=== PATIENT | male | born 1955 | race Caucasian/White ===

== ENCOUNTER 2020-09-23 08:01 | Outpatient (REF) | payer MEDICARE, SELFPAY ==
--- NOTE | ~2020-09-23 | XR_ITS ---
EXAMINATION: XR CHEST CLINICAL INFORMATION: Edema and hypertension COMPARISON: None TECHNIQUE: 2 views of the chest were obtained. FINDINGS: The cardiac and mediastinal contours are normal. The lungs are clear. There is no pleural effusion or pneumothorax. There are degenerative changes and curvature of the midthoracic spine to the right. There are old right upper rib fractures. XR/XR chest 2V IMPRESSION: No evidence for acute disease in the chest.
[2020-09-23 11:20] LABS: MANUAL DIFF FLAG NO
[2020-09-23 11:28] LABS: Basophils Percent Auto 0.4 % (0-2); Eosinophils Absolute Auto 0.3 X10*3/uL (0.0-0.4); Eosinophils Percent Auto 2.9 % (0-4); Hematocrit 46.4 % (42-52); Hemoglobin 15.6 g/dl (14.0-18.0); Imm Gran Abs Auto 0.04 X10*3/uL (0.00-0.03); Imm Gran Pct Auto 0.4 % (0.0-0.4); Lymphocytes Absolute Auto 1.8 X10*3/uL (1.2-4.9); Lymphocytes Percent Auto 17.9 % (20-40); Mean Corpuscular HGB Conc 33.6 g/dl (31.0-36.0); Mean Corpuscular Hemoglobin 28.5 pg (27.0-33.0); Mean Corpuscular Volume 84.7 fL (80-98); Mean Platelet Volume 10.1 fL (9.4-12.4); Monocytes Absolute Auto 0.9 X10*3/uL (0.1-1.2); Monocytes Percent Auto 8.6 % (2-11); Neutrophils Percent Auto 69.8 % (45-73); Platelet Count 266 X10*3/uL (160-400); Red Blood Count 5.48 X10*6/uL (4.60-5.80); Red Cell Distribution Width 13.2 % (11.0-16.0); White Blood Count 10.1 X10*3/uL (4.8-10.8)
[2020-09-23 11:37] LABS: Estimated Average Glucose 180 mg/dL; Hemoglobin A1c % 7.9 %
[2020-09-23 11:41] LABS: Glucose Urine UA NEG (NEG); Leukocyte Esterase Urine NEG (NEG); Nitrite Urine NEG (NEG); PH 7.5 (5.0-8.0); Specific Gravity - Urine 1.015 (1.005-1.025); Urine Blood NEG (NEG); Urine Ketones NEG (NEG); Urine Protein NEG (NEG-TRACE)
[2020-09-23 11:51] LABS: B Type Natriuretic Peptide 126 pg/mL (<100)
[2020-09-23 11:53] LABS: Appearance Urine CLEAR; Color Urine STRAW
[2020-09-23 12:01] LABS: Alanine Aminotransferase 22 U/L (0-40); Albumin Level 4.2 g/dL (3.5-5.0); Alkaline Phosphatase 95 U/L (39-117); Anion Gap 16 (12-20); Aspartate Amino Transferase 17 U/L (5-37); Blood Urea Nitrogen 29 mg/dL (9-16); Calcium 9.5 mg/dL (8.4-10.2); Carbon Dioxide 29 mmol/L (22-29); Chloride 95 mmol/L (96-108); Estimated Glomerular Filt Rate > 60; Glucose Random 154 mg/dL (60-115); Potassium 4.4 mmol/L (3.3-5.1); Sodium 136 mmol/L (135-145); Total Protein 7.5 g/dL (6.5-8.0)
[2020-09-23 12:07] LABS: Thyroid Stimulating Hormone 3.33 uIU/mL (0.32-4.0)
[2020-09-23 12:23] LABS: Creatinine Urine 15.04 mg/dL
== END 2020-09-23 08:02 | disposition home or self-care (01) ==
LOC: HO.HMGCX 08:01
PROVIDERS: PCP Internal Medicine; Visit Provider Internal Medicine
DX: R60.0 Localized edema (principal); I10 Essential (primary) hypertension; E78.00 Pure hypercholesterolemia, unspecified; E11.9 Type 2 diabetes mellitus without complications
CPT/HCPCS: 36415; 71046; 80053; 81003; 82043; 83036; 83880; 84443; 85025

== ENCOUNTER → 2020-10-04 07:58 | Outpatient (REF) | payer MEDICARE, SELFPAY ==
--- NOTE | 2020-10-04 08:02 | CA_ITS ---
Transthoracic Echocardiogram Patient (Last, First, Middle): Kali Garza, Gender: Male Date of : 1955 Age: 65 Procedure Date: 10/04/2020 Procedure Type: Transthoracic Echocardiogram Location: OP Height: 175.26 cm Weight: 116.12 kg BSA: 2.29 m2 Heart Rate: bpm BP: 120 / 70 mmHg Health Outreach Worker: AROLDO Referring MD: Kip Jimenez MD DO Symptoms: HTN Conclusions: - 1. Normal LV systolic function with grade 1 diastolic dysfunction 2. Moderately dilated right ventricle with mild systolic dysfunction 3. Mzne-ki-lsyxmzrk aortic stenosis 4. RV systolic pressure may be underestimated on this study 5. No pericardial effusion Findings Left Ventricle Normal left ventricular size, thickness, and systolic function. The visually estimated ejection fraction is between 60-65%. Spectral Doppler is indicative of an impaired relaxation filling pattern. E/E prime ratio is <8, consistent with normal filling pressures. Right Ventricle Moderately increased right ventricular cavity size. There is mildly decreased right ventricular systolic function. Atria The left atrium is normal in size. Interatrial shunt cannot be excluded. The right atrium is mildly dilated. Aortic Valve There is moderate calcification of the aortic valve. There is mild to moderate aortic valve stenosis. There is no aortic valve regurgitation. Mitral Valve There is mild anterior and posterior mitral leaflet thickening. There is trace mitral valve regurgitation. There is no mitral valve stenosis. Pulmonic Valve The pulmonic valve was not well visualized. Tricuspid Valve Likely normal tricuspid valve structure and function. There is mild tricuspid valve regurgitation. Tricuspid regurgitation envelope is inadequate for calculation of right ventricular systolic pressure. The right ventricular systolic pressure is 24 mmHg. Great Vessels All visible segments of the aorta are normal in size. The pulmonary artery was not well visualized. Venous The inferior vena cava is normal in size and collapses greater than 50% with inspiration. Pericardium/Pleural Prominent epicardial adipose tissue noted. Prior Study Comparison No previous study in the last 5 years for comparison Measurements M-Mode Liner Measurements Normals - Women/Men IVSd: 1.46 0.6-0.9/0.6-1.0 cm 2D Linear Measurements IVSd: 1.04 0.6-0.9/0.6-1.0 cm LVIDd: 4.20 3.9-5.3/4.2-5.9 cm LVIDd Index: 1.83 2.4-3.2/2.2-3.1 cm/m2 LVIDs: 2.69 2.0-3.6 cm LVPWd: 0.96 0.7-1.1 cm Ao Root: 3.10 2.1-3.5 cm LA Diam: 3.60 2.7-3.8/3.0-4.0 cm LAIDs Index: 1.57 1.5-2.3 cm/m2 LV Mass: 264.60 67-162/88-224 g LV Mass Index: 115.54 43-95/49-115 g/m2 LVOT Diam: 2.10 3.0+(-)1.3 cm 2D Systolic Function EF 4C: 79.90 >55% Mitral Valve MV Pk E: 0.62 MV PK A: 1.05 MV Decel Time: 152.00 E/A: 0.60 E'Lateral: 8.05 E'Medial: 4.57 E/E' Med: 13.70 E/E' Lat: 7.80 PHT: 45.00 MVA PHT: 4.89 Decel Davison: 4.10 Aortic Valve AoV Pk Jhonathan: 2.79 AoV Mn Jhonathan: 1.99 AoV VTI: 0.58 AoV Pk Grad: 31.00 Aov Mn Grad: 18.00 JESUS Cont.VTI: 1.62 LVOT LVOT Pk Jhonathan: 1.22 LVOT Mn Jhonathan: 0.87 LVOT VTI: 0.27 LVOT Pk Grad: 6.00 LVOT Mn Grad: 3.00 LVOT Diam: 2.10 LVOT Area: 3.46 Diastolic Function MV Pk E: 0.62 MV Pk A: 1.05 E/A: 0.60 E'Medial: 4.57 E/E' Med: 13.70 E' Laterial: 8.05 E/E' Lat: 7.80 Tricuspid Valve TR Pk Jhonathan: 2.32 TR Pk Grad: 21.00 RA Press: 3.00 RVSP: 24.00 Great Vessels Aorta Ao Root-2D: 3.10 2.0-3.7 cm Ao Asc: 3.50 2.1-3.4 cm Updated in Other Vendor System with Status of Final Jamie Dukes MD electronically signed on 10/04/2020 1:52:05 PM with status of Final
--- NOTE | 2020-10-04 08:02 | ECG_ITS ---
Test Reason : HTN Blood Pressure : / mmHG Vent. Rate : 074 BPM Atrial Rate : 074 BPM P-R Int : 194 ms QRS Dur : 148 ms QT Int : 406 ms P-R-T Axes : 083 -47 016 degrees QTc Int : 450 ms Normal sinus rhythm with sinus arrhythmia Right bundle branch block Left anterior fascicular block Bifascicular block Abnormal ECG When compared with ECG of 01-SEP-2014 14:07, Left anterior fascicular block is now Present Referred By: Kip Jimenez Electronically Signed By:CLARICE CASTRO MD
== END ==
LOC: HO.CARD 07:58
PROVIDERS: PCP Internal Medicine; Visit Provider Internal Medicine
DX: R60.0 Localized edema (principal); I10 Essential (primary) hypertension
CPT/HCPCS: 93005; 93306; Q9957

== ENCOUNTER → 2020-10-07 14:14 | Outpatient (BNVA) | payer MEDICARE, SELFPAY | PROVIDERS: PCP Internal Medicine; Visit Provider Internal Medicine Cardiovascular Disease | DX: R06.00 Dyspnea, unspecified (principal); I35.0 Nonrheumatic aortic (valve) stenosis; I51.7 Cardiomegaly | CPT/HCPCS: 99202 ==

== ENCOUNTER → 2020-10-18 09:38 | Outpatient (REF) | payer MEDICARE, SELFPAY ==
--- NOTE | ~2020-10-18 | NM_ITS ---
Lexiscan Myocardial perfusion study Indication: Shortness of breath, coronary risk factors, assess for ischemia Technique: The patient was brought in for a Lexiscan perfusion study on 10/18/2020 and was injected 0.4 mg of Lexiscan intravenously. Within a minute of this injection 45 mCi of sestamibi was given intravenously. Images were obtained using the SPECT gamma camera interlaced with the gating device. Images were obtained in supine position. Resting perfusion study was performed on 10/20/2020. Patient was administered 45 mCi of sestamibi intravenously at rest. Images were then obtained in supine position. Total DLP 166mGy-cm. Images were processed with the software and compared side to side in short axis, horizontal long axis and vertical long axis views. Findings: Raw acquisition was reviewed. The stress perfusion study showed mildly diminished tracer uptake in the basal inferior wall. With CT attenuation correction, this area still has perfusion defect. The gated study shows normal LV systolic function with calculated LVEF of 62%. LV cavity is normal in size. The gated study shows normal wall thickening and contraction of segments. Resting study shows mildly diminished tracer uptake in the basal inferior wall. Gating at rest reveals normal wall motion with ejection fraction at 57%. The findings are consistent with no reversible defects. Mild fixed defect in the basal inferior wall. NM/NM cardiolite stress test Impression: 1. Myocardial perfusion imaging study shows no evidence of any ischemia. Mild fixed defect in the basal inferior wall, likely from diaphragmatic artifact. 2. Gated LVEF is 62% during stress and 57% during rest. 3. Transient ischemic dilatation not present. EKG component of the test reported separately.
--- NOTE | 2020-10-18 10:00 | CA_ITS ---
Acquisition Time: 2020-10-18 11:21:49 Total Exercise Time: 00:02:00 Test Indications: Dyspnea Medications: ASA ATORVASTATIN FUROSEMIDE LOSARTAN METFORMIN VIT D Protocol: LEXISCAN Max HR: 086 BPM 56% of Pred: 153 BPM Max BP: 132/064 mmHG Max Work Load: 1.0 METS Pharmacological stress test using Lexiscan. Denies anginal sx. EKG with isolated PVC's. Non-diagnostic for ischemia. Nuclear images to follow. Normotensive response to test. Test reviewed with Dr. Dukes. Referred By: Jamie Dukes Overread By:
== END ==
LOC: HO.CARD 09:38
PROVIDERS: Visit Provider Internal Medicine Cardiovascular Disease
DX: R06.00 Dyspnea, unspecified (principal); I10 Essential (primary) hypertension
CPT/HCPCS: 78452; 93016; 93017; 93018; 93350; A9500; J0280; J2785

== ENCOUNTER → 2020-10-26 08:52 | Outpatient (REF) | payer MEDICARE, SELFPAY | LOC: HO.SL 08:52 | PROVIDERS: PCP Internal Medicine; Visit Provider Internal Medicine Cardiovascular Disease | DX: G47.30 Sleep apnea, unspecified (principal); R06.00 Dyspnea, unspecified | CPT/HCPCS: 95806 ==

== ENCOUNTER → 2020-11-08 09:19 | Outpatient (BNVA) | payer MEDICARE, SELFPAY | PROVIDERS: PCP Internal Medicine; Visit Provider Internal Medicine Cardiovascular Disease | DX: I50.810 Right heart failure, unspecified (principal); I51.7 Cardiomegaly; I35.0 Nonrheumatic aortic (valve) stenosis; G47.30 Sleep apnea, unspecified; Z79.899 Other long term (current) drug therapy; Z87.891 Personal history of nicotine dependence | CPT/HCPCS: 99212 ==

== ENCOUNTER 2020-11-18 06:31 | Outpatient (REF) | payer MEDICARE, SELFPAY ==
[2020-11-18 11:50] LABS: B Type Natriuretic Peptide 88 pg/mL (<100)
[2020-11-18 12:18] LABS: Anion Gap 16 (12-20); Blood Urea Nitrogen 44 mg/dL (9-16); Calcium 9.4 mg/dL (8.4-10.2); Carbon Dioxide 29 mmol/L (22-29); Chloride 94 mmol/L (96-108); Estimated Glomerular Filt Rate > 60; Glucose Random 184 mg/dL (60-115); Potassium 4.2 mmol/L (3.3-5.1); Sodium 135 mmol/L (135-145)
== END 2020-11-18 06:32 | disposition home or self-care (01) ==
LOC: HO.HMGCLDS 06:31
PROVIDERS: Visit Provider Internal Medicine Cardiovascular Disease
DX: I50.810 Right heart failure, unspecified (principal)
CPT/HCPCS: 36415; 80048; 83880

== ENCOUNTER → 2020-12-07 20:33 | Outpatient (REF) | payer MEDICARE, SELFPAY | LOC: HO.SL 20:33 | PROVIDERS: PCP Internal Medicine; Visit Provider Psychiatry & Neurology Neurology | DX: G47.33 Obstructive sleep apnea (adult) (pediatric) (principal); R40.0 Somnolence; I10 Essential (primary) hypertension; I35.0 Nonrheumatic aortic (valve) stenosis | CPT/HCPCS: 95811 ==

== ENCOUNTER → 2020-12-23 08:58 | Outpatient (BNVA) | payer MEDICARE, SELFPAY | PROVIDERS: PCP Internal Medicine; Visit Provider Internal Medicine Cardiovascular Disease | DX: I50.810 Right heart failure, unspecified (principal); I35.0 Nonrheumatic aortic (valve) stenosis | CPT/HCPCS: 99212 ==

== ENCOUNTER → 2021-01-17 10:05 | Outpatient (BNVA) | payer MEDICARE, SELFPAY | PROVIDERS: PCP Internal Medicine; Visit Provider Internal Medicine | DX: G47.33 Obstructive sleep apnea (adult) (pediatric) (principal); E66.9 Obesity, unspecified; I50.810 Right heart failure, unspecified; I35.0 Nonrheumatic aortic (valve) stenosis; G47.34 Idiopathic sleep related nonobstructive alveolar hypoventilation | CPT/HCPCS: 99202 ==

== ENCOUNTER 2021-02-15 08:58 | Outpatient (REF) | payer MEDICARE, SELFPAY ==
--- NOTE | 2021-02-15 09:54 | PFT_ITS ---
INDICATION: Dyspnea. SPIROMETRY: The FEV1 to FVC 75% with an FEV1 of 2.1 L, which is 65% predicted, FVC of 2.8, which is 64% predicted. No significant response to bronchodilators noted. Maximum voluntary ventilation 62% predicted. LUNG VOLUMES: Total lung capacity 77% predicted. Expiratory reserve volume of 55% predicted. DIFFUSION CAPACITY: DLCO 36% predicted. COMPARISONS: Not available. INTERPRETATION: No obstructive ventilatory defects identified. No significant response to bronchodilators noted. There is a djbp-xm-proeianz decrease in maximum voluntary ventilation secondary to likely deconditioning. Lung volumes do demonstrate a mild restrictive ventilatory defect, also with a decrease in the expiratory reserve volume, which could be secondary to an elevated BMI, although interstitial lung conditions and/or neuromuscular conditions cannot be ruled out. The patient does have a severe diffusion impairment. Need to consider underlying interstitial lung conditions and/or pulmonary vascular conditions. Clinical correlation warranted. MD KARAN Saleh/JORGE / [phone]
== END 2021-02-15 08:59 | disposition home or self-care (01) ==
LOC: HO.RESP 08:58
PROVIDERS: PCP Internal Medicine; Visit Provider Internal Medicine
DX: G47.33 Obstructive sleep apnea (adult) (pediatric) (principal); G47.34 Idiopathic sleep related nonobstructive alveolar hypoventilation; E66.9 Obesity, unspecified
CPT/HCPCS: 94060; 94727; 94729

== ENCOUNTER → 2021-02-22 08:52 | Outpatient (BNVA) | payer MEDICARE, SELFPAY | PROVIDERS: PCP Internal Medicine; Visit Provider Internal Medicine | DX: G47.33 Obstructive sleep apnea (adult) (pediatric) (principal); G47.34 Idiopathic sleep related nonobstructive alveolar hypoventilation; E66.9 Obesity, unspecified; I50.810 Right heart failure, unspecified | CPT/HCPCS: 99212 ==

== ENCOUNTER → 2021-04-03 08:06 | Outpatient (REF) | payer MEDICARE, SELFPAY ==
--- NOTE | 2021-04-03 08:09 | CA_ITS ---
Transthoracic Echocardiogram Patient (Last, First, Middle): Kali Garza, Gender: Male Date of : 1955 Age: 65 Procedure Date: 04/03/2021 Procedure Type: Transthoracic Echocardiogram Location: OP Height: 175.26 cm Weight: 109.77 kg BSA: 2.24 m2 Heart Rate: bpm BP: 132 / 62 mmHg Tile Professional: Referring MD: Jamie Dukes MD Symptoms: I42.9 - Cardiomyopathy, unspecified Study Quality: Fair ECG Rhythm: Sinus Conclusions: - The left ventricular systolic function is normal. The visually estimated ejection fraction is between 65-70%. - Based on limited visualization of right ventricle, probably mild to moderately enlarged. Findings Procedure Information Contrast agent, definity, is being given per protocol without apparent complications. Left Ventricle Normal left ventricular cavity size. There is normal left ventricular wall thickness. The left ventricular systolic function is normal. The visually estimated ejection fraction is between 65-70%. There is no evidence of regional wall motion abnormalities. Right Ventricle Based on limited visualization of right ventricle, probably mild to moderately enlarged. Prior Study Comparison No significant change compared to prior study dated: 10/04/2020. Measurements 2D Linear Measurements LVIDd: 4.06 3.9-5.3/4.2-5.9 cm LVIDd Index: 1.81 2.4-3.2/2.2-3.1 cm/m2 LVIDs: 2.74 2.0-3.6 cm LVPWd: 0.95 0.7-1.1 cm 2D Systolic Function EF 4C: 46.50 >55% EF 2C: 50.50 >55% EF BiP: 48.00 >55% Mitral Valve MV Pk E: 0.62 MV PK A: 0.94 MV Decel Time: 293.00 E/A: 0.70 E'Lateral: 7.29 E'Medial: 4.03 E/E' Med: 15.40 E/E' Lat: 8.50 Diastolic Function MV Pk E: 0.62 MV Pk A: 0.94 E/A: 0.70 E'Medial: 4.03 E/E' Med: 15.40 E' Laterial: 7.29 E/E' Lat: 8.50 Updated in Other Vendor System with Status of Final Mele Aparicio MD electronically signed on 04/03/2021 12:31:45 PM with status of Final
== END ==
LOC: HO.CARD 08:06
PROVIDERS: Visit Provider Internal Medicine Cardiovascular Disease
DX: I42.9 Cardiomyopathy, unspecified (principal); I51.7 Cardiomegaly
CPT/HCPCS: 93308; Q9957

== ENCOUNTER 2021-04-24 06:19 | Outpatient (REF) | payer MEDICARE, SELFPAY ==
[2021-04-24 11:20] LABS: Appearance Urine CLEAR; Color Urine YELLOW; Glucose Urine UA NEG (NEG); Leukocyte Esterase Urine NEG (NEG); Nitrite Urine NEG (NEG); Urine Blood NEG (NEG); Urine Ketones NEG (NEG); Urine Protein NEG (NEG-TRACE)
[2021-04-24 11:25] LABS: MANUAL DIFF FLAG NO
[2021-04-24 11:35] LABS: Basophils Absolute Auto 0.1 X10*3/uL (0.0-0.2); Basophils Percent Auto 0.5 % (0-2); Eosinophils Absolute Auto 0.2 X10*3/uL (0.0-0.4); Eosinophils Percent Auto 2.4 % (0-4); Hematocrit 38.3 % (42-52); Hemoglobin 13.3 g/dl (14.0-18.0); Imm Gran Abs Auto 0.04 X10*3/uL (0.00-0.03); Imm Gran Pct Auto 0.4 % (0.0-0.4); Lymphocytes Absolute Auto 1.3 X10*3/uL (1.2-4.9); Lymphocytes Percent Auto 13.6 % (20-40); Mean Corpuscular HGB Conc 34.7 g/dl (31.0-36.0); Mean Corpuscular Hemoglobin 30.6 pg (27.0-33.0); Mean Platelet Volume 10.1 fL (9.4-12.4); Monocytes Absolute Auto 0.8 X10*3/uL (0.1-1.2); Monocytes Percent Auto 8.1 % (2-11); Platelet Count 220 X10*3/uL (160-400); Red Blood Count 4.35 X10*6/uL (4.60-5.80); Red Cell Distribution Width 12.8 % (11.0-16.0); White Blood Count 9.4 X10*3/uL (4.8-10.8)
[2021-04-24 11:37] LABS: RBC Urine 0-2 /HPF (0); WBC Urine 0 /HPF (0-4)
[2021-04-24 11:54] LABS: Estimated Average Glucose 134 mg/dL; Hemoglobin A1c % 6.3 %
[2021-04-24 11:59] LABS: Alanine Aminotransferase 22 U/L (0-40); Albumin Level 4.1 g/dL (3.5-5.0); Alkaline Phosphatase 76 U/L (39-117); Anion Gap 17 (12-20); Aspartate Amino Transferase 21 U/L (5-37); Blood Urea Nitrogen 40 mg/dL (9-16); Calcium 9.5 mg/dL (8.4-10.2); Carbon Dioxide 26 mmol/L (22-29); Chloride 98 mmol/L (96-108); Cholesterol 154 mg/dL; Estimated Glomerular Filt Rate 50; Glucose Fasting 120 mg/dL (60-99); HDL Cholesterol 42 mg/dL; LDL Cholesterol Calculated 78 mg/dl; Potassium 4.5 mmol/L (3.3-5.1); Sodium 136 mmol/L (135-145); Total Protein 6.9 g/dL (6.5-8.0); Triglycerides 174 mg/dL
[2021-04-24 12:00] LABS: PSA,Total (Free>4and<10) 0.93 ng/mL (0.00-4.00); Thyroid Stimulating Hormone 2.96 uIU/mL (0.32-4.0); Vitamin D 25-OH Total 40.6 ng/mL (>30)
[2021-04-24 12:12] LABS: Bilirubin Total 0.8 mg/dL (0.0-1.0)
[2021-04-24 12:22] LABS: Creatinine Urine 76.83 mg/dL; Microalbum/Creatinine Ratio Ur 27.3 ug/mg cr
== END 2021-04-24 06:20 | disposition home or self-care (01) ==
LOC: HO.HMGCLDS 06:19
PROVIDERS: PCP Internal Medicine; Visit Provider Internal Medicine
DX: I50.810 Right heart failure, unspecified (principal); I35.0 Nonrheumatic aortic (valve) stenosis; I10 Essential (primary) hypertension; E11.9 Type 2 diabetes mellitus without complications; E78.00 Pure hypercholesterolemia, unspecified; E55.9 Vitamin D deficiency, unspecified; E66.01 Morbid (severe) obesity due to excess calories; Z79.899 Other long term (current) drug therapy; Z79.84 Long term (current) use of oral hypoglycemic drugs
CPT/HCPCS: 36415; 80053; 80061; 81001; 82043; 82306; 83036; 84153; 84443; 85025; 99212

== ENCOUNTER → 2021-05-31 09:13 | Outpatient (BNVA) | payer MEDICARE, SELFPAY | PROVIDERS: PCP Internal Medicine; Visit Provider Internal Medicine | DX: G47.33 Obstructive sleep apnea (adult) (pediatric) (principal); G47.34 Idiopathic sleep related nonobstructive alveolar hypoventilation; E66.9 Obesity, unspecified; Z68.35 Body mass index [BMI] 35.0-35.9, adult | CPT/HCPCS: 99212 ==

== ENCOUNTER → 2021-10-27 08:23 | Outpatient (REF) | payer MEDICARE, SELFPAY ==
--- NOTE | 2021-10-27 08:26 | CA_ITS ---
Transthoracic Echocardiogram Patient (Last, First, Middle): Kali Garza M Gender: Male Date of : 1955 Age: 66 Procedure Date: 10/27/2021 Procedure Type: Transthoracic Echocardiogram Location: OP Height: 175.26 cm Weight: 103.42 kg BSA: 2.18 m2 Heart Rate: bpm BP: 130 / 65 mmHg Children'S Attendant: GERALDO Referring MD: Jamie Dukes MD Symptoms: I50.810 - Right heart failure, unspecified Study Quality: Fair ECG Rhythm: Sinus Conclusions: - The left ventricular systolic function is normal. The calculated ejection fraction is 67% by biplane method. - Jznk-ku-fxizraqz enlargement of the right ventricle. - There is mild to moderate aortic valve stenosis. - Mild pulmonary hypertension is present. - There is mild dilatation of the ascending aorta measuring 4.00 cm. Findings Procedure Information Contrast agent, definity, is being given per protocol without apparent complications. Left Ventricle Normal left ventricular cavity size. There is mildly increased left ventricular wall thickness. The left ventricular systolic function is normal. The calculated ejection fraction is 67% by biplane method. There is no evidence of regional wall motion abnormalities. E/E prime ratio is between 8 and 15 consistent with indeterminate filling pressures. Evidence suggests grade I (mild) diastolic dysfunction. Right Ventricle There is normal right ventricular systolic function. Ntnq-vp-jxgunmjq enlargement of the right ventricle. Atria Both atria are normal in size. Aortic Valve There is moderate calcification of the aortic valve. There is mild to moderate aortic valve stenosis. The peak aortic velocity is 3.29 m/s with a calculated peak gradient of 43 mmHg. The mean gradient is 25 mmHg. The aortic valve area is 1.52 cm2. There is trace (trivial) aortic valve regurgitation. Dimensionless index 0.42. Stroke volume index 55 cc. Mitral Valve The mitral valve appears normal. There is mild mitral annular calcification. There is no mitral valve stenosis. Pulmonic Valve There is mild pulmonic valve regurgitation. Tricuspid Valve Normal tricuspid valve structure. There is trace tricuspid valve regurgitation. The right ventricular systolic pressure is 36 mmHg. Mild pulmonary hypertension is present. Great Vessels There is mild dilatation of the ascending aorta measuring 4.00 cm. Venous The inferior vena cava is dilated and collapses greater than 50% with inspiration. Pericardium/Pleural There is a trivial pericardial effusion. No significant pericardial effusion. Prior Study Comparison Changes noted compared to prior study dated: 10/04/2020. Prior study was limited. On comparison with earlier complete study, progression of aortic valve stenosis. Increase in ascending aortic size. Measurements 2D Linear Measurements IVSd: 1.08 0.6-0.9/0.6-1.0 cm LVIDd: 4.61 3.9-5.3/4.2-5.9 cm LVIDd Index: 2.11 2.4-3.2/2.2-3.1 cm/m2 LVIDs: 3.35 2.0-3.6 cm LVPWd: 1.05 0.7-1.1 cm LA Diam: 4.00 2.7-3.8/3.0-4.0 cm LAIDs Index: 1.83 1.5-2.3 cm/m2 LV Mass: 216.54 67-162/88-224 g LV Mass Index: 99.33 43-95/49-115 g/m2 LVOT Diam: 2.10 3.0+(-)1.3 cm 2D Systolic Function EF 4C: 65.40 >55% EF 2C: 70.30 >55% EF BiP: 67.00 >55% Mitral Valve MV Pk E: 0.67 MV PK A: 1.30 MV Decel Time: 330.00 E/A: 0.50 E'Lateral: 7.94 E'Medial: 4.79 E/E' Med: 13.90 E/E' Lat: 8.40 PHT: 97.00 MVA PHT: 2.27 Decel Hamblen: 2.02 Aortic Valve AoV Pk Jhonathan: 3.29 AoV Mn Jhonathan: 2.36 AoV VTI: 0.79 AoV Pk Grad: 43.00 Aov Mn Grad: 25.00 JESUS Cont.VTI: 1.52 LVOT LVOT Pk Jhonathan: 1.39 LVOT Mn Jhonathan: 1.04 LVOT VTI: 0.35 LVOT Pk Grad: 8.00 LVOT Mn Grad: 5.00 LVOT Diam: 2.10 LVOT Area: 3.46 Diastolic Function MV Pk E: 0.67 MV Pk A: 1.30 E/A: 0.50 E'Medial: 4.79 E/E' Med: 13.90 E' Laterial: 7.94 E/E' Lat: 8.40 Right Ventricle TAPSE (mm): 21.00 TVS' Jhonathan: 8.00 Tricuspid Valve TR Pk Jhonathan: 2.65 TR Pk Grad: 28.00 RA Press: 8.00 RVSP: 36.00 Great Vessels Aorta Sinus of Valsalva: 3.80 2.0-3.5 cm Ao Asc: 4.00 2.1-3.4 cm Updated in Other Vendor System with Status of Final Mele Aparicio MD electronically signed on 10/29/2021 12:34:53 PM with status of Final
== END ==
LOC: HO.CARD 08:23
PROVIDERS: PCP Internal Medicine; Visit Provider Internal Medicine Cardiovascular Disease
DX: I50.810 Right heart failure, unspecified (principal)
CPT/HCPCS: 93306; Q9957

== ENCOUNTER → 2021-10-30 08:24 | Outpatient (BNVA) | payer MEDICARE, SELFPAY | PROVIDERS: PCP Internal Medicine; Visit Provider Internal Medicine Cardiovascular Disease | DX: I50.810 Right heart failure, unspecified (principal); I35.0 Nonrheumatic aortic (valve) stenosis | CPT/HCPCS: 99212 ==

== ENCOUNTER → 2021-12-06 08:58 | Outpatient (BNVA) | payer MEDICARE, SELFPAY | PROVIDERS: PCP Internal Medicine; Visit Provider Internal Medicine | DX: G47.33 Obstructive sleep apnea (adult) (pediatric) (principal); G47.36 Sleep related hypoventilation in conditions classified elsewhere; E66.9 Obesity, unspecified; Z68.33 Body mass index [BMI] 33.0-33.9, adult | CPT/HCPCS: 99212 ==

== ENCOUNTER → 2022-04-03 10:07 | Outpatient (BNVA) | payer MEDICARE, SELFPAY | PROVIDERS: PCP Internal Medicine; Visit Provider Internal Medicine | DX: G47.34 Idiopathic sleep related nonobstructive alveolar hypoventilation (principal); G47.33 Obstructive sleep apnea (adult) (pediatric); E66.9 Obesity, unspecified; I50.9 Heart failure, unspecified; Z99.81 Dependence on supplemental oxygen; Z79.899 Other long term (current) drug therapy | CPT/HCPCS: 99212 ==

== ENCOUNTER 2022-05-03 06:23 | Outpatient (REF) | payer MEDICARE, SELFPAY ==
[2022-05-03 11:13] LABS: MANUAL DIFF FLAG NO
[2022-05-03 11:25] LABS: Basophils Percent Auto 0.5 % (0-2); Eosinophils Absolute Auto 0.3 X10*3/uL (0.0-0.4); Eosinophils Percent Auto 3.2 % (0-4); Hematocrit 39.4 % (42.0-52.0); Hemoglobin 13.5 g/dl (14.0-18.0); Imm Gran Abs Auto 0.02 X10*3/uL (0.00-0.03); Imm Gran Pct Auto 0.2 % (0.0-0.4); Lymphocytes Absolute Auto 1.4 X10*3/uL (1.2-4.9); Lymphocytes Percent Auto 16.6 % (20-40); Mean Corpuscular HGB Conc 34.3 g/dl (31.0-36.0); Mean Corpuscular Volume 87.6 fL (80.0-98.0); Mean Platelet Volume 9.8 fL (9.4-12.4); Monocytes Absolute Auto 0.7 X10*3/uL (0.1-1.2); Monocytes Percent Auto 8.1 % (2-11); Neutrophils Absolute Auto 6.2 x10*3/uL (2.0-8.3); Neutrophils Percent Auto 71.4 % (45-73); Platelet Count 233 X10*3/uL (160-400); Red Cell Distribution Width 13.1 % (11.0-16.0); White Blood Count 8.7 X10*3/uL (4.8-10.8)
[2022-05-03 11:30] LABS: Estimated Average Glucose 114 mg/dL; Hemoglobin A1c % 5.6 %
[2022-05-03 11:48] LABS: Alanine Aminotransferase 18 U/L (0-40); Albumin Level 4.3 g/dL (3.5-5.0); Anion Gap 16 (12-20); Aspartate Amino Transferase 17 U/L (5-37); Blood Urea Nitrogen 31 mg/dL (9-16); Calcium 9.7 mg/dL (8.4-10.2); Carbon Dioxide 25 mmol/L (22-29); Chloride 100 mmol/L (96-108); Cholesterol 161 mg/dL; Estimated Glomerular Filt Rate > 60; Glucose Fasting 123 mg/dL (60-99); Potassium 4.8 mmol/L (3.3-5.1); Sodium 136 mmol/L (135-145); Total Protein 7.3 g/dL (6.5-8.0); Triglycerides 131 mg/dL
[2022-05-03 11:49] LABS: Alkaline Phosphatase 71 U/L (39-117); HDL Cholesterol 45 mg/dL; LDL Cholesterol Calculated 90 mg/dl
[2022-05-03 12:14] LABS: Thyroid Stimulating Hormone 2.71 uIU/mL (0.32-4.0); Vitamin D 25-OH Total 45.9 ng/mL (>30)
[2022-05-03 12:22] LABS: Creatinine Urine 10.34 mg/dL
== END 2022-05-03 06:24 | disposition home or self-care (01) ==
LOC: HO.HMGCLDS 06:23
PROVIDERS: PCP Internal Medicine; Visit Provider Internal Medicine
DX: E11.9 Type 2 diabetes mellitus without complications (principal); I10 Essential (primary) hypertension; E78.00 Pure hypercholesterolemia, unspecified; E55.9 Vitamin D deficiency, unspecified; G47.33 Obstructive sleep apnea (adult) (pediatric); G62.9 Polyneuropathy, unspecified; E66.09 Other obesity due to excess calories; Z68.32 Body mass index [BMI] 32.0-32.9, adult
CPT/HCPCS: 36415; 80053; 80061; 82043; 82306; 83036; 84443; 85025

== ENCOUNTER → 2022-06-28 09:25 | Outpatient (BNVA) | payer MEDICARE, SELFPAY | PROVIDERS: PCP Internal Medicine; Visit Provider Internal Medicine | DX: G47.33 Obstructive sleep apnea (adult) (pediatric) (principal); G47.34 Idiopathic sleep related nonobstructive alveolar hypoventilation; E66.9 Obesity, unspecified; Z68.31 Body mass index [BMI] 31.0-31.9, adult | CPT/HCPCS: 99212 ==

== ENCOUNTER → 2022-10-15 07:42 | Outpatient (REF) | payer MEDICARE, SELFPAY ==
--- NOTE | 2022-10-15 08:00 | CA_ITS ---
Transthoracic Echocardiogram Patient (Last, First, Middle): Kali Garza M Gender: Male Date of : 1955 Age: 67 Procedure Date: 10/15/2022 Procedure Type: Transthoracic Echocardiogram Location: OP Height: 177.8 cm Weight: 96.62 kg BSA: 2.14 m2 Heart Rate: 63 bpm BP: 130 / 70 mmHg [facility] Former: [facility] Referring MD: Jamie Dukes MD Symptoms: I35.0 - Nonrheumatic aortic (valve) stenosis Study Quality: Adequate/Contrast ECG Rhythm: Sinus Conclusions: - The left ventricular systolic function is normal. The calculated ejection fraction is 66% by biplane method. - There is a flattened septum in systole consistent with right ventricular pressure overload. - Moderately increased right ventricular cavity size. - There is moderate aortic valve stenosis. - Mild pulmonary hypertension is present. Findings Procedure Information Contrast agent, definity, is being given per protocol without apparent complications. Left Ventricle Normal left ventricular cavity size. There is moderately increased left ventricular wall thickness. The left ventricular systolic function is normal. The calculated ejection fraction is 66% by biplane method. There is no evidence of regional wall motion abnormalities. There is a flattened septum in systole consistent with right ventricular pressure overload. E/E prime ratio is between 8 and 15 consistent with indeterminate filling pressures. Evidence suggests grade I (mild) diastolic dysfunction. Right Ventricle Moderately increased right ventricular cavity size. There is normal right ventricular systolic function. Atria The left atrium is normal in size. The right atrium is normal in size. Aortic Valve There is moderate calcification of the aortic valve. There is moderate aortic valve stenosis. The mean gradient is 22 mmHg. The aortic valve area is 1.16 cm2. There is mild aortic valve regurgitation. Dimensionless index 0.34. Mitral Valve The mitral valve appears normal. There is no mitral valve regurgitation. There is no mitral valve stenosis. Pulmonic Valve The pulmonic valve is likely normal. Tricuspid Valve Normal tricuspid valve structure. There is mild tricuspid valve regurgitation. Mild pulmonary hypertension is present. Great Vessels The asc aorta is normal in size. Venous The inferior vena cava is dilated and collapses less than 50% with inspiration. Pericardium/Pleural There is no evidence of pericardial effusion. Prior Study Comparison Changes noted compared to prior study dated: 10/27/2021. slight progression of aortic stenosis. Measurements 2D Linear Measurements IVSd: 1.44 0.6-0.9/0.6-1.0 cm LVIDd: 3.65 3.9-5.3/4.2-5.9 cm LVIDd Index: 1.71 2.4-3.2/2.2-3.1 cm/m2 LVIDs: 2.38 2.0-3.6 cm LVPWd: 1.40 0.7-1.1 cm LA Diam: 3.70 2.7-3.8/3.0-4.0 cm LAIDs Index: 1.73 1.5-2.3 cm/m2 LV Mass: 233.72 67-162/88-224 g LV Mass Index: 109.22 43-95/49-115 g/m2 LVOT Diam: 2.00 3.0+(-)1.3 cm 2D Systolic Function EF 4C: 71.80 >55% EF 2C: 58.90 >55% EF BiP: 66.30 >55% Mitral Valve MV Pk E: 0.68 MV PK A: 1.22 MV Decel Time: 357.00 E/A: 0.60 E'Lateral: 7.07 E'Medial: 4.73 E/E' Med: 14.30 E/E' Lat: 9.60 PHT: 105.00 MVA PHT: 2.10 Decel Kidder: 1.90 Aortic Valve AoV Pk Jhonathan: 3.02 AoV Mn Jhonathan: 2.19 AoV VTI: 0.74 AoV Pk Grad: 36.00 Aov Mn Grad: 22.00 JESUS Cont.VTI: 1.16 AI Pk Jhonathan: 4.50 AI Kidder: 2.50 LVOT LVOT Pk Jhonathan: 1.09 LVOT Mn Jhonathan: 0.81 LVOT VTI: 0.27 LVOT Pk Grad: 5.00 LVOT Mn Grad: 3.00 LVOT Diam: 2.00 LVOT Area: 3.14 Diastolic Function MV Pk E: 0.68 MV Pk A: 1.22 E/A: 0.60 E'Medial: 4.73 E/E' Med: 14.30 E' Laterial: 7.07 E/E' Lat: 9.60 Right Ventricle TAPSE (mm): 18.30 TVS' Jhonathan: 7.97 Tricuspid Valve TR Pk Jhonathan: 2.78 TR Pk Grad: 31.00 RA Press: 15.00 RVSP: 46.00 Great Vessels Aorta Sinus of Valsalva: 3.50 2.0-3.5 cm Ao Asc: 3.90 2.1-3.4 cm Pulmonary Valve PV Pk Jhonathan: 0.82 Peak PV Grad: 3.00 Updated in Other Vendor System with Status of Final Mele Aparicio MD electronically signed on 10/15/2022 12:29:17 PM with status of Final
== END ==
LOC: HO.CARD 07:42
PROVIDERS: PCP Internal Medicine; Visit Provider Internal Medicine Cardiovascular Disease
DX: I35.0 Nonrheumatic aortic (valve) stenosis (principal)
CPT/HCPCS: 93306; Q9957

== ENCOUNTER 2022-11-02 06:09 | Outpatient (REF) | payer MEDICARE, SELFPAY ==
[2022-11-02 11:13] LABS: MANUAL DIFF FLAG NO
[2022-11-02 11:22] LABS: Basophils Absolute Auto 0.1 X10*3/uL (0.0-0.2); Basophils Percent Auto 0.7 % (0-2); Eosinophils Absolute Auto 0.3 X10*3/uL (0.0-0.4); Eosinophils Percent Auto 3.6 % (0-4); Hematocrit 40.3 % (42.0-52.0); Hemoglobin 13.8 g/dl (14.0-18.0); Imm Gran Abs Auto 0.02 X10*3/uL (0.00-0.03); Imm Gran Pct Auto 0.2 % (0.0-0.4); Lymphocytes Absolute Auto 2.1 X10*3/uL (1.2-4.9); Lymphocytes Percent Auto 25.8 % (20-40); Mean Corpuscular HGB Conc 34.2 g/dl (31.0-36.0); Mean Corpuscular Hemoglobin 30.7 pg (27.0-33.0); Mean Corpuscular Volume 89.6 fL (80.0-98.0); Mean Platelet Volume 10.5 fL (9.4-12.4); Monocytes Absolute Auto 0.8 X10*3/uL (0.1-1.2); Monocytes Percent Auto 9.4 % (2-11); Neutrophils Absolute Auto 4.9 x10*3/uL (2.0-8.3); Neutrophils Percent Auto 60.3 % (45-73); Platelet Count 223 X10*3/uL (160-400); Red Cell Distribution Width 13.5 % (11.0-16.0); White Blood Count 8.1 X10*3/uL (4.8-10.8)
[2022-11-02 11:32] LABS: Estimated Average Glucose 123 mg/dL; Hemoglobin A1c % 5.9 %
[2022-11-02 11:39] LABS: Appearance Urine Cloudy; Color Urine Yellow; Glucose Urine UA Negative (Negative); Leukocyte Esterase Urine Negative (Negative); Nitrite Urine Negative (Negative); PH 6.5 (5.0-9.0); Urine Blood Negative (Negative); Urine Ketones Negative (Negative); Urine Protein Trace mg/dL (Neg-Trace)
[2022-11-02 11:40] LABS: Alanine Aminotransferase 26 U/L (0-40); Albumin Level 3.9 g/dL (3.5-5.0); Alkaline Phosphatase 64 U/L (39-117); Anion Gap 14 (12-20); Aspartate Amino Transferase 22 U/L (5-37); Bilirubin Total 1.2 mg/dL (0.0-1.0); Blood Urea Nitrogen 41 mg/dL (9-16); Calcium 9.3 mg/dL (8.4-10.2); Carbon Dioxide 25 mmol/L (22-29); Chloride 100 mmol/L (96-108); Cholesterol 136 mg/dL; Estimated Glomerular Filt Rate 58; Glucose Fasting 88 mg/dL (60-99); HDL Cholesterol 45 mg/dL; LDL Cholesterol Calculated 63 mg/dl; Potassium 5.2 mmol/L (3.3-5.1); Sodium 134 mmol/L (135-145); Total Protein 6.4 g/dL (6.5-8.0); Triglycerides 141 mg/dL
[2022-11-02 11:46] LABS: Bacteria Urine None Seen (None Seen); Hyaline Casts Urine 0-2 /LPF (0-2); RBC Urine 0-2 /HPF (0-2); Squamous Epithelial Cell Urine 0-2 /HPF (0-2); WBC Urine 0-5 /HPF (0-5)
[2022-11-02 12:14] LABS: Creatinine Urine 111.28 mg/dL; Microalbum/Creatinine Ratio Ur 63.8 ug/mg cr
== END 2022-11-02 06:10 | disposition home or self-care (01) ==
LOC: HO.HMGCLDS 06:09
PROVIDERS: PCP Internal Medicine; Visit Provider Internal Medicine
DX: E11.9 Type 2 diabetes mellitus without complications (principal); I10 Essential (primary) hypertension; E78.00 Pure hypercholesterolemia, unspecified
CPT/HCPCS: 36415; 80053; 80061; 81001; 82043; 83036; 85025

== ENCOUNTER → 2022-12-25 09:28 | Outpatient (BNVA) | payer MEDICARE, SELFPAY | PROVIDERS: PCP Internal Medicine; Visit Provider Internal Medicine | DX: G47.33 Obstructive sleep apnea (adult) (pediatric) (principal); G47.34 Idiopathic sleep related nonobstructive alveolar hypoventilation; F41.9 Anxiety disorder, unspecified; E66.9 Obesity, unspecified; Z68.32 Body mass index [BMI] 32.0-32.9, adult | CPT/HCPCS: 99212 ==

== ENCOUNTER 2023-01-29 06:05 | Outpatient (REF) | payer MEDICARE, SELFPAY ==
[2023-01-29 11:23] LABS: MANUAL DIFF FLAG NO
[2023-01-29 11:41] LABS: Basophils Absolute Auto 0.1 X10*3/uL (0.0-0.2); Basophils Percent Auto 0.8 % (0-2); Eosinophils Absolute Auto 0.2 X10*3/uL (0.0-0.4); Eosinophils Percent Auto 2.4 % (0-4); Hematocrit 41.5 % (42.0-52.0); Imm Gran Abs Auto 0.02 X10*3/uL (0.00-0.03); Imm Gran Pct Auto 0.3 % (0.0-0.4); Lymphocytes Absolute Auto 1.6 X10*3/uL (1.2-4.9); Mean Corpuscular HGB Conc 33.7 g/dl (31.0-36.0); Mean Corpuscular Volume 91.8 fL (80.0-98.0); Mean Platelet Volume 10.3 fL (9.4-12.4); Monocytes Absolute Auto 0.8 X10*3/uL (0.1-1.2); Monocytes Percent Auto 10.8 % (2-11); Neutrophils Absolute Auto 5.1 x10*3/uL (2.0-8.3); Neutrophils Percent Auto 65.7 % (45-73); Platelet Count 211 X10*3/uL (160-400); Red Blood Count 4.52 X10*6/uL (4.60-5.80); Red Cell Distribution Width 13.6 % (11.0-16.0); White Blood Count 7.8 X10*3/uL (4.8-10.8)
[2023-01-29 11:52] LABS: Estimated Average Glucose 120 mg/dL; Hemoglobin A1C 152.1888 umol/L; Hemoglobin A1c % 5.8 %
[2023-01-29 11:59] LABS: Alanine Aminotransferase 20 U/L (0-40); Albumin Level 3.8 g/dL (3.5-5.0); Alkaline Phosphatase 91 U/L (39-117); Anion Gap 13 (12-20); Aspartate Amino Transferase 24 U/L (5-37); Bilirubin Total 1.4 mg/dL (0.0-1.0); Blood Urea Nitrogen 32 mg/dL (9-16); Calcium 10.1 mg/dL (8.4-10.2); Carbon Dioxide 25 mmol/L (22-29); Chloride 100 mmol/L (96-108); Estimated Glomerular Filt Rate 55; Glucose Random 109 mg/dL (60-115); Potassium 4.6 mmol/L (3.3-5.1); Sodium 133 mmol/L (135-145); Total Protein 7.1 g/dL (6.5-8.0)
[2023-01-29 13:14] LABS: Creatinine Urine 28.47 mg/dL; Microalbum/Creatinine Ratio Ur 147.5 ug/mg cr
== END 2023-01-29 06:06 | disposition home or self-care (01) ==
LOC: HO.HMGCLDS 06:05
PROVIDERS: PCP Internal Medicine; Visit Provider Internal Medicine
DX: Z00.00 Encounter for general adult medical examination without abnormal findings (principal); E11.9 Type 2 diabetes mellitus without complications; E78.00 Pure hypercholesterolemia, unspecified; I10 Essential (primary) hypertension; E55.9 Vitamin D deficiency, unspecified; G62.9 Polyneuropathy, unspecified; E66.09 Other obesity due to excess calories; I65.02 Occlusion and stenosis of left vertebral artery; G47.33 Obstructive sleep apnea (adult) (pediatric)
CPT/HCPCS: 36415; 80053; 82043; 83036; 85025

== ENCOUNTER → 2023-02-06 08:26 | Outpatient (BNVA) | payer MEDICARE, SELFPAY | PROVIDERS: PCP Internal Medicine; Referring Provider Internal Medicine; Visit Provider Internal Medicine Cardiovascular Disease | DX: I35.0 Nonrheumatic aortic (valve) stenosis (principal); I50.810 Right heart failure, unspecified; I11.0 Hypertensive heart disease with heart failure; Z86.73 Personal history of transient ischemic attack (TIA), and cerebral infarction without residual deficits; Z79.02 Long term (current) use of antithrombotics/antiplatelets | CPT/HCPCS: 93005; 99212 ==

== ENCOUNTER 2023-05-13 06:13 | Outpatient (REF) | payer MEDICARE, SELFPAY ==
[2023-05-13 11:18] LABS: MANUAL DIFF FLAG NO
[2023-05-13 11:48] LABS: Basophils Absolute Auto 0.1 X10*3/uL (0.0-0.2); Basophils Percent Auto 0.6 % (0-2); Eosinophils Absolute Auto 0.2 X10*3/uL (0.0-0.4); Eosinophils Percent Auto 2.6 % (0-4); Hematocrit 44.1 % (42.0-52.0); Hemoglobin 15.1 g/dl (14.0-18.0); Imm Gran Abs Auto 0.02 X10*3/uL (0.00-0.03); Imm Gran Pct Auto 0.2 % (0.0-0.4); Lymphocytes Absolute Auto 1.5 X10*3/uL (1.2-4.9); Mean Corpuscular HGB Conc 34.2 g/dl (31.0-36.0); Mean Corpuscular Hemoglobin 31.3 pg (27.0-33.0); Mean Corpuscular Volume 91.3 fL (80.0-98.0); Mean Platelet Volume 10.5 fL (9.4-12.4); Monocytes Absolute Auto 0.7 X10*3/uL (0.1-1.2); Monocytes Percent Auto 9.1 % (2-11); Neutrophils Absolute Auto 5.5 x10*3/uL (2.0-8.3); Neutrophils Percent Auto 68.5 % (45-73); Platelet Count 184 X10*3/uL (160-400); Red Blood Count 4.83 X10*6/uL (4.60-5.80); Red Cell Distribution Width 13.7 % (11.0-16.0); White Blood Count 8.1 X10*3/uL (4.8-10.8)
[2023-05-13 11:55] LABS: Estimated Average Glucose 123 mg/dL; Hemoglobin A1c % 5.9 % (<6.0)
[2023-05-13 12:11] LABS: Alanine Aminotransferase 23 U/L (0-40); Alkaline Phosphatase 84 U/L (39-117); Anion Gap 14 (12-20); Aspartate Amino Transferase 24 U/L (5-37); Blood Urea Nitrogen 39 mg/dL (9-16); Carbon Dioxide 24 mmol/L (22-29); Chloride 101 mmol/L (96-108); Cholesterol 130 mg/dL (<200); Estimated Glomerular Filt Rate 56; Glucose Fasting 123 mg/dL (60-99); HDL Cholesterol 43 mg/dL (>40); LDL Cholesterol Calculated 68 mg/dL (<100); Potassium 4.4 mmol/L (3.3-5.1); Sodium 135 mmol/L (135-145); Total Protein 7.3 g/dL (6.5-8.0); Triglycerides 95 mg/dL (<150)
[2023-05-13 12:54] LABS: Creatinine Urine 18.72 mg/dL; Microalbum/Creatinine Ratio Ur 197.6 ug/mg cr (<30)
== END 2023-05-13 06:14 | disposition home or self-care (01) ==
LOC: HO.HMGCLDS 06:13
PROVIDERS: PCP Internal Medicine; Visit Provider Internal Medicine
DX: E11.9 Type 2 diabetes mellitus without complications (principal); E78.00 Pure hypercholesterolemia, unspecified; E66.01 Morbid (severe) obesity due to excess calories; E55.9 Vitamin D deficiency, unspecified; I10 Essential (primary) hypertension; G62.9 Polyneuropathy, unspecified; G47.33 Obstructive sleep apnea (adult) (pediatric)
CPT/HCPCS: 36415; 80053; 80061; 82043; 82570; 83036; 85025

== ENCOUNTER 2023-09-10 10:02 | Outpatient (AMB) | payer MEDICARE, SELFPAY ==
[2023-09-10 10:07] VITALS: BP 102/52; PULSE 69; O2SAT 91; BMI 31.0
--- NOTE | 2023-09-10 10:07 | A.OFFVIS_ITS ---
Intake Vital Signs 09/10/23 10:07 Height 5 ft 10 in Weight 216 lb BMI 31.0 BP 102/52 L Blood Pressure Location Lt brachial Position Sitting Pulse 69 Pulse Source Pulse Oximeter Pulse Oximetry (%) 91 L Oxygen Delivery Method Room Air Intake Visit Reasons: Obstructive sleep apnea Intake Note: pt is here for follow up and using cpap and oxygen, stairs are difficult, he sits and it comes back. Development Expert Required: No Allergies HAYFEVER Allergy (Unknown, Uncoded 09/10/23 10:11) [facility] Medical History Anxiety Aortic stenosis Enlarged RV (right ventricle) HTN (hypertension) Hyperlipidemia Nocturnal hypoxemia Obesity (BMI 30-39.9) Obesity (BMI 30-39.9) Right heart failure Sleep apnea Surgical History History of laparoscopic cholecystectomy Hx of appendectomy Hx of tonsillectomy Family History Father CVD (cardiovascular disease) Mother Brain tumor Social History Patient Tobacco Use Status: Former Tobacco user Coding
--- NOTE | 2023-09-10 10:09 | MHC.OFFVIS ---
Intake Vital Signs 09/10/23 10:07 Height 5 ft 10 in Weight 216 lb BMI 31.0 BP 102/52 L Blood Pressure Location Lt brachial Position Sitting Pulse 69 Pulse Source Pulse Oximeter Pulse Oximetry (%) 91 L Oxygen Delivery Method Room Air Intake Visit Reasons: Obstructive sleep apnea Allergies HAYFEVER Allergy (Unknown, Uncoded 09/10/23 10:25) RUNNY NOSE Medication List - Last Reconciled 09/10/23 by Ruben Littlejohn MD aspirin (Adult Low Dose Aspirin) 81 mg PO DAILY atorvastatin 80 mg PO DAILY bumetanide 2 mg PO DAILY cholecalciferol (vitamin D3) 50 mcg PO DAILY clonazepam 1 mg PO BEDTIME PRN clopidogrel 75 mg PO DAILY empagliflozin (Jardiance) 10 mg PO DAILY gabapentin 300 mg PO DAILY losartan 100 mg PO DAILY metformin ER 750 mg PO QPM HPI Obstructive sleep apnea HPI Details MR. KHAN, 68 YEARS OLD VERY PLEASANT GENTLEMAN, COMES FOR HIS 6 MONTHS FOLLOW-UP FOR SLEEP APNEA. He is a very regular user of CPAP at night. However he tends to take a break from the CPAP for a few nights every month. He states that he can notice the difference when he does not use the CPAP he wakes up a few times during the night and does not get a good sleep. He has been using clonazepam 1 mg at bedtime which facilitates his sleep , and he can keep the mask on for 5 hours or more. He is trying to lose weight slowly, but now it seems to be at a standstill. Overall he has lost about 70 lb of weight since he started using the CPAP. [facility] Medical History Anxiety Obesity (BMI 30-39.9) Nocturnal hypoxemia Obesity (BMI 30-39.9) Sleep apnea Right heart failure Enlarged RV (right ventricle) Hyperlipidemia HTN (hypertension) Aortic stenosis Surgical History Hx of appendectomy Hx of tonsillectomy History of laparoscopic cholecystectomy Family History Father CVD (cardiovascular disease) Mother Brain tumor Social History Patient Tobacco Use Status: Former Tobacco user Review of Systems Const All systems reviewed & are unremarkable except as noted in HPI and below Eyes Reports no additional complaints ENT Reports no additional complaints Card Denies chest pain, Denies irregular heart rhythm and Denies leg edema Resp Reports no additional complaints GI Reports no additional complaints Reports no additional complaints Musc Reports no additional complaints Skin/Breast Reports system reviewed and no additional complaints, except as documented Neuro Reports no additional complaints Psych Reports no additional complaints Physical Exam Const General: healthy appearing (EXCEPT FOR BEING OVERWEIGHT), comfortable, no acute distress, alert and awake Orientation/consciousness: patient oriented x3 HEENT Head: Yes normal to inspection General nose exam: No nasal polyps present and No nasal discharge present Face and sinus: Yes sinuses nontender Mouth: oropharynx normal Throat: Yes posterior oropharynx normal Eyes General: appearance normal, both eyes and all related structures Neck Neck: Yes normal visual inspection, Yes no lymphadenopathy, Yes trachea midline and Yes no JVD Thyroid: Thyroid normal Chest Chest palpation & inspection: normal inspection of the chest, normal palpation of entire chest wall and no tenderness Resp Effort & Inspection: normal respiratory effort Auscultation: clear to auscultation bilaterally, no crackles and no wheezes Cardio Palpation: normal PMI Rate: regular rate Rhythm: regular rhythm Heart sounds: no gallops and Murmur heart sound present (Systolic murmur over aortic area .) Peripheral pulses: Peripheral pulses 2+ throughout GI Palpation (GI): Soft to palpation, nontender, No hepatosplenomegaly present and no masses Auscultation: normal bowel sounds Back/Spine/Pelvis Thoracic/Lumbar Spine: thoracic and lumbar spine normal to inspection Skin General skin exam: no rashes or lesions noted Neuro General: patient oriented x3 and no focal motor deficits Cranial nerves: Yes CN's II-XII intact bilaterally Extrem General: Yes normal to inspection, Yes no clubbing, cyanosis or edema and Yes no calf tenderness Psych Appearance: grossly normal and well kempt Speech and movement: Normal speech and movement present Results Reviewed Results Reviewed: Compliance report for the last 30 nights shows, he used 26/30 nights, 87%. Average use it per night 5 hours 3 minutes. Pressure is 14 cm. There is no significant air leak. Residual AHI 0.2 Assessment & Plan Assessment & Plan (1) Obesity (BMI 30-39.9): Comment: DISCUSSED ABOUT HIS WEIGHT ISSUE. HE IS DOING EXERCISE AND TRYING TO LIMIT CALORIES INTAKE. He has lost a few more lb since his last visit. Code(s): E66.9 - Obesity, unspecified Plan: Commended for his efforts to lose weight, and advised to continue losing more. .Initial go is 200 lb (2) Obstructive sleep apnea: Comment: Patient is a known case of obstructive sleep apnea. He is being treated with CPAP , using full face mask and PRESSURE OF 14 CM, His compliance is good. Code(s): G47.33 - Obstructive sleep apnea (adult) (pediatric) Plan: WE DISCUSSED IN DETAIL, HE WAS EXPLAINED THAT HE NEEDS TO USE THE CPAP REGULARLY EVERY NIGHT AND FOR AT LEAST 5-6 HOURS PER NIGHT. WILL BE RE-EVALUATED EVERY 6 MONTHS. (3) Nocturnal hypoxemia: Comment: ALONG WITH OBSTRUCTIVE SLEEP APNEA PATIENT ALSO HAD EVIDENCE OF NOCTURNAL HYPOXEMIA, REQUIRING OXYGEN IN ADDITION TO CPAP. IT WAS CORRECTED WITH USE OF OXYGEN 2 L/MINUTE. HIS OXYGENATION DID IMPROVE. LAST OVERNIGHT OXIMETRY RECORDING IN JANUARY 2023, SHOWED THAT HE DID NOT NEED O2 SUPPLEMENTATION. Code(s): G47.34 - Idiopathic sleep related nonobstructive alveolar hypoventilation Plan: NO NEED OF USING O2 WITH THE CPAP (4) Anxiety: Comment: PATIENT STILL HAS SOME CLAUSTROPHOBIC FEELING WHEN PUTTING ON THE CPAP. HE CAN USE IT MORE REGULARLY AND FOR LONGER TIME IF HE USES CLONAZEPAM 1 MG AT BEDTIME. I THINK LONG HE DOES USE THE CPAP IT WILL BE OKAY TO FOR HIM TO TAKE CLONAZEPAM 1 MG BEFORE HE PUTS ON THE MASK. Code(s): F41.9 - Anxiety disorder, unspecified Plan: TALKED ABOUT ANXIETY. HE FEELS BETTER WITH WHEN HE TAKES CLONAZEPAM 1 MG, AND LONG HE HAS NO SIDE EFFECTS IT IS OKAY TO TAKE. Coding Level of Care Code Est Pt Level 3 (73820) Diagnoses Obesity (BMI 30-39.9) E66.9 Obstructive sleep apnea G47.33 Nocturnal hypoxemia G47.34 Anxiety F41.9
== END 2023-09-10 10:27 | disposition home or self-care (01) ==
PROVIDERS: PCP Internal Medicine; Visit Provider Internal Medicine
DX: E66.9 Obesity, unspecified (principal); G47.33 Obstructive sleep apnea (adult) (pediatric); G47.34 Idiopathic sleep related nonobstructive alveolar hypoventilation; F41.9 Anxiety disorder, unspecified
CPT/HCPCS: 99213

== ENCOUNTER → 2023-09-10 10:02 | Outpatient (BNVA) | payer MEDICARE, SELFPAY | PROVIDERS: PCP Internal Medicine; Visit Provider Internal Medicine | DX: G47.33 Obstructive sleep apnea (adult) (pediatric) (principal); G47.34 Idiopathic sleep related nonobstructive alveolar hypoventilation; E66.9 Obesity, unspecified; Z68.31 Body mass index [BMI] 31.0-31.9, adult; F41.9 Anxiety disorder, unspecified | CPT/HCPCS: 99212 ==

== ENCOUNTER 2023-11-27 06:04 | Outpatient (REF) | payer MEDICARE, SELFPAY ==
[2023-11-27 10:20] LABS: Appearance Urine Clear; Color Urine Yellow; Glucose Urine UA 500 mg/dL (Negative); Leukocyte Esterase Urine Negative (Negative); Nitrite Urine Negative (Negative); Urine Blood Negative (Negative); Urine Ketones Negative (Negative); Urine Protein Negative (Neg-Trace)
[2023-11-27 10:22] LABS: MANUAL DIFF FLAG NO
[2023-11-27 10:23] LABS: Bacteria Urine None Seen (None Seen); Hyaline Casts Urine 0-2 /LPF (0-2); RBC Urine 0-2 /HPF (0-2); Squamous Epithelial Cell Urine 0-2 /HPF (0-2); WBC Urine 0-5 /HPF (0-5)
[2023-11-27 10:36] LABS: Estimated Average Glucose 143 mg/dL; Hemoglobin A1c % 6.6 % (<6.0)
[2023-11-27 10:38] LABS: Basophils Percent Auto 0.5 % (0-2); Eosinophils Absolute Auto 0.2 X10*3/uL (0.0-0.4); Eosinophils Percent Auto 2.6 % (0-4); Hematocrit 44.6 % (42.0-52.0); Hemoglobin 15.4 g/dl (14.0-18.0); Imm Gran Abs Auto 0.01 X10*3/uL (0.00-0.03); Imm Gran Pct Auto 0.2 % (0.0-0.4); Lymphocytes Absolute Auto 1.6 X10*3/uL (1.2-4.9); Lymphocytes Percent Auto 25.4 % (20-40); Mean Corpuscular HGB Conc 34.5 g/dl (31.0-36.0); Mean Corpuscular Hemoglobin 32.2 pg (27.0-33.0); Mean Corpuscular Volume 93.1 fL (80.0-98.0); Mean Platelet Volume 10.7 fL (9.4-12.4); Monocytes Absolute Auto 0.7 X10*3/uL (0.1-1.2); Monocytes Percent Auto 10.8 % (2-11); Neutrophils Absolute Auto 3.7 x10*3/uL (2.0-8.3); Neutrophils Percent Auto 60.5 % (45-73); Platelet Count 185 X10*3/uL (160-400); Red Blood Count 4.79 X10*6/uL (4.60-5.80); Red Cell Distribution Width 13.7 % (11.0-16.0); White Blood Count 6.1 X10*3/uL (4.8-10.8)
[2023-11-27 10:56] LABS: Creatinine Urine 42.47 mg/dL; Microalbum/Creatinine Ratio Ur 105.9 ug/mg cr (<30)
[2023-11-27 11:04] LABS: Alanine Aminotransferase 34 U/L (0-40); Albumin Level 3.9 g/dL (3.5-5.0); Alkaline Phosphatase 128 U/L (39-117); Anion Gap 13 (12-20); Aspartate Amino Transferase 29 U/L (5-37); Bilirubin Total 0.9 mg/dL (0.0-1.0); Blood Urea Nitrogen 52 mg/dL (9-16); Carbon Dioxide 27 mmol/L (22-29); Chloride 98 mmol/L (96-108); Cholesterol 121 mg/dL (<200); Estimated Glomerular Filt Rate 38; Glucose Fasting 117 mg/dL (60-99); HDL Cholesterol 40 mg/dL (>40); LDL Cholesterol Calculated 53 mg/dL (<100); Potassium 4.4 mmol/L (3.3-5.1); Sodium 134 mmol/L (135-145); Total Protein 7.2 g/dL (6.5-8.0); Triglycerides 142 mg/dL (<150)
[2023-11-27 11:06] LABS: Prostate Specific Antigen 0.59 ng/mL (<0.05-4.0)
[2023-11-27 11:28] LABS: Thyroid Stimulating Hormone 2.66 uIU/mL (0.32-4.0); Vitamin D 25-OH Total 33.3 ng/mL (>30)
== END 2023-11-27 06:05 | disposition home or self-care (01) ==
LOC: HO.HMGCLDS 06:04
PROVIDERS: PCP Internal Medicine; Visit Provider Internal Medicine
DX: Z00.00 Encounter for general adult medical examination without abnormal findings (principal); Z12.5 Encounter for screening for malignant neoplasm of prostate; E55.9 Vitamin D deficiency, unspecified; E11.9 Type 2 diabetes mellitus without complications; I10 Essential (primary) hypertension; E66.01 Morbid (severe) obesity due to excess calories; E78.00 Pure hypercholesterolemia, unspecified
CPT/HCPCS: 36415; 80053; 80061; 81001; 82043; 82306; 82570; 83036; 84153; 84443; 85025

== ENCOUNTER 2023-12-10 06:07 | Outpatient (REF) | payer MEDICARE, SELFPAY ==
[2023-12-10 11:03] LABS: Alanine Aminotransferase 27 U/L (0-40); Albumin Level 4.1 g/dL (3.5-5.0); Alkaline Phosphatase 119 U/L (39-117); Anion Gap 18 (12-20); Aspartate Amino Transferase 25 U/L (5-37); Bilirubin Total 1.2 mg/dL (0.0-1.0); Blood Urea Nitrogen 78 mg/dL (9-16); Calcium 10.3 mg/dL (8.4-10.2); Carbon Dioxide 23 mmol/L (22-29); Chloride 98 mmol/L (96-108); Estimated Glomerular Filt Rate 25; Glucose Random 134 mg/dL (60-115); Potassium 4.5 mmol/L (3.3-5.1); Sodium 134 mmol/L (135-145); Total Protein 7.5 g/dL (6.5-8.0)
== END 2023-12-10 06:08 | disposition home or self-care (01) ==
LOC: HO.HMGCLDS 06:07
PROVIDERS: PCP Internal Medicine; Visit Provider Internal Medicine
DX: E11.9 Type 2 diabetes mellitus without complications (principal); I10 Essential (primary) hypertension; R06.09 Other forms of dyspnea
CPT/HCPCS: 36415; 80053

== ENCOUNTER 2023-12-30 06:01 | Outpatient (REF) | payer MEDICARE, SELFPAY ==
[2023-12-30 11:14] LABS: Alanine Aminotransferase 21 U/L (0-40); Albumin Level 3.8 g/dL (3.5-5.0); Alkaline Phosphatase 100 U/L (39-117); Anion Gap 17 (12-20); Aspartate Amino Transferase 26 U/L (5-37); Bilirubin Total 1.1 mg/dL (0.0-1.0); Blood Urea Nitrogen 80 mg/dL (9-16); Calcium 9.7 mg/dL (8.4-10.2); Carbon Dioxide 21 mmol/L (22-29); Chloride 99 mmol/L (96-108); Estimated Glomerular Filt Rate 28; Glucose Random 114 mg/dL (60-115); Potassium 4.6 mmol/L (3.3-5.1); Sodium 132 mmol/L (135-145)
== END 2023-12-30 06:02 | disposition home or self-care (01) ==
LOC: HO.HMGCLDS 06:01
PROVIDERS: PCP Internal Medicine; Visit Provider Internal Medicine
DX: R60.0 Localized edema (principal); I10 Essential (primary) hypertension
CPT/HCPCS: 36415; 80053

== ENCOUNTER 2024-01-15 08:23 | Outpatient (REF) | payer MEDICARE, SELFPAY ==
[2024-01-15 11:09] LABS: Alanine Aminotransferase 26 U/L (0-40); Albumin Level 4.1 g/dL (3.5-5.0); Alkaline Phosphatase 107 U/L (39-117); Anion Gap 15 (12-20); Aspartate Amino Transferase 26 U/L (5-37); Bilirubin Total 1.5 mg/dL (0.0-1.0); Blood Urea Nitrogen 68 mg/dL (9-16); Calcium 10.2 mg/dL (8.4-10.2); Carbon Dioxide 22 mmol/L (22-29); Chloride 100 mmol/L (96-108); Estimated Glomerular Filt Rate 35; Glucose Random 105 mg/dL (60-115); Potassium 4.8 mmol/L (3.3-5.1); Sodium 132 mmol/L (135-145); Total Protein 7.4 g/dL (6.5-8.0)
== END 2024-01-15 08:24 | disposition home or self-care (01) ==
LOC: HO.HMGCLDS 08:23
PROVIDERS: PCP Internal Medicine; Visit Provider Internal Medicine
DX: I10 Essential (primary) hypertension (principal); E11.9 Type 2 diabetes mellitus without complications
CPT/HCPCS: 36415; 80053

== ENCOUNTER → 2024-01-22 07:55 | Outpatient (REF) | payer MEDICARE, SELFPAY ==
--- NOTE | 2024-01-22 07:58 | CA_ITS ---
Transthoracic Echocardiogram Patient (Last, First, Middle): Kali Garza M Gender: Male Date of : 1955 Age: 68 Procedure Date: 01/22/2024 Procedure Type: Transthoracic Echocardiogram Location: OP Height: 175.26 cm Weight: 92.08 kg BSA: 2.08 m2 Heart Rate: bpm BP: 90 / 58 mmHg Student Dean: TO Referring MD: Jamie Dukes MD Symptoms: I35.0 - Nonrheumatic aortic (valve) stenosis Study Quality: Fair/Contrast ECG Rhythm: Sinus Conclusions: - The left ventricular systolic function is normal. The visually estimated ejection fraction is between 60-65%. - There is a flattened septum in systole consistent with right ventricular pressure overload. - The inferoseptal wall, the basal inferior, and mid inferior segments are hypokinetic. - Moderately increased right ventricular cavity size. There is mild to moderately decreased right ventricular systolic function. - There is moderate aortic valve stenosis. - Severe pulmonary hypertension is present. Findings Procedure Information Contrast agent, definity, is being given per protocol without apparent complications. Left Ventricle Normal left ventricular cavity size. The left ventricular systolic function is normal. The visually estimated ejection fraction is between 60-65%. There is a flattened septum in systole consistent with right ventricular pressure overload. Evidence suggests grade I (mild) diastolic dysfunction. There is mild septal asymmetric hypertrophy. Wall Motion Rest Echo Findings The inferoseptal wall, the basal inferior, and mid inferior segments are hypokinetic. Right Ventricle Moderately increased right ventricular cavity size. There is mild to moderately decreased right ventricular systolic function. Atria The left atrium is normal in size. The right atrium is moderately dilated. Aortic Valve There is severe calcification of the aortic valve. There is moderate aortic valve stenosis. The peak aortic velocity is 3.24 m/s with a calculated peak gradient of 42 mmHg. The mean gradient is 27 mmHg. The aortic valve area is 1.23 cm2. Trace to mild aortic regurgitation. Mitral Valve There is mild anterior and posterior mitral leaflet thickening. There is no mitral valve regurgitation. There is no mitral valve stenosis. Pulmonic Valve There is mild pulmonic valve regurgitation. Tricuspid Valve There is mild tricuspid valve regurgitation. The right ventricular systolic pressure is 65 mmHg. Severe pulmonary hypertension is present. Great Vessels The asc aorta is normal in size. Venous The inferior vena cava is dilated and collapses less than 50% with inspiration. Pericardium/Pleural There is no evidence of pericardial effusion. Prior Study Comparison Changes noted compared to prior study dated: 10/15/2022. Pulmonary hypertension appears worse. Wall motion is somewhat similar in prior images. Measurements 2D Linear Measurements IVSd: 1.08 0.6-0.9/0.6-1.0 cm LVIDd: 4.00 3.9-5.3/4.2-5.9 cm LVIDd Index: 1.92 2.4-3.2/2.2-3.1 cm/m2 LVIDs: 2.61 2.0-3.6 cm LVPWd: 0.94 0.7-1.1 cm LV Mass: 159.88 67-162/88-224 g LV Mass Index: 76.87 43-95/49-115 g/m2 LVOT Diam: 2.30 3.0+(-)1.3 cm 2D Systolic Function EF 4C: 71.60 >55% Mitral Valve MV Pk E: 0.44 MV PK A: 0.97 MV Decel Time: 239.00 E/A: 0.50 E'Lateral: 3.92 E'Medial: 2.72 E/E' Med: 16.20 E/E' Lat: 11.30 PHT: 70.00 MVA PHT: 3.14 Decel Ciales: 1.84 Aortic Valve AoV Pk Jhonathan: 3.24 AoV Mn Jhonathan: 2.46 AoV VTI: 0.82 AoV Pk Grad: 42.00 Aov Mn Grad: 27.00 JESUS Cont.VTI: 1.23 AI Pk Jhonathan: 3.82 AI Ciales: 1.17 LVOT LVOT Pk Jhonathan: 0.88 LVOT Mn Jhonathan: 0.62 LVOT VTI: 0.24 LVOT Pk Grad: 3.00 LVOT Mn Grad: 2.00 LVOT Diam: 2.30 LVOT Area: 4.15 Diastolic Function MV Pk E: 0.44 MV Pk A: 0.97 E/A: 0.50 E'Medial: 2.72 E/E' Med: 16.20 E' Laterial: 3.92 E/E' Lat: 11.30 Right Ventricle TAPSE (mm): 15.20 TVS' Jhonathan: 7.29 Tricuspid Valve TR Pk Jhonathan: 3.53 TR Pk Grad: 50.00 RA Press: 15.00 RVSP: 65.00 Great Vessels Aorta Sinus of Valsalva: 3.72 2.0-3.5 cm Ao Asc: 3.70 2.1-3.4 cm Updated in Other Vendor System with Status of Final Mele Aparicio MD electronically signed on 01/22/2024 3:52:55 PM with status of Final
== END ==
LOC: HO.CARD 07:55
PROVIDERS: PCP Internal Medicine; Visit Provider Internal Medicine Cardiovascular Disease
DX: I35.0 Nonrheumatic aortic (valve) stenosis (principal)
CPT/HCPCS: 93306; Q9957

== ENCOUNTER → 2024-01-22 07:58 | Outpatient (BNV) | payer MEDICARE, SELFPAY | PROVIDERS: PCP Internal Medicine; Visit Provider Internal Medicine | DX: I35.2 Nonrheumatic aortic (valve) stenosis with insufficiency (principal); I36.1 Nonrheumatic tricuspid (valve) insufficiency; I27.20 Pulmonary hypertension, unspecified | CPT/HCPCS: 93306 ==

== ENCOUNTER 2024-02-11 08:34 | Outpatient (AMB) | payer MEDICARE, SELFPAY ==
--- NOTE | 2024-02-11 08:46 | A.OFFVIS_ITS ---
Vital Signs 02/11/24 08:47 Height 5 ft 10 in Weight 213 lb 13.574 oz BMI 30.7 BP 120/80 Blood Pressure Location Lt brachial Position Sitting Pulse 49 L Intake Visit Reasons: 1 yr s/p echo Intake Note: 1 year follow-up with ekg after echo c/o increase in sob Clinical Cytopathologist Required: No Allergies HAYFEVER Allergy (Unknown, Uncoded 09/10/23 10:25) RUNNY NOSE Medication List - Last Reconciled 02/11/24 by Jamie Dukes MD aspirin (Adult Low Dose Aspirin) 81 mg PO DAILY atorvastatin 80 mg PO DAILY bumetanide 1 mg PO DAILY cholecalciferol (vitamin D3) 50 mcg PO DAILY clonazepam 1 mg PO BEDTIME PRN clopidogrel 75 mg PO DAILY empagliflozin (Jardiance) 10 mg PO DAILY gabapentin 300 mg PO DAILY losartan 50 mg PO DAILY metformin ER 750 mg PO QPM HPI Comments Details: Ruby comes for follow-up. Recent echocardiogram shows significant worsening of his pulmonary hypertension with no significant worsening has diastolic function or aortic stenosis. LV ejection fraction still preserved. He does attest to increasing exertional shortness of breath especially when he rushes or when he goes up a hill or when he climbs stairs. He denies any clear orthopnea, PND, leg edema. His weight has remained stable on current diuretic dose. He denies any associated chest discomfort. He denies any palpitations, lightheadedness, syncope. Said he uses CPAP regularly and still uses nocturnal oxygen therapy. He denies any syncopal episodes. Blood pressures been generally well controlled. He has been gradually trying to lose weight. [facility] Medical History Anxiety Obesity (BMI 30-39.9) Nocturnal hypoxemia Obesity (BMI 30-39.9) Sleep apnea Right heart failure Enlarged RV (right ventricle) Hyperlipidemia HTN (hypertension) Aortic stenosis Surgical History Hx of appendectomy Hx of tonsillectomy History of laparoscopic cholecystectomy Family History Father CVD (cardiovascular disease) Mother Brain tumor Social History Patient Tobacco Use Status: Former Tobacco user Review of Systems Const Denies chills, Denies fatigue, Denies fever(s), Denies frequent falls, Denies weakness, Denies weight gain and Denies weight loss ENT Denies dizziness Card Denies chest pain, Denies leg edema, Denies lightheadedness, Denies palpitations, Denies dyspnea, Denies dyspnea on exertion, Denies orthopnea and Denies other (loss of consciousness) Resp Denies cough, Denies dyspnea and Denies dyspnea on exertion GI Denies hematochezia and Denies change in stool character Musc Denies abnormal gait, Denies muscle weakness, Denies numbness, Denies radiating pain into limb and Denies tingling Neuro Denies abnormal gait, Denies dizziness, Denies frequent falls, Denies numbness, Denies tingling and Denies weakness Endo Denies fatigue and Denies palpitations Physical Exam Vital Signs: Last Vital Signs Pulse 49 L 02/11/24 08:47 BP 120/80 02/11/24 08:47 BMI result Body Mass Index 30.7 Const General: cooperative, comfortable, no acute distress, alert and awake Nutritional Appearance: obese Orientation/consciousness: patient oriented x3 Limitations: no limitations Neck Neck: Yes trachea midline, Yes supple and Yes no JVD Resp Effort & Inspection: normal respiratory effort Auscultation: clear to auscultation bilaterally and diminished lung sounds Cardio Jugular venous distension: no JVD Palpation: abnormal PMI displaced PMI Rate: regular rate Rhythm: regular rhythm Heart sounds: S1 normal heart sound present, S2 normal heart sound present and Murmur heart sound present systolic mid, decrescendo and crescendo GI Inspection: Yes obesity Auscultation: normal bowel sounds Skin General skin exam: no rashes or lesions noted Neuro General: patient oriented x3 and no focal motor deficits Extrem General: Yes no clubbing, cyanosis or edema Psych Appearance: grossly normal Office Procedures EKG Details: EKG shows normal sinus rhythm with right bundle-branch block, unchanged from before with rightward axis [id number], Complete Assessment & Plan Assessment & Plan (1) Right heart failure: Comment: IS BEING FOLLOWED BY CARDIOLOGY Code(s): I50.810 - Right heart failure, unspecified Category: Medical Plan: Right heart failure predominantly with currently euvolemic status on current diuretic regimen. His renal functions have stabilized or maybe marginally impr erika. Clinically does not appear to have any evidence of fluid overload. Would not increase his bumetanide dose. Her there has recent increase in his RV systolic pressure for unclear reasons. He is diastolic function does appear worse nitro does not aortic stenosis. I think he requires further evaluation to assess for pre capillary versus post capillary pulmonary hypertension and may need additional therapy if so present. Otherwise if he is significantly elevated filling pressures for the left side may need more diuretic therapy. Will need to follow closely. Also need to rule out nocturnal hypoxemia which could be a potent pulmonary vaso constriction and causing increased RV systolic pressure. Continue CPAP therapy. Continue Jardiance therapy. Will hold off on adding mineral corticoid inhibitor therapy due to his renal function. Continue aggressive blood pressure control. Encouraged to continue to participate in physical activity and weight loss program. (2) Aortic stenosis: Comment: ABOVE BEING FOLLOWED BY CARDIOLOGY Code(s): I35.0 - Nonrheumatic aortic (valve) stenosis Category: Medical Plan: Aortic stenosis which has remained moderate. No change in significant of aortic stenosis. Continue aspirin therapy. Continue high-intensity statin therapy. Will continue monitor annually by echocardiogram. Worsening symptoms related to aortic stenosis were discussed. Continue aggressive blood pressure control. (3) HTN (hypertension): Code(s): I10 - Essential (primary) hypertension Category: Medical Plan: Hypertension which is currently well optimized advised to monitor blood pressure at home maintain a log. Goal blood pressure less than 130/84. His blood pressure is well controlled. Low-salt diet was discussed. Encouraged to continue use CPAP. Will follow up in the clinic in 6 weeks time, sooner p.r.n.. Thank you for allowing me to partake in his care Coding Level of Care Code Est Pt Level 4 (15201) Diagnoses Right heart failure I50.810 Aortic stenosis I35.0 HTN (hypertension) I10 CPT Codes EKG - CPT: [id number], Complete ([id number])
[2024-02-11 08:47] VITALS: BP 120/80; PULSE 49; BMI 30.7
== END 2024-02-11 09:38 | disposition home or self-care (01) ==
PROVIDERS: PCP Internal Medicine; Visit Provider Internal Medicine Cardiovascular Disease
DX: I50.810 Right heart failure, unspecified (principal); I35.0 Nonrheumatic aortic (valve) stenosis; I10 Essential (primary) hypertension
CPT/HCPCS: 93010; 99214

== ENCOUNTER → 2024-02-11 08:34 | Outpatient (BNVA) | payer MEDICARE, SELFPAY | PROVIDERS: PCP Internal Medicine; Visit Provider Internal Medicine Cardiovascular Disease | DX: I44.0 Atrioventricular block, first degree (principal); I45.10 Unspecified right bundle-branch block; I27.20 Pulmonary hypertension, unspecified; I11.0 Hypertensive heart disease with heart failure; I50.810 Right heart failure, unspecified; I35.0 Nonrheumatic aortic (valve) stenosis; Z87.891 Personal history of nicotine dependence | CPT/HCPCS: 93005; 99212 ==

== ENCOUNTER 2024-02-18 08:25 | Outpatient (REF) | payer MEDICARE, SELFPAY ==
[2024-02-18 10:23] LABS: Hematocrit 41.9 % (42.0-52.0); Hemoglobin 14.4 g/dl (14.0-18.0); Mean Corpuscular HGB Conc 34.4 g/dl (31.0-36.0); Mean Corpuscular Volume 93.1 fL (80.0-98.0); Mean Platelet Volume 10.4 fL (9.4-12.4); Platelet Count 174 X10*3/uL (160-400); Red Cell Distribution Width 13.9 % (11.0-16.0); White Blood Count 6.5 X10*3/uL (4.8-10.8)
[2024-02-18 10:32] LABS: INTERNATIONAL NORM RATIO 1.1 (0.9-1.1); Prothrombin Time 12.9 SEC (11.1-13.3)
[2024-02-18 10:58] LABS: Anion Gap 14 (12-20); Blood Urea Nitrogen 58 mg/dL (9-16); Calcium 9.8 mg/dL (8.4-10.2); Carbon Dioxide 24 mmol/L (22-29); Chloride 102 mmol/L (96-108); Estimated Glomerular Filt Rate 36; Glucose Random 95 mg/dL (60-115); Sodium 135 mmol/L (135-145)
== END 2024-02-18 08:26 | disposition home or self-care (01) ==
LOC: HO.HMGCLDS 08:25
PROVIDERS: PCP Internal Medicine; Visit Provider Internal Medicine Cardiovascular Disease
DX: I50.810 Right heart failure, unspecified (principal)
CPT/HCPCS: 36415; 80048; 85027; 85610

== ENCOUNTER → 2024-03-03 23:59 | Outpatient (BNV) | payer MEDICARE, SELFPAY | PROVIDERS: PCP Internal Medicine; Visit Provider Internal Medicine Cardiovascular Disease | DX: I50.30 Unspecified diastolic (congestive) heart failure (principal) | CPT/HCPCS: 93460; 99152 ==

== ENCOUNTER 2024-03-17 12:56 | Outpatient (AMB) | payer MEDICARE, SELFPAY ==
--- NOTE | 2024-03-17 13:00 | MHC.OFFVIS ---
Vital Signs 03/17/24 13:10 Height 5 ft 10 in Weight 211 lb 10.3 oz BMI 30.4 BP 110/60 Blood Pressure Location Lt brachial Position Sitting Pulse 53 Pulse Source Pulse Oximeter Intake Visit Reasons: 2 wk s/p cath 03/03/24 NS Allergies HAYFEVER Allergy (Unknown, Uncoded 09/10/23 10:25) RUNNY NOSE Medication List - Last Reconciled 03/17/24 by Roula Lee NP aspirin (Adult Low Dose Aspirin) 81 mg PO DAILY atorvastatin 80 mg PO DAILY bumetanide 1 mg PO DAILY cholecalciferol (vitamin D3) 50 mcg PO DAILY clonazepam 2 mg PO BEDTIME PRN clopidogrel 75 mg PO DAILY empagliflozin (Jardiance) 10 mg PO DAILY gabapentin 300 mg PO DAILY losartan 50 mg PO DAILY metformin ER 750 mg PO QPM HPI Comments Details: 68-year-old male presents today for a post cardiac catheterization follow-up. He has a history of right heart failure, hyperlipidekma, hypertension, SHAKA, aortic stenosis, enlarged RV, and nocturnal hypoxemia. He reports breathing is slightly better since increase in overnight oxygen but is still short of breath on exertion. He hasnt had any pain, swelling, tenderness, fever, or chill. He is seeing Dr. Littlejohn next week. [facility] Medical History (Updated 03/18/24 @ 10:57 by Roula Lee NP) Pulmonary hypertension Anxiety Obesity (BMI 30-39.9) Nocturnal hypoxemia Obesity (BMI 30-39.9) Sleep apnea Right heart failure Enlarged RV (right ventricle) Hyperlipidemia HTN (hypertension) Aortic stenosis Surgical History (Updated 03/18/24 @ 10:54 by Roula Lee NP) S/P cardiac catheterization Hx of appendectomy Hx of tonsillectomy History of laparoscopic cholecystectomy Family History Father CVD (cardiovascular disease) Mother Brain tumor Social History Patient Tobacco Use Status: Former Tobacco user Review of Systems Const Denies weakness ENT Denies dizziness Card Denies chest pain, Denies chest pain with activity, Denies syncope, Denies rapid heart rate, Denies pedal edema, Denies edema, Denies leg edema, Denies lightheadedness, Denies palpitations, Denies dyspnea, Denies dyspnea on exertion and Denies orthopnea Resp Denies cough, Denies dyspnea and Denies dyspnea on exertion GI Denies hematochezia and Denies change in stool character Musc Denies abnormal gait, Denies muscle cramps, Denies muscle weakness, Denies numbness, Denies radiating pain into limb and Denies tingling Neuro Denies abnormal gait, Denies dizziness, Denies syncope, Denies numbness, Denies tingling and Denies weakness Endo Denies palpitations Physical Exam Vital Signs: Last Vital Signs Pulse 53 03/17/24 13:10 BP 110/60 03/17/24 13:10 BMI result Body Mass Index 30.4 Const Other: Right brachial artery General: healthy appearing and no acute distress Orientation/consciousness: patient oriented x3 HEENT Head: Yes normal to inspection Eyes General: appearance normal, both eyes and all related structures Neck Neck: Yes normal visual inspection Chest Chest palpation & inspection: normal inspection of the chest Resp Effort & Inspection: normal respiratory effort Auscultation: clear to auscultation bilaterally Cardio Jugular venous distension: no JVD Palpation: normal PMI Rate: regular rate Rhythm: regular rhythm Heart sounds: S1 normal heart sound present, S2 normal heart sound present, no click, no gallops, no murmurs and no rubs GI Inspection: Yes normal to inspection Palpation (GI): Soft to palpation Skin General skin exam: no rashes or lesions noted Neuro General: patient oriented x3 Extrem General: Yes normal to inspection Psych Appearance: grossly normal Results Reviewed Results Reviewed: Cardiac Catheterization: Diagnostic Summary 68-year-old gentleman presenting for shortness of breath and congestive heart failure. He has severe pulm hypertension by echocardiography and has been sent to us for left and right heart catheterization. He also has moderate aortic valve stenosis with inferior wall motion abnormality by echocardiography. Hemodynamics: Normal systemic pressures. LVEDP 14 mmHg. Mean gradient across aortic valve 32 mmHg. Aortic valve area by Hakki 0.96. Cardiac index 2. PA pressures 93/23 mean 47, pulm capillary wedge pressure 8, RA 17. Coronary anatomy: Right dominant circulation. No significant coronary artery disease noted. Patient has moderate to severe aortic valve stenosis and severe primary pulm hypertension (precapillary pulm hypertension). Diagnostic Recommendations Aggressive primary risk factor modification according to ATP III guidelines. He should be on supplemental oxygen 04/03. Consider referral to pulm hypertension specialist. Moderate to severe aortic aortic valve stenosis-continue monitoring and echo surveillance. Assessment & Plan Assessment & Plan (1) S/P cardiac catheterization: Comment: 03/03/[address] Whittaker Cardiac Arteries and Lesion Findings LMCA: Normal. LAD: Normal. LCx: Normal. RCA: Normal. Normal systemic pressures. LVEDP 14 mmHg. Mean gradient across aortic valve 32 mmHg. Aortic valve area by Hakki 0.96. Cardiac index 2. PA pressures 93/23 mean 47, pulm capillary wedge pressure 8, RA 17. Code(s): Z98.890 - Other specified postprocedural states Category: Surgical Plan: Normal coronary arteries. Suggest risk factor modifications. He does not smoke. He is using CPAP and o2 supplementation. Last LDL 11/27/23 was 53. Heart healthy diet reviewed. Is on statins, losartan, aspirin, and bumex. On Jardiance and metformin for diabetes. tight blood sugar control recommended. (2) Aortic stenosis: Comment: ABOVE BEING FOLLOWED BY CARDIOLOGY Code(s): I35.0 - Nonrheumatic aortic (valve) stenosis Category: Medical Plan: Will follow peroidically on echocardiogram. (3) Pulmonary hypertension: Code(s): I27.20 - Pulmonary hypertension, unspecified Category: Medical Plan: Severe pulmonary hypertension per cardiac catheterization. Will refer to pulmonary HTN specialist Dr. Lu Zarate at [facility]. Recomendded 04/03 oxygen supplementaion. Patient declined. Will let his customer experience consultant know. Orders: Referrals Cardiology Referral I27.20 - Pulmonary hypertension, unspecified Coding Level of Care Code Est Pt Level 4 (32024) Diagnoses S/P cardiac catheterization Z98.890 Aortic stenosis I35.0 Pulmonary hypertension I27.20
[2024-03-17 13:10] VITALS: BP 110/60; PULSE 53; BMI 30.4
== END 2024-03-17 14:39 | disposition home or self-care (01) ==
PROVIDERS: PCP Internal Medicine; Visit Provider Nurse Practitioner
DX: Z98.890 Other specified postprocedural states (principal); I35.0 Nonrheumatic aortic (valve) stenosis; I27.20 Pulmonary hypertension, unspecified
CPT/HCPCS: 99214

== ENCOUNTER → 2024-03-17 12:56 | Outpatient (BNVA) | payer MEDICARE, SELFPAY | PROVIDERS: PCP Internal Medicine; Visit Provider Nurse Practitioner | DX: I50.9 Heart failure, unspecified (principal); I35.0 Nonrheumatic aortic (valve) stenosis; I27.20 Pulmonary hypertension, unspecified; Z98.890 Other specified postprocedural states | CPT/HCPCS: 99212 ==

== ENCOUNTER 2024-03-25 10:17 | Outpatient (AMB) | payer MEDICARE, SELFPAY ==
--- NOTE | 2024-03-25 10:18 | MHC.OFFVIS ---
Vital Signs 03/25/24 10:21 Height 5 ft 10 in Weight 210 lb 8.663 oz BMI 30.2 BP 106/62 Blood Pressure Location Lt brachial Position Sitting Pulse 81 Pulse Source Pulse Oximeter Pulse Oximetry (%) 88 L Oxygen Delivery Method Room Air Intake Visit Reasons: Obstructive sleep apnea Allergies HAYFEVER Allergy (Unknown, Uncoded 03/25/24 10:36) RUNNY NOSE Medication List - Last Reconciled 03/25/24 by Ruben Littlejohn MD aspirin (Adult Low Dose Aspirin) 81 mg PO DAILY atorvastatin 80 mg PO DAILY bumetanide 1 mg PO DAILY cholecalciferol (vitamin D3) 50 mcg PO DAILY clonazepam 2 mg PO BEDTIME PRN empagliflozin (Jardiance) 10 mg PO DAILY gabapentin 300 mg PO DAILY losartan 50 mg PO DAILY metformin ER 750 mg PO QPM Do you need a note to return to daycare/school/sports/work: No HPI HPI Obstructive sleep apnea: Details: THIS 68 YEARS OLD GENTLEMAN, COMES FOR FOLLOW-UP AFTER A RATHER LONG TIME. FOR SLEEP APNEA/HYPOXEMIA. HE IS BEING TREATED FOR OBSTRUCTIVE SLEEP APNEA AND IS VERY COMPLIANT, USING AT LEAST 5-6 HOURS PRADIP.RY NIGHT OVERNIGHT OXIMETRY RECORDING SHOWED THAT IN SPITE OF USING O2 AT 2 L/MINUTE HIS O2 SAT WAS BELOW 88% FOR SEVERAL MINUTES. HE INCREASED O2 TO 3 L/MINUTE, AND CLAIMS THAT HE FEELS BETTER. HE HAS THE AORTIC STENOSIS, AND PULMONARY HYPERTENSION , BEING FOLLOWED BY CARDIOLOGY VERY CLOSELY. FOR[facility]LY [facility] Medical History Pulmonary hypertension Anxiety Obesity (BMI 30-39.9) Nocturnal hypoxemia Obesity (BMI 30-39.9) Sleep apnea Right heart failure Enlarged RV (right ventricle) Hyperlipidemia HTN (hypertension) Aortic stenosis Surgical History S/P cardiac catheterization Hx of appendectomy Hx of tonsillectomy History of laparoscopic cholecystectomy Family History Father CVD (cardiovascular disease) Mother Brain tumor Social History Patient Tobacco Use Status: Former Tobacco user Review of Systems Const All systems reviewed & are unremarkable except as noted in HPI and below Eyes Reports no additional complaints ENT Reports no additional complaints Card Denies chest pain, Denies irregular heart rhythm and Denies leg edema Resp Reports no additional complaints GI Reports no additional complaints Reports no additional complaints Musc Reports no additional complaints Skin/Breast Reports system reviewed and no additional complaints, except as documented Neuro Reports no additional complaints Psych Reports no additional complaints Physical Exam Vital Signs: Last Vital Signs Pulse 81 03/25/24 10:21 BP 106/62 03/25/24 10:21 Pulse Ox 88 L 03/25/24 10:21 Oxygen Delivery Method Room Air 03/25/24 10:21 BMI result Body Mass Index 30.2 Const General: healthy appearing (EXCEPT FOR BEING OVERWEIGHT), comfortable, no acute distress, alert and awake Orientation/consciousness: patient oriented x3 HEENT Head: Yes normal to inspection General nose exam: No nasal polyps present and No nasal discharge present Face and sinus: Yes sinuses nontender Mouth: oropharynx normal Throat: Yes posterior oropharynx normal Eyes General: appearance normal, both eyes and all related structures Neck Neck: Yes normal visual inspection, Yes no lymphadenopathy, Yes trachea midline and Yes no JVD Thyroid: Thyroid normal Chest Chest palpation & inspection: normal inspection of the chest, normal palpation of entire chest wall and no tenderness Resp Effort & Inspection: normal respiratory effort Auscultation: clear to auscultation bilaterally, no crackles and no wheezes Cardio Palpation: normal PMI Rate: regular rate Rhythm: regular rhythm Heart sounds: no gallops and Murmur heart sound present (Systolic murmur over aortic area .) Peripheral pulses: Peripheral pulses 2+ throughout GI Palpation (GI): Soft to palpation, nontender, No hepatosplenomegaly present and no masses Auscultation: normal bowel sounds Back/Spine/Pelvis Thoracic/Lumbar Spine: thoracic and lumbar spine normal to inspection Skin General skin exam: no rashes or lesions noted Neuro General: patient oriented x3 and no focal motor deficits Cranial nerves: Yes CN's II-XII intact bilaterally Extrem General: Yes normal to inspection, Yes no clubbing, cyanosis or edema and Yes no calf tenderness Psych Appearance: grossly normal and well kempt Speech and movement: Normal speech and movement present Assessment & Plan Assessment & Plan (1) Obesity (BMI 30-39.9): Comment: DISCUSSED ABOUT HIS WEIGHT ISSUE. HE IS DOING EXERCISE AND TRYING TO LIMIT CALORIES INTAKE. He has lost a few more lb since his last visit . Code(s): E66.9 - Obesity, unspecified Category: Medical Plan: CONTINUE TO WATCH DIET AND TRY TO WALK DAILY. (2) Nocturnal hypoxemia: Comment: ALONG WITH OBSTRUCTIVE SLEEP APNEA PATIENT ALSO HAD EVIDENCE OF NOCTURNAL HYPOXEMIA, REQUIRING OXYGEN IN ADDITION TO CPAP. IT WAS CORRECTED WITH USE OF OXYGEN 2 L/MINUTE. HIS OXYGENATION DID IMPROVE. LAST OVERNIGHT OXIMETRY RECORDING IN JANUARY 2023, SHOWED THAT HE DID NOT NEED O2 SUPPLEMENTATION. RECENT OVERNIGHT OXIMETRY RECORDING AGAIN SHOWED THAT HIS O2 SAT WAS BELOW 88% FOR SEVERAL MINUTES. I HAD ADVISED HIM OVER THE TELEPHONE THAT HE SHOULD INCREASE O2 TO 3 L/MINUTE WHICH HE DID AND CLAIMS THAT HE HAS BEEN FEELING BETTER SINCE THEN. TODAY WHEN HE WALKED INTO THE OFFICE HIS O2 SAT WAS 87%. AFTER SITTING FOR SEVERAL MINUTES IT IS UP TO 91%. Code(s): G47.34 - Idiopathic sleep related nonobstructive alveolar hypoventilation Category: Medical Plan: USE O2 3 L/MINUTE ALONG WITH THE CPAP AT NIGHT I TOLD HIM TO USE O2 3 L/MINUTE, EVEN DURING THE DAYTIME WHEN HE IS RESTING AND WORKING ON HIS DESK, IF O2 SAT IS BELOW 90%. I ALSO TOLD HIM THAT HE IS CANDIDATE FOR USING PORTABLE OXYGEN. HE IS HESITANT TO USE PORTABLE OXYG.EN AT THIS TIME I DID DISCUSS WITH HIM THE RELATIONSHIP BETWEEN HYPOXEMIA AND INCREASED PULMONARY CONGESTIVE HEART FAILURE. HE IS GOING ,TO THINK ABOUT THIS . SOON HE MAKES UP HIS MIND WE WILL BE GLAD TO SEE HIM IN THE O FFICE AGAIN AND DO A 6 MINUTES WALK TO QUALIFY HIM FOR PORTABLE OXYGEN. HYPERTENSION/ (3) Anxiety: Comment: PATIENT STILL HAS SOME CLAUSTROPHOBIC FEELING WHEN PUTTING ON THE CPAP. HE CAN USE IT MORE REGULARLY AND FOR LONGER TIME IF HE USES CLONAZEPAM 1 MG AT BEDTIME. I THINK LONG HE DOES USE THE CPAP IT WILL BE OKAY TO FOR HIM TO TAKE CLONAZEPAM 1 MG BEFORE HE PUTS ON THE MASK. Code(s): F41.9 - Anxiety disorder, unspecified Category: Medical Plan: ABOVE (4) Pulmonary hypertension: Comment: PATIENT IS BEING FOLLOWED BY CARDIOLOGY VERY CLOSELY Code(s): I27.20 - Pulmonary hypertension, unspecified Category: Medical Plan: ABOBE Coding Level of Care Code Est Pt Level 3 (86462) Diagnoses Obesity (BMI 30-39.9) E66.9 Nocturnal hypoxemia G47.34 Anxiety F41.9 Pulmonary hypertension I27.20
[2024-03-25 10:21] VITALS: BP 106/62; PULSE 81; O2SAT 88; BMI 30.2
== END 2024-03-25 10:46 | disposition home or self-care (01) ==
PROVIDERS: PCP Internal Medicine; Visit Provider Internal Medicine
DX: E66.9 Obesity, unspecified (principal); G47.34 Idiopathic sleep related nonobstructive alveolar hypoventilation; F41.9 Anxiety disorder, unspecified; I27.20 Pulmonary hypertension, unspecified
CPT/HCPCS: 99213

== ENCOUNTER → 2024-03-25 10:17 | Outpatient (BNVA) | payer MEDICARE, SELFPAY | PROVIDERS: PCP Internal Medicine; Visit Provider Internal Medicine | DX: G47.34 Idiopathic sleep related nonobstructive alveolar hypoventilation (principal); E66.9 Obesity, unspecified; Z68.30 Body mass index [BMI] 30.0-30.9, adult; F41.9 Anxiety disorder, unspecified; I27.20 Pulmonary hypertension, unspecified | CPT/HCPCS: 99212 ==

== ENCOUNTER 2024-05-15 08:38 | Outpatient (REF) | payer MEDICARE, SELFPAY ==
--- NOTE | ~2024-05-15 | CT_ITS ---
EXAMINATION: CT CERVICAL SPINE WITHOUT CONTRAST CLINICAL INFORMATION: Cervical spondylosis, cord compression. COMPARISON: No prior cervical imaging. TECHNIQUE: Spiral CT of the cervical spine was performed in the axial plane from the skull base to the thoracic inlet without IV contrast. Sagittal, coronal, and thin section axial reformatted images were constructed from the axial data set. This CT examination was performed using dose optimization techniques as appropriate, variously including the following: *Automated exposure control *Adjustment of mA and/or kV according to patient size (this includes techniques or standardized protocols for targeted exams where dose is matched to indication/reason for exam; i.e. extremities or head) *Use of iterative reconstruction technique DLP: 425 mGy-cm FINDINGS: There is a mild dextroconvex scoliosis, apex at C5. There is reversal of the normal lordosis centered at C5. This is nonspecific. There is no compression deformity, fracture, or suspicious focal bone lesion. There are advanced degenerative changes of the atlantoaxial joint with dens erosions. This may be inflammatory. Mild pannus formation without craniocervical Junction stenosis. There is a 2 mm degenerative anterolisthesis of C3 on C4. 3 mm degenerative anterolisthesis of C4 on C5. 2 mm degenerative retrolisthesis of C6 on C7. Alignment is otherwise anatomic. Moderate disc degeneration present most notable C5-T1. Multilevel hypertrophic facet and uncinate changes. 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 AXIAL DISC SPACE IMAGING: (Significantly limited due to steep obliquity in relation to the disc spaces on the axial reformats). C2-C3: No disc herniation or gross central canal stenosis. Moderate to severe left and moderate right neural foraminal narrowing from hypertrophic facet changes. C3-C4: 2 mm anterolisthesis. Mild disc osteophytic bulging is present, with significant uncinate spurring and left greater than right facet spurring and hypertrophy. Mild central canal stenosis without cord impingement. Moderate left and mild right lateral recess stenosis. There is severe left greater than right neural foraminal encroachment. C4-C5: 3 mm anterolisthesis. Diffuse disc bulge is present extending into both foraminal zones, which when coupled with hypertrophic facet and uncinate changes is contributing to moderate central canal stenosis with possible mild mass effect upon the cord. Mild bilateral lateral recess narrowing is present. There is moderate to severe left and moderate right neural foraminal narrowing. C5-C6: Shallow diffuse disc osteophytic ridge complex present, contiguous bilaterally with uncinate spurring. Mild hypertrophic facet changes bilaterally. Combination of findings results in [id number] central canal narrowing, mild bilateral lateral recess narrowing, mild right and [id number] left neural foraminal narrowing. C6-C7: There is a central/right paracentral disc protrusion superimposed upon a shallow diffuse disc bulge. This results in mild central canal narrowing. No lateral recess narrowing. Neural foramen are patent bilaterally. C7-T1: No central canal or neural foraminal narrowing. SOFT TISSUES: -Normal thyroid. -Lung apices clear. There is mild emphysema. -Mild atheromatous calcification of both carotid arteries. -No prevertebral soft tissue abnormalities. -No masses or adenopathy noted. CT/CT cervical spine wo IV con IMPRESSION: 1. No acute fracture or acute bony abnormalities. Mild dextroconvex scoliosis and reversal of the normal lordosis, both centered at C5. 2. Several mild degenerative subluxations, most significant at C4-5 where there is 3 mm anterolisthesis. 3. Multilevel spondylosis, most significant at C4-5 and C5-6 as discussed above. Cannot exclude mild mass effect upon the cord especially at C4-5. MRI may be of benefit if patient is able. 4. Multilevel foraminal narrowing, moderate to severe on the left at C2-3, severe bilateral at C3-4, and moderate to severe left at C4-5. 5. See above for details. Electronically signed by: Rickie Lee MD 07/15/2024 11:52 AM [facility]
== END 2024-05-15 08:39 | disposition home or self-care (01) ==
LOC: HO.CT 08:38
PROVIDERS: PCP Internal Medicine; Visit Provider Psychiatry & Neurology Neurology
DX: M47.12 Other spondylosis with myelopathy, cervical region (principal)
CPT/HCPCS: 72125

== ENCOUNTER → 2024-05-15 08:40 | Outpatient (BNV) | payer MEDICARE, SELFPAY | PROVIDERS: PCP Internal Medicine; Visit Provider Radiology Diagnostic Radiology | DX: M47.12 Other spondylosis with myelopathy, cervical region (principal) | CPT/HCPCS: 72125 ==

== ENCOUNTER 2024-07-06 09:30 | Outpatient (REF) | payer MEDICARE, SELFPAY ==
[2024-07-06 13:27] LABS: MANUAL DIFF FLAG NO
[2024-07-06 13:33] LABS: Basophils Percent Auto 0.6 % (0-2); Eosinophils Absolute Auto 0.2 X10*3/uL (0.0-0.4); Eosinophils Percent Auto 3.7 % (0-4); Hematocrit 40.8 % (42.0-52.0); Hemoglobin 13.7 g/dl (14.0-18.0); Imm Gran Abs Auto 0.02 X10*3/uL (0.00-0.03); Imm Gran Pct Auto 0.4 % (0.0-0.4); Lymphocytes Absolute Auto 0.9 X10*3/uL (1.2-4.9); Lymphocytes Percent Auto 16.8 % (20-40); Mean Corpuscular HGB Conc 33.6 g/dl (31.0-36.0); Mean Corpuscular Hemoglobin 32.7 pg (27.0-33.0); Mean Corpuscular Volume 97.4 fL (80.0-98.0); Mean Platelet Volume 10.9 fL (9.4-12.4); Monocytes Absolute Auto 0.6 X10*3/uL (0.1-1.2); Monocytes Percent Auto 10.4 % (2-11); Neutrophils Absolute Auto 3.7 x10*3/uL (2.0-8.3); Neutrophils Percent Auto 68.1 % (45-73); Platelet Count 134 X10*3/uL (160-400); Red Blood Count 4.19 X10*6/uL (4.60-5.80); Red Cell Distribution Width 14.2 % (11.0-16.0); White Blood Count 5.4 X10*3/uL (4.8-10.8)
[2024-07-06 13:43] LABS: Estimated Average Glucose 137 mg/dL; Hemoglobin A1C 159.5521 umol/L; Hemoglobin A1c % 6.4 % (<6.0); Total Hemoglobin (HGBA1C) 3472.2652 umol/L
[2024-07-06 13:58] LABS: Alanine Aminotransferase 38 U/L (0-40); Albumin Level 3.9 g/dL (3.5-5.0); Alkaline Phosphatase 141 U/L (39-117); Anion Gap 10 (12-20); Aspartate Amino Transferase 37 U/L (5-37); Bilirubin Total 1.2 mg/dL (0.0-1.0); Blood Urea Nitrogen 64 mg/dL (9-16); Calcium 9.9 mg/dL (8.4-10.2); Carbon Dioxide 24 mmol/L (22-29); Chloride 102 mmol/L (96-108); Cholesterol 108 mg/dL (<200); Estimated Glomerular Filt Rate 34; Glucose Fasting 108 mg/dL (60-99); HDL Cholesterol 51 mg/dL (>40); LDL Cholesterol Calculated 46 mg/dL (<100); Potassium 4.9 mmol/L (3.3-5.1); Sodium 131 mmol/L (135-145); Total Protein 6.8 g/dL (6.5-8.0); Triglycerides 59 mg/dL (<150)
[2024-07-06 14:02] LABS: Creatinine Urine 16.59 mg/dL; Microalbum/Creatinine Ratio Ur 48.2 ug/mg cr (<30)
[2024-07-06 14:18] LABS: Thyroid Stimulating Hormone 3.24 uIU/mL (0.32-4.0); Vitamin D 25-OH Total 26.4 ng/mL (>30)
== END 2024-07-06 09:31 | disposition home or self-care (01) ==
LOC: HO.HMGCLDS 09:30
PROVIDERS: PCP Internal Medicine; Visit Provider Internal Medicine
DX: E11.9 Type 2 diabetes mellitus without complications (principal); I10 Essential (primary) hypertension; E78.00 Pure hypercholesterolemia, unspecified; E55.9 Vitamin D deficiency, unspecified; G47.33 Obstructive sleep apnea (adult) (pediatric); G62.9 Polyneuropathy, unspecified
CPT/HCPCS: 36415; 80053; 80061; 82043; 82306; 82570; 83036; 84443; 85025

== ENCOUNTER 2024-07-21 10:16 | Outpatient (REF) | payer MEDICARE, SELFPAY ==
[2024-07-21 13:02] LABS: MANUAL DIFF FLAG NO
[2024-07-21 13:10] LABS: Basophils Percent Auto 0.6 % (0-2); Eosinophils Absolute Auto 0.1 X10*3/uL (0.0-0.4); Eosinophils Percent Auto 2.2 % (0-4); Hematocrit 40.5 % (42.0-52.0); Hemoglobin 13.5 g/dl (14.0-18.0); Imm Gran Abs Auto 0.02 X10*3/uL (0.00-0.03); Imm Gran Pct Auto 0.3 % (0.0-0.4); Mean Corpuscular HGB Conc 33.3 g/dl (31.0-36.0); Mean Corpuscular Hemoglobin 32.5 pg (27.0-33.0); Mean Corpuscular Volume 97.4 fL (80.0-98.0); Mean Platelet Volume 10.6 fL (9.4-12.4); Monocytes Absolute Auto 0.6 X10*3/uL (0.1-1.2); Monocytes Percent Auto 9.8 % (2-11); Neutrophils Absolute Auto 4.6 x10*3/uL (2.0-8.3); Neutrophils Percent Auto 72.1 % (45-73); Platelet Count 168 X10*3/uL (160-400); Red Blood Count 4.16 X10*6/uL (4.60-5.80); Red Cell Distribution Width 14.1 % (11.0-16.0); White Blood Count 6.3 X10*3/uL (4.8-10.8)
[2024-07-21 13:24] LABS: Alanine Aminotransferase 33 U/L (0-40); Alkaline Phosphatase 147 U/L (39-117); Anion Gap 13 (12-20); Aspartate Amino Transferase 33 U/L (5-37); Bilirubin Total 1.4 mg/dL (0.0-1.0); Blood Urea Nitrogen 54 mg/dL (9-16); Carbon Dioxide 29 mmol/L (22-29); Chloride 100 mmol/L (96-108); Estimated Glomerular Filt Rate 36; Glucose Random 144 mg/dL (60-115); Potassium 3.8 mmol/L (3.3-5.1); Sodium 138 mmol/L (135-145); Total Protein 7.4 g/dL (6.5-8.0)
[2024-07-21 13:28] LABS: B Type Natriuretic Peptide 1141 pg/mL (<100)
--- OUTSIDE RECORDS SUMMARY | 2024-07-22 19:46 | XMS_ITS ---
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 Medications Medication SIG (Take, Route, Frequency, Duration) Notes Start Date End Date Status Jardiance Active Extra Depth Diabetic Shoes with 3 Pair Custom heat-molded multi-density innersoles for 1 year Dx: 07/12/2021 Active Baby Aspirin Not-Afshin ing Ciclopirox Olamine 0.77 % 1 application to affected area Externally Twice a day to effected areas on feet for 30 days Active metFORMIN HCl ER 500 MG 1 tablet with ev ening meal Orally Once a day Not-Takin g Ibuprofen 800 MG Oral for 30 A ctive Losartan Potassium 100 MG Oral for 30 Active Plavix Not-Taking metFORMIN HCl Active Vitamin D3 50 MCG (1999) Oral for 90 Active Gabapentin 300 MG Oral for 90 Active Atorvastatin Calcium 80 MG Oral for 90 Active clonazePAM 1 MG Oral for 30 Ac tive Bumetanide 0.5 MG as directed Orally O nce a day Active Social History Tobacco Use: Social History Observation Description Date Details (start date - stop date) Former Smoker NA - NA Tobacco Use/Smoking Question Answer Notes Are you a: former smoker Additional Findings: Tobacco Non-User Current no n-smoker Alcohol Screen Question Answer Notes Did you have a drink containing alcohol in the p ast year? Yes Points 0 Interpretation Negative Tobacco use other than smoking: Question Answer Notes Are you an other tobacco user? No Vital Signs Height 5 ft 9 in in 04/22/2024 Weight 208 lbs 04/22/2024 BMI 30.71 kg/m2 04/22/2024 Blood pressure systolic 120 mm Hg 04/22/20 24 Blood pressure diastolic 60 mm Hg 024 Encounters Encounter Location Date Provider Diagnosis [facility] [address] [address] 04/22/2024 Jean Claude Rajan Type 2 diabetes mellitus with diabetic polyneuropathy E11.42 ; Primary osteoarthritis, left ankle and foot M19.072 ; Pain in left toe(s) M79.675 ; Other hammer toe(s) (acquired), left foot M20.42 ; Tinea unguium B35.1 ; Pain in right toe(s) M79.674 and Tinea pedis B35.3 Assessments Encounter Date Diagnosis (ICD Code) Assessment Notes Treatment Notes Treatment Clinical Notes Section Notes 04/22/2024 Type 2 diabetes mellitus with diabetic polyneuropathy (ICD-10 - E11.42) 04/22/2024 Primary osteoarthritis, left ankle and foot (ICD-10 - M19.072) 04/22/2024 Pain in left toe(s) (ICD-10 - M79.675) 04/22/2024 Other hammer toe(s) (acquired), left foot (ICD-10 - M20.42) 04/22/2024 Tinea unguium (ICD-10 - B35.1) 04/22/2024 Pain in right toe(s) (ICD-10 - M79.674) 04/22/2024 Tinea pedis (ICD-10 - B35.3) Plan Of Treatment Next Appt Details Follow Up: 3 Months, Reason: Provider Name:Iwona mckee, 08/03/2024 09:15:00 AM, [address] [place] [address], [phone], Procedure Notes * Category Sub-Category Detail Notes Debride Nail 6-10 Nail debridement Nail debridem ent performed extensively to reduce/remove overall nail length and girth, subungual debris, and necrotic tissue, by manual and electrical means with use of a nail nipper and/or dremel, to more viable healthy nail plate or bed tissue 6-10. Silver nitrate used for any petechial bleeding as necessary. Patient chooses, no pharmaceutical tx (53570) Keratoma Treatment Parring or Cutting o f Benign Hyperkeratotic Lesion(s) 59372 (2-4 Lesions) - The Benign hyperkeratotic lesions, as described above were pared, and/or cut utilizing a sterile #15 blade, tissue nippers, and/or dremel Progress Notes * Kali GARZA MDOB:1955 (69 yo M)Acc No.[id number]:04/22/2024 Progress Note Patient:?Kali Garza Provider:?Jean Claude Rajan DPM :1955???Age:69 Y???Sex:Male Pj e:04/22/2024 Address:[place] [address], [id number] Pcp:Kip Jimenez MD Subjective: * Chief Complaints: * ??? Painful nail(s) aggrevat ed by shoes and causing difficulty standing/walking. * HPI: ???Toe pain:?Nature:?sharp, stiffness, aching.?Location:?Left foot, Great toe.?Duration:?2 yrs.?Onset/Cause:?gradual; hx of fx 35 yrs ago.?Course:?unchanged.?Aggravated by:?shoes, any pressure.?Treatments:?padding has helped.?At Risk footcare:?Pt States Last PCP Visit:?Date?03/12/2024 * ROS:?General/Constitutional:?Nausea?denies.?Vomiting?denies.?Hunger Thirst?denies.?Loss appetite?denies.?Chills?denies.?Fatigue?denies.?Fever?denies.?Night Sweats?denies.?Unexplained weight loss?denies.?Unexplained weight gain?denies.?HEENTM:?Dentures?denies.?Dizziness?denies.?Glasses/contacts?denies.?Retinopathy?de nies.?Blurred/double vision?denies.?TMJ?denies.?Discharge/drainage?denies.?Implants?denies.?Sore throat?denies.?Dental implants?denies.?Hard of hearing ?denies.?Difficulty chewing/swallowing/speaking?denies.?Nose bleeds?denies.?Sore mouth?denies.?Respiratory:?On Oxygen?denies.?Pneumonia/pleurisy?denies.?Bronchitis?denies.?Emphysema?denies.?C oughing?denies.?Cough blood?denies.?Shortness of breath?admits.?Wheezing?denies.?Cardiovascular:?Pacemaker?denies.?MVP?denies.?WPW?denies.?CHF?denies.?Heart attack?denies.?Septal defect?denies.?Rapid beat?denies.?Chest pain ?denies.?Atrial Fib.?denies.?Murmur/Palpitations?denies.?Gastrointestinal:?Hemorrhoids?denies.?Stomach/Abdominal pain?denies.?Dark blood stool?denies.?Irritable bowel ?denies.?Constipation?denies.?Diarrhea?denies.?Hematology:?Swelling?denies.?Clots?denies.?Varicose Veins?denies.?Bruising?denies.?Bleeding problem?denies.?Genitourinary:?Blood urine?denies.?Frequent/Painfu/urination/bladder control?denies.?Kidney stones?denies.?Infection (UTI)?denies.?Nephropathy?denies.?sex trans dis (STD)?denies.?Prostate?denies.?Musculoskeletal:?Hammertoes?admits.?Bunions?denies.?Back Pain?admits.?Muscle Cramps/ Resting?denies.?Muscle cramps / walking?denies.?Generalized aches and pains?denies.?Weakness?denies.?Integ.:?Pinto?denies.?Scars?denies.?Corns/calluses?denies.?Ingrown nails?denies.?Painful nails?denies.?Open Sores?denies.?Rashes?denies.?Neurologic:?Difficulty sleeping?denies.?Brain disorder?denies.?Numbness?admits.?Balance trouble?denies.?Confusion?denies.?Fainting/blackouts?denies.?Tingling?admits.?Tr emors?denies.? * Medical History:? * Surgical History:?tonsillect john 1980appendectomy (ruptured) sepsis on life support 01/08/2005cholecystectomy 2016 * Hospitalization/Major Diagno stic Procedure:?[place]- [facility] 1.5 days Rehab 2 days 01/12/2022 * Family History:?Mother: dece ased.?Father: , diagnosed with Unspecified essential hypertension, Unspecified heart disease.? * Social History:?Tobacco Use:?Tobacco Use/Smoking?Are you a:?former smoker ?Additional Findings: Tobacco Non-User?Current non-smoker ?Tobacco use other than smoking?Are you an other tobacco user??No ???Drugs/Alcohol:?Drugs?Have you used drugs other than those for medical reasons in the past 12 months??No ?Alcohol Screen?Did you have a drink containing alcohol in the past year??Yes ?Points?0 ?Interpretation?Negative ???Miscellaneous:?Caffeine: yes, frequency:, 2-3 cups per day. ?Children: yes. ?Exercise: yes, yard work, bike riding 3 times per week. ?Marital status: . 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 * Medications:?TakingJardiance Ciclopirox Olamine 0.77 % Cream 1 application to affected area Externally Twice a day to effected areas on feetAtorvastatin Calcium 80 MG Tablet Oral Bumetanide 0.5 MG Tablet as directed Orally Once a dayclonazePAM 1 MG Tablet Oral Gabapentin 300 MG Capsule Oral Ibuprofen 800 MG Tablet Oral Losartan Potassium 100 MG Tablet Oral metFORMIN HCl Vitamin D3 50 MCG (1999) Capsule Oral Extra Depth Diabetic Shoes with 3 Pair Custom heat-molded multi-density innersoles for 1 year Dx:Taking Jardiance Taking Ciclopirox Olamine 0.77 % Cream 1 application to affected area Externally Twice a day to effected areas on feetTaking Atorvastatin Calcium 80 MG Tablet Oral Taking Bumetanide 0.5 MG Tablet as directed Orally Once a dayTaking clonazePAM 1 MG Tablet Oral Taking Gabapentin 300 MG Capsule Oral Taking Ibuprofen 800 MG Tablet Oral Taking Losartan Potassium 100 MG Tablet Oral Taking metFORMIN HCl Taking Vitamin D3 50 MCG (1999) Capsule Oral Taking Extra Depth Diabetic Shoes with 3 Pair Custom heat-molded multi-density innersoles for 1 year Dx:Not-Taking/PRNPlavix metFORMIN HCl ER 500 MG Tablet Extended Release 24 Hour 1 tablet with evening meal Orally Once a dayBaby Aspirin Medication List reviewed and reconciled with the patientNot-Taking/PRN Plavix Not-Taking/PRN metFORMIN HCl ER 500 MG Tablet Extended Release 24 Hour 1 tablet with evening meal Orally Once a dayNot-Taking/PRN Baby Aspirin Medication List reviewed and reconciled with the patient * Allergies:?N.K.D.A.yes[Aller gies Verified] Objective: * Vitals:?Ht: 5 ft 9 in, Wt:20 8, BMI:30.71, Shoe size:10-11, BP:120/60 mm Hg, BS:not taken. * ???Past Orders: ???Lab:HEMOGLOBIN A1C (GLYCO HEMOGLOBIN) (Order Date - 10/10/2022) (Collection Date - 10/10/2022) ? Value Reference Range ?HEMOGLOBIN A1C (HH) 5.9 * Examination: ???Ophthalmology Referral: ?DIABETES EYE EXAM?General Examination: ?GENERAL APPEARANCE:?pleasant, alert, well nourished, well developed, well hydrated, with good attention to hygene/body habitus, and in no acute distress.?ORIENTED:?person,place, and time.?Neurological: ?SENSORY:?Neurological exam demonstrates, reduced vibration sensation, 5.07 monofilament test performed at plantar aspects of 5 varied sites per foot shows sensation, B/L, at Forefoot, at Midfoot, Neurological exam demonstrates pop dorsum ta ipj.?BABINSKI REFLEX:?absent.?Vascular: ?DP PULSES:? 1/4, B/L.?PT PULSES:? 2/4, B/L.?CAPILLARY FILL TIME:?3 secs. per digit, B/L.?SKIN TEMPERTURE GRADIENT OF THE LOWER EXTERMITIES:?warm to cool, proximal to distal, B/L.?HAIR GROWTH/TEXTURE/ELASTICITY/TURGOR:?normal, B/L.?PIGMENTATION:?normal, B/L.?EDEMA:? 1/4, B/L, Feet, Ankle(s), Leg(s).?TELANGECTASIA:?absent.?VARICOSITIES:?absent.?Dermatologic: ?SKIN FINDINGS:? Skin exam reveals Keratotic lesion(s) located at, Plantar, Heel(s), B/L , Skin shows sign(s) of, erythema, scaling, in a moccasin fashion, no fissure(s) present, B/L, Skin exam reveals Keratotic lesion(s) located at, SUB MTH (s), 1, Left , Skin shows sign(s) of, interdigital maceration neal 1-5.?Orthopedic: ?MUSCLE STRENGTH:?5/5 all groups in a symmetrical fashion , B/L.?GAIT ABNORMALITY:?pronated, abducted, B/L.?FOOT MORPHOLOGY:? Pes Planus structure, B/L.?DIGITAL DEFORMITIES:? Digital contracture TA ipj.?Nails: ?NAILS are:? Elongated, overgrown, dystrophic, lytic, greater than 3mm thick, discolored and friable with crumbly malodorous subungual debris, with dull to no pain on palpation due to neuropathy, 1-5 Left foot, T5, T6.? Assessment: * Assessment: 1.?Type 2 diabetes mellitus with diabetic polyneuropathy - E11.42 (Primary)?2.?Primary osteoarthritis, left ankle and foot - M19.072?3.?Pain in left toe(s) - M79.675?4. Other hammer toe(s) (acquired), left foot - M20.42?5.?Tinea unguium - B35.1?6.?Pain in right toe(s) - M79.674?7.?Tinea pedis - B35.3? Plan: * Treatment: * Procedures:?Debride Nail 6-10:?Nail debridement?Nail debridement performed extensively to reduce/remove overall nail length and girth, subungual debris, and necrotic tissue, by manual and electrical means with use of a nail nipper and/or dremel, to more viable healthy nail plate or bed tissue 6-10. Silver nitrate used for any petechial bleeding as necessary. Patient chooses, no pharmaceutical tx (42145).?Keratoma Treatment:?Parring or Cutting of Benign Hyperkeratotic Lesion(s)?84510 (2-4 Lesions) - The Benign hyperkeratotic lesions, as described above were pared, and/or cut utilizing a sterile #15 blade, tissue nippers, and/or dremel.? * Procedure Codes:?96233 DEBRI DE NAIL, 6 OR MORE, Modifiers: XS 61557 TRIM SKIN LESIONS, 2 TO 4, Modifiers: XS * Preventive Medicine:? ??Counseling:?Discussion:?-13: Office or other outpatient visit for the evaluation and management of an established patient, which required a medically appropriate history and/or examination and LOW level of DECISION MAKING for: 1 STABLE ACUTE UNCOMPLICATED PROBLEM, 2 OR MORE MINOR PROBLEMS, OR 1 STABLE CHRONIC PROBLEM, THAT POSE(S) A LOW RISK FOR MORBIDITY/MORTALITY. The visit on the day of the encounter encompassed interpreting the data and educating the patient as to the nature of their condition, treatment options available according to their individual PMH, meds, allergies, and overall health/living conditions, as well as any potential risks or complications that may occur from a failure to adhere to, and participate in, the recommended course of therapy. The discussion included a complete verbal, and/or written explanation of the examination results, any x-rays taken, the proposed diagnosis, and outline of the treatment plan. A schedule for future care needs was also explained. The patient verbalized an understanding of the instructions at this time and agreed to be an active participant in their treatment. If the patient should think of any questions or concerns after the visit, I have encouraged the patient to call the office.?Neuritis/Neuropathy:?The patient was counseled on the diagnosis, possible etiologies (including mechanical stress, injury, entrapment, chemotherapy, diabetes, vertebral disk herniation if hx), treatment options, and importance for adherence to recommendations in order to address the patients Neuritis/Neuropathy. The advantages and disadvantages re: Accomidative mechanical support/offloading, Topical vs PO analgesics including aspercream/Voltaren gel/Lidoderm patches/Neurontin/Lyrica along with their potential side effects were discussed with the patient to their satisfaction. Also discussed the use of therapeutic injectable cortisone if needed. Surgical treatment, if considered an option, was discussed as well. If surgery is warranted, we discussed the potential successful outcomes as well as the possible complications such as failure, painful scar, permanent tingling/numbness/neuralgea/or intractable pain. Patient questions re: medication use, dosage, and possible side effects and drug interactions were reviewed and the answers to each understood. If the condition worsens, the patient was instructed to contact the office for an appointment. The patient verbally confirmed a full understanding of the above, Recommended Topical analgesics including aspercream/Voltaren gel/Lidoderm patches.? * Follow Up:?3 Months * Images: * Sign off status: Completed true * Provider:?Jean Claude Rajan DPM Date:? 024 Generated for Elenita pardo/Colin/Dyllan on:?07/22/2024 07:46 PM EST History and Physical Notes * HPI (History of Present Illness) Category Sub-Category Detail Notes Category Not es Toe pain Nature: sharp, stiffness, aching Location: Left foot, Great toe Duration: 2 yrs Onset/Cause: gradual; hx of fx 35 yrs ago Course: unchanged Aggravated by: shoes, any pressure Treatments: padding has helped At Risk footcare Pt States Last PCP Visit: Date: 4 Examination Category Sub-Category Detail Notes Category Not es Neurological SENSORY: Neurological exa m demonstrates, reduced vibration sensation, 5.07 monofilament test performed at plantar aspects of 5 varied sites per foot shows sensation, B/L, at Forefoot, at Midfoot, Neurological exam demonstrates pop dorsum ta ipj BABINSKI REFLEX: absent Dermatologic SKIN FINDINGS: Skin exam reveal s Keratotic lesion(s) located at, Plantar, Heel(s), B/L , Skin shows sign(s) of, erythema, scaling, in a moccasin fashion, no fissure(s) present, B/L, Skin exam reveals Keratotic lesion(s) located at, SUB MTH (s), 1, Left , Skin shows sign(s) of, interdigital maceration neal 1-5 Orthopedic GAIT ABNORMALITY: pronated, abducted, B/L FOOT MORPHOLOGY: Pes Planus structure , B/L DIGITAL DEFORMITIES: Digital contracture TA ipj MUSCLE STRENGTH: 5/5 all groups in a symmetrical fashion , B/L General Examination GENERAL APPEARANCE: pleasant , alert, well nourished, well developed, well hydrated, with good attention to hygene/body habitus, and in no acute distress ORIENTED: person,place, and ti mi Ophthalmology Referral DIABETES EYE EXAM Diabetic Retinopa thy Screening:: No Findings of Diabetic Eye Exam:: no retin opathy Vascular DP PULSES(B): 1/4, B/L PT PULSES(B): 2/4, B/L CAPILLARY FILL TIME: 3 secs. per digit, B/L TEMPERTURE GRADIENT(C): warm to cool, pr oximal to distal, B/L TROPHIC CONDITION-TEXTURE/ELASTICITY/TURGOR/HAIR GROWTH(B): normal, B/L EDEMA(C): 1/4, B/L, Feet, Ankl e(s), Leg(s) TELANGECTASIA: absent VARICOSITIES: absent PIGMENTATION: normal, B/L Nails NAILS are: Elongated, overg rown, dystrophic, lytic, greater than 3mm thick, discolored and friable with crumbly malodorous subungual debris, with dull to no pain on palpation due to neuropathy, 1-5 Left foot, T5, T6
--- OUTSIDE RECORDS SUMMARY | 2024-07-22 19:47 | XMS_ITS ---
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 Name Role Phone Kip Jimenez MD Primary Care Provider Unavail able Iwona Fuentes Unavailable [phone] Jean Claude Rajan [phone] Anderson Encounters Encounter Location Date Provider Diagnosis [address] [address] 12/18/2023 Jean Claude Rajan Plan Of Treatment Next Appt Details Provider Name:Iwona mckee, 08/03/2024 09:15:00 AM, [address] [place] [address], [phone], Progress Notes * Kali GARZA MDOB:1955 (69 yo M)Acc No.[id number]:12/18/2023 Progress Note Patient:?Kali GARZA Provider:?Jean Claude Rajan DPM :1955???Age:68 Y???Sex:Male Pj e:12/18/2023 Address: [address], [place] Pcp:Kip Jimenez MD Subjective: * Chief Complaints: * ???1. Dr Anderson. * Medical History:? Objective: * Vitals:? Assessment: Plan: * Treatment: * Images: * The named appointment provid er may or may not be the originator of this progress note, and it is not deemed complete until electronically signed by the appointment provider. Sign off status: Pending * Provider:?Jean Claude Rajan DPM Date:? 024 Generated for Elenita pardo/Colin/Dyllan on:?07/22/2024 07:47 PM EST
--- OUTSIDE RECORDS SUMMARY | 2024-07-22 19:47 | XMS_ITS | Patient Health Record ---
Author Organization [facility] Address [address] [facility] [place] [address] Care Team Providers Care Child Support Agent Name Role Phone Tony JAVIER, Kip Primary Care Provider Unavail able Iwona Fuentes Unavailable [phone] RajanJean Claude Unavailable [phone] Allergies No Known Allergies Reason For Referral No Information Medications Medication SIG (Take, Route, Frequency, Duration) Notes Start Date End Date Status Ibuprofen 800 MG Oral for 30 A ctive Gabapentin 300 MG Oral for 90 Active Losartan Potassium 100 MG Oral for 30 Active Plavix Not-Taking metFORMIN HCl Active Jardiance Active Extra Depth Diabetic Shoes with 3 Pair Custom heat-molded multi-density innersoles for 1 year Dx: 07/12/2021 Active Vitamin D3 50 MCG (1999) Oral for 90 Active Atorvastatin Calcium 80 MG Oral for 90 Active Baby Aspirin Not-Afshin ing Ciclopirox Olamine 0.77 % 1 application to affected area Externally Twice a day to effected areas on feet for 30 days Active metFORMIN HCl ER 500 MG 1 tablet with ev ening meal Orally Once a day Not-Takin g clonazePAM 1 MG Oral for 30 Ac tive Bumetanide 0.5 MG as directed Orally O nce a day Active Immunizations Vaccine Route Administration Date Status Comme nts COVID-19 Pfizer BioNTech Vaccine Unknown 05/16/2022 Administered 1st 10/20/20 2nd 11/10/20 3rd 06/02/21 Influenza Unknown 05/16/2022 Administered Social History Tobacco Use: Social History Observation [...] Are you an other tobacco user? No Problems Problem Type SNOMED Code ICD Code Onset Dates Problem Status W/U Status Risk Notes Problem Localized, primary osteoarthritis of the ankle and/or foot (107544245) Primary osteoarthritis, left ankle and foot (M19.072) Active confirmed Problem Acquired hammer toe of left foot (6318393148171503 ) Other hammer toe(s) (acquired), left foot (M20.42) Active confirmed Problem Polyneuropathy due to type 2 diabetes mellitus (012700022) Type 2 diabetes mellitus with diabetic polyneuropathy (E11.42) Active confirmed Vital Signs Blood pressure diastolic 60 mm Hg 04/22/2024 Height 5 ft 9 in in 04/22/2024 Blood pressure systolic 120 mm Hg 04/22/2024 Weight 208 lbs 04/22/2024 BMI 30.71 kg/m2 04/22/2024 Encounters Encounter Location Date Provider Diagnosis [address] [address] 09/04/2023 Jean Claude Rajna Type 2 diabetes mellitus with diabetic polyneuropathy E11.42 ; Primary osteoarthritis, left ankle and foot M19.072 ; Pain in left toe(s) M79.675 ; Other hammer toe(s) (acquired), left foot M20.42 ; Tinea unguium B35.1 ; Pain in right toe(s) M79.674 and Tinea pedis B35.[address] [address] 01/15/2024 Jean Claude Rajan Type 2 diabetes mellitus with diabetic polyneuropathy E11.42 ; Primary osteoarthritis, left ankle and foot M19.072 ; Pain in left toe(s) M79.675 ; Other hammer toe(s) (acquired), left foot M20.42 ; Tinea unguium B35.1 ; Pain in right toe(s) M79.674 and Tinea pedis B35.[address] [address] 04/22/2024 Jean Claude Rajan Type 2 diabetes mellitus with diabetic polyneuropathy E11.42 ; Primary osteoarthritis, left ankle and foot M19.072 ; Pain in left toe(s) M79.675 ; Other hammer toe(s) (acquired), left foot M20.42 ; Tinea unguium B35.1 ; Pain in right toe(s) M79.674 and Tinea pedis B35.3 Assessments Encounter Date Diagnosis (ICD Code) Assessment Notes Treatment Notes Treatment Clinical Notes Section Notes 09/04/2023 Type 2 diabetes mellitus with diabetic polyneuropathy (ICD-10 - E11.42) 01/15/2024 Primary osteoarthritis, left ankle and foot (ICD-10 - M19.072) 01/15/2024 Type 2 diabetes mellitus with diabetic polyneuropathy (ICD-10 - E11.42) 04/22/2024 Type 2 diabetes mellitus with diabetic polyneuropathy (ICD-10 - E11.42) 04/22/2024 Primary osteoarthritis, left ankle and foot (ICD-10 - M19.072) 01/15/2024 Pain in left toe(s) (ICD-10 - M79.675) 09/04/2023 Primary osteoarthritis, left ankle and foot (ICD-10 - M19.072) 09/04/2023 Pain in left toe(s) (ICD-10 - M79.675) 01/15/2024 Other hammer toe(s) (acquired), left foot (ICD-10 - M20.42) 04/22/2024 Pain in left toe(s) (ICD-10 - M79.675) 04/22/2024 Other hammer toe(s) (acquired), left foot (ICD-10 - M20.42) 09/04/2023 Other hammer toe(s) (acquired), left foot (ICD-10 - M20.42) 01/15/2024 Tinea unguium (ICD-10 - B35.1) 09/04/2023 Tinea unguium (ICD-10 - B35.1) 01/15/2024 Pain in right toe(s) (ICD-10 - M79.674) 04/22/2024 Tinea unguium (ICD-10 - B35.1) 04/22/2024 Pain in right toe(s) (ICD-10 - M79.674) 01/15/2024 Tinea pedis (ICD-10 - B35.3) 09/04/2023 Pain in right toe(s) (ICD-10 - M79.674) 09/04/2023 Tinea pedis (ICD-10 - B35.3) 04/22/2024 Tinea pedis (ICD-10 - B35.3) Plan Of Treatment Pending Test Test Name Order Date X ray : Foot, left 3V 07/12/2021 [id number] SKIN LESIONS, 2 TO 4 11/30/19 Next Appt Details Provider Name:Iwona Fallon rafi, 08/03/2024 09:15:00 AM, [address] [place], [address], Insurance Providers Payer Name Payer Address Payer Phone Subscriber Number Group Number Insured Name Patient Relationship to Insured Coverage Start Date Coverage End Date Medicare [employer] [address] [place] [address] [id number] Kali Garza Self - patient is the insured [employer] [facility] [address] [place] [address] [phone] [id number] Kali Garza Self - patient is the insured Medical (General) History Medical History History ICD Code Back,Hip,and Knee pain Broken bones type II diabetes High blood pressure Numbness Measles Mumps Chicken pox Surgical History Surgery Date(Month/Year) tonsillectomy 1979 appendectomy (ruptured) sepsis on life s upport 01/08/2005 cholecystectomy 2016 Hospitalization History Reason Date(Month/Year) [place]- TI 1.5 days Rehab 2 days 022
--- OUTSIDE RECORDS SUMMARY | 2024-07-22 19:47 | XMS_ITS ---
Author Organization Kip Jimenez DO, FACP Address [address], [place] [id number] Care Team Providers Care Director Hematology Name Role Phone Kip Jimenez Primary Care Provider [phone] SOCIAL HISTORY Sex Assigned At : Social History Observation Description Sex Assigned At Male VITAL SIGNS BMI 36.80 kg/m2 07/21/2024 Blood pressure systolic 98 mm Hg 07/21/20 24 Blood pressure diastolic 56 mm Hg 024 Height 66.00 in 07/21/2024 Weight 228 lbs 07/21/2024 Encounters Encounter Location Date Provider Diagnosis Kip Jimenez DO [facility] [address], [place] [id number] 07/21/2024 Kip Jimenez Pulmonary hypertension I27.20 ASSESSMENTS Encounter Date Diagnosis Assessment Notes Treatment Notes Treatment Clinical Notes 07/21/2024 Pulmonary hypertension (ICD-10 - I27.20) PLAN OF TREATMENT Next Appt Details Provider Name:Kip Bong Gerry tapia, 08/18/2024 02:00:00 PM, [address] [place], [place], [phone],
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
--- OUTSIDE RECORDS SUMMARY | 2024-07-22 19:48 | XMS_ITS ---
Author Organization Kip Jimenez DO, FACP Address [address], [place] [id number] Care Team Providers Care Business Analysis Analyst Name Role Phone TonyKip b[place] Primary Care Provider [phone] REASON FOR VISIT FYI only SOCIAL HISTORY Sex Assigned At : Social History Observation Description Sex Assigned At Male VITAL SIGNS BMI 36.96 kg/m2 07/15/2024 Blood pressure systolic 94 mm Hg 07/15/20 24 Blood pressure diastolic 48 mm Hg 024 Height 66.00 in 07/15/2024 Weight 229 lbs 07/15/2024 Encounters Encounter Location Date Provider Diagnosis Kip Jimenez DO, FACP [address] [place], [place] [phone] 07/15/2024 Kip Jimenez PLAN OF TREATMENT Next Appt Details Provider Name:Kip tapia, 08/18/2024 02:00:00 PM, [address] [place], [place], [phone],
--- OUTSIDE RECORDS SUMMARY | 2024-07-22 19:48 | XMS_ITS | Patient Health Record ---
Author Organization Kip Jimenez DO, FACP Address [address], [place] [id number] Care Team Providers Care Small Stock Facer Name Role Phone Kip Jimenez Primary Care Provider ALLERGIES No Known Allergies RESULTS Component Value Reference Range Notes Complete Blood Count Auto Di ff Reviewed date:11/27/2023 10:42:15 AM Interpretation:Normal Performing Lab:[facility], [address] [place] [phone] Notes/Report: White Blood Count 6.1 4.8-10.8 X10*3/uL Red Blood Count 4.79 4.60-5.80 X10*6/uL Hemoglobin 15.4 14.0-18.0 g/dl Hematocrit 44.6 42.0-52.0 % Mean Corpuscular Volume 93.1 80.0-98.0 fL Mean Corpuscular Hemoglobin 32.2 27.0-33.0 pg Mean Corpuscular HGB Conc 34.5 31.0-36.0 g/dl Red Cell Distribution Width 13.7 11.0-16.0 % Platelet Count 185 160-400 X10*3/uL Mean Platelet Volume 10.7 9.4-12.4 fL Neutrophils Percent Auto 60.5 45-73 % Imm Gran Pct Auto 0.2 0.0-0.4 % Lymphocytes Percent Auto 25.4 20-40 % Monocytes Percent Auto 10.8 2-11 % Eosinophils Percent Auto 2.6 0-4 % Basophils Percent Auto 0.5 0-2 % NRBC Pct Auto 0.0 0.0-0.2 /100WBC Neutrophils Absolute Auto 3.7 2.0-8.3 x10*3/u L Imm Gran Abs Auto 0.01 0.00-0.03 X10*3/uL Lymphocytes Absolute Auto 1.6 1.2-4.9 X10*3/u L Monocytes Absolute Auto 0.7 0.1-1.2 X10*3/uL Eosinophils Absolute Auto 0.2 0.0-0.4 X10*3/u L Basophils Absolute Auto 0.0 0.0-0.2 X10*3/uL NRBC Abs Auto 0.000 0.0-0.012 X10*3/uL Comprehensive [place]. Panel Fa st Reviewed date:11/27/2023 11:33:22 AM Interpretation:Abnormal Performing Lab:[facility], [address] [place] [phone] Notes/Report: Sodium 134 135-145 mmol/L Potassium 4.4 3.3-5.1 mmol/L Chloride 98 96-108 mmol/L Carbon Dioxide 27 22-29 mmol/L Anion Gap 13 12-20 Blood Urea Nitrogen 52 9-16 mg/dL Creatinine 1.76 0.5-1.4 mg/dL Estimated Glomerular Filt Rate 38 NOTE: For -[place]and[place] individuals, multiply the result by 1.210. Chronic Kidney Disease: Estimated GFR < 60 mL/min/1.73m2 Severe Kidney Disease: Estimated GFR < 15 mL/min/1.73m2 Glucose Fasting 117 60-99 mg/dL A fasting glucose from 100-125 mg/dl is considered impaired (pre-diabetes). Calcium 10.0 8.4-10.2 mg/dL Bilirubin Total 0.9 0.0-1.0 mg/dL Aspartate Amino Transferase 29 5-37 U/L Alanine Aminotransferase 34 0-40 U/L Total Protein 7.2 6.5-8.0 g/dL Albumin Level 3.9 3.5-5.0 g/dL Alkaline Phosphatase 128 39-117 U/L Lipid Panel Reviewed date:11/27/2023 11:33:22 AM Interpretation:Normal Performing Lab:[facility], [address] [place] [phone] Notes/Report: Triglycerides 142 <150 mg/dL Desirable Triglyceride: less than 150 mg/dL Borderline High Triglyceride 150-199 mg/dL High Triglyceride: 200-499 mg/dL Very High Triglyceride: greater than or equal to 5OO mg/dL Cholesterol 121 <200 mg/dL Desirable Cholesterol: less than 200 mg/dL Borderline High Cholesterol: 200-239 mg/dL High Cholesterol: greater than 239 mg/dL LDL Cholesterol Calculated 53 <100 mg/dL Desirable LDL: less than 100 mg/dL Near Optimal/Above Optimal LDL: 110-129 mg/dL Borderline High LDL: 130-159 mg/dL High LDL: 160-189 mg/dL Very High LDL: greater than or equal to 190 mg/dL HDL Cholesterol 40 >40 mg/dL Desirable HDL: greater than 40 mg/dL Note: This HDL assay may give artificially low results in patients with liver disease. Prostate Specific Antigen Reviewed date:11/27/2023 11:09:17 AM Interpretation:Normal Performing Lab:[facility], [address] [place] [phone] Notes/Report: Prostate Specific Antigen 0.59 <0.05-4.0 ng/mL PSA methodology: [employer] Al[employer] i Chemiluminescent Microparticle Immunoassay (CMIA) Vitamin D 25-OH Total Reviewed date:11/27/2023 11:33:22 AM Interpretation:Normal Performing Lab:[address] [phone] Notes/Report: Vitamin D 25-OH Total 33.3 >30 ng/mL Health Based Reference Values* < 20 ng/mL Deficient 20-30 ng/mL Insufficient > 30 ng/mL Sufficient *Lucita DOUGLAS. N Engl J Med. 2007;357:266-280 Care must be taken in interpreting Vitamin D results from different laboratories and methodologies. Published data demonstrated that results from patients undergoing hemodialysis may show a negative bias when tested with various automated 25-OH vitamin D assays when compared to LC-MS/MS. When testing samples from patients whose predominant form of Vitamin D is Vitamin D2, such as patients receiving Vitamin D2 supplementation, results that are subtherapeutic should be confirmed with another method such as LC-MS/MS. Thyroid Stimulating Hormone Reviewed date:11/27/2023 11:33:22 AM Interpretation:Normal Performing Lab:[facility], [address] [place] [phone] Notes/Report: Thyroid Stimulating Hormone 2.66 0.32-4.0 uIU/ mL Note: A sustained TSH level above 2.5 uIU/mL may warrant further investigation. TSH 3rd Generation ([facility]) Comprehensive Met. Panel Reviewed date:12/10/2023 11:08:43 AM Interpretation:Abnormal Performing Lab:[facility], [address] [place] [phone] Notes/Report: Sodium 134 135-145 mmol/L Potassium 4.5 3.3-5.1 mmol/L Chloride 98 96-108 mmol/L Carbon Dioxide 23 22-29 mmol/L Anion Gap 18 12-20 Blood Urea Nitrogen 78 9-16 mg/dL Creatinine 2.57 0.5-1.4 mg/dL Estimated Glomerular Filt Rate 25 NOTE: For -[place]gand[place] individuals, multiply the result by 1.210. Chronic Kidney Disease: Estimated GFR < 60 mL/min/1.73m2 Severe Kidney Disease: Estimated GFR < 15 mL/min/1.73m2 Glucose Random 134 60-115 mg/dL Calcium 10.3 8.4-10.2 mg/dL Bilirubin Total 1.2 0.0-1.0 mg/dL Aspartate Amino Transferase 25 5-37 U/L Alanine Aminotransferase 27 0-40 U/L Total Protein 7.5 6.5-8.0 g/dL Albumin Level 4.1 3.5-5.0 g/dL Alkaline Phosphatase 119 39-117 U/L Comprehensive Met. Panel Reviewed date:12/30/2023 11:23:33 AM Interpretation:Abnormal Performing Lab:[facility], [address] [place] [phone] Notes/Report: Sodium 132 135-145 mmol/L Potassium 4.6 3.3-5.1 mmol/L Chloride 99 96-108 mmol/L Carbon Dioxide 21 22-29 mmol/L Anion Gap 17 12-20 Blood Urea Nitrogen 80 9-16 mg/dL Creatinine 2.29 0.5-1.4 mg/dL Estimated Glomerular Filt Rate 28 NOTE: For -Ugand[place] individuals, multiply the result by 1.210. Chronic Kidney Disease: Estimated GFR < 60 mL/min/1.73m2 Severe Kidney Disease: Estimated GFR < 15 mL/min/1.73m2 Glucose Random 114 60-115 mg/dL Calcium 9.7 8.4-10.2 mg/dL Bilirubin Total 1.1 0.0-1.0 mg/dL Aspartate Amino Transferase 26 5-37 U/L Alanine Aminotransferase 21 0-40 U/L Total Protein 7.0 6.5-8.0 g/dL Albumin Level 3.8 3.5-5.0 g/dL Alkaline Phosphatase 100 39-117 U/L Comprehensive Met. Panel Reviewed date:01/15/2024 11:14:47 AM Interpretation:Abnormal Performing Lab:[facility], [address] [place] [phone] Notes/Report: Sodium 132 135-145 mmol/L Potassium 4.8 3.3-5.1 mmol/L Chloride 100 96-108 mmol/L Carbon Dioxide 22 22-29 mmol/L Anion Gap 15 12-20 Blood Urea Nitrogen 68 9-16 mg/dL Creatinine 1.89 0.5-1.4 mg/dL Estimated Glomerular Filt Rate 35 NOTE: For -Ugand[place] individuals, multiply the result by 1.210. Chronic Kidney Disease: Estimated GFR < 60 mL/min/1.73m2 Severe Kidney Disease: Estimated GFR < 15 mL/min/1.73m2 Glucose Random 105 60-115 mg/dL Calcium 10.2 8.4-10.2 mg/dL Bilirubin Total 1.5 0.0-1.0 mg/dL Aspartate Amino Transferase 26 5-37 U/L Alanine Aminotransferase 26 0-40 U/L Total Protein 7.4 6.5-8.0 g/dL Albumin Level 4.1 3.5-5.0 g/dL Alkaline Phosphatase 107 39-117 U/L Complete Blood Count no Diff Reviewed date:02/18/2024 10:36:41 AM Interpretation:Normal Performing Lab:[facility], [address] [place] [phone] Notes/Report: White Blood Count 6.5 4.8-10.8 X10*3/uL Red Blood Count 4.50 4.60-5.80 X10*6/uL Hemoglobin 14.4 14.0-18.0 g/dl Hematocrit 41.9 42.0-52.0 % Mean Corpuscular Volume 93.1 80.0-98.0 fL Mean Corpuscular Hemoglobin 32.0 27.0-33.0 pg Mean Corpuscular HGB Conc 34.4 31.0-36.0 g/dl Red Cell Distribution Width 13.9 11.0-16.0 % Platelet Count 174 160-400 X10*3/uL Mean Platelet Volume 10.4 9.4-12.4 fL NRBC Pct Auto 0.0 0.0-0.2 /100WBC NRBC Abs Auto 0.000 0.0-0.012 X10*3/uL Prothrombin Time INR Reviewed date:02/18/2024 10:36:41 AM Interpretation:Normal Performing Lab:[facility], [address] [place] [phone] Notes/Report: Prothrombin Time 12.9 11.1-13.3 SEC INTERNATIONAL NORM RATIO 1.1 0.9-1.1 INTERNATIONAL NORMALIZED RATIO (INR) REFERENCE RANGES Reference Range For patients not on anticoagulant therapy: 0.9 - 1.1 INR ranges for oral anticoagulant therapy: For prevention and treatment of venous thrombosis and pulmonary embolism: 2.0 - 3.0 For acute myocardial infarction with aspirin therapy: 2.0 - 3.0 For acute myocardial infarction without aspirin therapy: 3.0 - 4.0 For patients with mechanical prosthetic heart valves: 2.5 - 3.5 Basic Metabolic Panel Reviewed date:02/18/2024 11:42:29 AM Interpretation:Abnormal Performing Lab:[facility], [address] [place] [phone] Notes/Report: Sodium 135 135-145 mmol/L Potassium 5.0 3.3-5.1 mmol/L Chloride 102 96-108 mmol/L Carbon Dioxide 24 22-29 mmol/L Anion Gap 14 12-20 Blood Urea Nitrogen 58 9-16 mg/dL Creatinine 1.87 0.5-1.4 mg/dL Estimated Glomerular Filt Rate 36 NOTE: For -Ugand[place] individuals, multiply the result by 1.210. Chronic Kidney Disease: Estimated GFR < 60 mL/min/1.73m2 Severe Kidney Disease: Estimated GFR < 15 mL/min/1.73m2 Glucose Random 95 60-115 mg/dL Calcium 9.8 8.4-10.2 mg/dL CT cervical spine wo con Reviewed date:07/15/2024 12:42:10 PM Interpretation:Abnormal Performing Lab: Notes/Report: [address] [address] [address] Scan Report Signed Patient: Kali Garza MR#: [id number] 0 : 1955 Acct:[id number] Age/Sex: 69 / M ADM Date: 05/15/24 Loc: HO.CT Attending Dr: Deirdre Marin MD Ordering Physician: Deirdre aMrin MD Date of Service: 05/15/24 Procedure(s): CT cervical spine wo IV con Accession Number(s): [id number] cc: Kip Jimenez DO; Deirdre Marin MD EXAMINATION: CT CERVICAL SPINE WITHOUT CONTRAST CLINICAL INFORMATION: Cervical spondylosis, cord compression. COMPARISON: No prior cervical imaging. TECHNIQUE: Spiral CT of the cervical spine was performed in the axial plane from the skull base to the thoracic inlet without IV contrast. Sagittal, coronal, and thin section axial reformatted images were constructed from the axial data set. This CT examination was performed using dose optimization techniques as appropriate, variously including the following: *Automated exposure control *Adjustment of mA and/or kV according to patient size (this includes techniques or standardized protocols for targeted exams where dose is matched to indication/reason for exam; i.e. extremities or head) *Use of iterative reconstruction technique DLP: 425 mGy-cm FINDINGS: There is a mild dextroconvex scoliosis, apex at C5. There is reversal of the normal lordosis centered at C5. This is nonspecific. There is no compression deformity, fracture, or suspicious focal bone lesion. There are advanced degenerative changes of the atlantoaxial joint with dens erosions. This may be inflammatory. Mild pannus formation without craniocervical Junction stenosis. There is a 2 mm degenerative anterolisthesis of C3 on C4. 3 mm degenerative anterolisthesis of C4 on C5. 2 mm degenerative retrolisthesis of C6 on C7. Alignment is otherwise anatomic. Moderate disc degeneration present most notable C5-T1. Multilevel hypertrophic facet and uncinate changes. 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 AXIAL DISC SPACE IMAGING: (Significantly limited due to steep obliquity in relation to the disc spaces on the axial reformats). C2-C3: No disc herniation or gross central canal stenosis. Moderate to severe left and moderate right neural foraminal narrowing from hypertrophic facet changes. C3-C4: 2 mm anterolisthesis. Mild disc osteophytic bulging is present, with significant uncinate spurring and left greater than right facet spurring and hypertrophy. Mild central canal stenosis without cord impingement. Moderate left and mild right lateral recess stenosis. There is severe left greater than right neural foraminal encroachment. C4-C5: 3 mm anterolisthesis. Diffuse disc bulge is present extending into both foraminal zones, which when coupled with hypertrophic facet and uncinate changes is contributing to moderate central canal stenosis with possible mild mass effect upon the cord. Mild bilateral lateral recess narrowing is present. There is moderate to severe left and moderate right neural foraminal narrowing. C5-C6: Shallow diffuse disc osteophytic ridge complex present, contiguous bilaterally with uncinate spurring. Mild hypertrophic facet changes bilaterally. Combination of findings results in [id number] central canal narrowing, mild bilateral lateral recess narrowing, mild right and oeuu-jx-zalrabgc left neural foraminal narrowing. C6-C7: There is a central/right paracentral disc protrusion superimposed upon a shallow diffuse disc bulge. This results in mild central canal narrowing. No lateral recess narrowing. Neural foramen are patent bilaterally. C7-T1: No central canal or neural foraminal narrowing. SOFT TISSUES: -Normal thyroid. -Lung apices clear. There is mild emphysema. -Mild atheromatous calcification of both carotid arteries. -No prevertebral soft tissue abnormalities. -No masses or adenopathy noted. CT/CT cervical spine wo IV con IMPRESSION: 1. No acute fracture or acute bony abnormalities. Mild dextroconvex scoliosis and reversal of the normal lordosis, both centered at C5. 2. Several mild degenerative subluxations, most significant at C4-5 where there is 3 mm anterolisthesis. 3. Multilevel spondylosis, most significant at C4-5 and C5-6 as discussed above. Cannot exclude mild mass effect upon the cord especially at C4-5. MRI may be of benefit if patient is able. 4. Multilevel foraminal narrowing, moderate to severe on the left at C2-3, severe bilateral at C3-4, and moderate to severe left at C4-5. 5. See above for details. Electronically signed by: Rickie Lee MD 07/15/2024 11:52 AM [facility] Dictated By: Rickie Lee MD Signed By: <Electronically signed by Rickie Lee MD in [place]> 07/15/24 1152 DD/ TD/TT: 05/15/24928 Roving Hand: Complete Blood Count Auto Di ff Reviewed date:07/06/2024 02:03:25 PM Interpretation:Abnormal Performing Lab:[facility], [address] [place] [phone] Notes/Report: White Blood Count 5.4 4.8-10.8 X10*3/uL Red Blood Count 4.19 4.60-5.80 X10*6/uL Hemoglobin 13.7 14.0-18.0 g/dl Hematocrit 40.8 42.0-52.0 % Mean Corpuscular Volume 97.4 80.0-98.0 fL Mean Corpuscular Hemoglobin 32.7 27.0-33.0 pg Mean Corpuscular HGB Conc 33.6 31.0-36.0 g/dl Red Cell Distribution Width 14.2 11.0-16.0 % Platelet Count 134 160-400 X10*3/uL Mean Platelet Volume 10.9 9.4-12.4 fL Neutrophils Percent Auto 68.1 45-73 % Imm Gran Pct Auto 0.4 0.0-0.4 % Lymphocytes Percent Auto 16.8 20-40 % Monocytes Percent Auto 10.4 2-11 % Eosinophils Percent Auto 3.7 0-4 % Basophils Percent Auto 0.6 0-2 % NRBC Pct Auto 0.0 0.0-0.2 /100WBC Neutrophils Absolute Auto 3.7 2.0-8.3 x10*3/u L Imm Gran Abs Auto 0.02 0.00-0.03 X10*3/uL Lymphocytes Absolute Auto 0.9 1.2-4.9 X10*3/u L Monocytes Absolute Auto 0.6 0.1-1.2 X10*3/uL Eosinophils Absolute Auto 0.2 0.0-0.4 X10*3/u L Basophils Absolute Auto 0.0 0.0-0.2 X10*3/uL NRBC Abs Auto 0.000 0.0-0.012 X10*3/uL Comprehensive [place]. Panel Fa st Reviewed date:07/06/2024 02:29:03 PM Interpretation:Abnormal Performing Lab:[facility], [address] [place] [phone] Notes/Report: Sodium 131 135-145 mmol/L Potassium 4.9 3.3-5.1 mmol/L Chloride 102 96-108 mmol/L Carbon Dioxide 24 22-29 mmol/L Anion Gap 10 12-20 Blood Urea Nitrogen 64 9-16 mg/dL Creatinine 1.93 0.5-1.4 mg/dL Estimated Glomerular Filt Rate 34 Chronic Kidney Disease: Estimated GFR < 60 mL/min/1.73m2 Severe Kidney Disease: Estimated GFR < 15 mL/min/1.73m2 Glucose Fasting 108 60-99 mg/dL A fasting glucose from 100-125 mg/dl is considered impaired (pre-diabetes). Calcium 9.9 8.4-10.2 mg/dL Bilirubin Total 1.2 0.0-1.0 mg/dL Aspartate Amino Transferase 37 5-37 U/L Alanine Aminotransferase 38 0-40 U/L Total Protein 6.8 6.5-8.0 g/dL Albumin Level 3.9 3.5-5.0 g/dL Alkaline Phosphatase 141 39-117 U/L Lipid Panel Reviewed date:07/06/2024 02:26:49 PM Interpretation:Normal Performing Lab:[facility], [address] [place] [phone] Notes/Report: Triglycerides 59 <150 mg/dL Desirable Triglyceride: less than 150 mg/dL Borderline High Triglyceride 150-199 mg/dL High Triglyceride: 200-499 mg/dL Very High Triglyceride: greater than or equal to 5OO mg/dL Cholesterol 108 <200 mg/dL Desirable Cholesterol: less than 200 mg/dL Borderline High Cholesterol: 200-239 mg/dL High Cholesterol: greater than 239 mg/dL LDL Cholesterol Calculated 46 <100 mg/dL Desirable LDL: less than 100 mg/dL Near Optimal/Above Optimal LDL: 110-129 mg/dL Borderline High LDL: 130-159 mg/dL High LDL: 160-189 mg/dL Very High LDL: greater than or equal to 190 mg/dL HDL Cholesterol 51 >40 mg/dL Desirable HDL: greater than 40 mg/dL Note: This HDL assay may give artificially low results in patients with liver disease. Vitamin D 25-OH Total Reviewed date:07/06/2024 02:27:27 PM Interpretation:Abnormal Performing Lab:[facility], [address] [place] [phone] Notes/Report: Vitamin D 25-OH Total 26.4 >30 ng/mL Health Based Reference Values* < 20 ng/mL Deficient 20-30 ng/mL Insufficient > 30 ng/mL Sufficient *Lucita DOUGLAS. N Engl J Med. 2007;357:266-280 Care must be taken in interpreting Vitamin D results from different laboratories and methodologies. Published data demonstrated that results from patients undergoing hemodialysis may show a negative bias when tested with various automated 25-OH vitamin D assays when compared to LC-MS/MS. When testing samples from patients whose predominant form of Vitamin D is Vitamin D2, such as patients receiving Vitamin D2 supplementation, results that are subtherapeutic should be confirmed with another method such as LC-MS/MS. Thyroid Stimulating Hormone Reviewed date:07/06/2024 02:27:13 PM Interpretation:Normal Performing Lab:[facility], [address] [place] [phone] Notes/Report: Thyroid Stimulating Hormone 3.24 0.32-4.0 uIU/ mL Note: A sustained TSH level above 2.5 uIU/mL may warrant further investigation. TSH 3rd Generation ([facility]) Microalbumin, Random Reviewed date:07/06/2024 02:09:56 PM Interpretation:Abnormal Performing Lab:[facility], [address] [place] [phone] Notes/Report: Creatinine Urine 16.59 Microalbumin Urine 8.0 Microalbum/Creatinine Ratio Ur 48.2 <30 ug/mg cr Albumin/Creatinine Ratio Reference Ranges: Normal: < 30 ug/mg creatinine Microalbuminuria: 30 - 300 ug/mg creatinine Clinical Albuminuria: > 300 ug/mg creatinine Hemoglobin A1c Reviewed date:07/06/2024 02:04:07 PM Interpretation:Stable Performing Lab:[facility], [address] [place] [phone] Notes/Report: Hemoglobin A1c % 6.4 <6.0 % Hemoglobin A1C Reference Range Adults: 4.8 - 6.0 % Non diabetic: < 6.0 % Goal: < 7.0 % Additional Action Suggested: > 8.0 % Note: Hemoglobin A1c results are invalid for patients with abnormal amounts of HbF. Blood transfusions may impact the HbA1c concentration in the patient sample. Estimated Average Glucose 137 eAG = Estimated average glucose which is %A1C expressed as average glucose, using the formula of the [id number] Average Glucose study (ADAG), Diabetes Care, Vol.31,#8, Mar. 2007 Complete Blood Count Auto Di ff Reviewed date:07/21/2024 01:22:26 PM Interpretation:Abnormal Performing Lab:[facility], [address] [place] [phone] Notes/Report: White Blood Count 6.3 4.8-10.8 X10*3/uL Red Blood Count 4.16 4.60-5.80 X10*6/uL Hemoglobin 13.5 14.0-18.0 g/dl Hematocrit 40.5 42.0-52.0 % Mean Corpuscular Volume 97.4 80.0-98.0 fL Mean Corpuscular Hemoglobin 32.5 27.0-33.0 pg Mean Corpuscular HGB Conc 33.3 31.0-36.0 g/dl Red Cell Distribution Width 14.1 11.0-16.0 % Platelet Count 168 160-400 X10*3/uL Mean Platelet Volume 10.6 9.4-12.4 fL Neutrophils Percent Auto 72.1 45-73 % Imm Gran Pct Auto 0.3 0.0-0.4 % Lymphocytes Percent Auto 15.0 20-40 % Monocytes Percent Auto 9.8 2-11 % Eosinophils Percent Auto 2.2 0-4 % Basophils Percent Auto 0.6 0-2 % NRBC Pct Auto 0.0 0.0-0.2 /100WBC Neutrophils Absolute Auto 4.6 2.0-8.3 x10*3/u L Imm Gran Abs Auto 0.02 0.00-0.03 X10*3/uL Lymphocytes Absolute Auto 1.0 1.2-4.9 X10*3/u L Monocytes Absolute Auto 0.6 0.1-1.2 X10*3/uL Eosinophils Absolute Auto 0.1 0.0-0.4 X10*3/u L Basophils Absolute Auto 0.0 0.0-0.2 X10*3/uL NRBC Abs Auto 0.000 0.0-0.012 X10*3/uL Comprehensive Met. Panel Reviewed date:07/21/2024 01:38:56 PM Interpretation:Abnormal Performing Lab:[facility], [address] [place] [phone] Notes/Report: Sodium 138 135-145 mmol/L Potassium 3.8 3.3-5.1 mmol/L Chloride 100 96-108 mmol/L Carbon Dioxide 29 22-29 mmol/L Anion Gap 13 12-20 Blood Urea Nitrogen 54 9-16 mg/dL Creatinine 1.88 0.5-1.4 mg/dL Estimated Glomerular Filt Rate 36 Chronic Kidney Disease: Estimated GFR < 60 mL/min/1.73m2 Severe Kidney Disease: Estimated GFR < 15 mL/min/1.73m2 Glucose Random 144 60-115 mg/dL Calcium 10.0 8.4-10.2 mg/dL Bilirubin Total 1.4 0.0-1.0 mg/dL Aspartate Amino Transferase 33 5-37 U/L Alanine Aminotransferase 33 0-40 U/L Total Protein 7.4 6.5-8.0 g/dL Albumin Level 4.0 3.5-5.0 g/dL Alkaline Phosphatase 147 39-117 U/L B Type Natriuretic Peptide Reviewed date:07/21/2024 01:39:27 PM Interpretation:Abnormal Performing Lab:[facility], [address] [place] [phone] Notes/Report: B Type Natriuretic Peptide 1141 <100 pg/mL For those patients who are being treated with Natrecor (nesiritide, recombinant BNP), BNP testing should be performed at least two hours post treatment in order to ensure that only endogenous levels of BNP are detected. REASON FOR REFERRAL No Information MEDICATIONS Medication SIG (Take, Route, Frequency, Duration) Notes Start Date End Date Status Bumetanide 2 MG 1 tablet Orally Once a day Active Spironolactone 50 MG 0.5 tablet Orally O nce a day Active Vitamin D3 50 MCG (1999 UT) 1 capsule Or ally Once a day Active clonazePAM 1 MG 1 tablet at bedtime as needed Orally Once a day 05/10/2024 Active Gabapentin 300 MG 2 capsules at bedtim e Orally Once a day Active Ibuprofen 800 MG 1 tablet with food o r milk as needed Orally Three times a day 03/31/2024 Active Atorvastatin Calcium 80 MG 1 tablet Oral ly Once a day Active Aspirin EC 81 MG 1 tablet Orally Once a day Active metFORMIN HCl ER 750 MG 1 tablet with ev ening meal Orally Once a day Active Jardiance 10 MG 1 tablet Orally Once a day Active IMMUNIZATIONS Vaccine Route Administration Date Status Comme nts Influenza IM Intramuscular 05/13/2014 Administered Zoster Vaccine SC Subcutaneous 11/19/2014 Administered Influenza Quad IM Intramuscular 07/01/2015 Administered Influenza Quad Unknown 08/15/2016 Administered Influenza High Dose IM Intramuscular 05/09/2018 Administer ed TDaP IM Intramuscular 06/19/2021 Administered Influenza Quad IM Intramuscular 06/16/2021 Administered PCV 13 IM Intramuscular 04/22/2020 Administered Shingrix Unknown 08/08/2020 Administered Shingrix Unknown 05/26/2020 Administered Influnza High Dose Quad Unknown 05/26/2020 Administered Influenza High Dose Unknown 05/26/2019 Administered COVID-19 Pfizer BioNTech Unknown 11/10/2020 Administere d Influenza Quad Unknown 07/12/2017 Administered COVID-19 Pfizer Bio[employer] Unknown 10/20/2020 Administere d COVID-19 Pfizer Bio[employer] Unknown 06/02/2021 Administere d PPSV23 Unknown 11/06/2021 Administered COVID-19 Moderna Vaccine Unknown 12/19/2021 Administere d Influenza High Dose IM Intramuscular 05/09/2022 Administer ed COVID-19 Moderna Bivalent Unknown 05/14/2022 Administer ed Influenza High Dose Unknown 04/17/2024 Administered SOCIAL HISTORY Tobacco Use: Social History Observation Description Date Details (start date - stop date) Former Smoker NA - NA Sex Assigned At : Social History Observation Description Sex Assigned At Male Tobacco Use/Smoking Question Answer Notes Patient is a former smoker How long has it been since y ou last smoked? > 10 years Additional Findings: Tobacco Non-User Fo rmer smoker, currently using no form of tobacco Alcohol Screen Question Answer Notes Did you have a drink contain ing alcohol in the past year? Yes How often did you have a dri nk containing alcohol in the past year? 4 or more times a week (4 points) How many drinks did you have on a typical day when you were drinking in the past year? 1 or 2 drinks (0 point) How often did you have 6 or more drinks on one occasion in the past year? Never (0 point) Points 4 Interpretation Positive PROBLEMS Problem Type ICD Code Onset Dates Problem Status W/U Status Risk SNOMED Code Notes Problem Vitamin D deficiency (E55.9) Active confirmed 91557567 Problem Other obesity due to excess calories (E66.09) Active confirmed 842102757 Problem Obstructive sleep ap alon (adult) (pediatric) (G47.33) Active confirmed 39129769 Problem Localized edema (R60.0) Active confirmed 726781397 Problem Essential hypertensi on (I10) Active confirmed 23841872 Problem Neuropathy (G62.9) Active confirmed 386 287530 Problem Morbid obesity due t o excess calories (E66.01) Active confirmed 759393411 Problem Type 2 diabetes mellitus without complication, without long-term current use of insulin (E11.9) Active confirmed 235684868 Problem Hypercholesterolemia (E78.00) Active confirmed 00010374 Problem Pain of left great t oe (M79.675) Active confirmed 567172937 Problem Body mass index [BMI ] 32.0-32.9, adult (Z68.32) Active confirmed 681097899 Problem Stenosis of left vertebral artery (I65.02) Active confirmed 802002798 Problem Pulmonary hypertensi on (I27.20) Active confirmed 11377500 VITAL SIGNS Blood pressure diastolic 56 mm Hg 07/21/2024 Height 66.00 in 07/21/2024 Blood pressure systolic 98 mm Hg 07/21/2024 Weight 228 lbs 07/21/2024 BMI 36.80 kg/m2 07/21/2024 Encounters Encounter Location Date Provider Diagnosis Kip Jimenez DO, [address] [id number] 12/04/2023 Kip Jimenez Type 2 diabetes marielena itus without complication, without long-term current use of insulin E11.9 ; Essential hypertension I10 ; Hypercholesterolemia E78.00 ; Obstructive sleep apnea (adult) (pediatric) G47.33 ; Neuropathy G62.9 ; Stenosis of left vertebral artery I65.02 ; MERRITT (dyspnea on exertion) R06.09 and Vitamin D deficiency E55.9 Kip Jimenez DO, [facility] [address] [place], [place] [id number] 01/01/2024 Kip Jimenez Essential hypertensi on I10 ; Hypercholesterolemia E78.00 ; Type 2 diabetes mellitus without complication, without long-term current use of insulin E11.9 ; Obstructive sleep apnea (adult) (pediatric) G47.33 ; Neuropathy G62.9 and Vitamin D deficiency E55.9 Kip Jimenez DO, [facility] [address] [place], [place] [id number] 03/04/2024 Kip Jimenez DO, [address] [id number] 03/10/2024 Kip Jimenez DO, [address] [id number] 03/31/2024 Kip Jimenez Type 2 diabetes marielena itus without complication, without long-term current use of insulin E11.9 ; Essential hypertension I10 ; Hypercholesterolemia E78.00 ; Vitamin D deficiency E55.9 ; Obstructive sleep apnea (adult) (pediatric) G47.33 and Neuropathy G62.9 Kip Jimenez DO, [address] [id number] 07/14/2024 Kip Jimenez Pulmonary hypertensi on I27.20 ; Essential hypertension I10 ; Hypercholesterolemia E78.00 ; Type 2 diabetes mellitus without complication, without long-term current use of insulin E11.9 ; Neuropathy G62.9 ; Other obesity due to excess calories E66.09 ; Vitamin D deficiency E55.9 and Obstructive sleep apnea (adult) (pediatric) G47.33 Kip Jimenez DO, [facility] [address] [place], [place] [id number] 11/22/2023 Kip Jimenez DO, [address] [id number] 12/11/2023 Kip Jimenez Localized edema R60. 0 and Essential hypertension I10 Kip Jimenez DO, [facility] [address] [place], [place] [id number] 12/27/2023 Kip Jimenez DOE (dyspnea on exer tion) R06.09 Kip Jimenez DO, [facility] [address] [place], [place] [id number] 02/12/2024 Kip Jimenez DO, [address] [id number] 03/31/2024 Kip Jimenez DO, [address] [id number] 05/11/2024 Kip Jimenez DO, [facility] [address] [place], [place] [id number] 07/15/2024 Kip Jimenez DO, [facility] [address] [place], [place] [id number] 07/21/2024 Kip Jimenez Pulmonary hypertensi on I27.20 Kip Jimenez DO, [facility] [address] [place], [place] [id number] 08/09/2023 Kip Jimenez Obstructive sleep ap alon (adult) (pediatric) G47.33 Kip Jimenez DO, [facility] [address] [place], [place] [id number] 08/10/2023 Kip Jimenez DO, [facility] [address] [place], [place] [id number] 11/09/2023 Kip Jimenez Obstructive sleep ap alon (adult) (pediatric) G47.33 Kip Jimenez DO, [facility] [address] [place], [place] [id number] 11/09/2023 Kip Jimenez DO, [address] [id number] 11/21/2023 Kip Jimenez Type 2 diabetes marielena itus without complication, without long-term current use of insulin E11.9 ; Essential hypertension I10 ; Hypercholesterolemia E78.00 ; Morbid obesity due to excess calories E66.01 ; Vitamin D deficiency E55.9 and Encounter for general adult medical examination without abnormal findings Z00.00 Kip Jimenez DO, [facility] [address] [place], [place] [id number] 02/09/2024 Kip Jimenez Obstructive sleep ap alon (adult) (pediatric) G47.33 Kip Jimenez DO, [facility] [address] [place], [place] [id number] 02/29/2024 Kip Jimenez Neuropathy G62.9 Kip Jimenez DO, [facility] [address] [place], [place] [id number] 03/01/2024 Kip Jimenez DO, [facility] [address] [place], [place] [id number] 04/17/2024 Kip Jimenez DO, [facility] [address] [place], [place] [id number] 04/17/2024 Kip Jimenez DO, [address] [id number] 04/30/2024 Kip Jimenez Kip Jimenez DO, [facility] [address] [place], [place] [id number] 04/30/2024 Kip Tony Kip Jimenez DO, [address] [id number] 05/05/2024 Kip Jimenez Kip Jimenez DO, [address] [id number] 05/10/2024 Kip Jimenez Obstructive sleep ap alon (adult) (pediatric) G47.33 and Neuropathy G62.9 Kip Woody Tony DRAPER, [facility] [address] [place], [place] [id number] 05/10/2024 Kip Jimenez Kip Jimenez , [address] [id number] 06/17/2024 Kip Jimenez ASSESSMENTS Encounter Date Diagnosis Assessment Notes Treatment Notes Treatment Clinical Notes 12/04/2023 Essential hypertensi on (ICD-10 - I10) 12/04/2023 Type 2 diabetes marielena itus without complication, without long-term current use of insulin (ICD-10 - E11.9) 01/01/2024 Essential hypertensi on (ICD-10 - I10) Will decrease the bumetanide and the losartan to see if that helps to improve Ruby's renal function. If his renal function worsens he will need referral to Nephrology 01/01/2024 Hypercholesterolemia (ICD-10 - E78.00) 03/31/2024 Essential hypertensi on (ICD-10 - I10) 03/31/2024 Type 2 diabetes marielena itus without complication, without long-term current use of insulin (ICD-10 - E11.9) 07/14/2024 Essential hypertensi on (ICD-10 - I10) Ruby is hypotensive. Will hold the Losartan for now. He will check his BP in my office tomorrow and again in three days. 07/14/2024 Pulmonary hypertensi on (ICD-10 - I27.20) Ruby has worsening fluid retention on Opsumit. He is hypotensive. I spoke with his Pulmonary Hypertension Flyer Maker, Dr. Pierce. Will stop the Opsumit at this point. I can't increase his diuretics with his BP so low. I discussed with Ruby his going to the ER to be admitted for monitored diuresis. He wishes to hold off on that in the short term. He will check his BP in my office tomorrow and again in three days. 12/11/2023 Localized edema (ICD -10 - R60.0) 12/11/2023 Essential hypertensi on (ICD-10 - I10) 12/27/2023 MERRITT (dyspnea on exer tion) (ICD-10 - R06.09) 07/21/2024 Pulmonary hypertensi on (ICD-10 - I27.20) 08/09/2023 Obstructive sleep ap alon (adult) (pediatric) (ICD-10 - G47.33) 11/09/2023 Obstructive sleep ap alon (adult) (pediatric) (ICD-10 - G47.33) 11/21/2023 Essential hypertensi on (ICD-10 - I10) 11/21/2023 Type 2 diabetes marielena itus without complication, without long-term current use of insulin (ICD-10 - E11.9) 02/09/2024 Obstructive sleep ap alon (adult) (pediatric) (ICD-10 - G47.33) 02/29/2024 Neuropathy (ICD-10 - G62.9) 05/10/2024 Obstructive sleep ap alon (adult) (pediatric) (ICD-10 - G47.33) 12/04/2023 Hypercholesterolemia (ICD-10 - E78.00) 01/01/2024 Type 2 diabetes marielena itus without complication, without long-term current use of insulin (ICD-10 - E11.9) 03/31/2024 Hypercholesterolemia (ICD-10 - E78.00) 07/14/2024 Hypercholesterolemia (ICD-10 - E78.00) 11/21/2023 Hypercholesterolemia (ICD-10 - E78.00) 05/10/2024 Neuropathy (ICD-10 - G62.9) 12/04/2023 Obstructive sleep ap alon (adult) (pediatric) (ICD-10 - G47.33) CPAP nightly 01/01/2024 Obstructive sleep ap alon (adult) (pediatric) (ICD-10 - G47.33) 03/31/2024 Vitamin D deficiency (ICD-10 - E55.9) 07/14/2024 Type 2 diabetes marielena itus without complication, without long-term current use of insulin (ICD-10 - E11.9) 11/21/2023 Morbid obesity due t o excess calories (ICD-10 - E66.01) 12/04/2023 Neuropathy (ICD-10 - G62.9) 01/01/2024 Neuropathy (ICD-10 - G62.9) 03/31/2024 Obstructive sleep ap alon (adult) (pediatric) (ICD-10 - G47.33) 07/14/2024 Neuropathy (ICD-10 - G62.9) 11/21/2023 Vitamin D deficiency (ICD-10 - E55.9) 12/04/2023 Stenosis of left vertebral artery (ICD-10 - I65.02) 01/01/2024 Vitamin D deficiency (ICD-10 - E55.9) 03/31/2024 Neuropathy (ICD-10 - G62.9) 07/14/2024 Other obesity due to excess calories (ICD-10 - E66.09) Recent weight gain is due to fluid retention, but Ruby is trying to lose weight. 11/21/2023 Encounter for genera l adult medical examination without abnormal findings (ICD-10 - Z00.00) 12/04/2023 MERRITT (dyspnea on exer tion) (ICD-10 - R06.09) Ruby will check his weight daily. He will call me in 1 week with clinical update, sooner if needed. Check lab work in 1 week 07/14/2024 Vitamin D deficiency (ICD-10 - E55.9) 12/04/2023 Vitamin D deficiency (ICD-10 - E55.9) 07/14/2024 Obstructive sleep ap alon (adult) (pediatric) (ICD-10 - G47.33) Nightly CPAP PLAN OF TREATMENT Next Appt Details Provider Name:Kip tapia, 08/18/2024 02:00:00 PM, [address] [place] [address], [place], [place], [id number], Insurance Providers Payer Name Payer Address Payer Phone Subscriber Number Group Number Insured Name Patient Relationship to Insured Coverage Start Date Coverage End Date MEDICARE [address] [place] [phone] [id number] Kali Garza Self - patient is the insured Spout [address] [place] [address] [id number] Kali Garza Self - patient is the insured MEDICAL (GENERAL) HISTORY Medical History History ICD Code hypertension hypercholesterolemia hyperuricemia appendicitis septic shock cholelithiasis low back pain edema depression eczema obesity glucose intolerance Type 2 diabetes mellitus wit hout complication, without long-term current use of insulin E11.9 Vitamin D deficiency E55.9 obstructive sleep apnea Stenosis of left vertebral artery I65.02 aortic stenosis Surgical History Surgery Date(Month/Year) tonsillectomy wisdom teeth extraction appendectomy cholecystectomy, laparoscopic benign mole excision
--- OUTSIDE RECORDS SUMMARY | 2024-07-22 19:48 | XMS_ITS ---
Author Organization Kip Jimenez DO, FACP Address [address] [place], [place] [id number] Care Team Providers Care Senior Tax Accountant Name Role Phone Kip Jimenez Primary Care Provider [phone] ALLERGIES No Known Allergies REASON FOR VISIT 3 month f/u, Follow up hypertension MEDICATIONS Medication SIG (Take, Route, Frequency, Duration) Notes Start Date End Date Status Vitamin D3 50 MCG (1999) 1 capsule Or ally Once a day Active clonazePAM 1 MG 1 tablet at bedtime as needed Orally Once a day 05/10/2024 Active Gabapentin 300 MG 2 capsules at bedtim e Orally Once a day Active Ibuprofen 800 MG 1 tablet with food o r milk as needed Orally Three times a day 03/31/2024 Active Jardiance 10 MG 1 tablet Orally Once a day Active Bumetanide 2 MG 1 tablet Orally Once a day Active Spironolactone 50 MG 0.5 tablet Orally O nce a day Active Atorvastatin Calcium 80 MG 1 tablet Oral ly Once a day Active Aspirin EC 81 MG 1 tablet Orally Once a day Active metFORMIN HCl ER 750 MG 1 tablet with ev ening meal Orally Once a day Active SOCIAL HISTORY Tobacco Use: Social History Observation [...] W/U Status Risk SNOMED Code Notes Problem Pulmonary hypertension (I27.20) Active confirmed 22747073 VITAL SIGNS BMI 37.28 kg/m2 07/14/2024 Blood pressure systolic 76 mm Hg 07/14/20 24 Blood pressure diastolic 48 mm Hg 024 Height 66.00 in 07/14/2024 Weight 231 lbs 07/14/2024 Encounters Encounter Location Date Provider Diagnosis Kip Jimenez DO, [address] [id number] 07/14/2024 Kip Jimenez Pulmonary hypertensi on I27.20 ; Essential hypertension I10 ; Hypercholesterolemia E78.00 ; Type 2 diabetes mellitus without complication, without long-term current use of insulin E11.9 ; Neuropathy G62.9 ; Other obesity due to excess calories E66.09 ; Vitamin D deficiency E55.9 and Obstructive sleep apnea (adult) (pediatric) G47.33 ASSESSMENTS Encounter Date Diagnosis Assessment Notes Treatment Notes Treatment Clinical Notes 07/14/2024 Pulmonary hypertensi on (ICD-10 - I27.20) Ruby has worsening fluid retention on Opsumit. He is hypotensive. I spoke with his Pulmonary Hypertension Business Process Architect, Dr. Pierce. Will stop the Opsumit at this point. I can't increase his diuretics with his BP so low. I discussed with Ruby his going to the ER to be admitted for monitored diuresis. He wishes to hold off on that in the short term. He will check his BP in my office tomorrow and again in three days. 07/14/2024 Essential hypertensi on (ICD-10 - I10) Ruby is hypotensive. Will hold the Losartan for now. He will check his BP in my office tomorrow and again in three days. 07/14/2024 Hypercholesterolemia (ICD-10 - E78.00) 07/14/2024 Type 2 diabetes marielena itus without complication, without long-term current use of insulin (ICD-10 - E11.9) 07/14/2024 Neuropathy (ICD-10 - G62.9) 07/14/2024 Other obesity due to excess calories (ICD-10 - E66.09) Recent weight gain is due to fluid retention, but Ruby is trying to lose weight. 07/14/2024 Vitamin D deficiency (ICD-10 - E55.9) 07/14/2024 Obstructive sleep ap alon (adult) (pediatric) (ICD-10 - G47.33) Nightly CPAP PLAN OF TREATMENT Medication Medication Name Sig Start Date Stop Date Notes Vitamin D3 50 MCG (1999) 1 capsule Orally Once a day clonazePAM 1 MG 1 tablet at bedtime as needed Orally Once a day 05/10/2024 Gabapentin 300 MG 2 capsules at bedtim e Orally Once a day Ibuprofen 800 MG 1 tablet with food o r milk as needed Orally Three times a day 03/31/2024 Jardiance 10 MG 1 tablet Orally Once a day Bumetanide 2 MG 1 tablet Orally Once a day Spironolactone 50 MG 0.5 tablet Orally Once a day Atorvastatin Calcium 80 MG 1 tablet Orally Once a day Aspirin EC 81 MG 1 tablet Orally Once a day metFORMIN HCl ER 750 MG 1 tablet with ev ening meal Orally Once a day Losartan Potassium 100 MG 0.5 tablet Orally Once a day Opsumit 10 MG 1 tablet Orally Once a day Treatment Notes Assessment Notes Pulmonary hypertension Ruby has worsening fluid retention on Opsumit. He is hypotensive. I spoke with his Pulmonary Hypertension Business Process Architect, Dr. Pierce. Will stop the Opsumit at this point. I can't increase his diuretics with his BP so low. I discussed with Ruby his going to the ER to be admitted for monitored diuresis. He wishes to hold off on that in the short term. He will check his BP in my office tomorrow and again in three days. Essential hypertension Ruby is hypotensiv e. Will hold the Losartan for now. He will check his BP in my office tomorrow and again in three days. Other obesity due to excess calories Rec ent weight gain is due to fluid retention, but Ruby is trying to lose weight. Obstructive sleep apnea (adult) (pediatr ic) Nightly CPAP Next Appt Details Follow Up: 4 Weeks, Reason: follow up visit Provider Name:Kip Woody Ricosudhir regina, 08/18/2024 02:00:00 PM, [address] [place] [address], [phone], Progress Notes * Examination Category Sub-Category Detail Notes General Examination GENERAL APPEARANCE: in no ac chaz distress, well developed, well nourished HEAD: normocephalic, atrau matic HEART: S1, S2 normal, regul ar rate and rhythm, grade 2/6 systolic murmur LUNGS: clear to auscultatio n bilaterally ABDOMEN: normal, bowel sounds present, soft, nontender, nondistended SKIN: warm and dry EXTREMITIES: 2+ pitting edema low er extremities PSYCH: alert, oriented, cog nitive function intact
== END 2024-07-21 10:17 | disposition home or self-care (01) ==
LOC: HO.HMGCLDS 10:16
PROVIDERS: PCP Internal Medicine; Visit Provider Internal Medicine
DX: I27.20 Pulmonary hypertension, unspecified (principal)
CPT/HCPCS: 36415; 80053; 83880; 85025

== ENCOUNTER 2024-07-23 09:50 | Outpatient (AMB) | payer MEDICARE, SELFPAY ==
[2024-07-23 10:01] VITALS: BP 102/58; PULSE 85; O2SAT 88; BMI 31.8
--- NOTE | 2024-07-23 10:01 | MHC.OFFVIS ---
Vital Signs 07/23/24 10:01 Height 5 ft 10 in Weight 221 lb 9.033 oz BMI 31.8 BP 102/58 L Blood Pressure Location Lt brachial Position Sitting Pulse 85 Pulse Source Pulse Oximeter Pulse Oximetry (%) 88 L Oxygen Delivery Method Room Air Intake Visit Reasons: Obstructive sleep apnea Intake Note: pt is here for follow up and states he is doing well with cpap, but has pulm hypertension, was put on a medication for his breathing that caused havoc on his body with fluid retention. Search Engineer Required: No Allergies macitentan [From Opsumit] Adverse Reaction (Verified 07/23/24 10:29) fluid overload HAYFEVER Allergy (Unknown, Uncoded 07/23/24 10:29) RUNNY NOSE Medication List - Last Reconciled 07/23/24 by Ruben Littlejohn MD aspirin (Adult Low Dose Aspirin) 81 mg PO DAILY atorvastatin 80 mg PO DAILY bumetanide 2 mg PO DAILY cholecalciferol (vitamin D3) 50 mcg PO DAILY clonazepam 2 mg PO BEDTIME PRN empagliflozin (Jardiance) 10 mg PO DAILY gabapentin 300 mg PO DAILY metformin ER 750 mg PO QPM spironolactone 25 mg PO DAILY Do you need a note to return to daycare/school/sports/work: No HPI HPI Obstructive sleep apnea: Details: This 69 years old gentleman is here for follow-up for his obstructive sleep apnea. He has been using CPAP. regularly in the last 6 months He does have to use clonazepam 1 mg at bedtime to sleep, with out that he has difficulty in falling asleep. His compliance has been much better. He also uses O2 3 L/minute along with the CPAP. During the daytime he uses O2 only p.r.n. when he does any physical activity. He is diagnosed to have pulmonary hypertension and is now being treated and followed up by a pulmonary hypertension specialist at [facility]. He was started on Opsumit , ( Endothelin receptorantagonist ) but developed lot of peripheral edema so had to stop it.Now awaiting to be started on Orenitram ( Prostacycline receptor agonist ) [facility] Medical History Pulmonary hypertension Anxiety Obesity (BMI 30-39.9) Nocturnal hypoxemia Obesity (BMI 30-39.9) Sleep apnea Right heart failure Enlarged RV (right ventricle) Hyperlipidemia HTN (hypertension) Aortic stenosis Surgical History S/P cardiac catheterization Hx of appendectomy Hx of tonsillectomy History of laparoscopic cholecystectomy Family History Father CVD (cardiovascular disease) Mother Brain tumor Social History Patient Tobacco Use Status: Former Tobacco user Review of Systems Const All systems reviewed & are unremarkable except as noted in HPI and below Eyes Reports no additional complaints ENT Reports no additional complaints Card Denies chest pain, Denies irregular heart rhythm and Denies leg edema Resp Reports no additional complaints GI Reports no additional complaints Reports no additional complaints Musc Reports no additional complaints Skin/Breast Reports system reviewed and no additional complaints, except as documented Neuro Reports no additional complaints Psych Reports no additional complaints Physical Exam Vital Signs: Last Vital Signs Pulse 85 07/23/24 10:01 BP 102/58 L 07/23/24 10:01 Pulse Ox 88 L 07/23/24 10:01 Oxygen Delivery Method Room Air 07/23/24 10:01 BMI result Body Mass Index 31.8 Const General: healthy appearing (EXCEPT FOR BEING OVERWEIGHT), comfortable, no acute distress, alert and awake Orientation/consciousness: patient oriented x3 HEENT Head: Yes normal to inspection General nose exam: No nasal polyps present and No nasal discharge present Face and sinus: Yes sinuses nontender Mouth: oropharynx normal Throat: Yes posterior oropharynx normal Eyes General: appearance normal, both eyes and all related structures Neck Neck: Yes normal visual inspection, Yes no lymphadenopathy, Yes trachea midline and Yes no JVD Thyroid: Thyroid normal Chest Chest palpation & inspection: normal inspection of the chest, normal palpation of entire chest wall and no tenderness Resp Effort & Inspection: normal respiratory effort Auscultation: clear to auscultation bilaterally, no crackles and no wheezes Cardio Palpation: normal PMI Rate: regular rate Rhythm: regular rhythm Heart sounds: no gallops and Murmur heart sound present (Systolic murmur over aortic area .) Peripheral pulses: Peripheral pulses 2+ throughout GI Palpation (GI): Soft to palpation, nontender, No hepatosplenomegaly present and no masses Auscultation: normal bowel sounds Back/Spine/Pelvis Thoracic/Lumbar Spine: thoracic and lumbar spine normal to inspection Skin General skin exam: no rashes or lesions noted Neuro General: patient oriented x3 and no focal motor deficits Cranial nerves: Yes CN's II-XII intact bilaterally Extrem General: Yes normal to inspection, Yes no clubbing, cyanosis or edema and Yes no calf tenderness Psych Appearance: grossly normal and well kempt Speech and movement: Normal speech and movement present Results Reviewed Results Reviewed: Compliance report is reviewed and he used 30/30 nights, 100%. Average use per night 6 hours 28 minutes. Pressure 14 cm. There is no significant air leak and residual AHI only 0.8 Assessment & Plan Assessment & Plan (1) Obstructive sleep apnea: Comment: Patient is a known case of obstructive sleep apnea. He is being treated with CPAP , using full face mask and PRESSURE OF 14 CM, His compliance is good, and he is sleeping fairly good. Code(s): G47.33 - Obstructive sleep apnea (adult) (pediatric) Category: Medical Plan: Discussed about compliance and commended for using it regularly. Advised to keep on using CPAP every night more than 6 hours if possible. He does have to use clonazepam 1 mg before he puts on the CPAP and is tolerated very well. (2) Obesity (BMI 30-39.9): Comment: DISCUSSED ABOUT HIS WEIGHT ISSUE. HE IS DOING EXERCISE AND TRYING TO LIMIT CALORIES INTAKE. He has lost a few more lb since his last visit . In view of his cardiac disease and pulmonary hypertension it is difficult for him to do much exercise. Code(s): E66.9 - Obesity, unspecified Category: Medical Plan: Again discussed about the diet, cut down the portions and especially reduce carbohydrate intake. (3) Nocturnal hypoxemia: Comment: ALONG WITH OBSTRUCTIVE SLEEP APNEA PATIENT ALSO HAD EVIDENCE OF NOCTURNAL HYPOXEMIA, REQUIRING OXYGEN IN ADDITION TO CPAP. IT WAS CORRECTED WITH USE OF OXYGEN 2 L/MINUTE. HIS OXYGENATION DID IMPROVE. As per lost overnight oximetry recording O2 sat did go below 88% for several minutes with 2 L/minute. Code(s): G47.34 - Idiopathic sleep related nonobstructive alveolar hypoventilation Category: Medical Plan: Advised to use O2 3 L/minute with the CPAP at night. And 2 L/minute with any physical activity during the daytime I also encouraged him to use O2 sat during the daytime even when he is not exerting. It is beneficial for him to use O2 as much as possible. (4) Anxiety: Comment: PATIENT STILL HAS SOME CLAUSTROPHOBIC FEELING WHEN PUTTING ON THE CPAP. HE CAN USE IT MORE REGULARLY AND FOR LONGER TIME IF HE USES CLONAZEPAM 1 MG AT BEDTIME. Code(s): F41.9 - Anxiety disorder, unspecified Category: Medical Plan: It is okay for him to use clonazepam 1 mg at bedtime before he puts on the CPAP mask. Coding Level of Care Code Est Pt Level 4 (49941) Diagnoses Obstructive sleep apnea G47.33 Obesity (BMI 30-39.9) E66.9 Nocturnal hypoxemia G47.34 Anxiety F41.9
== END 2024-07-23 10:30 | disposition home or self-care (01) ==
PROVIDERS: PCP Internal Medicine; Visit Provider Internal Medicine
DX: G47.33 Obstructive sleep apnea (adult) (pediatric) (principal); E66.9 Obesity, unspecified; G47.34 Idiopathic sleep related nonobstructive alveolar hypoventilation; F41.9 Anxiety disorder, unspecified
CPT/HCPCS: 99214

== ENCOUNTER → 2024-07-23 09:50 | Outpatient (BNVA) | payer MEDICARE, SELFPAY | PROVIDERS: PCP Internal Medicine; Visit Provider Internal Medicine | DX: G47.33 Obstructive sleep apnea (adult) (pediatric) (principal); G47.34 Idiopathic sleep related nonobstructive alveolar hypoventilation; E66.9 Obesity, unspecified; F41.9 Anxiety disorder, unspecified; Z68.31 Body mass index [BMI] 31.0-31.9, adult | CPT/HCPCS: 99212 ==

== ENCOUNTER 2024-08-03 09:42 | Outpatient (REF) | payer MEDICARE, SELFPAY ==
--- OUTSIDE RECORDS SUMMARY | 2024-08-03 09:47 | XMS_ITS ---
Author Organization [facility] Address [address] [facility] [place] [address] Care Team Providers Care Workers Compensation Paralegal Name Role Phone Amilcar King Primary Care Provider Iwona Fuentes Unavailable [phone] Allergies No Known Allergies REASON FOR VISIT Pcp-07/27/24 Medications Medication SIG (Take, Route, Frequency, Duration) Notes Start Date End Date Status Opsumit 10 MG Oral for 30 Days Not-Taking metFORMIN HCl ER 500 MG 1 tablet with ev ening meal Orally Once a day Not-Takin g Plavix Not-Taking Opsumit 10 MG Oral for 30 Days Not-Taking Baby Aspirin Active Extra Depth Diabetic Shoes with 3 Pair Custom heat-molded multi-density innersoles for 1 year Dx: 07/12/2021 Active Vitamin D3 50 MCG (1999) Oral for 90 Active Opsumit 10 MG Oral for 30 Days Not-Taking metFORMIN HCl Active Losartan Potassium 100 MG Oral for 30 Not-Taking Ibuprofen 800 MG Oral for 30 A ctive Bumetanide 0.5 MG as directed Orally O nce a day Active Atorvastatin Calcium 80 MG Oral for 90 Active Gabapentin 300 MG Oral for 90 Active clonazePAM 1 MG Oral for 30 Ac tive Ciclopirox Olamine 0.77 % 1 application to affected area Externally Twice a day to effected areas on feet for 30 days Active Jardiance Active Social History Tobacco Use: Social History Observation Description Date Details (start date - stop date) Former Smoker NA - NA Tobacco Use/Smoking Question Answer Notes Are you a: former smoker Additional Findings: Tobacco Non-User Current no n-smoker Tobacco use other than smoking: Question Answer Notes Are you an other tobacco user? No Vital Signs Height 5ft9in in 08/03/2024 Weight 213 lbs 08/03/2024 BMI 31.45 kg/m2 08/03/2024 Blood pressure systolic 120 mm Hg 08/03/20 Blood pressure diastolic 72 mm Hg 024 Encounters Encounter Location Date [facility] [address] [place] [address] 08/03/2024 Iwona Fuentes Plan Of Treatment Next Appt Details Provider Name:Iwona Vasyl mkcee, 12/09/2024 09:15:00 AM, [address] [place], [address], Progress Notes * Kali GARZA MDOB:1955 (69 yo M)Acc No.[id number]:08/03/2024 Progress Note Patient:?Kali GARZA Provider:?Iwona Fuentes DPM :1955???Age:69 Y???Sex:Male Pj e:08/03/2024 Address:[address] Pcp:Amilcar King Subjective: * Chief Complaints: * ???1. Pcp-07/27/24. * ROS:?General/Constitutional:?Nausea?denies.?Vomiting?denies.?Hunger Thirst?denies.?Loss appetite?denies.?Chills?denies.?Fatigue?denies.?Fever?denies.?Night Sweats?denies.?Unexplained weight loss?denies.?Unexplained weight gain?denies.?HEENTM:?Dentures?denies.?Dizziness?denies.?Glasses/contacts?denies.?Retinopathy?den ies.?Blurred/double vision?denies.?TMJ?denies.?Discharge/drainage?denies.?Implants?denies.?Sore throat?denies.?Dental implants?denies.?Hard of hearing ?denies.?Difficulty chewing/swallowing/speaking?denies.?Nose bleeds?denies.?Sore mouth?denies.?Respiratory:?On O xygen?denies.?Pneumonia/pleurisy?denies.?Bronchitis?denies.?Emphysema?denies.?Co ughing?denies.?Cough blood?denies.?Shortness of breath?admits.?Wheezing?denies.?Cardiovascular:?Pacemaker?denies.?MVP?denies.?WPW?denies.?CHF?denies.?Heart attack?denies.?Septal defect?denies.?Rapid beat?denies.?Chest pain ?denies.?Atrial Fib.?denies.?Murmur/Palpitations?denies.?Gastrointestinal:?Hemorrhoids?denies.?Stomach/Abdominal pain?denies.?Dark blood stool?denies.?Irritable bowel ?denies.?Constipation?denies.?Diarrhea?denies.?Hematology:?Swelling?denies.?Clots?denies.?Varicose Veins?denies.?Bruising?denies.?Bleeding problem?denies.?Genitourinary:?Blood urine?denies.?Frequent/Painfu/urination/bladder control?denies.?Kidney stones?denies.?Infection (UTI)?denies.?Nephropathy?denies.?sex trans dis (STD)?denies.?Prostate?denies.?Musculoskeletal:?Hammertoes?admits.?Bunions?denies.?Back Pain?admits.?Muscle Cramps/ Resting?denies.?Muscle cramps / walking?denies.?Generalized aches and pains?denies.?Weakness?denies.?Integ.:?Pinto?denies.?Scars?denies.?Corns/calluses?denies.?Ingrown nails?denies.?Painful nails?denies.?Open Sores?denies.?Rashes?denies.?Neurologic:?Difficulty sleeping?denies.?Brain disorder?denies.?Numbness?admits.?Balance t rouble?denies.?Confusion?denies.?Fainting/blackouts?denies.?Tingling?admits.?Dilan mors?denies.? * Medical History:?Back,Hip,an d Knee pain, Broken bones, type II diabetes, High blood pressure, Numbness, Measles, Mumps, Chicken pox, Pulmonary hypertension. * Surgical History:?tonsillect john 1979, appendectomy (ruptured) sepsis on life support 01/08/2005, cholecystectomy 2015. * Hospitalization/Major Diagno stic Procedure:?[place]- TI 1.5 days Rehab 2 days 01/12/2022. * Family History:?Mother: dece ased.?Father: , diagnosed with Unspecified essential hypertension, Unspecified heart disease.? * Social History:?Tobacco Use:?Tobacco Use/Smoking?Are you a:?former smoker ?Additional Findings: Tobacco Non-User?Current non-smoker ?Tobacco use other than smoking?Are you an other tobacco user??No * Medications:?Taking Jardianc e , Taking Ciclopirox Olamine 0.77 % Cream 1 application to affected area Externally Twice a day to effected areas on feet , Taking Atorvastatin Calcium 80 MG Tablet Oral , Taking Bumetanide 0.5 MG Tablet as directed Orally Once a day , Taking clonazePAM 1 MG Tablet Oral , Taking Gabapentin 300 MG Capsule Oral , Taking Ibuprofen 800 MG Tablet Oral , Taking metFORMIN HCl , Taking Vitamin D3 50 MCG (2000 UT) Capsule Oral , Taking Extra Depth Diabetic Shoes with 3 Pair Custom heat-molded multi-density innersoles for 1 year Dx: , Taking Baby Aspirin , Not-Taking/PRN Losartan Potassium 100 MG Tablet Oral , Not-Taking/PRN Opsumit 10 MG Tablet Oral , Not-Taking/PRN Opsumit 10 MG Tablet Oral , Not-Taking/PRN Plavix , Not-Taking/PRN metFORMIN HCl ER 500 MG Tablet Extended Release 24 Hour 1 tablet with evening meal Orally Once a day , Not-Taking/PRN Opsumit 10 MG Tablet Oral , Medication List reviewed and reconciled with the patient * Allergies:?N.K.D.A. Objective: * Vitals:?Ht: 5ft9in, Wt:213, BMI:31.45, Shoe size: 10-11, BP:120/72mm Hg, BS: not taken, Ht-cm: 175.26 cm, Wt-k.62 kg. * Examination: ???CQM Exceptions:: ?Hemoglobin A1c not performed?Ophthalmology Referral: ?DIABETES EYE EXAM? Assessment: Plan: * Treatment: * Images: * The named appointment provid er may or may not be the originator of this progress note, and it is not deemed complete until electronically signed by the appointment provider. Sign off status: Pending * Provider:?Iwona Fuentes DPM Date:?1 10/04/2023 Generated for Elenita pardo/Colin/Daronitting on:?08/03/2024 09:47 AM EST History and Physical Notes * Examination Category Sub-Category Detail Notes Category Not es Ophthalmology Referral DIABETES EYE EXAM Procedu re Performed:: Yes ?Date of Exam Performed: 04/12/2024 Findings of Diabetic Eye Exam:: no retin opathy CQM Exceptions: Hemoglobin A1c not performed Reason:: No r enrique specified
--- OUTSIDE RECORDS SUMMARY | 2024-08-03 09:48 | XMS_ITS ---
Author Organization Kip Jimenez DO, FACP Address [address] [place], [place] [id number] Care Team Providers Care Media Consultant Outside Sales Name Role Phone Kip Jimenez Primary Care Provider REASON FOR VISIT Message SOCIAL HISTORY Sex Assigned At : Social History Observation Description Sex Assigned At Male VITAL SIGNS BMI 35.67 kg/m2 07/28/2024 Blood pressure systolic 106 mm Hg 07/28/20 24 Blood pressure diastolic 64 mm Hg 024 Height 66.00 in 07/28/2024 Weight 221 lbs 07/28/2024 Encounters Encounter Location Date Provider Diagnosis Kip Jimenez DO, [facility] [address] [place], [place] [id number] 07/28/2024 Kip Tony Pulmonary hypertension I27.20 ASSESSMENTS Encounter Date Diagnosis Assessment Notes Treatment Notes Treatment Clinical Notes 07/28/2024 Pulmonary hypertension (ICD-10 - I27.20) PLAN OF TREATMENT Pending Test Test Name Order Date BRAIN NATRIURETIC PEPTIDE (BNP) 07/28/20 24 CBC w DIFF 07/28/2024 PROFILE, RANDOM 07/28/2024
--- OUTSIDE RECORDS SUMMARY | 2024-08-03 09:48 | XMS_ITS | Patient Health Record ---
Author Organization [facility] Address [address] [facility] [place] [address] Care Team Providers Care Charging Plug Placer Name Role Phone ChristineAmilcar Primary Care Provider Iwona Fuentes Unavailable [phone] Jean Claude Rajan Unavailable [phone] Allergies No Known Allergies Reason For Referral No Information Medications Medication SIG (Take, Route, Frequency, Duration) Notes Start Date End Date Status Extra Depth Diabetic Shoes with 3 Pair Custom heat-molded multi-density innersoles for 1 year Dx: 07/12/2021 Active Vitamin D3 50 MCG (1999) Oral for 90 Active Ciclopirox Olamine 0.77 % 1 application to affected area Externally Twice a day to effected areas on feet for 30 days Active Opsumit 10 MG Oral for 30 Days Not-Taking Jardiance Active Opsumit 10 MG Oral for 30 Days Not-Taking metFORMIN HCl Active Losartan Potassium 100 MG Oral for 30 Not-Taking Ibuprofen 800 MG Oral for 30 A ctive Bumetanide 0.5 MG as directed Orally O nce a day Active metFORMIN HCl ER 500 MG 1 tablet with ev ening meal Orally Once a day Not-Takin g Atorvastatin Calcium 80 MG Oral for 90 Active Plavix Not-Taking Gabapentin 300 MG Oral for 90 Active Opsumit 10 MG Oral for 30 Days Not-Taking clonazePAM 1 MG Oral for 30 Ac tive Baby Aspirin Active Immunizations Vaccine Route Administration Date Status [...] primary osteoarthritis of the ankle and/or foot (789050235) Primary osteoarthritis, left ankle and foot (M19.072) Active confirmed Problem Acquired hammer toe of left foot ([id number] ) Other hammer toe(s) (acquired), left foot (M20.42) Active confirmed Problem Polyneuropathy due to type 2 diabetes mellitus (922238187) Type 2 diabetes mellitus with diabetic polyneuropathy (E11.42) Active confirmed Vital Signs Blood pressure diastolic 72 mm Hg 08/03/2024 Height 5ft9in in 08/03/2024 Blood pressure systolic 120 mm Hg 08/03/2024 Weight 213 lbs 08/03/2024 BMI 31.45 kg/m2 08/03/2024 Encounters Encounter [facility] Date [facility] [address] 08/03/2024 Iwona Fuentes [facility] [address] 09/04/2023 Jean Claude Rajan Type 2 diabetes mellitus with diabetic polyneuropathy E11.42 ; Primary osteoarthritis, left ankle and foot M19.072 ; Pain in left toe(s) M79.675 ; Other hammer toe(s) (acquired), left foot M20.42 ; Tinea unguium B35.1 ; Pain in right toe(s) M79.674 and Tinea pedis B35.[address] [facility] [address] 01/15/2024 Jean Claude Rajan Type 2 diabetes mellitus with diabetic polyneuropathy E11.42 ; Primary osteoarthritis, left ankle and foot M19.072 ; Pain in left toe(s) M79.675 ; Other hammer toe(s) (acquired), left foot M20.42 ; Tinea unguium B35.1 ; Pain in right toe(s) M79.674 and Tinea pedis B35.3 [facility] [place] [address] [place] [address] 04/22/2024 Jean Claude Rajan Type 2 diabetes [...] X ray : Foot, left 3V 07/12/2021 [id number] SKIN LESIONS, 2 TO 4 11/30/19 Next Appt Details Provider Name:Iwona Fallon rafi, 12/09/2024 09:15:00 AM, [address] [place], [address], Insurance Providers Payer Name Payer Address Payer Phone Subscriber Number Group Number Insured Name Patient Relationship to Insured Coverage Start Date Coverage End Date Medicare National [employer] [address] [place] [address] [id number] Kali Garza Self - patient is the insured [facility] [address] [place] [address] [id number] Kali Garza Self - patient is the insured Medical (General) History Medical History History ICD Code Back,Hip,and Knee pain Broken bones type II diabetes High blood pressure Numbness Measles Mumps Chicken pox Pulmonary hypertension Surgical History Surgery Date(Month/Year) tonsillectomy 1979 appendectomy (ruptured) sepsis on life s upport 01/08/2005 cholecystectomy 2016 Hospitalization History Reason Date(Month/Year) [place]- TI 1.5 days Rehab 2 days 022
--- OUTSIDE RECORDS SUMMARY | 2024-08-03 09:48 | XMS_ITS ---
Author Organization [facility] Address [address] [place] [address] Care Team Providers Care Director Of Strategic Alliances Name Role Phone Amilcar King Primary Care Provider Iwona Fuentes [phone] Encounters Encounter Location Date Provider Diagnosis [address] [address] 08/03/2024 Iwona Fuentes Plan Of Treatment Next Appt Details Provider Name:Iwona mckee, 12/09/2024 09:15:00 AM, [address] [place], [address], Progress Notes * Kali GARZA MDOB:1955 (69 yo M)Acc No.[id number]:08/03/2024 Progress Note Patient:?aKli GARZA Provider:?Iwona Fuentes DPM :1955???Age:69 Y???Sex:Male Pj e:08/03/2024 Address: [address] [place] Pcp:Amilcar King Subjective: * Chief Complaints: * ??? * Medical History:? Objective: * Vitals:? Assessment: Plan: * Treatment: * Images: * The named appointment provid er may or may not be the originator of this progress note, and it is not deemed complete until electronically signed by the appointment provider. Sign off status: Pending * Provider:?Iwona Fuentes DPM Date:?1 10/04/2023 Generated for Elenita pardo/Colin/Dyllan on:?08/03/2024 09:47 AM EST
--- OUTSIDE RECORDS SUMMARY | 2024-08-03 09:48 | XMS_ITS ---
Author Organization Kip Jimenez DO [facility] Address [address] [place], [place] [address] Care Team Providers Care Pleat Taper Name Role Phone Kip Jimenez Primary Care Provider REASON FOR VISIT Refills MEDICATIONS Medication SIG (Take, Route, Fr equency, Duration) Notes Start Date End Date Status clonazePAM 1 MG 1 tablet at bedtime as needed Orally Once a day for 90 days 07/28/2024 Active SOCIAL HISTORY Sex Assigned At : Social History Observation Description Sex Assigned At Male Encounters Encounter Location Date Provider Diagnosis Kip Jimenez DO [facility] [address] [place], [place] [address] 07/28/2024 Kip Jimenez Obstructive sleep apnea (adult) (pediatric) G47.33 ASSESSMENTS Encounter Date Diagnosis Assessment Notes Treatment Notes Treatment Clinical Notes 07/28/2024 Obstructive sleep apnea (adult) (pediatric) (ICD-10 - G47.33) PLAN OF TREATMENT Medication Medication Name Sig Start Date Stop Date Notes clonazePAM 1 MG 1 tablet at bedtime as needed Orally Once a day for 90 days 07/28/2024
--- OUTSIDE RECORDS SUMMARY | 2024-08-03 09:48 | XMS_ITS ---
Author Organization Kip Jimenez DO [facility] Address [address] [place], [place] [id number] Care Team Providers Care Health Data Administrator Name Role Phone Tony Kip Primary Care Provider [phone] REASON FOR VISIT Thank you SOCIAL HISTORY Sex Assigned At : Social History Observation Description Sex Assigned At Male Encounters Encounter Location Date Provider Diagnosis Kip Jimenez DO, FACP [address] [place], [place] [phone] 08/03/2024 Kip Jimenez PLAN OF TREATMENT No Information
--- OUTSIDE RECORDS SUMMARY | 2024-08-03 09:48 | XMS_ITS ---
Author Organization [facility] Address [address] [facility] [place] [address] Care Team Providers Care Process Developer Name Role Phone Amilcar King Primary Care Provider [phone] Iwona Fuentes Unavailable [phone] Jean Claude Rajan Unavailable [phone] Allergies No Known Allergies REASON FOR VISIT [...] 024 Encounters Encounter Location Date Provider Diagnosis [facility] [place] [address] [place] [address] 04/22/2024 Jean Claude Rajan Type 2 diabetes [...] Up: 3 Months, Reason: Provider Name:Iwona mckee, 12/09/2024 09:15:00 AM, [address] [place] [address], [address], Procedure Notes * Category Sub-Category Detail Notes [...] as necessary. Patient chooses, no pharmaceutical tx (81036) Keratoma Treatment Parring or Cutting o f Benign Hyperkeratotic Lesion(s) 51194 (2-4 Lesions) - The Benign hyperkeratotic lesions, as described above were pared, and/or cut utilizing a sterile #15 blade, tissue nippers, and/or dremel Progress Notes * Kali GARZA MDOB:1955 (69 yo M)Acc No.[id number]:04/22/2024 Progress Note Patient:?Kali Garza Provider:?Jean Claude Rajan DPM :1955???Age:69 Y???Sex:Male Pj e:04/22/2024 Address[address] Pcp:Kip Jimenez MD Subjective: * Chief Complaints: [...] per week. ?Marital status: . 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 * Medications:?TakingJardiance Ciclopirox Olamine 0.77 % [...] pop dorsum ta ipj.?BABINSKI REFLEX:?absent.?Vascular: ?DP PULSES:? 1/, B/L.?PT PULSES:? 4, B/L.?CAPILLARY FILL TIME:?3 secs. per digit, B/L.?SKIN TEMPERTURE GRADIENT OF THE LOWER EXTERMITIES:?warm to cool, proximal to distal, B/L.?HAIR GROWTH/TEXTURE/ELASTICITY/TURGOR:?normal, B/L.?PIGMENTATION:?normal, B/L.?EDEMA:? /4, B/L, Feet, Ankle(s), Leg(s).?TELANGECTASIA:?absent.?VARICOSITIES:?absent.?Dermatologic: ?SKIN FINDINGS:? Skin [...] as necessary. Patient chooses, no pharmaceutical tx (30838).?Keratoma Treatment:?Parring or Cutting of Benign Hyperkeratotic Lesion(s)?17472 (2-4 Lesions) - The Benign hyperkeratotic lesions, as described above were pared, and/or cut utilizing a sterile #15 blade, tissue nippers, and/or dremel.? * Procedure Codes:?70145 DEBRI DE NAIL, 6 OR MORE, Modifiers: XS 16661 TRIM SKIN LESIONS, 2 TO 4, Modifiers: [...] DPM Date:? 024 Generated for Elenita pardo/Colin/Dyllan on:?08/03/2024 09:47 AM EST History and Physical Notes * HPI [...] , Skin shows sign(s) of, interdigital maceration nael 1-5 Orthopedic GAIT ABNORMALITY: pronated, abducted, B/L FOOT MORPHOLOGY: Pes Planus structure , B/L DIGITAL DEFORMITIES: Digital contracture TA ipj MUSCLE STRENGTH: 5/5 all groups in a symmetrical fashion , B/L General Examination GENERAL APPEARANCE: pleasant , alert, well nourished, well developed, well hydrated, with good attention to hygene/body habitus, and in no acute distress ORIENTED: person,place, and ti wa Ophthalmology Referral DIABETES EYE EXAM Diabetic Retinopa thy Screening:: No Findings of Diabetic Eye Exam:: no retin opathy Vascular DP PULSES (B): 1/4, B/L PT PULSES (B): 2/4, B/L CAPILLARY FILL TIME: 3 secs. per digit, B/L TEMPERTURE GRADIENT (C): warm to cool, p roximal to distal, B/L TROPHIC CONDITION-TEXTURE/ELASTICITY/TURGOR/HAIR GROWTH (B): normal, B/L EDEMA (C): 1/4, B/L, Feet, Ankl e(s), Leg(s) TELANGECTASIA: absent VARICOSITIES: absent PIGMENTATION: normal, B/L Nails NAILS are: Elongated, overg rown, dystrophic, lytic, greater than 3mm thick, discolored and friable with crumbly malodorous subungual debris, with dull to no pain on palpation due to neuropathy, 1-5 Left foot, T5, T6
--- OUTSIDE RECORDS SUMMARY | 2024-08-03 09:49 | XMS_ITS | Patient Health Record ---
Author Organization Kip Jimenez DO, FACP Address [address], [place] [id number] Care Team Providers Care Metal Moulder Name Role Phone Kip Jimenez Primary Care Provider [phone] ALLERGIES No Known Allergies RESULTS Component Value Reference Range Notes Complete Blood Count Auto Di ff Reviewed date:11/27/2023 10:42:15 AM Interpretation:Normal Performing Lab:[facility], [address] [place] [phone] Notes/Report: White Blood Count 6.1 4.8-10.8 X10*3/uL [...] NRBC Abs Auto 0.000 0.0-0.012 X10*3/uL Comprehensive Warren. Panel Fa st Reviewed date:11/27/2023 11:33:22 AM Interpretation:Abnormal Performing Lab:[facility], [address] [place] [phone] Notes/Report: Sodium 134 135-145 mmol/L Potassium 4.4 3.3-5.1 mmol/L Chloride 98 96-108 mmol/L Carbon Dioxide 27 22-29 mmol/L Anion Gap 13 12-20 Blood Urea Nitrogen 52 9-16 mg/dL Creatinine 1.76 0.5-1.4 mg/dL Estimated Glomerular Filt Rate 38 NOTE: For -Kenyan individuals, multiply the result by 1.210. Chronic [...] Panel Reviewed date:11/27/2023 11:33:22 AM Interpretation:Normal Performing Lab:[facility], [address] [place] [phone] Notes/Report: Triglycerides 142 <150 mg/dL Desirable Triglyceride: [...] Antigen Reviewed date:11/27/2023 11:09:17 AM Interpretation:Normal Performing Lab:[facility], [address] [place] [phone] Notes/Report: Prostate Specific Antigen 0.59 <0.05-4.0 ng/mL PSA methodology: Davis Alinity i Chemiluminescent Microparticle Immunoassay (CMIA) Vitamin D 25-OH Total Reviewed date:11/27/2023 11:33:22 AM Interpretation:Normal Performing Lab:[address] [phone] Notes/Report: Vitamin D 25-OH Total 33.3 >30 [...] Hormone Reviewed date:11/27/2023 11:33:22 AM Interpretation:Normal Performing Lab:[facility], [address] [place] [phone] Notes/Report: Thyroid Stimulating Hormone 2.66 0.32-4.0 uIU/ mL Note: A sustained TSH level above 2.5 uIU/mL may warrant further investigation. TSH 3rd Generation ([employer]) Comprehensive Met. Panel Reviewed date:12/10/2023 11:08:43 AM Interpretation:Abnormal Performing Lab:[facility], [address] [place] [phone] Notes/Report: Sodium 134 135-145 mmol/L Potassium 4.5 3.3-5.1 mmol/L Chloride 98 96-108 mmol/L Carbon Dioxide 23 22-29 mmol/L Anion Gap 18 12-20 Blood Urea Nitrogen 78 9-16 mg/dL Creatinine 2.57 0.5-1.4 mg/dL Estimated Glomerular Filt Rate 25 NOTE: For -Kenyan individuals, multiply the result by 1.210. Chronic [...] Panel Reviewed date:12/30/2023 11:23:33 AM Interpretation:Abnormal Performing Lab:[facility], [address] [place] [phone] Notes/Report: Sodium 132 135-145 mmol/L Potassium 4.6 3.3-5.1 mmol/L Chloride 99 96-108 mmol/L Carbon Dioxide 21 22-29 mmol/L Anion Gap 17 12-20 Blood Urea Nitrogen 80 9-16 mg/dL Creatinine 2.29 0.5-1.4 mg/dL Estimated Glomerular Filt Rate 28 NOTE: For -Kenyan individuals, multiply the result by 1.210. Chronic [...] Panel Reviewed date:01/15/2024 11:14:47 AM Interpretation:Abnormal Performing Lab:[facility], [address] [place] [phone] Notes/Report: Sodium 132 135-145 mmol/L Potassium 4.8 3.3-5.1 mmol/L Chloride 100 96-108 mmol/L Carbon Dioxide 22 22-29 mmol/L Anion Gap 15 12-20 Blood Urea Nitrogen 68 9-16 mg/dL Creatinine 1.89 0.5-1.4 mg/dL Estimated Glomerular Filt Rate 35 NOTE: For -Kenyan individuals, multiply the result by 1.210. Chronic [...] Diff Reviewed date:02/18/2024 10:36:41 AM Interpretation:Normal Performing Lab:[facility], [address] [place] [phone] Notes/Report: White Blood Count 6.5 4.8-10.8 X10*3/uL [...] INR Reviewed date:02/18/2024 10:36:41 AM Interpretation:Normal Performing Lab:[facility], [address] [place] [phone] Notes/Report: Prothrombin Time 12.9 11.1-13.3 SEC [employer]NATIONAL [...] Panel Reviewed date:02/18/2024 11:42:29 AM Interpretation:Abnormal Performing Lab:[facility], [address] [place] [phone] Notes/Report: Sodium 135 135-145 mmol/L Potassium 5.0 3.3-5.1 mmol/L Chloride 102 96-108 mmol/L Carbon Dioxide 24 22-29 mmol/L Anion Gap 14 12-20 Blood Urea Nitrogen 58 9-16 mg/dL Creatinine 1.87 0.5-1.4 mg/dL Estimated Glomerular Filt Rate 36 NOTE: For -Kenyan individuals, multiply the result by 1.210. Chronic Kidney Disease: Estimated GFR < 60 mL/min/1.73m2 Severe Kidney Disease: Estimated GFR < 15 mL/min/1.73m2 Glucose Random 95 60-115 mg/dL Calcium 9.8 8.4-10.2 mg/dL CT cervical spine wo con Reviewed date:07/15/2024 12:42:10 PM Interpretation:Abnormal Performing Lab: Notes/Report: [address] [address] [address] Scan Report Signed Patient: Kali Garza MR#: [id number] 0 : 1955 Acct:[id number] Age/Sex: 69 / M ADM Date: 05/15/24 Loc: HO.CT Attending Dr: Deirdre Marin MD Ordering Physician: Deirdre Marin MD Date of Service: 05/15/24 Procedure(s): CT cervical spine wo IV con Accession Number(s): [id number] cc: Kip Jimenez DO; Deirdre Marin MD [...] changes bilaterally. Combination of findings results in xuuy-kn-rxggckcz central canal narrowing, mild bilateral lateral recess narrowing, mild right and nuuz-et-gpdgxbth left neural foraminal narrowing. C6-C7: There is [...] by: Rickie Lee MD 07/15/2024 11:52 AM [facility] Dictated By: Rickie Lee MD Signed By: <Electronically signed by Rickie Lee MD in OV> 07/15/24 1152 DD/ TD/TT: 05/15/24928 Trauma Counsellor: Complete Blood Count Auto Di ff Reviewed date:07/06/2024 02:03:25 PM Interpretation:Abnormal Performing Lab:[facility], [address] [place] [phone] Notes/Report: White Blood Count 5.4 4.8-10.8 X10*3/uL [...] NRBC Abs Auto 0.000 0.0-0.012 X10*3/uL Comprehensive Warren. Panel Fa st Reviewed date:07/06/2024 02:29:03 PM Interpretation:Abnormal Performing Lab:[facility], [address] [place] [phone] Notes/Report: Sodium 131 135-145 mmol/L Potassium 4.9 [...] Panel Reviewed date:07/06/2024 02:26:49 PM Interpretation:Normal Performing Lab:[facility], [address] [place] [phone] Notes/Report: Triglycerides 59 <150 mg/dL Desirable Triglyceride: [...] Total Reviewed date:07/06/2024 02:27:27 PM Interpretation:Abnormal Performing Lab:[facility], [address] [place] [phone] Notes/Report: Vitamin D 25-OH Total 26.4 >30 [...] Hormone Reviewed date:07/06/2024 02:27:13 PM Interpretation:Normal Performing Lab:[facility], [address] [place] [phone] Notes/Report: Thyroid Stimulating Hormone 3.24 0.32-4.0 uIU/ mL Note: A sustained TSH level above 2.5 uIU/mL may warrant further investigation. TSH 3rd Generation ([employer]) Microalbumin, Random Reviewed date:07/06/2024 02:09:56 PM Interpretation:Abnormal Performing Lab:[facility], [address] [place] [phone] Notes/Report: Creatinine Urine 16.59 Microalbumin Urine 8.0 Microalbum/Creatinine Ratio Ur 48.2 <30 ug/mg cr Albumin/Creatinine Ratio Reference Ranges: Normal: < 30 ug/mg creatinine Microalbuminuria: 30 - 300 ug/mg creatinine Clinical Albuminuria: > 300 ug/mg creatinine Hemoglobin A1c Reviewed date:07/06/2024 02:04:07 PM Interpretation:Stable Performing Lab:[facility], [address] [place] [phone] Notes/Report: Hemoglobin A1c % 6.4 <6.0 % [...] average glucose, using the formula of the [id number]-[id number] Average Glucose study (ADAG), Diabetes Care, Vol.31,#8, Mar. 2007 Complete Blood Count Auto Di ff Reviewed date:07/21/2024 01:22:26 PM Interpretation:Abnormal Performing Lab:[facility], [address] [place] [phone] Notes/Report: White Blood Count 6.3 4.8-10.8 X10*3/uL [...] Panel Reviewed date:07/21/2024 01:38:56 PM Interpretation:Abnormal Performing Lab:[facility], [address] [place] [phone] Notes/Report: Sodium 138 135-145 mmol/L Potassium 3.8 [...] Peptide Reviewed date:07/21/2024 01:39:27 PM Interpretation:Abnormal Performing Lab:[facility], [address] [place] [phone] Notes/Report: B Type Natriuretic Peptide 1141 <100 [...] a day for 90 days 07/28/2024 Active Gabapentin 300 MG 2 capsules at [...] Problem Vitamin D deficiency (E55.9) Active confirmed 52916553 Problem Other obesity due to excess calories (E66.09) Active confirmed 360315133 Problem Obstructive sleep ap alon (adult) (pediatric) (G47.33) Active confirmed 08087021 Problem Localized edema (R60.0) Active confirmed 205486809 Problem Essential hypertensi on (I10) Active confirmed 03830703 Problem Neuropathy (G62.9) Active confirmed 386 154772 Problem Morbid obesity due t o excess calories (E66.01) Active confirmed 947869407 Problem Type 2 diabetes mellitus without complication, without long-term current use of insulin (E11.9) Active confirmed 660815792 Problem Hypercholesterolemia (E78.00) Active confirmed 51341903 Problem Pain of left great t oe (M79.675) Active confirmed 505203711 Problem Body mass index [BMI ] 32.0-32.9, adult (Z68.32) Active confirmed 839508234 Problem Stenosis of left vertebral artery (I65.02) Active confirmed 451631104 Problem Pulmonary hypertensi on (I27.20) Active confirmed 66892149 VITAL SIGNS Blood pressure diastolic 64 mm Hg 07/28/2024 Height 66.00 in 07/28/2024 Blood pressure systolic 106 mm Hg 07/28/2024 Weight 221 lbs 07/28/2024 BMI 35.67 kg/m2 07/28/2024 Encounters Encounter Location Date Provider Diagnosis Kip Jimenez DO [address] [id number] 12/04/2023 Kip Jimenez Type 2 diabetes marielena itus without complication, without long-term current use of insulin E11.9 ; Essential hypertension I10 ; Hypercholesterolemia E78.00 ; Obstructive sleep apnea (adult) (pediatric) G47.33 ; Neuropathy G62.9 ; Stenosis of left vertebral artery I65.02 ; MERRITT (dyspnea on exertion) R06.09 and Vitamin D deficiency E55.9 Kip Jimenez DO, [address] [id number] 01/01/2024 Kip Jimenez Essential hypertensi on I10 ; Hypercholesterolemia E78.00 ; Type 2 diabetes mellitus without complication, without long-term current use of insulin E11.9 ; Obstructive sleep apnea (adult) (pediatric) G47.33 ; Neuropathy G62.9 and Vitamin D deficiency E55.9 Kip Jimenez DO, [facility] [address], [place] [id number] 03/04/2024 Kip Jimenez DO, [facility] [address], [place] [id number] 03/10/2024 Kip Jimenez DO, [address] [id number] 03/31/2024 Kip Jimenez Type 2 diabetes marielena itus without complication, without long-term current use of insulin E11.9 ; Essential hypertension I10 ; Hypercholesterolemia E78.00 ; Vitamin D deficiency E55.9 ; Obstructive sleep apnea (adult) (pediatric) G47.33 and Neuropathy G62.9 Kip Jimenez DO, [address] [id number] 07/14/2024 Kip Jimenez Pulmonary hypertensi on I27.20 ; Essential hypertension I10 ; Hypercholesterolemia E78.00 ; Type 2 diabetes mellitus without complication, without long-term current use of insulin E11.9 ; Neuropathy G62.9 ; Other obesity due to excess calories E66.09 ; Vitamin D deficiency E55.9 and Obstructive sleep apnea (adult) (pediatric) G47.33 Kip Jimenez DO, [facility] [address], [place] [id number] 11/22/2023 Kip Jimenez DO, [address] [id number] 12/11/2023 Kip Jimenez Localized edema R60. 0 and Essential hypertension I10 Kip Jimenez DO, [facility] [address], [place] [id number] 12/27/2023 Kip Jimenez DOE (dyspnea on exer tion) R06.09 Kip Jimenez DO, [facility] [address], [place] [id number] 02/12/2024 Kip Jimenez DO, [address] [id number] 03/31/2024 Kip Jimenez DO, [facility] [address], [place] [id number] 05/11/2024 Kip Jimenez DO, FACP [address], [place] [id number] 07/15/2024 Kip Jimenez DO, FAC [address], [place] [id number] 07/21/2024 Kip Jimenez Pulmonary hypertensi on I27.20 Kip Jimenez DO, FAC [address], [place] [id number] 07/28/2024 Kip Jimenez Pulmonary hypertensi on I27.20 Kip Jimenez DO, FAC [address], [place] [id number] 07/28/2024 Kip Jimenez Obstructive sleep ap alon (adult) (pediatric) G47.33 Kip Jimenez DO, [facility] [address], [place] [id number] 08/09/2023 Kip Jimenez Obstructive sleep ap alon (adult) (pediatric) G47.33 Kip Jimenez DO, [facility] [address], [place] [id number] 08/10/2023 Kip Jimenez DO, [facility] [address], [place] [id number] 11/09/2023 Kip Jimenez Obstructive sleep ap alon (adult) (pediatric) G47.33 Kip Jimenez DO, [facility] [address], [place] [id number] 11/09/2023 Kip Jimenez DO, [facility] [address], [place] [id number] 11/21/2023 Kip Jimenez Type 2 diabetes marielena itus without complication, without long-term current use of insulin E11.9 ; Essential hypertension I10 ; Hypercholesterolemia E78.00 ; Morbid obesity due to excess calories E66.01 ; Vitamin D deficiency E55.9 and Encounter for general adult medical examination without abnormal findings Z00.00 Kip Jimenez DO, [facility] [address], [place] [id number] 02/09/2024 Kip Jimenez Obstructive sleep ap alon (adult) (pediatric) G47.33 Kip Jimenez DO, FAC [address], [place] [id number] 02/29/2024 Kip Jimenez Neuropathy G62.9 Kip Jimenez DO, [facility] [address], [place] [id number] 03/01/2024 Kip Jimenez DO, [facility] [address], [place] [id number] 04/17/2024 Kip Jimenez DO, [address] [id number] 04/17/2024 Kip Jimenez DO, [address] [id number] 04/30/2024 Kip Jimenez DO, [address] [id number] 04/30/2024 Kip Jimenez DO, [address] [id number] 05/05/2024 Kip Jimenez DO, [address] [id number] 05/10/2024 Kpi Jimenez Obstructive sleep ap alon (adult) (pediatric) G47.33 and Neuropathy G62.9 Kip Jimenez DO, [address] [id number] 05/10/2024 Kip Jimenez DO, [address] [id number] 06/17/2024 Kip Jimenez DO, [address] [id number] 08/03/2024 Kip Jimenez ASSESSMENTS Encounter Date Diagnosis Assessment [...] hypotensive. I spoke with his Pulmonary Hypertension Debt Management Counselor, Dr. Pierce. Will stop the Opsumit at [...] 07/21/2024 Pulmonary hypertensi on (ICD-10 - I27.20) 07/28/2024 Pulmonary hypertensi on (ICD-10 - I27.20) 07/28/2024 Obstructive sleep ap alon (adult) (pediatric) (ICD-10 - G47.33) 08/09/2023 Obstructive sleep ap alon (adult) (pediatric) [...] - G47.33) Nightly CPAP PLAN OF TREATMENT Pending Test Test Name Order Date BRAIN NATRIURETIC PEPTIDE (BNP) 07/28/20 CBC w DIFF 07/28/2024 PROFILE, RANDOM 07/28/2024 Insurance Providers Payer Name Payer Address Payer Phone Subscriber Number Group Number Insured Name Patient Relationship to Insured Coverage Start Date Coverage End Date MEDICARE [address] [place] [phone] [id number] Kali Garza Self - patient is the insured [employer] [address] [place] [address] [phone] [id number] Kali Garza Self - patient is the [...]
[2024-08-03 13:56] LABS: B Type Natriuretic Peptide 1214 pg/mL (<100)
[2024-08-03 14:03] LABS: MANUAL DIFF FLAG NO
[2024-08-03 14:06] LABS: Basophils Absolute Auto 0.1 X10*3/uL (0.0-0.2); Basophils Percent Auto 0.8 % (0-2); Eosinophils Absolute Auto 0.1 X10*3/uL (0.0-0.4); Eosinophils Percent Auto 2.2 % (0-4); Hematocrit 43.9 % (42.0-52.0); Hemoglobin 14.7 g/dl (14.0-18.0); Imm Gran Abs Auto 0.02 X10*3/uL (0.00-0.03); Imm Gran Pct Auto 0.3 % (0.0-0.4); Lymphocytes Percent Auto 16.2 % (20-40); Mean Corpuscular HGB Conc 33.5 g/dl (31.0-36.0); Mean Corpuscular Hemoglobin 32.6 pg (27.0-33.0); Mean Corpuscular Volume 97.3 fL (80.0-98.0); Mean Platelet Volume 10.8 fL (9.4-12.4); Monocytes Absolute Auto 0.6 X10*3/uL (0.1-1.2); Monocytes Percent Auto 8.9 % (2-11); Neutrophils Absolute Auto 4.6 x10*3/uL (2.0-8.3); Neutrophils Percent Auto 71.6 % (45-73); Platelet Count 180 X10*3/uL (160-400); Red Blood Count 4.51 X10*6/uL (4.60-5.80); Red Cell Distribution Width 14.2 % (11.0-16.0); White Blood Count 6.4 X10*3/uL (4.8-10.8)
[2024-08-03 14:27] LABS: Alanine Aminotransferase 40 U/L (0-40); Albumin Level 4.4 g/dL (3.5-5.0); Alkaline Phosphatase 181 U/L (39-117); Anion Gap 14 (12-20); Aspartate Amino Transferase 37 U/L (5-37); Bilirubin Total 1.3 mg/dL (0.0-1.0); Blood Urea Nitrogen 67 mg/dL (9-16); Calcium 9.9 mg/dL (8.4-10.2); Carbon Dioxide 30 mmol/L (22-29); Chloride 98 mmol/L (96-108); Estimated Glomerular Filt Rate 34; Glucose Random 166 mg/dL (60-115); Potassium 4.5 mmol/L (3.3-5.1); Sodium 137 mmol/L (135-145)
== END 2024-08-03 09:43 | disposition home or self-care (01) ==
LOC: HO.HMGCLDS 09:42
PROVIDERS: PCP Internal Medicine; Visit Provider Internal Medicine
DX: I27.20 Pulmonary hypertension, unspecified (principal)
CPT/HCPCS: 36415; 80053; 83880; 85025

== ENCOUNTER 2024-08-25 11:51 | Outpatient (AMB) | payer MEDICARE, SELFPAY ==
--- NOTE | 2024-08-25 12:18 | A.OFFPC_ITS ---
Vital Signs 08/25/24 12:35 Height 5 ft 6 in Weight 214 lb BMI 34.5 BP 120/60 Pulse 66 Pulse Source Pulse Oximeter Temp 97.2 F Pulse Oximetry (%) 89 L Intake Visit Reasons: 1 month follow up Intake Note: here for a follow up but his feet are still swollen from opsumit and is getting neuropathy in left big toe worse when he goes to bed Allergies macitentan [From Opsumit] Adverse Reaction (Verified 07/23/24 10:29) fluid overload HAYFEVER Allergy (Unknown, Uncoded 07/23/24 10:29) RUNNY NOSE PFSH Medical History Pulmonary hypertension Anxiety Obesity (BMI 30-39.9) Nocturnal hypoxemia Obesity (BMI 30-39.9) Sleep apnea Right heart failure Enlarged RV (right ventricle) Hyperlipidemia HTN (hypertension) Aortic stenosis Surgical History S/P cardiac catheterization Hx of appendectomy Hx of tonsillectomy History of laparoscopic cholecystectomy Family History Father CVD (cardiovascular disease) Mother Brain tumor Social History Patient Tobacco Use Status: Former Tobacco user Physical exam (Primary Care) Vital Signs: Last Vital Signs Temp 97.2 F 08/25/24 12:35 Pulse 66 08/25/24 12:35 BP 120/60 08/25/24 12:35 Pulse Ox 89 L 08/25/24 12:35 Tobacco/Smoking Status: Tobacco use Status Patient Tobacco Use Status Former Tobacco user 08/25/24 12:18 Coding Level of Care Code New Pt Level 4 (52960) Complex EM visit Add On G2211 Diagnoses Anxiety F41.9 Pulmonary hypertension I27.20 Right heart failure I50.810 Assessment & Plan Assessment & Plan (1) Anxiety: Comment: PATIENT STILL HAS SOME CLAUSTROPHOBIC FEELING WHEN PUTTING ON THE CPAP. HE CAN USE IT MORE REGULARLY AND FOR LONGER TIME IF HE USES CLONAZEPAM Code(s): F41.9 - Anxiety disorder, unspecified Category: Medical Plan: Patient would like to continue at current dosage of 2mg. He resisted the idea of decreasing the dose. I have agreed to the 2 mg dose (2) Pulmonary hypertension: Comment: PATIENT IS BEING FOLLOWED BY CARDIOLOGY Code(s): I27.20 - Pulmonary hypertension, unspecified Category: Medical Plan: Trial of Orenitram to be started (3) Right heart failure: Comment: IS BEING FOLLOWED BY CARDIOLOGY Code(s): I50.810 - Right heart failure, unspecified Category: Medical Plan: Trace edema still present. Continue current medications. Plan History of Present Illness The patient is a 69-year-old male presenting for a follow-up visit regarding management of pulmonary hypertension and its associated complications. He was prescribed Opsumit for pulmonary hypertension by Dr. George, which led to significant fluid retention in his feet and ankles, resulting in a weight gain of 20 pounds. Due to these adverse effects, his former physician, Dr. Jimenez, advised discontinuation of Opsumit on July 14, after consulting with Dr. George, who subsequently increased the diuretic dosage temporarily. The patient reports significant reduction in edema, though mild swelling persists, particularly causing discomfort due to a callus formation on one foot. The patient underwent cardiovascular evaluation for shortness of breath, which included a cardiac catheterization that confirmed pulmonary hypertension. Management has since transitioned to Orenitram scheduled to start. Cardiology follow-ups are ongoing with Dr. Dukes, with a recent blood work noting a stable HbA1c of 6.4%. Despite existing chronic kidney disease, managed with Metformin and Jardiance, his creatinine levels remain elevated at 1.9, indicating compromised renal function. Additionally, the patient reports a significant history of anxiety, managed with 2 mg clonazepam/day, and claustrophobia, which initially hindered CPAP therapy compliance. He now successfully uses CPAP every night. The patient reports neuropathic pain in the left great toe, occasionally severe at night, for which he uses lidocaine spray and gabapentin. 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 - Resides with and ncbyal-qe-img. - Drinks alcohol a few times weekly, primarily in the form of azv-jgvgsro-thwsusp cocktails while cooking dinner. - Quit smoking about 20 years ago. - Reports a history of appendix removal with a postoperative complication requiring life support. Review of Systems - Neurological: Reports episodic severe neuropathic pain in the left great toe at night. - Respiratory: Denies shortness of breath. - Psychiatric: Reports anxiety, managed with clonazepam. Physical Exam General: Appearance normal, both eyes and all related structures Nutritional Appearance: Well nourished Orientation/consciousness: Patient oriented x3 Limitations: Trace fluid edema in the legs Head: Normal to inspection Neck: Normal visual inspection Chest: Normal palpation of entire chest wall Respiratory: Normal respiratory effort Neurology: Patient oriented x3 Heart: Systolic murmur3/6 best heard in the pulmonic area and parasternal area Results - Labs: HbA1c of 6.4% from June blood tests. - Serum Creatinine: 1.9, indicating renal function compromise. - Procedures: Cardiac catheterization confirming pulmonary hypertension. Plan - Continue management of pulmonary hypertension with prescribed Arenitrium, monitoring for any side effects. - Recommend referral to a terminal system operator for the callus causing discomfort due to persistent foot edema. - Monitor diabetes and renal function, continue Metformin and Jardiance; Metformin deemed permissible despite mild renal compromise. - Anxiety management to remain at current clonazepam dosage due to patient preferences; CPAP therapy to continue. - Continue nightly lidocaine spray or consider gabapentin dose adjustment for toe pain. Patient was informed and verbally consented to the use of an ambient scribe for clinic note documentation during this visit. Discussion Notes We extensively discussed managing pulmonary hypertension with Arenitrium after discontinuation of Opsumit due to severe fluid retention. The risks and benefits of continuing current diuretic therapy were considered against further medication modifications given partial improvement. Diabetes management was addressed with no immediate changes recommended. We emphasized ongoing CPAP therapy. While reducing clonazepam was suggested, the patient prefers the current regimen to maintain anxiety management. Potential podiatric intervention was mentioned for foot discomfort due to callus formation. Lastly, strategies for alleviating nocturnal neuropathic pain were reviewed. Patient Instructions - Continue taking current medications as prescribed. - Monitor symptoms, particularly foot swelling, and report any significant changes. - Use lidocaine spray for toe pain, and consider adjusting gabapentin dosage if needed. - Attend follow-up with Dr. Dukes, Dr. Pierce, and the terminal system operator as scheduled. - Limit alcohol intake and maintain a healthy lifestyle to support overall health.
[2024-08-25 12:35] VITALS: BP 120/60; PULSE 66; TEMP 36.2; O2SAT 89; BMI 34.5
--- OUTSIDE RECORDS SUMMARY | 2024-08-25 14:02 | XMS_ITS ---
Author Organization [facility] Address [address] [place] [address] Care Team Providers Care Nurses Assistant Name Role Phone Amilcar King Primary Care Provider Iwona Fuentes [phone] Encounters Encounter Location Date Provider Diagnosis [address] [phone] 08/03/2024 Iwona Fuentes Plan Of Treatment Next Appt Details Provider Name:Iwona mckee, 12/09/2024 09:15:00 AM, [address] [place], [address], Progress Notes * Kali GARZA MDOB:1955 (69 yo M)Acc No.[id number]:08/03/2024 Progress Note Patient:?Kali GARZA Provider:?Iwona Fuentes DPM [...] DPM Date:?1 10/04/2023 Generated for Elenita pardo/Colin/Dyllan on:?08/25/2024 02:02 PM EST
--- OUTSIDE RECORDS SUMMARY | 2024-08-25 14:02 | XMS_ITS ---
Author Organization [facility] Address [address] [facility] [place] [address] Care Team Providers Care Control Systems Specialist Name Role Phone Amilcar King Primary Care Provider Iwona Fuentes Unavailable [phone] Jean Claude Rajan Unavailable [phone] Allergies No Known Allergies REASON FOR VISIT [...] 024 Encounters Encounter Location Date Provider Diagnosis [facility] [address] [place] [address] 04/22/2024 Jean Claude Rajan Type 2 diabetes [...] Reason: Provider Name:Iwona mckee, 12/09/2024 09:15:00 AM, [address] [place] [address], [phone], Procedure Notes * Category Sub-Category Detail Notes [...] as necessary. Patient chooses, no pharmaceutical tx (04404) Keratoma Treatment Parring or Cutting o f Benign Hyperkeratotic Lesion(s) 65473 (2-4 Lesions) - The Benign hyperkeratotic lesions, as described above were pared, and/or cut utilizing a sterile #15 blade, tissue nippers, and/or dremel Progress Notes * Kali GARZA MDOB:1955 (69 yo M)Acc No.[id number]:04/22/2024 Progress Note Patient:?Kali Garza Provider:?Jean Claude Rajan DPM :1955???Age:69 Y???Sex:Male Pj e:04/22/2024 Address:[address] Pcp:Kip Jimenez MD Subjective: * Chief [...] per week. ?Marital status: . 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 * Medications:?TakingJardiance Ciclopirox Olamine 0.77 % [...] as necessary. Patient chooses, no pharmaceutical tx (83434).?Keratoma Treatment:?Parring or Cutting of Benign Hyperkeratotic Lesion(s)?30655 (2-4 Lesions) - The Benign hyperkeratotic lesions, as described above were pared, and/or cut utilizing a sterile #15 blade, tissue nippers, and/or dremel.? * Procedure Codes:?84868 DEBRI DE NAIL, 6 OR MORE, Modifiers: XS 00682 TRIM SKIN LESIONS, 2 TO 4, Modifiers: [...] DPM Date:? 024 Generated for Elenita pardo/Colin/Dyllan on:?08/25/2024 02:02 PM EST History and Physical Notes * [...] no acute distress ORIENTED: person,place, and ti vt Ophthalmology Referral DIABETES EYE EXAM Diabetic Retinopa [...]
--- OUTSIDE RECORDS SUMMARY | 2024-08-25 14:02 | XMS_ITS | Patient Health Record ---
Author Organization [facility] Address [address] [facility] [place] [address] Care Team Providers Care Field Crew Chief Name Role Phone ChristineAmilcar Primary Care Provider Iwona Fuentes Unavailable [phone] Jean Claude Rajan Unavailable [phone] Allergies No Known Allergies Reason For Referral [...] Problem Status W/U Status Risk Notes Problem Polyneuropathy due to diabetes mellitus type I (576033278) Type 1 diabetes mellitus with diabetic polyneuropathy (E10.42) Active confirmed Problem Localized, primary osteoarthritis of the ankle and/or foot (562258948) Primary osteoarthritis, left ankle and foot (M19.072) Active confirmed Problem Acquired hammer toe of left foot (4213148649802455 ) Other hammer toe(s) (acquired), left foot (M20.42) Active confirmed Problem Polyneuropathy due to type 2 diabetes mellitus (102980993) Type 2 diabetes mellitus with diabetic polyneuropathy (E11.42) Active confirmed Vital Signs Blood pressure diastolic 72 mm Hg 08/03/2024 Height 5ft9in in 08/03/2024 Blood pressure systolic 120 mm Hg 08/03/2024 Weight 213 lbs 08/03/2024 BMI 31.45 kg/m2 08/03/2024 Procedures Procedure Date Ordered Date Performed Result Body Sit e 36106-FPYHZOG NAIL, 6 OR MORE 08/03/2024 N/A 99414-DVBB SKIN LESIONS, OVER 4 08/03/2024 N/A Encounters Encounter Location Date Provider Diagnosis [facility] [address] 09/04/2023 Jean Claude Rajan Type 2 diabetes mellitus with diabetic polyneuropathy E11.42 ; Primary osteoarthritis, left ankle and foot M19.072 ; Pain in left toe(s) M79.675 ; Other hammer toe(s) (acquired), left foot M20.42 ; Tinea unguium B35.1 ; Pain in right toe(s) M79.674 and Tinea pedis B35.3 [facility] [address] 01/15/2024 Jean Claude Rajan Type 2 diabetes mellitus with diabetic polyneuropathy E11.42 ; Primary osteoarthritis, left ankle and foot M19.072 ; Pain in left toe(s) M79.675 ; Other hammer toe(s) (acquired), left foot M20.42 ; Tinea unguium B35.1 ; Pain in right toe(s) M79.674 and Tinea pedis B35.[address] [address] 04/22/2024 Jean Claude Rajan Type 2 diabetes mellitus with diabetic polyneuropathy E11.42 ; Primary osteoarthritis, left ankle and foot M19.072 ; Pain in left toe(s) M79.675 ; Other hammer toe(s) (acquired), left foot M20.42 ; Tinea unguium B35.1 ; Pain in right toe(s) M79.674 and Tinea pedis B35.[address] [address] 08/03/2024 Iwona Gina Type 2 diabetes mellitus with diabetic polyneuropathy E11.42 ; Tinea unguium B35.1 and Edema, lower extremity R60.0 Assessments Encounter Date Diagnosis (ICD Code) Assessment Notes Treatment Notes Treatment Clinical Notes Section Notes 09/04/2023 Type 2 diabetes mellitus with diabetic polyneuropathy (ICD-10 - E11.42) 01/15/2024 Primary osteoarthritis, left ankle and foot (ICD-10 - M19.072) 01/15/2024 Type 2 diabetes mellitus with diabetic polyneuropathy (ICD-10 - E11.42) 04/22/2024 Type 2 diabetes mellitus with diabetic polyneuropathy (ICD-10 - E11.42) 08/03/2024 Type 2 diabetes mellitus with diabetic polyneuropathy (ICD-10 - E11.42) 08/03/2024 Tinea unguium (ICD-10 - B35.1) 08/03/2024 Edema, lower extremity (ICD-10 - R60.0) 01/15/2024 Pain in left toe(s) (ICD-10 - M79.675) 09/04/2023 Primary osteoarthritis, left ankle and foot (ICD-10 - M19.072) 04/22/2024 Primary osteoarthritis, left ankle and foot (ICD-10 - M19.072) 09/04/2023 Pain in left toe(s) (ICD-10 - M79.675) 01/15/2024 Other hammer toe(s) (acquired), left foot (ICD-10 - M20.42) 04/22/2024 Pain in left toe(s) (ICD-10 - M79.675) 09/04/2023 Other hammer toe(s) (acquired), left foot (ICD-10 - M20.42) 01/15/2024 Tinea unguium (ICD-10 - B35.1) 04/22/2024 Other hammer toe(s) (acquired), left foot (ICD-10 - M20.42) 09/04/2023 Tinea unguium (ICD-10 - B35.1) 01/15/2024 [...] X ray : Foot, left 3V 07/12/2021 05645-WPSLUXE NAIL, 6 OR MORE 08/03/2024 59049-VQIA SKIN LESIONS, OVER 4 08/03/20 84107-WGVR SKIN LESIONS, 2 TO 4 11/30/19 Next Appt Details Provider Name:Iwona Fallon rafi, 12/09/2024 09:15:00 AM, [address] [place] [address], [phone], Insurance Providers Payer Name Payer Address Payer Phone Subscriber Number Group Number Insured Name Patient Relationship to Insured Coverage Start Date Coverage End Date Medicare [facility] [employer] [address] [place] [address] [phone] [id number] Kali Garza Self - patient is the insured [employer] [facility] [address] [place] [address] [id number] Kali Garza Self - patient is the [...]
--- OUTSIDE RECORDS SUMMARY | 2024-08-25 14:03 | XMS_ITS ---
Author Organization Kip Jimenez DO [facility] Address [address] [place], [place] [id number] Care Team Providers Care Engineering Associate Name Role Phone Kip Jimenez Primary Care [...] Location Date Provider Diagnosis Kip Jimenez DO [facility] [address] [place], [place] [phone] 07/28/2024 Kip Jimenez Obstructive sleep apnea (adult) [...]
--- OUTSIDE RECORDS SUMMARY | 2024-08-25 14:03 | XMS_ITS ---
Author Organization Kip Jimenez DO, FACP Address [address] [place], [place] [id number] Care Team Providers Care Medical Technicians Name Role Phone Tony Kip Primary Care Provider REASON FOR VISIT 1 month f/u SOCIAL HISTORY Sex Assigned At : Social History Observation Description Sex Assigned At Male Encounters Encounter Location Date Provider Diagnosis Kip Jimenez DO, FACP [address] [place], [place] [id number] 08/18/2024 Kip Jimenez PLAN OF TREATMENT No Information
--- OUTSIDE RECORDS SUMMARY | 2024-08-25 14:03 | XMS_ITS | Patient Health Record ---
Author Organization Kip Jimenez DO, FACP Address [address] [place], [place] [id number] Care Team Providers Care Drop Man Name Role Phone Kip Jimenez Primary Care Provider ALLERGIES No Known Allergies RESULTS Component Value Reference Range Notes Complete Blood Count Auto Di ff Reviewed date:11/27/2023 10:42:15 AM Interpretation:Normal Performing Lab:[facility], [address] [place] [phone] Notes/Report: White Blood Count 6.1 4.8-10.8 X10*3/uL [...] NRBC Abs Auto 0.000 0.0-0.012 X10*3/uL Comprehensive Forest. Panel Fa st Reviewed date:11/27/2023 11:33:22 AM Interpretation:Abnormal Performing Lab:[facility], [address] [place] [phone] Notes/Report: Sodium 134 135-145 mmol/L Potassium 4.4 3.3-5.1 mmol/L Chloride 98 96-108 mmol/L Carbon Dioxide 27 22-29 mmol/L Anion Gap 13 12-20 Blood Urea Nitrogen 52 9-16 mg/dL Creatinine 1.76 0.5-1.4 mg/dL Estimated Glomerular Filt Rate 38 NOTE: For -Ghanaian individuals, multiply the result by 1.210. Chronic [...] Panel Reviewed date:11/27/2023 11:33:22 AM Interpretation:Normal Performing Lab:[facility], [address] [place] [phone] Notes/Report: Triglycerides 142 <150 mg/dL Desirable Triglyceride: [...] Antigen Reviewed date:11/27/2023 11:09:17 AM Interpretation:Normal Performing Lab:[facility], [address] [place] [phone] Notes/Report: Prostate Specific Antigen 0.59 <0.05-4.0 ng/mL PSA methodology: Davis Alinity i Chemiluminescent Microparticle Immunoassay (CMIA) Vitamin D 25-OH Total Reviewed date:11/27/2023 11:33:22 AM Interpretation:Normal Performing Lab:[address] [phone] Notes/Report: Vitamin D 25-OH Total 33.3 >30 [...] Hormone Reviewed date:11/27/2023 11:33:22 AM Interpretation:Normal Performing Lab:[facility], [address] [place] [phone] Notes/Report: Thyroid Stimulating Hormone 2.66 0.32-4.0 uIU/ mL Note: A sustained TSH level above 2.5 uIU/mL may warrant further investigation. TSH 3rd Generation ([employer]) Comprehensive Met. Panel Reviewed date:12/10/2023 11:08:43 AM Interpretation:Abnormal Performing Lab:[facility], [address] [place] [phone] Notes/Report: Sodium 134 135-145 mmol/L Potassium 4.5 3.3-5.1 mmol/L Chloride 98 96-108 mmol/L Carbon Dioxide 23 22-29 mmol/L Anion Gap 18 12-20 Blood Urea Nitrogen 78 9-16 mg/dL Creatinine 2.57 0.5-1.4 mg/dL Estimated Glomerular Filt Rate 25 NOTE: For -Ghanaian individuals, multiply the result by 1.210. Chronic [...] Panel Reviewed date:12/30/2023 11:23:33 AM Interpretation:Abnormal Performing Lab:[facility], [address] [place] [phone] Notes/Report: Sodium 132 135-145 mmol/L Potassium 4.6 3.3-5.1 mmol/L Chloride 99 96-108 mmol/L Carbon Dioxide 21 22-29 mmol/L Anion Gap 17 12-20 Blood Urea Nitrogen 80 9-16 mg/dL Creatinine 2.29 0.5-1.4 mg/dL Estimated Glomerular Filt Rate 28 NOTE: For -Ghanaian individuals, multiply the result by 1.210. Chronic [...] Panel Reviewed date:01/15/2024 11:14:47 AM Interpretation:Abnormal Performing Lab:[facility], [address] [place] [phone] Notes/Report: Sodium 132 135-145 mmol/L Potassium 4.8 3.3-5.1 mmol/L Chloride 100 96-108 mmol/L Carbon Dioxide 22 22-29 mmol/L Anion Gap 15 12-20 Blood Urea Nitrogen 68 9-16 mg/dL Creatinine 1.89 0.5-1.4 mg/dL Estimated Glomerular Filt Rate 35 NOTE: For -Ghanaian individuals, multiply the result by 1.210. Chronic [...] Diff Reviewed date:02/18/2024 10:36:41 AM Interpretation:Normal Performing Lab:[facility], [address] [place] [phone] Notes/Report: White Blood Count 6.5 4.8-10.8 X10*3/uL [...] INR Reviewed date:02/18/2024 10:36:41 AM Interpretation:Normal Performing Lab:[facility], [address] [place] [phone] Notes/Report: Prothrombin Time 12.9 11.1-13.3 SEC [employer]NATIONAL [...] Panel Reviewed date:02/18/2024 11:42:29 AM Interpretation:Abnormal Performing Lab:[facility], [address] [place] [phone] Notes/Report: Sodium 135 135-145 mmol/L Potassium 5.0 3.3-5.1 mmol/L Chloride 102 96-108 mmol/L Carbon Dioxide 24 22-29 mmol/L Anion Gap 14 12-20 Blood Urea Nitrogen 58 9-16 mg/dL Creatinine 1.87 0.5-1.4 mg/dL Estimated Glomerular Filt Rate 36 NOTE: For -Ghanaian individuals, multiply the result by 1.210. Chronic Kidney Disease: Estimated GFR < 60 mL/min/1.73m2 Severe Kidney Disease: Estimated GFR < 15 mL/min/1.73m2 Glucose Random 95 60-115 mg/dL Calcium 9.8 8.4-10.2 mg/dL CT cervical spine wo con Reviewed date:07/15/2024 12:42:10 PM Interpretation:Abnormal Performing Lab: Notes/Report: [address] [address] [address] Scan Report Signed Patient: Kali Garza MR#: [id number] 0 : 1955 Acct:[id number] Age/Sex: 69 / M ADM Date: 05/15/24 Loc: HO.CT Attending Dr: Deirdre Marin MD Ordering Physician: Deirdre Marin MD Date of Service: 05/15/24 Procedure(s): CT cervical spine wo IV con Accession Number(s): [id number] cc: Kip Jimenez DO; Deirdre Marin MD [...] changes bilaterally. Combination of findings results in yafm-st-cownyzqm central canal narrowing, mild bilateral lateral recess narrowing, mild right and ojzj-ob-hpiqldcr left neural foraminal narrowing. C6-C7: There is [...] by: Rickie Lee MD 07/15/2024 11:52 AM [facility] Dictated By: Rickie Lee MD Signed By: <Electronically signed by Rickie Lee MD in OV> 07/15/24 1152 DD/ TD/TT: 05/15/24928 Business Relations Manager: Complete Blood Count Auto Di ff Reviewed date:07/06/2024 02:03:25 PM Interpretation:Abnormal Performing Lab:[facility], [address] [place] [phone] Notes/Report: White Blood Count 5.4 4.8-10.8 X10*3/uL [...] NRBC Abs Auto 0.000 0.0-0.012 X10*3/uL Comprehensive Forest. Panel Fa st Reviewed date:07/06/2024 02:29:03 PM Interpretation:Abnormal Performing Lab:[facility], [address] [place] [phone] Notes/Report: Sodium 131 135-145 mmol/L Potassium 4.9 [...] Panel Reviewed date:07/06/2024 02:26:49 PM Interpretation:Normal Performing Lab:[facility], [address] [place] [phone] Notes/Report: Triglycerides 59 <150 mg/dL Desirable Triglyceride: [...] Total Reviewed date:07/06/2024 02:27:27 PM Interpretation:Abnormal Performing Lab:[facility], [address] [place] [phone] Notes/Report: Vitamin D 25-OH Total 26.4 >30 [...] Hormone Reviewed date:07/06/2024 02:27:13 PM Interpretation:Normal Performing Lab:[facility], [address] [place] [phone] Notes/Report: Thyroid Stimulating Hormone 3.24 0.32-4.0 uIU/ mL Note: A sustained TSH level above 2.5 uIU/mL may warrant further investigation. TSH 3rd Generation ([facility]) Microalbumin, Random Reviewed date:07/06/2024 02:09:56 PM Interpretation:Abnormal Performing Lab:[facility], [address] [place] [phone] Notes/Report: Creatinine Urine 16.59 Microalbumin Urine 8.0 Microalbum/Creatinine Ratio Ur 48.2 <30 ug/mg cr Albumin/Creatinine Ratio Reference Ranges: Normal: < 30 ug/mg creatinine Microalbuminuria: 30 - 300 ug/mg creatinine Clinical Albuminuria: > 300 ug/mg creatinine Hemoglobin A1c Reviewed date:07/06/2024 02:04:07 PM Interpretation:Stable Performing Lab:[facility], [address] [place] [phone] Notes/Report: Hemoglobin A1c % 6.4 <6.0 % [...] average glucose, using the formula of the O5L-Oeoahxh Average Glucose study (ADAG), Diabetes Care, Vol.31,#8, Mar. 2007 Complete Blood Count Auto Di ff Reviewed date:07/21/2024 01:22:26 PM Interpretation:Abnormal Performing Lab:[facility], [address] [place] [phone] Notes/Report: White Blood Count 6.3 4.8-10.8 X10*3/uL [...] Panel Reviewed date:07/21/2024 01:38:56 PM Interpretation:Abnormal Performing Lab:[facility], [address] [place] [phone] Notes/Report: Sodium 138 135-145 mmol/L Potassium 3.8 [...] Peptide Reviewed date:07/21/2024 01:39:27 PM Interpretation:Abnormal Performing Lab:[facility], [address] [place] [phone] Notes/Report: B Type Natriuretic Peptide 1141 <100 pg/mL For those patients who are being treated with Natrecor (nesiritide, recombinant BNP), BNP testing should be performed at least two hours post treatment in order to ensure that only endogenous levels of BNP are detected. Complete Blood Count Auto Di ff Reviewed date:08/03/2024 02:44:50 PM Interpretation:Abnormal Performing Lab:[facility], [address] [place] [id number] Notes/Report: White Blood Count 6.4 4.8-10.8 X10*3/uL Red Blood Count 4.51 4.60-5.80 X10*6/uL Hemoglobin 14.7 14.0-18.0 g/dl Hematocrit 43.9 42.0-52.0 % Mean Corpuscular Volume 97.3 80.0-98.0 fL Mean Corpuscular Hemoglobin 32.6 27.0-33.0 pg Mean Corpuscular HGB Conc 33.5 31.0-36.0 g/dl Red Cell Distribution Width 14.2 11.0-16.0 % Platelet Count 180 160-400 X10*3/uL Mean Platelet Volume 10.8 9.4-12.4 fL Neutrophils Percent Auto 71.6 45-73 % Imm Gran Pct Auto 0.3 0.0-0.4 % Lymphocytes Percent Auto 16.2 20-40 % Monocytes Percent Auto 8.9 2-11 % Eosinophils Percent Auto 2.2 0-4 % Basophils Percent Auto 0.8 0-2 % NRBC Pct Auto 0.0 0.0-0.2 /100WBC Neutrophils Absolute Auto 4.6 2.0-8.3 x10*3/u L Imm Gran Abs Auto 0.02 0.00-0.03 X10*3/uL Lymphocytes Absolute Auto 1.0 1.2-4.9 X10*3/u L Monocytes Absolute Auto 0.6 0.1-1.2 X10*3/uL Eosinophils Absolute Auto 0.1 0.0-0.4 X10*3/u L Basophils Absolute Auto 0.1 0.0-0.2 X10*3/uL NRBC Abs Auto 0.000 0.0-0.012 X10*3/uL Comprehensive Met. Panel Reviewed date:08/03/2024 02:45:43 PM Interpretation:Abnormal Performing Lab:[facility], [address] [place] [phone] Notes/Report: Sodium 137 135-145 mmol/L Potassium 4.5 3.3-5.1 mmol/L Chloride 98 96-108 mmol/L Carbon Dioxide 30 22-29 mmol/L Anion Gap 14 12-20 Blood Urea Nitrogen 67 9-16 mg/dL Creatinine 1.94 0.5-1.4 mg/dL Estimated Glomerular Filt Rate 34 Chronic Kidney Disease: Estimated GFR < 60 mL/min/1.73m2 Severe Kidney Disease: Estimated GFR < 15 mL/min/1.73m2 Glucose Random 166 60-115 mg/dL Calcium 9.9 8.4-10.2 mg/dL Bilirubin Total 1.3 0.0-1.0 mg/dL Aspartate Amino Transferase 37 5-37 U/L Alanine Aminotransferase 40 0-40 U/L Total Protein 8.0 6.5-8.0 g/dL Albumin Level 4.4 3.5-5.0 g/dL Alkaline Phosphatase 181 39-117 U/L B Type Natriuretic Peptide Reviewed date:08/03/2024 02:45:03 PM Interpretation:Abnormal Performing Lab:[facility], [address] [place] [phone] Notes/Report: B Type Natriuretic Peptide 1214 <100 pg/mL For those patients who are [...] Problem Vitamin D deficiency (E55.9) Active confirmed 53589339 Problem Other obesity due to excess calories (E66.09) Active confirmed 620791234 Problem Obstructive sleep ap alon (adult) (pediatric) (G47.33) Active confirmed 39511058 Problem Localized edema (R60.0) Active confirmed 479582594 Problem Essential hypertensi on (I10) Active confirmed 33659082 Problem Neuropathy (G62.9) Active confirmed 386 218962 Problem Morbid obesity due t o excess calories (E66.01) Active confirmed 169539312 Problem Type 2 diabetes mellitus without complication, without long-term current use of insulin (E11.9) Active confirmed 233985565 Problem Hypercholesterolemia (E78.00) Active confirmed 85120385 Problem Pain of left great t oe (M79.675) Active confirmed 562445228 Problem Body mass index [BMI ] 32.0-32.9, adult (Z68.32) Active confirmed 677270117 Problem Stenosis of left vertebral artery (I65.02) Active confirmed 900699415 Problem Pulmonary hypertensi on (I27.20) Active confirmed 83632435 VITAL SIGNS Blood pressure diastolic 64 mm Hg 07/28/2024 Height 66.00 in 07/28/2024 Blood pressure systolic 106 mm Hg 07/28/2024 Weight 221 lbs 07/28/2024 BMI 35.67 kg/m2 07/28/2024 Encounters Encounter Location Date Provider Diagnosis Kip Jimenez DO, [facility] [address] [place], [place] [id number] 12/04/2023 Kip Jimenez Type 2 diabetes marielena itus without complication, without long-term current use of insulin E11.9 ; Essential hypertension I10 ; Hypercholesterolemia E78.00 ; Obstructive sleep apnea (adult) (pediatric) G47.33 ; Neuropathy G62.9 ; Stenosis of left vertebral artery I65.02 ; MERRITT (dyspnea on exertion) R06.09 and Vitamin D deficiency E55.9 Kip Jimenez DO, [facility] [address] [place], [place] [id number] 01/01/2024 Kip Jimenez Essential hypertensi on I10 ; Hypercholesterolemia E78.00 ; Type 2 diabetes mellitus without complication, without long-term current use of insulin E11.9 ; Obstructive sleep apnea (adult) (pediatric) G47.33 ; Neuropathy G62.9 and Vitamin D deficiency E55.9 Kip Jimenez DO, [facility] [address] [place], [place] [id number] 03/04/2024 Kip Jimenez DO, [facility] [address] [place], [place] [id number] 03/10/2024 Kip iJmenez DO, [facility] [address] [place], [place] [id number] 03/31/2024 Kip Jimenez Type 2 diabetes marielena itus without complication, without long-term current use of insulin E11.9 ; Essential hypertension I10 ; Hypercholesterolemia E78.00 ; Vitamin D deficiency E55.9 ; Obstructive sleep apnea (adult) (pediatric) G47.33 and Neuropathy G62.9 Kip Jiemnez DO, FACP [address] [place], [place] [id number] 07/14/2024 Kip Jimenez Pulmonary hypertensi on I27.20 ; Essential hypertension I10 ; Hypercholesterolemia E78.00 ; Type 2 diabetes mellitus without complication, without long-term current use of insulin E11.9 ; Neuropathy G62.9 ; Other obesity due to excess calories E66.09 ; Vitamin D deficiency E55.9 and Obstructive sleep apnea (adult) (pediatric) G47.33 Kip Jimenez DO, FACP [address] [place], [place] [id number] 08/18/2024 Kip Jimenez DO, FACP [address] [place], [place] [id number] 11/22/2023 Kip Jimenez DO, FAC [address] [place], [place] [id number] 12/11/2023 Kip Jimenez Localized edema R60. 0 and Essential hypertension I10 Kip Jimenez DO, FAC [address] [place], [place] [id number] 12/27/2023 Kip Jimenez DOE (dyspnea on exer tion) R06.09 Kip Jimenez DO, FACP [address] [place], [place] [id number] 02/12/2024 Kip Jimenez DO, FAC [address] [place], [place] [id number] 03/31/2024 Kip Jimenez DO, FACP [address] [place], [place] [id number] 05/11/2024 Kip Jimenez DO, FAC [address] [place], [place] [id number] 07/15/2024 Kip Jimenez DO, FACP [address] [place], [place] [id number] 07/21/2024 Kip Jimenez Pulmonary hypertensi on I27.20 Kip Jimenez DO, FACP [address] [place], [place] [id number] 07/28/2024 Kip Jimenez Pulmonary hypertensi on I27.20 Kip Jimenez DO, FACP [address] [place], [place] [id number] 07/28/2024 Kip Jimenez Obstructive sleep ap alon (adult) (pediatric) G47.33 iKp Jimenez DO, FACP [address] [place], [place] [id number] 11/09/2023 Kip Jimenez Obstructive sleep ap alon (adult) (pediatric) G47.33 Kip Jimenez DO, FACP [address] [place], [place] [id number] 11/09/2023 Kip Jimenez DO, FACP [address] [place], [place] [id number] 11/21/2023 Kip Jimenez Type 2 diabetes marielena itus without complication, without long-term current use of insulin E11.9 ; Essential hypertension I10 ; Hypercholesterolemia E78.00 ; Morbid obesity due to excess calories E66.01 ; Vitamin D deficiency E55.9 and Encounter for general adult medical examination without abnormal findings Z00.00 Kip Jimenez DO, FACP [address] [place], [place] [id number] 02/09/2024 Kip Jimenez Obstructive sleep ap alon (adult) (pediatric) G47.33 Kip Jimenez DO, FACP [address] [place], [place] [id number] 02/29/2024 Kip Jimenez Neuropathy G62.9 Kip Jimenez DO, FACP [address] [place], [place] [id number] 03/01/2024 Kip Jimenez DO, FACP [address] [place], [place] [id number] 04/17/2024 Kip Jimenez DO, FAC [address] [place], [place] [id number] 04/17/2024 Kip Jimenez DO, FACP [address] [place], [place] [id number] 04/30/2024 Kip Jimenez DO, FAC [address] [place], [place] [id number] 04/30/2024 Kip Jimenez DO, FACP [address] [place], [place] [id number] 05/05/2024 Kip Jimenez DO, FACP [address] [place], [place] [id number] 05/10/2024 Kip Jimenez Obstructive sleep ap alon (adult) (pediatric) G47.33 and Neuropathy G62.9 Kip Jimenez DO, FACP [address] [place], [place] [id number] 05/10/2024 Kip Jimenez DO, FACP [address] [place], [place] [id number] 06/17/2024 Kip Jimenez DO, [address] [place] [id number] 08/03/2024 Kip Jimenez ASSESSMENTS Encounter Date Diagnosis [...] hypotensive. I spoke with his Pulmonary Hypertension Break And Load Operator, Dr. Pierce. Will stop the Opsumit at [...] Date MEDICARE [address] [place] [phone] [id number] Kali Garza Self - patient is the insured MEDEX [address] [place] [address] [id number] Kali Garza Self - patient is the [...]
--- OUTSIDE RECORDS SUMMARY | 2024-08-25 14:03 | XMS_ITS ---
Author Organization Kip Jimenez DO FACYvonne Address [address] [place], [place] [id number] Care Team Providers Care Telemarketing Agent Name Role Phone Tony Kip Primary Care Provider REASON FOR VISIT Thank you SOCIAL HISTORY Sex Assigned At : Social History Observation Description Sex Assigned At Male Encounters Encounter Location Date Provider Diagnosis Kip Jimenez DO, FACP [address] [place], [place] [id number] 08/03/2024 Kip Jimenez PLAN OF TREATMENT No Information
== END 2024-08-25 12:55 | disposition home or self-care (01) ==
LOC: HO.HMCSH 11:51
PROVIDERS: PCP Internal Medicine; Visit Provider Internal Medicine
DX: F41.9 Anxiety disorder, unspecified (principal); I27.20 Pulmonary hypertension, unspecified; I50.810 Right heart failure, unspecified

== ENCOUNTER → 2024-08-25 11:51 | Outpatient (BNVA) | payer MEDICARE, SELFPAY | PROVIDERS: PCP Internal Medicine; Visit Provider Internal Medicine | DX: I27.20 Pulmonary hypertension, unspecified (principal); I50.810 Right heart failure, unspecified; F41.9 Anxiety disorder, unspecified | CPT/HCPCS: 99202 ==

== ENCOUNTER 2024-08-28 08:14 | Outpatient (AMB) | payer MEDICARE, SELFPAY ==
[2024-08-28 08:29] VITALS: BP 106/62; PULSE 49; BMI 30.7
--- NOTE | 2024-08-28 08:29 | MHC.OFFVIS ---
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 Allergies macitentan [From Opsumit] Adverse Reaction (Verified 07/23/24 10:29) fluid overload HAYFEVER Allergy (Unknown, Uncoded 07/23/24 10:29) RUNNY NOSE Medication List - Last Reconciled 08/28/24 by Jamie Dukes MD aspirin (Adult Low Dose Aspirin) 81 mg PO DAILY atorvastatin 80 mg PO DAILY bumetanide 2 mg PO DAILY cholecalciferol (vitamin D3) 50 mcg PO DAILY clonazepam 2 mg PO BEDTIME PRN empagliflozin (Jardiance) 10 mg PO DAILY gabapentin one in the morning two at bedtime orally daily; latanoprost 0.005% drps ophthalmic (eye) metformin ER 750 mg PO QPM spironolactone 25 mg PO DAILY treprostinil diolamine ER (Orenitram Month 1 Titration) 0 ea PO HPI Comments Details: Ruby comes for follow-up. He has been seen by pulmonary hypertension specialist at [facility] and was started on a pulmonary vasodilators therapy in June which she did not tolerate with gain of about 15-20 lb of fluid. He is gradually losing it but still continues to have 6 lb overweight with leg edema. Has shortness of breath NYHA class 2-3. No clear orthopnea, PND. No abdominal distension. He is proposed to be started on oral prostacyclin inhibitor therapy on Saturday. He is quite worried about it due to lowish blood pressure. He has been taking all his medications regularly. Using his CPAP regularly. He denies any prolonged palpitation irregular heartbeat. Denies any lightheadedness, syncope. He has been losing muscle mass. Denies any exertional chest pain. [facility] Medical History Pulmonary hypertension Anxiety Obesity (BMI 30-39.9) Nocturnal hypoxemia Obesity (BMI 30-39.9) Sleep apnea Right heart failure Enlarged RV (right ventricle) Hyperlipidemia HTN (hypertension) Aortic stenosis Surgical History S/P cardiac catheterization Hx of appendectomy Hx of tonsillectomy History of laparoscopic cholecystectomy Family History Father CVD (cardiovascular disease) Mother Brain tumor Social History Patient Tobacco Use Status: Former Tobacco user Review of Systems Const Denies chills, Denies fatigue, Denies fever(s), Denies frequent falls, Denies weakness, Denies weight gain and Denies weight loss ENT Denies dizziness Card Denies chest pain, Denies leg edema, Denies lightheadedness, Denies palpitations, Denies dyspnea, Denies dyspnea on exertion, Denies orthopnea and Denies other (loss of consciousness) Resp Denies cough, Denies dyspnea and Denies dyspnea on exertion GI Denies hematochezia and Denies change in stool character Musc Denies abnormal gait, Denies muscle weakness, Denies numbness, Denies radiating pain into limb and Denies tingling Neuro Denies abnormal gait, Denies dizziness, Denies frequent falls, Denies numbness, Denies tingling and Denies weakness Endo Denies fatigue and Denies palpitations Physical Exam Vital Signs: Last Vital Signs Pulse 49 L 08/28/24 08:29 BP 106/62 08/28/24 08:29 BMI result Body Mass Index 30.7 Const General: cooperative, comfortable, alert, awake and tired appearing Nutritional Appearance: overweight Orientation/consciousness: patient oriented x3 Limitations: no limitations Neck Neck: Yes trachea midline, Yes supple and Yes JVD Resp Effort & Inspection: normal respiratory effort Auscultation: clear to auscultation bilaterally Cardio Jugular venous distension: JVD Palpation: heave (RV) Rate: bradycardic Rhythm: abnormal rhythm with ectopic beats Heart sounds: S1 normal heart sound present, S2 normal heart sound present, no click, no gallops, Murmur heart sound present systolic and no rubs GI Inspection: Yes obesity Auscultation: normal bowel sounds Skin General skin exam: no rashes or lesions noted and ecchymosis Neuro General: patient oriented x3 and no focal motor deficits Extrem General: No clubbing, No cyanosis and Yes edema Psych Appearance: grossly normal Affect: Depressed mood present Office Procedures EKG Details: EKG shows sinus bradycardia with first-degree AV block with PACs with right bundle-branch block [id number]-Rrpqozwuqzalxfcnx, Complete Assessment & Plan Assessment & Plan (1) Right heart failure: Comment: IS BEING FOLLOWED BY CARDIOLOGY Code(s): I50.810 - Right heart failure, unspecified Category: Medical Plan: Right heart failure in this elderly gentleman secondary to significant pulmonary hypertension which is suspected to be pre capillary pulmonary hypertension. Patient is currently being tried on prostacyclin therapy orally. Blood pressure is on the low side. I have advised him to hold his spironolactone therapy when he initiates to avoid hypotensive reaction to new therapy. He is advised to monitor blood pressure closely at home. Clinically still appears to be fluid overloaded I have suggested him to increase his bumetanide to total of 3 mg, 2 mg in the morning and 1 mg at noon time. This is till he loses his 5-6 lb of extra fluid weight. Once this happens he is advised to go back down to 2 mg. Continue Jardiance. Discussed importance of pulmonary vasodilators therapy to improve RV function and reduced RV afterload to overall help his right heart failure syndrome. He understands. Continue CPAP therapy aggressively. If he tolerates in his blood pressure is stable will slowly reintroduce spironolactone therapy to his regimen as well. (2) Aortic stenosis: Comment: ABOVE BEING FOLLOWED BY CARDIOLOGY Code(s): I35.0 - Nonrheumatic aortic (valve) stenosis Category: Medical Plan: Aortic stenosis which is moderate. Will continue to monitor by echocardiogram on annual basis. No interventions required. Continue aspirin and statin therapy. Will pursue further intervention once he has significant aortic stenosis. (3) Sinus bradycardia: Code(s): R00.1 - Bradycardia, unspecified Category: Medical Plan: Notice sinus bradycardia, patient on currently no rate lowering medications. At this point time will require close follow-up. Advised to monitor heart rate at home and will follow-up with a Holter monitor in the near future. Maybe developing sinoatrial percy dysfunction related to right atrial fibrosis. Will need to monitor. Currently does not require pacing therapy. Avoid rate lowering medications. Will follow up in the clinic in 3 months time, sooner p.r.n.. Thank you for allowing me to partake in his care Coding Level of Care Code Est Pt Level 5 (63628) Complex EM visit Add On G2211 Diagnoses Right heart failure I50.810 Aortic stenosis I35.0 Sinus bradycardia R00.1 CPT Codes EKG - CPT: 62406-Cwhgrrpmoryhdjnou, Complete ([id number])
== END 2024-08-28 08:58 | disposition home or self-care (01) ==
PROVIDERS: PCP Internal Medicine; Visit Provider Internal Medicine Cardiovascular Disease
DX: I50.810 Right heart failure, unspecified (principal); I35.0 Nonrheumatic aortic (valve) stenosis; R00.1 Bradycardia, unspecified
CPT/HCPCS: 93010; 99214; G2211

== ENCOUNTER → 2024-08-28 08:14 | Outpatient (BNVA) | payer MEDICARE, SELFPAY | PROVIDERS: PCP Internal Medicine; Visit Provider Internal Medicine Cardiovascular Disease | DX: I50.810 Right heart failure, unspecified (principal); I35.0 Nonrheumatic aortic (valve) stenosis; R00.1 Bradycardia, unspecified; I44.0 Atrioventricular block, first degree; R94.31 Abnormal electrocardiogram [ECG] [EKG]; I45.10 Unspecified right bundle-branch block | CPT/HCPCS: 93005; 99212 ==

== ENCOUNTER → 2024-09-04 09:57 | Outpatient (REF) | payer MEDICARE, SELFPAY | LOC: HO.CARD 09:57 | PROVIDERS: PCP Internal Medicine; Visit Provider Internal Medicine Cardiovascular Disease | DX: R00.1 Bradycardia, unspecified (principal) | CPT/HCPCS: 93242 ==

== ENCOUNTER → 2024-09-04 10:00 | Outpatient (BNV) | payer MEDICARE, SELFPAY | PROVIDERS: PCP Internal Medicine; Visit Provider Internal Medicine Cardiovascular Disease | DX: I49.1 Atrial premature depolarization (principal); I49.3 Ventricular premature depolarization | CPT/HCPCS: 93244 ==

== ENCOUNTER → 2024-09-16 08:56 | Outpatient (BNVA) | payer MEDICARE, SELFPAY | PROVIDERS: PCP Internal Medicine; Visit Provider Internal Medicine | DX: I50.810 Right heart failure, unspecified (principal) ==

== ENCOUNTER 2024-10-12 09:03 | Outpatient (AMB) | payer MEDICARE, SELFPAY ==
--- NOTE | 2024-10-12 09:03 | A.OFFPC_ITS ---
Vital Signs 10/12/24 09:14 Height 5 ft 6.25 in Weight 227 lb BMI 36.4 BP 116/62 Blood Pressure Location Rt brachial Pulse 65 Pulse Source Pulse Oximeter Temp 97.3 F Pulse Oximetry (%) 94 Intake Visit Reasons: 1 week follow up Intake Note: gaining fluid and fighting the side effects of medication but breathing is better Allergies macitentan [From Opsumit] Adverse Reaction (Verified 10/12/24 09:07) fluid overload HAYFEVER Allergy (Unknown, Uncoded 07/23/24 10:29) RUNNY NOSE [facility] Medical History (Updated 10/12/24 @ 09:35 by Amilcar King MD) Stenosis of left vertebral artery Vitamin D deficiency Type 2 diabetes mellitus Depression Pulmonary hypertension Anxiety Obesity (BMI 30-39.9) Nocturnal hypoxemia Obesity (BMI 30-39.9) Sleep apnea Right heart failure Enlarged RV (right ventricle) Hyperlipidemia HTN (hypertension) Aortic stenosis Surgical History S/P cardiac catheterization Hx of appendectomy Hx of tonsillectomy History of laparoscopic cholecystectomy Family History Father CVD (cardiovascular disease) Mother Brain tumor Social History Patient Tobacco Use Status: Former Tobacco user Physical exam (Primary Care) Vital Signs: Last Vital Signs Temp 97.3 F 10/12/24 09:14 Pulse 65 10/12/24 09:14 BP 116/62 10/12/24 09:14 Pulse Ox 94 10/12/24 09:14 BMI result Body Mass Index 36.4 Tobacco/Smoking Status: Tobacco use Status Patient Tobacco Use Status Former Tobacco user 10/12/24 09:15 Office Procedures EKG Details: Sinus Bradycardia and RBBB. 88907-Pjryiswwmumpludue, Complete Coding Level of Care Code Est Pt Level 4 (23244) Complex EM visit Add On G2211 Diagnoses Right heart failure I50.810 Pulmonary hypertension I27.20 CPT Codes EKG - CPT: 56238-Drwlrbdywlgrmbmde, Complete ([id number]) Assessment & Plan Assessment & Plan (1) Right heart failure: Code(s): I50.810 - Right heart failure, unspecified Category: Medical Plan: Worsening right heart failure as evidenced by fluid retention in the legs, in the abdomen. Will discuss with Dr Dukes, in light of increasing dosage of Orenitram, if bumetanide should be further increased. EKG revd. Sinus bradycardia with RBBB Will discuss with Dr Dukes, if progressive increase in bumetanide dosage is warranted. (2) Pulmonary hypertension: Comment: PATIENT IS BEING FOLLOWED BY CARDIOLOGY Code(s): I27.20 - Pulmonary hypertension, unspecified Category: Medical Plan History of Present Illness The patient is a 69-year-old male presenting with concerns of weight gain and management of peripheral edema. The patient's weight has increased by 5-7 pounds from a baseline of 203 pounds, despite using bumetanide. . Notably, he reports swelling in the calves and ankles, primarily when standing for long periods, showing signs of discomfort. This swelling is atypical compared to previous experiences and includes an increase in the calf's size. The abdominal area shows increased size without a corresponding increase in food intake. Patient is titrating upwards the dosage of Orenitram. After the increased dose, he feels symptoms of discomfirt in the back. Not very active. Tried to exercise (bike), legs are cramping Social History - No specific social determinants discussed in the conversation. Review of Systems - Musculoskeletal: Reports headaches, neck pain related to medication titration. Physical Exam General: Appearance normal, both eyes and all related structures Nutritional Appearance: Well nourished Orientation/consciousness: Patient oriented x3 Limitations: No limitations Head: Normal to inspection Neck: Normal visual inspection Chest: Normal palpation of entire chest wall Respiratory: Normal respiratory effort, breathing is improving on medication Neurology: Patient oriented x3 Results Plan The current treatment strategy will focus on continued management of peripheral edema with bumetanide, with adjustments as needed. It is important to evaluate alternatives if there is no improvement in weight and edema. Monitor adjustments in symptoms, particularly headaches and neck pain related to medication titration. Regular reviews of respiratory status should be conducted, with recommendations to maintain close coordination with pulmonological assessments. Dietary modifications, specifically salt restriction and adherence to a low- sodium diet, are vital. Mitigating fluid retention through fluid restrictions will support symptomatic relief and promote overall cardiovascular health. Patient was informed and verbally consented to the use of an ambient scribe for clinic note documentation during this visit. Discussion Notes During the visit, the risks and benefits of continued bumetanide therapy for peripheral edema were reviewed, emphasizing the importance of adherence to medication dosage and recognizing possible side effects such as headaches and neck pain. We discussed the monitoring of weight and symptoms, considering potential dosage adjustments if symptomatic relief is inadequate. Dietary modifications, including low sodium intake and fluid restrictions, were highlighted as critical to relieving fluid retention. The patient was advised to maintain pulmonary appointments despite rescheduling issues. The necessity for clear channels of communication regarding symptoms, appointment follow-ups, and any escalation in symptoms was underscored. Patient Instructions - Continue prescribed bumetanide doses, monitoring for side effects such as headaches or neck pain. - Follow a low-sodium diet and adhere to fluid restrictions to manage fluid retention. - Keep track of weight daily and report significant changes. - Continue to attempt to schedule and maintain pulmonary appointments. - Communicate any increase in symptoms or edema promptly. Orders: Orders AMB EKG-In Office Today R07.9 - Chest pain, unspecified
[2024-10-12 09:14] VITALS: BP 116/62; PULSE 65; TEMP 36.3; O2SAT 94; BMI 36.4
--- OUTSIDE RECORDS SUMMARY | 2024-10-12 09:41 | XMS_ITS ---
Author Organization [facility] Address [address] [facility] [place] [address] Care Team Providers Care Quality Checker Name Role Phone Amilcar King Primary Care Provider [phone] Iwona Fuentes Unavailable [phone] Allergies No Known Allergies REASON FOR VISIT At Risk Footcare, Swelling Medications Medication SIG (Take, Route, Frequency, Duration) [...] Polyneuropathy due to diabetes mellitus type I ([id number]) Type 1 diabetes mellitus with diabetic polyneuropathy (E10.42) Active confirmed Vital Signs Height 5ft9in in 08/03/2024 Weight 213 lbs 08/03/2024 BMI 31.45 kg/m2 08/03/2024 Blood pressure systolic 120 mm Hg 08/03/20 24 Blood pressure diastolic 72 mm Hg 024 Procedures Procedure Date Ordered Date Performed Result Body Sit e 31380-RLULCBT NAIL, 6 OR MORE 08/03/2024 N/A 12252-EADS SKIN LESIONS, OVER 4 08/03/2024 N/A Encounters Encounter Location Date Provider Diagnosis [facility] [address] [address] 08/03/2024 Iwona Colemanaker Type 2 diabetes mellitus with diabetic polyneuropathy E11.42 ; Tinea unguium B35.1 and Edema, lower extremity R60.0 Assessments Encounter Date Diagnosis (ICD Code) Assessment Notes Treatment Notes Treatment Clinical Notes Section Notes 08/03/2024 Type 2 diabetes mellitus with diabetic polyneuropathy (ICD-10 - E11.42) 08/03/2024 Tinea unguium (ICD-10 - B35.1) 08/03/2024 Edema, lower extremity (ICD-10 - R60.0) Plan Of Treatment Pending Test Test Name Order Date 85309-ZTIFTQG NAIL, 6 OR MORE 08/03/2024 35600-ATWU SKIN LESIONS, OVER 4 08/03/20 24 Next Appt Details Follow Up: prn, Reason: Provider Name:Iwona Colemanwill rafi, 12/09/2024 09:15:00 AM, [address] [place] [address], [id number], Procedure Notes * Category Sub-Category Detail Notes Debride Nail 6-10 Nail debridement Due to the cl inical pathology outlined in the exam findings, performance of this nail treatment is medically necessary as its management by an unskilled/untrained nonprofessional would put this patients foot and overall health at risk. Therefore, debridement to affected nail(s), as described in exam ( TA, T1, T2, T3, T4, T5, T6, T7, T8, T9, ), was performed exclusively by the physician of record to reduce/remove overall nail length, girth, thickness, subungual debris, and necrotic tissue, by manual and/or electrical means through the use of a nail nipper and/or dremel-type color grinder, to a more viable healthy nail plate or bed tissue 6-10 nails in total. Silver nitrate was used for any petechial bleeding as necessary. Definitive antifungal treatment options, both pharmaceutical and surgical, have been reviewed and discussed with the patient. The patient solely prefers the use of intermittent/as needed professional debridement services for their nail condition and understands the need for additional periodic treatments to maintain effectiveness in symptomatic relief - 47690 Keratoma Treatment Parring or Cutting o f Benign Hyperkeratotic Lesion(s) (-57) More than 4 Lesions - Due to the at risk nature of the patients medical condition as documented in the exam findings, performance of this keratoderma treatment is medically necessary as its management by an unskilled/untrained nonprofessional would put this patients foot and overall health at risk. Therefore, the benign hyperkeratotic lesions, ( 5 ) in total, locations as stated and described in the exam ( sub 5th metatarsal head, LEFT, sub 1st metatarsal head B/L, plantar heels B/L), were pared, and/or cut utilizing a sterile 15 blade, tissue nippers, and/or power dremel instrumentation by the physician of record - 61684 Progress Notes * Kali GARZA MDOB:1955 (69 yo M)Acc No.[id number]:08/03/2024 Progress Note Patient:?Kali GARZA Provider:?Iwona Fuentes DPM :1955???Age:69 Y???Sex:Male Pj e:08/03/2024 Address:[address] [id number] Pcp:Amilcar King Subjective: * Chief Complaints: * ???At Risk FootcareSwelling * HPI: ???At Risk footcare:?Pt States Last PCP Visit:?Date?07/27/2024 ???Swelling:?Location:?Both feet/leg.?Duration:?several weeks.?Course:?worse.? * ROS:?General/Constitutional:?Nausea?denies.?Vomiting?denies.?Hunger Thirst?denies.?Loss appetite?denies.?Chills?denies.?Fatigue?denies.?Fever?denies.?Night Sweats?denies.?Unexplained weight loss?denies.?Unexplained [...] sleeping?denies.?Brain disorder?denies.?Numbness?admits.?Balance t rouble?denies.?Confusion?denies.?Fainting/blackouts?denies.?Tingling?admits.?Dilan mors?denies.? * Medical History:? * Surgical History:?tonsillect john [...] smoking?Are you an other tobacco user??No * Medications:?TakingJardiance Ciclopirox Olamine 0.77 % Cream 1 application to affected area Externally Twice a day to effected areas on feet Atorvastatin Calcium 80 MG Tablet Oral Bumetanide 0.5 MG Tablet as directed Orally Once a day clonazePAM 1 MG Tablet Oral Gabapentin 300 MG Capsule Oral Ibuprofen 800 MG Tablet Oral metFORMIN HCl Vitamin D3 50 MCG (2000 UT) Capsule Oral Extra Depth Diabetic Shoes with 3 Pair Custom heat-molded multi-density innersoles for 1 year Dx: Baby Aspirin Taking Jardiance Taking Ciclopirox Olamine 0.77 % Cream 1 application to affected area Externally Twice a day to effected areas on feet Taking Atorvastatin Calcium 80 MG Tablet Oral Taking Bumetanide 0.5 MG Tablet as directed Orally Once a day Taking clonazePAM 1 MG Tablet Oral Taking Gabapentin 300 MG Capsule Oral Taking Ibuprofen 800 MG Tablet Oral Taking metFORMIN HCl Taking Vitamin D3 50 MCG (2000 UT) Capsule Oral Taking Extra Depth Diabetic Shoes with 3 Pair Custom heat-molded multi- density innersoles for 1 year Dx: Taking Baby Aspirin Not-Taking/PRNLosartan Potassium 100 MG Tablet Oral Opsumit 10 MG Tablet Oral Opsumit 10 MG Tablet Oral Plavix metFORMIN HCl ER 500 MG Tablet Extended Release 24 Hour 1 tablet with evening meal Orally Once a day Opsumit 10 MG Tablet Oral Medication List reviewed and reconciled with the patientNot-Taking/PRN Losartan Potassium 100 MG Tablet Oral Not-Taking/PRN Opsumit 10 MG Tablet Oral Not-Taking/PRN Opsumit 10 MG Tablet Oral Not-Taking/PRN Plavix Not-Taking/PRN metFORMIN HCl ER 500 MG Tablet Extended Release 24 Hour 1 tablet with evening meal Orally Once a day Not-Taking/PRN Opsumit 10 MG Tablet Oral Medication List reviewed and reconciled with the patient * Allergies:?N.K.D.A.yes[Aller gies Verified] Objective: * Vitals:?Ht: 5ft9in, Wt:213, BMI:31.45, Shoe size: 10-11, BP:120/72mm Hg, BS: not taken, Ht-cm: 175.26 cm, Wt-k.62 kg. * Examination: ???General Examination: ?GENERAL APPEARANCE:?Reveals a pleasant, alert, well nourished, well- developed, well hydrated individual, who demonstrates proper attention to hygiene/body habitus, and is in no acute distress, Pt serves as own historian for office visit today.?ORIENTED:?person, place, and time.?Neurological: ?SENSORY:? Neurological exam demonstrates, reduced light touch sensation, reduced sharp/dull pin prick discrimination , B/L, 5.07 monofilament test performed at plantar aspects of 5 varied sites per foot shows sensation, reduced , B/L.?Nails: ?NAILS are:?Elongated, overgrown, dystrophic, lytic, greater than 3mm thick, discolored and friable with crumbly malodorous subungual debris, TA, T1, T2, T3, T4, T5, T6, T7, T8, T9.?Dermatologic: ?SKIN FINDINGS:?Skin exam reveals Keratotic lesion(s) located at sub 5th metatarsal head, LEFT, sub? 1st metatarsal head B/L, plantar heels B/L.?Vascular: ?DP PULSES (B):?3/4, B/L.?PT PULSES (B):?3/4, B/L.?CAPILLARY FILL TIME:?immediate, all digits, B/L.?TROPHIC CONDITION-TEXTURE/ELASTICITY/TURGOR/HAIR GROWTH (B):?normal, B/L.?TEMPERTURE GRADIENT (C):?normal, warm to cool, proximal to distal, B/L, B/L.?PIGMENTATION:?normal, B/L.?EDEMA (C):?2/4, pitting, without aching pain, Leg(s), Ankle(s), Foot, B/L.?BERYL'S SIGN:?absent, B/L.?PALPABLE CORDS:?absent, B/L.?Orthopedic: ?MUSCLE STRENGTH:?5/5 all groups in a symmetrical fashion, B/L.?Ophthalmology Referral: ?DIABETES EYE EXAM?Procedure Performed:?Yes ?Date of Exam Performed?04/12/2024 ?Findings of Diabetic Eye Exam:?no retinopathy?CQM Exceptions:: ?Hemoglobin A1c not performed?Reason:?No reason specified??? Assessment: * Assessment: 1.?Type 2 diabetes mellitus with diabetic polyneuropathy - E11.42 (Primary)???2.?Tinea unguium - B35.1???3.?Edema, lower extremity - R60.0???Specify :Acute problem, Uncomplicated (3)??? Plan: * Treatment: * Procedures:?Debride Nail 6-10:?Nail debridement?Due to the clinical pathology outlined in the exam findings, performance of this nail treatment is medically necessary as its management by an unskilled/untrained nonprofessional would put this patients foot and overall health at risk. Therefore, debridement to affected nail(s), as described in exam (? TA, T1, T2, T3, T4, T5, T6, T7, T8, T9, ), was performed exclusively by the physician of record to reduce/remove overall nail length, girth, thickness, subungual debris, and necrotic tissue, by manual and/or electrical means through the use of a nail nipper and/or dremel-type color grinder, to a more viable healthy nail plate or bed tissue 6- 10 nails in total. Silver nitrate was used for any petechial bleeding as necessary. Definitive antifungal treatment options, both pharmaceutical and surgical, have been reviewed and discussed with the patient. The patient solely prefers the use of intermittent/as needed professional debridement services for their nail condition and understands the need for additional periodic treatments to maintain effectiveness in symptomatic relief - 57602.?Keratoma Treatment:?Parring or Cutting of Benign Hyperkeratotic Lesion(s)?(-57) More than 4 Lesions - Due to the at risk nature of the patients medical condition as documented in the exam findings, performance of this keratoderma treatment is medically necessary as its management by an unskilled/untrained nonprofessional would put this patients foot and overall health at risk. Therefore, the benign hyperkeratotic lesions, ( 5 ) in total, locations as stated and described in the exam ( sub 5th metatarsal head, LEFT, sub? 1st metatarsal head B/L, plantar heels B/L), were pared, and/or cut utilizing a sterile 15 blade, tissue nippers, and/or power dremel instrumentation by the physician of record - 10875.? * Procedure Codes:?05001 DEBRI DE NAIL, 6 OR MORE, Modifiers: XS 93823 TRIM SKIN LESIONS, OVER 4, Modifiers: XS * Preventive Medicine:? ??Counseling:?Discussion:?-13: [...] have encouraged the patient to call the office.?Edema:?I explained to the patient the possible etiologies for Edema, including genetic, surgery, infection, medications, heart disease, kidney disease, excess dietary salt, and various cancer treatments. We discussed the risks/benefits of the treatment options available including rest, elevation, OTC compression stockings, Rx compression stockings, Unna Boot application, diet modification to limit salt intake, and Rx segmental compression boots provided the absence of CHD in the patients medical history. The advantages and disadvantages of each option were discussed and the patients questions re: risk of infection(cellulitis), medications, diet, and the daily use of compression stockings(not to be worn at night), and consistency in these home treatment regimens for optimal success were answered to their verbally confirmed satisfaction. Given the risk for vessel clotting disease, the patient was instructed to go immediately to the ER of hospital should they experience any calf pain, SOB, or discomfort. Any changes to the patients medication regimen will be performed by the PCP or patients kidney/heart/cancer specialist. , Recommended OTC 10-20mmHg compression strength stockings by Meme/Lasha/ or [employer].? * Follow Up:?prn * Images: * Sign off status: Completed true * Provider:?Iwona Fuentes DPM Date:?1 10/04/2023 Generated for Elenita pardo/Colin/Dyllan on:?10/12/2024 09:41 AM EST History and Physical Notes * HPI (History of Present Illness) Category Sub-Category Detail Notes Category Not es At Risk footcare Pt States Last PCP Visit: Date: 4 Swelling Location: Both feet/leg Duration: several weeks Course: worse Examination Category Sub-Category Detail Notes Category Not es Neurological SENSORY: Neurological exa m demonstrates, reduced light touch sensation, reduced sharp/dull pin prick discrimination , B/L, 5.07 monofilament test performed at plantar aspects of 5 varied sites per foot shows sensation, reduced , B/L Dermatologic SKIN FINDINGS: Skin exam reveal s Keratotic lesion(s) located at sub 5th metatarsal head, LEFT, sub 1st metatarsal head B/L, plantar heels B/L Orthopedic MUSCLE STRENGTH: 5/5 all groups in a symmetrical fashion, B/L General Examination GENERAL APPEARANCE: Reveals a pleasant, alert, well nourished, well-developed, well hydrated individual, who demonstrates proper attention to hygiene/body habitus, and is in no acute distress, Pt serves as own historian for office visit today ORIENTED: person, place, and t herman Ophthalmology Referral DIABETES EYE EXAM Procedure Perform ed:: Yes ?Date of Exam Performed: 04/12/2024 Findings of Diabetic Eye Exam:: no retin opathy Vascular DP PULSES (B): 3/4, B/L PT PULSES (B): 3/4, B/L CAPILLARY FILL TIME: immediate, all digi ts, B/L TEMPERTURE GRADIENT (C): normal, warm to cool, proximal to distal, B/L, B/L TROPHIC CONDITION-TEXTURE/ELASTICITY/TURGOR/HAIR GROWTH (B): normal, B/L EDEMA (C): 2/4, pitting, withou t aching pain, Leg(s), Ankle(s), Foot, B/L BERYL'S SIGN: absent, B/L PALPABLE CORDS: absent, B/L PIGMENTATION: normal, B/L Nails NAILS are: Elongated, overg rown, dystrophic, lytic, greater than 3mm thick, discolored and friable with crumbly malodorous subungual debris, TA, T1, T2, T3, T4, T5, T6, T7, T8, T9 CQM Exceptions: Hemoglobin A1c not performed Reason:: No r enrique specified
--- OUTSIDE RECORDS SUMMARY | 2024-10-12 09:42 | XMS_ITS ---
Author Organization [facility] Address [address] [place] [address] Care Team Providers Care Dressing Machine Operator Name Role Phone Amilcar King Primary Care Provider [phone] Iwona Fuentes [phone] Encounters Encounter Location Date Provider Diagnosis [address] [address] 08/03/2024 Iwona Fuentes Plan Of Treatment Next Appt Details Provider Name:Iwona mckee, 12/09/2024 09:15:00 AM, [address] [place], [address], Progress Notes * Kali GARZA MDOB:1955 (69 yo M)Acc No.[id number]:08/03/2024 Progress Note Patient:?Kali GARZA Provider:?Iwona Fuentes DPM [...] Date:?1 10/04/2023 Generated for Elenita pardo/Colin/Dyllan on:?10/12/2024 09:42 AM EST
--- OUTSIDE RECORDS SUMMARY | 2024-10-12 09:42 | XMS_ITS ---
[facility] Organization [facility] Address [address] [facility] [place] [address] Care Team Providers Care Child Protection Specialist Name Role Phone Amilcar King Primary Care Provider Iwona Fuentes Unavailable [phone] Jean Claude Rajan Unavailable [phone] Allergies No Known Allergies REASON FOR VISIT [...] 024 Encounters Encounter Location Date Provider Diagnosis [facility] [place] [address] 04/22/2024 Jean Claude Rajan Type 2 diabetes [...] Reason: Provider Name:Iwona mckee, 12/09/2024 09:15:00 AM, [address] [place] [address], [phone], Procedure Notes * Category Sub-Category Detail Notes [...] as necessary. Patient chooses, no pharmaceutical tx (25931) Keratoma Treatment Parring or Cutting o f Benign Hyperkeratotic Lesion(s) 75441 (2-4 Lesions) - The Benign hyperkeratotic lesions, as described above were pared, and/or cut utilizing a sterile #15 blade, tissue nippers, and/or dremel Progress Notes * Kali GARZA MDOB:1955 (69 yo M)Acc No.[id number]:04/22/2024 Progress Note Patient:?CRISTIAN, Kali Bong Provider:?Jean Claude Rajan DPM :1955???Age:69 Y???Sex:Male Pj e:04/22/2024 [address] Pcp:Amilcar King Subjective: * Chief Complaints: * ??? Painful [...] per week. ?Marital status: . 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 * Medications:?TakingJardiance Ciclopirox Olamine 0.77 % [...] heat-molded multi-density innersoles for 1 year Dx: Taking Jardiance Taking Ciclopirox Olamine 0.77 % [...] heat-molded multi-density innersoles for 1 year Dx: Not-Taking/PRNPlavix metFORMIN HCl ER 500 MG Tablet Extended Release 24 Hour 1 tablet with evening meal Orally Once a day Baby Aspirin Medication List reviewed and reconciled with the patientNot-Taking/PRN Plavix Not-Taking/PRN metFORMIN HCl ER 500 MG Tablet Extended Release 24 Hour 1 tablet with evening meal Orally Once a day Not-Taking/PRN Baby Aspirin Medication List reviewed and reconciled with the patient * Allergies:?N.K.D.A.yes[Franca puga Verified] Objective: * Vitals:?Ht: 5 ft 9 in, Wt:20 8, BMI:30.71, Shoe size:10-11, BP:120/60mm Hg, BS:not taken. * ???Past Orders: ???Lab:HEMOGLOBIN A1C (GLYCO HEMOGLOBIN) (Order Date - 10/10/2022) (Collection Date & Time - 10/10/2022) ? Value Reference Range ?HEMOGLOBIN A1C (HH) 5.9 * Examination: ???Ophthalmology Referral: ?DIABETES EYE EXAM?Diabetic Retinopathy Screening:?No ?Findings of Diabetic Eye Exam:?no retinopathy?General Examination: ?GENERAL APPEARANCE:?pleasant, alert, well nourished, well developed, well hydrated, with good attention to hygene/body habitus, and in no acute distress.?ORIENTED:?person,place, and time.?FOOT EXAM:?Lower Extremity Neurological Exam performed:?Yes ?Visual exam of foot performed:?Yes ?Date?04/22/2024 ?Footwear Evaluation?Footwear Evaluation performed:?Yes?Neurological: ?SENSORY:?Neurological exam demonstrates, reduced vibration sensation, 5.07 monofilament test performed at plantar aspects of 5 varied sites per foot shows sensation, B/L, at Forefoot, at Midfoot, Neurological exam demonstrates pop dorsum ta ipj.?BABINSKI REFLEX:?absent.?Vascular: ?DP PULSES (B):? 1/4, B/L.?PT PULSES (B):? 2/4, B/L.?CAPILLARY FILL TIME:?3 secs. per digit, B/L.?TROPHIC CONDITION-TEXTURE/ELASTICITY/TURGOR/HAIR GROWTH (B):?normal, B/L.?TEMPERTURE GRADIENT (C):?warm to cool, proximal to distal, B/L.?PIGMENTATION:?normal, B/L.?EDEMA (C):? 1/4, B/L, Feet, Ankle(s), Leg(s).?TELANGECTASIA:?absent.?VARICOSITIES:?absent.?Dermatologic: ?SKIN FINDINGS:? [...] Planus structure, B/L.?DIGITAL DEFORMITIES:? Digital contracture TA ipj.?FOOTWEAR:?fair condition.?Nails: ?NAILS are:? Elongated, overgrown, dystrophic, lytic, greater than 3mm thick, discolored and friable with crumbly malodorous subungual debris, with dull to no pain on palpation due to neuropathy, 1-5 Left foot, T5, T6.? 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 ?5.?Tinea unguium - B35.1???6.?Pain in right toe(s) - M79.674???7.?Tinea pedis - B35.3??? Plan: * Treatment: * Procedures:?Debride Nail 6-10:?Nail debridement?Nail debridement performed extensively to reduce/remove overall nail length and girth, subungual debris, and necrotic tissue, by manual and electrical means with use of a nail nipper and/or dremel, to more viable healthy nail plate or bed tissue 6-10. Silver nitrate used for any petechial bleeding as necessary. Patient chooses, no pharmaceutical tx (12140).?Keratoma Treatment:?Parring or Cutting of Benign Hyperkeratotic Lesion(s)?65951 (2-4 Lesions) - The Benign hyperkeratotic lesions, as described above were pared, and/or cut utilizing a sterile #15 blade, tissue nippers, and/or dremel.? * Procedure Codes:?49926 DEBRI DE NAIL, 6 OR MORE, Modifiers: XS 86767 TRIM SKIN LESIONS, 2 TO 4, Modifiers: [...] Recommended Topical analgesics including aspercream/Voltaren gel/Lidoderm patches.? ??Screening/Special Tests:?Fall Risk?Assessment:?Performed ?Screening:?No falls in the past year ?FALLS: Screening for Future Fall Risk?Have you had two or more falls in the past year??No ?Have you had any falls with injury in the past year??No * Follow Up:?3 Months * Images: * Sign off status: Completed true * Provider:?Jean Claude Rajan DPM Date:? 024 Generated for Elenita pardo/Colin/Dyllan on:?10/12/2024 09:42 AM EST History and Physical Notes * [...] FOOT MORPHOLOGY: Pes Planus structure , B/L FOOTWEAR: fair condition DIGITAL DEFORMITIES: Digital contracture TA ipj MUSCLE STRENGTH: 5/5 all groups in a symmetrical fashion , B/L General Examination GENERAL APPEARANCE: pleasant , alert, well nourished, well developed, well hydrated, with good attention to hygene/body habitus, and in no acute distress FOOT EXAM: Lower Extremity Neurological Exa m performed:: Yes Visual exam of foot performed:: Yes Date: 04/22/2024 ORIENTED: person,place, and ti me Footwear Evaluation Footwear Evaluation performe d:: Yes Ophthalmology Referral DIABETES EYE EXAM Diabetic Retinopa [...]
--- OUTSIDE RECORDS SUMMARY | 2024-10-12 09:42 | XMS_ITS | Patient Health Record ---
Author Organization [facility] Address [address] [facility] [place] [address] Care Team Providers Care Education Program Coordinator Name Role Phone ChristineAmilcar Primary Care Provider Iwona Fuentes Unavailable [phone] Jean Claude Rajan Unavailable [phone] Allergies No Known Allergies Reason For Referral [...] Polyneuropathy due to diabetes mellitus type I (396218920) Type 1 diabetes mellitus with diabetic polyneuropathy (E10.42) Active confirmed Problem Localized, primary osteoarthritis of the ankle and/or foot (277057407) Primary osteoarthritis, left ankle and foot (M19.072) Active confirmed Problem Acquired hammer toe of left foot (9733151564426852 ) Other hammer toe(s) (acquired), left foot (M20.42) Active confirmed Problem Polyneuropathy due to type 2 diabetes mellitus (186251043) Type 2 diabetes mellitus with diabetic polyneuropathy (E11.42) Active confirmed Vital Signs Blood pressure diastolic 72 mm Hg 08/03/2024 Height 5ft9in in 08/03/2024 Blood pressure systolic 120 mm Hg 08/03/2024 Weight 213 lbs 08/03/2024 BMI 31.45 kg/m2 08/03/2024 Procedures Procedure Date Ordered Date Performed Result Body Sit e 45081-YWOKDKE NAIL, 6 OR MORE 08/03/2024 N/A 12010-ZOVJ SKIN LESIONS, OVER 4 08/03/2024 N/A Encounters Encounter Location Date Provider Diagnosis [facility] [address] 01/15/2024 Jean Claude Rajan Type 2 diabetes mellitus with diabetic polyneuropathy E11.42 ; Primary osteoarthritis, left ankle and foot M19.072 ; Pain in left toe(s) M79.675 ; Other hammer toe(s) (acquired), left foot M20.42 ; Tinea unguium B35.1 ; Pain in right toe(s) M79.674 and Tinea pedis B35.3 [facility] [address] 04/22/2024 Jean Claude Rajan Type 2 diabetes mellitus with diabetic polyneuropathy E11.42 ; Primary osteoarthritis, left ankle and foot M19.072 ; Pain in left toe(s) M79.675 ; Other hammer toe(s) (acquired), left foot M20.42 ; Tinea unguium B35.1 ; Pain in right toe(s) M79.674 and Tinea pedis B35.3 [facility] [place] [address] [place] [address] 08/03/2024 Iwona Fuentes Type 2 diabetes mellitus with diabetic polyneuropathy E11.42 ; Tinea unguium B35.1 and Edema, lower extremity R60.0 Assessments Encounter Date Diagnosis (ICD Code) Assessment Notes Treatment Notes Treatment Clinical Notes Section Notes 01/15/2024 Primary osteoarthritis, left ankle and foot [...] in left toe(s) (ICD-10 - M79.675) 04/22/2024 Primary osteoarthritis, left ankle and foot (ICD-10 - M19.072) 01/15/2024 Other hammer toe(s) (acquired), left foot (ICD-10 - M20.42) 04/22/2024 Pain in left toe(s) (ICD-10 - M79.675) 01/15/2024 Tinea unguium (ICD-10 - B35.1) 04/22/2024 Other hammer toe(s) (acquired), left foot (ICD-10 - M20.42) 01/15/2024 Pain in right toe(s) (ICD-10 - M79.674) 04/22/2024 Tinea unguium (ICD-10 - B35.1) 04/22/2024 Pain in right toe(s) (ICD-10 - M79.674) 01/15/2024 Tinea pedis (ICD-10 - B35.3) 04/22/2024 Tinea pedis (ICD-10 - B35.3) Plan Of Treatment Pending Test Test Name Order Date X ray : Foot, left 3V 07/12/2021 75719-QPPGTCE NAIL, 6 OR MORE 08/03/2024 61904-PRVK SKIN LESIONS, OVER 4 08/03/20 24 57673-JNSW SKIN LESIONS, 2 TO 4 11/30/19 Next Appt Details Provider Name:Iwona Fallon rafi, 12/09/2024 09:15:00 AM, [address] [place] [address], [phone], Insurance Providers Payer Name Payer Address Payer Phone Subscriber Number Group Number Insured Name Patient Relationship to Insured Coverage Start Date Coverage End Date Medicare National Govt [facility] [address] [place] [address] [id number] Kali Garza Self - patient is the insured [employer] [address] [place] [address] [id number] Kali Garza Self - patient is the [...]
== END 2024-10-12 10:01 | disposition home or self-care (01) ==
LOC: HO.HMCSH 09:03
PROVIDERS: PCP Internal Medicine; Visit Provider Internal Medicine
DX: I50.810 Right heart failure, unspecified (principal); I27.20 Pulmonary hypertension, unspecified

== ENCOUNTER → 2024-10-12 09:03 | Outpatient (BNVA) | payer MEDICARE, SELFPAY | PROVIDERS: PCP Internal Medicine; Visit Provider Internal Medicine | DX: I50.810 Right heart failure, unspecified (principal); I27.20 Pulmonary hypertension, unspecified | CPT/HCPCS: 93005; 99212 ==

== ENCOUNTER 2024-12-03 10:34 | Outpatient (AMB) | payer MEDICARE, SELFPAY ==
--- NOTE | 2024-12-03 10:46 | A.OFFVIS_ITS ---
Vital Signs 12/03/24 10:49 Height 5 ft 10 in Weight 207 lb 3.752 oz BMI 29.7 BP 108/70 Blood Pressure Location Lt brachial Position Sitting Pulse 63 Intake Visit Reasons: 3 mth f/up Intake Note: 3 month follow-up heart doing good Certified Coding Specialist Required: No Allergies macitentan [From Opsumit] Adverse Reaction (Verified 10/12/24 09:07) fluid overload HAYFEVER Allergy (Unknown, Uncoded 07/23/24 10:29) RUNNY NOSE Medication List - Last Reconciled 12/03/24 by Jamie Dukes MD aspirin (Adult Low Dose Aspirin) 81 mg PO DAILY atorvastatin 80 mg PO DAILY bumetanide 2 mg PO DAILY cholecalciferol (vitamin D3) 50 mcg PO DAILY clonazepam 2 mg (2 x 1 mg) PO BEDTIME PRN empagliflozin (Jardiance) 10 mg PO DAILY gabapentin one in the morning two at bedtime orally daily; latanoprost 0.005% drps ophthalmic (eye) metformin ER 750 mg PO QPM 90 days metolazone 2.5 mg PO DAILY spironolactone 50 mg PO DAILY HPI Comments Details: Ruby comes for follow-up. He has not had any hospitalization to heart failure. He has been taking bumetanide and metolazone on every day basis to help with his right heart failure syndrome. He was also currently on spironolactone at 50 mg along with Jardiance. He was also started on Orenitram by the pulmonary hypertension team for pulmonary vaso dilatation. This was rapidly uptitrate as per him and he did not tolerate muscle side effects and muscle cramping significantly and was lowered on the dose. He says since then he has been doing well. He is tolerating that well. His blood pressures been stable with systolic blood pressure in the 100 range. He has not had any lightheadedness. No syncopal episodes. No abdominal distension. No orthopnea, PND. No exertional chest pain. He has not been able to exercise much due to the callus in his right foot. He was trying to get more active at this point in time. He has not had any prolonged palpitation irregular heartbeat. Uses CPAP. Uses oxygen as needed. [facility] Medical History Stenosis of left vertebral artery Vitamin D deficiency Type 2 diabetes mellitus Depression Pulmonary hypertension Anxiety Obesity (BMI 30-39.9) Nocturnal hypoxemia Obesity (BMI 30-39.9) Sleep apnea Right heart failure Enlarged RV (right ventricle) Hyperlipidemia HTN (hypertension) Aortic stenosis Surgical History History of colonoscopy (~09/15/14) S/P cardiac catheterization Hx of appendectomy Hx of tonsillectomy History of laparoscopic cholecystectomy Family History Father CVD (cardiovascular disease) Mother Brain tumor Social History Patient Tobacco Use Status: Former Tobacco user Review of Systems Const Denies chills, Denies fatigue, Denies fever(s), Denies frequent falls, Denies weakness, Denies weight gain and Denies weight loss ENT Denies dizziness Card Denies chest pain, Denies leg edema, Denies lightheadedness, Denies palpitations, Denies dyspnea, Denies dyspnea on exertion, Denies orthopnea and Denies other (loss of consciousness) Resp Denies cough, Denies dyspnea and Denies dyspnea on exertion GI Denies hematochezia and Denies change in stool character Musc Denies abnormal gait, Denies muscle weakness, Denies numbness, Denies radiating pain into limb and Denies tingling Neuro Denies abnormal gait, Denies dizziness, Denies frequent falls, Denies numbness, Denies tingling and Denies weakness Endo Denies fatigue and Denies palpitations Physical Exam Vital Signs: Last Vital Signs Pulse 63 12/03/24 10:49 BP 108/70 12/03/24 10:49 BMI result Body Mass Index 29.7 Const General: cooperative, comfortable, alert and awake Nutritional Appearance: overweight and other (Frail appearing) Orientation/consciousness: patient oriented x3 Limitations: no limitations Neck Neck: Yes trachea midline, Yes supple and Yes JVD Resp Effort & Inspection: normal respiratory effort Auscultation: clear to auscultation bilaterally Cardio Jugular venous distension: JVD Palpation: heave (RV) Rate: bradycardic Rhythm: abnormal rhythm with ectopic beats Heart sounds: S1 normal heart sound present, S2 normal heart sound present, no click, no gallops, Murmur heart sound present systolic late, decrescendo, crescendo and soft and no rubs GI Inspection: Yes obesity Auscultation: normal bowel sounds Skin General skin exam: no rashes or lesions noted and ecchymosis Neuro General: patient oriented x3 and no focal motor deficits Extrem General: No clubbing, No cyanosis and Yes edema Psych Appearance: grossly normal Affect: Depressed mood present Assessment & Plan Assessment & Plan (1) Right heart failure: Code(s): I50.810 - Right heart failure, unspecified Category: Medical Plan: Right heart failure syndrome related to severe pulmonary hypertension which is suspected to be primary pulmonary hypertension. He has developed RV dysfunction related to the same. He was underlying sleep apnea which currently treated with CPAP therapy. Clinically currently appearing euvolemic and well compensated on current diuretic regimen. He is on significant diuretic regimen with multiple comorbidities including frailty and developing chronic kidney disease which has been stable with his creatinine. Also has underlying aortic stenosis. At this point time continue current diuretic regimen with bumetanide and metolazone therapy which has helped to avoid hospitalization. He is currently also on secondary neurohormonal therapy with Jardiance as well as spironolactone therapy which has overall helped him. He is also currently on pulmonary vasodilators therapy. He is tolerating this therapy well. I have at this point time encouraged to continue current therapy and gradually uptitrate pulmonary vasodilators therapy as tolerated and follow with Pul[facility] hypertension team at [facility]. I have also strongly encouraged him to increase his activity level as tolerated to improve anaerobic threshold for his musculoskeletal system to improve overall his functionality. This he understands and agrees. Will obtain lab work today. Follow up in the clinic in 3 months time. Advised to call me with any worsening symptoms. (2) Aortic stenosis: Comment: ABOVE BEING FOLLOWED BY CARDIOLOGY Code(s): I35.0 - Nonrheumatic aortic (valve) stenosis Category: Medical Plan: Aortic stenosis which appears moderate to moderately severe by clinical exam. Follow-up echocardiogram couple of months time. Continue low-dose aspirin therapy. Continue high-intensity statin therapy with target goal LDL less than 70 mg/dL. Continue aggressive diabetes management goal hemoglobin A1c less than 7%. Cardinal symptoms associated with aortic stenosis were discussed. Advised to call me with any worsening symptoms. Will follow up in the clinic in 3 months time, sooner p.r.n.. Greater than 30 minutes was spent in managing his complex care. Orders: Orders B Type Natriuretic Peptide Today I50.810 - Right heart failure, unspecified CA echo transthoracic complete 2 Months I35.0 - Nonrheumatic aortic (valve) stenosis Basic Metabolic Panel Today I50.810 - Right heart failure, unspecified Magnesium Today I50.810 - Right heart failure, unspecified Medications: New treprostinil diolamine ER (Orenitram) must administer with a meal/food 2.5 mg PO Q12H 60 tabs 1RF I50.810 - Right heart failure, unspecified Coding Level of Care Code Est Pt Level 5 (59586) Complex EM visit Add On G2211 Diagnoses Right heart failure I50.810 Aortic stenosis I35.0
[2024-12-03 10:49] VITALS: BP 108/70; PULSE 63; BMI 29.7
== END 2024-12-03 11:24 | disposition home or self-care (01) ==
LOC: HO.HCS 10:35
PROVIDERS: PCP Internal Medicine; Visit Provider Internal Medicine Cardiovascular Disease
DX: I50.810 Right heart failure, unspecified (principal); I35.0 Nonrheumatic aortic (valve) stenosis
CPT/HCPCS: 99214; G2211

== ENCOUNTER 2024-12-03 10:34 | Outpatient (REF) | payer MEDICARE, SELFPAY ==
[2024-12-03 12:38] LABS: Anion Gap 17 (12-20); Blood Urea Nitrogen 101 mg/dL (9-16); Calcium 10.7 mg/dL (8.4-10.2); Carbon Dioxide 31 mmol/L (22-29); Chloride 90 mmol/L (96-108); Estimated Glomerular Filt Rate 36; Glucose Random 122 mg/dL (60-115); Magnesium 2.3 mg/dL (1.6-2.6); Potassium 3.4 mmol/L (3.3-5.1); Sodium 135 mmol/L (135-145)
[2024-12-03 12:39] LABS: B Type Natriuretic Peptide 1248 pg/mL (<100)
== END 2024-12-03 10:35 | disposition home or self-care (01) ==
LOC: HO.LAB 10:34
PROVIDERS: PCP Internal Medicine; Visit Provider Internal Medicine Cardiovascular Disease
DX: I11.0 Hypertensive heart disease with heart failure (principal); I50.810 Right heart failure, unspecified; I35.0 Nonrheumatic aortic (valve) stenosis
CPT/HCPCS: 36415; 80048; 83735; 83880; 99212

== ENCOUNTER 2024-12-18 09:05 | Outpatient (REF) | payer MEDICARE, SELFPAY ==
[2024-12-18 10:45] LABS: Potassium 3.2 mmol/L (3.3-5.1)
== END 2024-12-18 09:06 | disposition home or self-care (01) ==
LOC: HO.HMGCLDS 09:05
PROVIDERS: PCP Internal Medicine; Visit Provider Internal Medicine Cardiovascular Disease
DX: E87.6 Hypokalemia (principal)
CPT/HCPCS: 36415; 84132

== ENCOUNTER 2024-12-25 10:05 | Outpatient (REF) | payer MEDICARE, SELFPAY ==
[2024-12-25 13:47] LABS: Anion Gap 16 (12-20); Blood Urea Nitrogen 89 mg/dL (9-16); Calcium 10.3 mg/dL (8.4-10.2); Carbon Dioxide 29 mmol/L (22-29); Chloride 92 mmol/L (96-108); Estimated Glomerular Filt Rate 36; Glucose Random 100 mg/dL (60-115); Potassium 4.1 mmol/L (3.3-5.1); Sodium 133 mmol/L (135-145)
== END 2024-12-25 10:06 | disposition home or self-care (01) ==
LOC: HO.HMGCLDS 10:05
PROVIDERS: PCP Internal Medicine; Visit Provider Nurse Practitioner Family
DX: E87.6 Hypokalemia (principal)
CPT/HCPCS: 36415; 80048

== ENCOUNTER 2025-01-11 09:50 | Outpatient (REF) | payer MEDICARE, SELFPAY ==
[2025-01-11 13:38] LABS: Anion Gap 15 (12-20); Blood Urea Nitrogen 96 mg/dL (9-16); Calcium 10.6 mg/dL (8.4-10.2); Carbon Dioxide 29 mmol/L (22-29); Chloride 95 mmol/L (96-108); Estimated Glomerular Filt Rate 31; Glucose Fasting 121 mg/dL (60-99); Potassium 4.4 mmol/L (3.3-5.1); Sodium 135 mmol/L (135-145)
== END 2025-01-11 09:51 | disposition home or self-care (01) ==
LOC: HO.HMGCLDS 09:50
PROVIDERS: PCP Internal Medicine; Visit Provider Nurse Practitioner Family
DX: E87.6 Hypokalemia (principal); E11.9 Type 2 diabetes mellitus without complications
CPT/HCPCS: 36415; 80048

== ENCOUNTER 2025-01-12 09:24 | Outpatient (AMB) | payer MEDICARE, SELFPAY ==
[2025-01-12 09:29] VITALS: BP 105/52; PULSE 66; RESP 16; TEMP 36.4; O2SAT 92; BMI 30.6
--- NOTE | 2025-01-12 09:29 | MHC.PC.OV ---
Vital Signs 01/12/25 09:29 Height 5 ft 7.32 in Weight 197 lb BMI 30.6 BP 105/52 L Respiration 16 Pulse 66 Pulse Source Pulse Oximeter Temp 97.6 F Temp Source Temporal Artery Scan Pulse Oximetry (%) 92 Oxygen Delivery Method Room Air Intake Visit Reasons: 3 month follow up - see comments Cdl Program Coordinator Required: No Accompanied by: Self / Same As Patient Allergies macitentan [From Opsumit] Adverse Reaction (Verified 01/12/25 09:30) fluid overload HAYFEVER Allergy (Unknown, Uncoded 01/12/25 09:30) RUNNY NOSE Tobacco use date assessed: 01/12/25 Fall risk assessment: No Falls in past year Last assessed Fall Risk: 01/12/25 Dental Screening Dental Screen Date: 01/12/25 Did you have a dental visit in the last 12 months?: No Did you have a dental problem in the last 6 months where you did not have access to dental care?: No Was dental information given to patient?: Patient has dentist [facility] Medical History (Updated 01/12/25 @ 10:01 by Amilcar King MD) Vascular insufficiency of extremity Potassium deficiency Stenosis of left vertebral artery Vitamin D deficiency Type 2 diabetes mellitus Depression Pulmonary hypertension Anxiety Obesity (BMI 30-39.9) Nocturnal hypoxemia Obesity (BMI 30-39.9) Sleep apnea Right heart failure Enlarged RV (right ventricle) Hyperlipidemia HTN (hypertension) Aortic stenosis Surgical History History of colonoscopy (~09/15/14) S/P cardiac catheterization Hx of appendectomy Hx of tonsillectomy History of laparoscopic cholecystectomy Family History Father CVD (cardiovascular disease) Mother Brain tumor Social History (Updated 01/12/25 @ 09:42 by ROBIN Calderon) Housing: House Alcohol intake: current Alcohol intake frequency: a few times a week Patient Tobacco Use Status: Former Tobacco user service: No Current occupational status: employed and retired 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 1. Little interest or pleasure in doing things: not at all 2. Feeling down, depressed, or hopeless: not at all 3. Trouble falling or staying asleep, or sleeping too much: not at all 4. Feeling tired or having little energy: not at all 5. Poor appetite or overeating: not at all 6. Feeling bad about yourself - or that you are a failure or have let yourself or your family down: not at all 7. Trouble concentrating on things, such as reading the newspaper or watching television: not at all 8. Moving or speaking so slowly that other people could have noticed. Or the opposite - being so fidgety or restless that you have been moving around a lot more than usual: not at all 9. Thoughts that you would be better off or of hurting yourself in some way: not at all Total score: 0 Source: Developed by Drs. Kip Houser, Kayla Bueno, Froylan Causey and colleagues, with an educational yanelis from [email or web address] Thrive Questionnaire Date Thrive assessed: 01/12/25 I am a: Patient What is your living situation today?: I have a steady place to live Within the past 12 months, did the food you bought not last and you didn't have the money to get more?: Never true Within the past 12 months, did you worry whether your food would run out before you got money to buy more?: Never true Do you have trouble paying for medicines?: No Do you have trouble getting transportation to medical appointments?: No Do you have trouble paying your heating and electricity bill?: No Do you have trouble taking care of your child, family member or friend?: No Do you have trouble with day-to-day activities such as bathing, preparing meals, shopping, managing finances, etc.?: No Are you currently unemployed and looking for a job?: No Are you interested in more education?: No Please select the resources that you would like help with: None THRIVE Score: 0 AUDIT C Alcohol Use Questionnaire (AUDIT-C) 1. How often do you have a drink containing alcohol?: 2-3 times a week 2. How many drinks containing alcohol do you have on a typical day when you are drinking?: 1 or 2 3. How often do you have six or more drinks on one occasion?: Never Total Score: 3 CHERELLE-7 AMB Questionnaire CHERELLE-7 Date CHERELLE - 7 assessed: 01/12/25 Feeling nervous, anxious, or on edge: 0 = Not at all Not being able to stop or control worryin = Not at all Worrying too much about different things: 0 = Not at all Trouble relaxin = Not at all Being so restless that it is hard to sit still: 0 = Not at all Becoming easily annoyed or irritable: 0 = Not at all Feeling afraid as if something awful might happen: 0 = Not at all Total CHERELLE-7 score (0-4 normal; 5-9 mild; 10-14 moderate; 15-21 severe): 0 Source: Developed by Drs. Kip Houser, Kayla Bueno, Froylan Causey and colleagues, with an educational yanelis from [email or web address] Physical exam (Primary Care) Vital Signs: Last Vital Signs Temp 97.6 F 01/12/25 09:29 Pulse 66 01/12/25 09:29 Resp 16 01/12/25 09:29 BP 105/52 L 01/12/25 09:29 Pulse Ox 92 01/12/25 09:29 Oxygen Delivery Method Room Air 01/12/25 09:29 BMI result Body Mass Index 30.6 Tobacco/Smoking Status: Tobacco use Status Tobacco use date assessed 01/12/25 01/12/25 09:42 Patient Tobacco Use Status Former Tobacco user 01/12/25 09:42 PHQ-9: PHQ-9 Score PHQ-9: Total score 0 01/12/25 09:42 Thrive Assessment: Date of Thrive Assessment Date Thrive assessed 01/12/25 01/12/25 09:42 Coding Level of Care Code Est Pt Level 4 (83688) Complex EM visit Add On G2211 Diagnoses Vascular insufficiency of extremity I99.8 Assessment & Plan Assessment & Plan (1) Vascular insufficiency of extremity: Code(s): I99.8 - Other disorder of circulatory system Category: Medical Plan: Can try CBD gummies in addition to lidocaine patches for pain control. Podiatry consult revd. Plan History of Present Illness - The patient is a 50 year old female presenting with a wellness visit and established care. - In December, she completed blood work with normal findings except for missing kidney and liver function tests. - The patient is on atorvastatin for hyperlipidemia; it is reportedly effective. - She takes estradiol and progesterone as hormone replacement therapy for menopause. - Per the patient, anxiety disorder managed with lorazepam prescribed in 2020 is controlled, with no frequent use of the medication. - Recent vision correction with new glasses was made; however, she experiences minor glare at night. 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 - No current tobacco use is reported. - The patient admits to irregular physical exercise but is considering adopting a walking regimen. - She routinely consumes a nutritious diet. Review of Systems - Neurological: Denies significant visual disturbances except slight halos at night. - Endocrine: Reports ongoing menstruations. - Psychiatric: Reports situational anxiety, infrequently requiring lorazepam. - Musculoskeletal: Denies regular exercise engagement but planning to improve activity level. Physical Exam General: Cooperative and healthy appearing Nutritional Appearance: Well nourished Orientation/consciousness: Patient oriented x3 Limitations: No limitations Head: Normal to inspection General: Appearance normal, both eyes and all related structures Neck: Normal visual inspection Chest: Normal palpation of entire chest wall Respiratory: N ormal respiratory effort Neurology: Patient oriented x3, slight glow in vision during dark and rainy nights Results - Labs: Previous routine blood panel normal except missing kidney and liver function tests. - Diagnostics: Latest mammogram reportedly normal. Plan 1. Hyperlipidemia - Maintain atorvastatin treatment. Query patient for dosage during the next visit if needed. - Lipid levels check scheduled in 6 months. 2. Menopausal Hormone Therapy - Current regimen of estradiol and progesterone continued. - Patient to monitor symptoms and return for evaluation or adjustment if necessary. 3. Anxiety Disorder - Renew lorazepam prescription with emphasis on limited intake. - Plan follow-up evaluation of anxiety situation at the next appointment. Discussion Notes I explained the need to update laboratory tests focusing on kidney and liver function to capture complete health status due to effector medications. We discussed her medication regimen for hyperlipidemia and menopausal symptom management through hormone therapy, reinforcing their efficacy and adherence benefits. Upon patient interest, I detailed lorazepam re-prescription considerations, emphasizing sporadic use enrollment in anxiety management. Follow-up guidance for testing and six-month routine evaluations was provided to ensure optimal ongoing health monitoring. Patient Instructions - Continue taking atorvastatin and hormone replacement therapy as directed. - Plan to incorporate regular walking into your schedule. - Schedule lab work for kidney and liver function. Visit any lab location convenient for you. - Use lorazepam sparingly. Refill your prescription for situational needs. - Schedule a follow-up appointment in 6 months to reassess health status. - Contact the office with any new or worsening symptoms.
== END 2025-01-12 09:59 | disposition home or self-care (01) ==
LOC: HO.HMCSH 09:24
PROVIDERS: PCP Internal Medicine; Visit Provider Internal Medicine
DX: I99.8 Other disorder of circulatory system (principal)

== ENCOUNTER → 2025-01-12 09:24 | Outpatient (BNVA) | payer MEDICARE, SELFPAY | PROVIDERS: PCP Internal Medicine; Visit Provider Internal Medicine | DX: I99.8 Other disorder of circulatory system (principal) | CPT/HCPCS: 99212 ==

== ENCOUNTER 2025-01-21 10:05 | Outpatient (AMB) | payer MEDICARE, SELFPAY ==
--- NOTE | 2025-01-21 10:12 | MHC.OFFVIS ---
Vital Signs 01/21/25 10:13 Height 5 ft 7 in Weight 194 lb BMI 30.4 BP 96/60 Blood Pressure Location Lt brachial Position Sitting Pulse 64 Pulse Source Pulse Oximeter Pulse Oximetry (%) 91 L Oxygen Delivery Method Room Air Intake Visit Reasons: Obstructive sleep apnea Intake Note: pt is here for follow up of SHAKA, he states the cpap was going well, but having issue with neuropathy that causes him a lot of pain, Estate Planning Counselor Required: No Allergies macitentan [From Opsumit] Adverse Reaction (Verified 01/21/25 10:34) fluid overload HAYFEVER Allergy (Unknown, Uncoded 01/21/25 10:34) RUNNY NOSE Medication List - Last Reconciled 01/21/25 by Ruben Littlejohn MD aspirin (Adult Low Dose Aspirin) 81 mg PO DAILY atorvastatin 80 mg PO DAILY bumetanide 2 mg PO DAILY cholecalciferol (vitamin D3) 50 mcg PO DAILY clonazepam 2 mg (2 x 1 mg) PO BEDTIME PRN empagliflozin (Jardiance) 10 mg PO DAILY gabapentin one in the morning two at bedtime orally daily; latanoprost 0.005% drps ophthalmic (eye) lidocaine 5% topical metformin ER 750 mg PO QPM 90 days metolazone 2.5 mg PO DAILY potassium chloride ER 40 mEq (2 x 20 mEq) PO DAILY spironolactone 50 mg PO DAILY treprostinil diolamine ER (Orenitram) 0.5 mg PO Q8H Do you need a note to return to daycare/school/sports/work: No HPI HPI Obstructive sleep apnea: Details: This 69 years old very pleasant gentleman is here for sleep apnea follow-up after 6 months. He uses CPAP very regularly almost every night. On some nights just falls asleep in the recliner and does not have a chance to put on the CPAP. His sleep is interrupted because of pain in the toe due to neuropathy. But he does try to keep the CPAP on. He uses clonazepam 1 or 2 mg at bedtime which helps him to sleep He is also using gabapentin for the neuropathy and say is it does not help much. [facility] Medical History Vascular insufficiency of extremity Potassium deficiency Stenosis of left vertebral artery Vitamin D deficiency Type 2 diabetes mellitus Depression Pulmonary hypertension Anxiety Obesity (BMI 30-39.9) Nocturnal hypoxemia Obesity (BMI 30-39.9) Sleep apnea Right heart failure Enlarged RV (right ventricle) Hyperlipidemia HTN (hypertension) Aortic stenosis Surgical History History of colonoscopy (~09/15/14) S/P cardiac catheterization Hx of appendectomy Hx of tonsillectomy History of laparoscopic cholecystectomy Family History Father CVD (cardiovascular disease) Mother Brain tumor Social History Housing: House Alcohol intake: current Alcohol intake frequency: a few times a week Patient Tobacco Use Status: Former Tobacco user service: No Current occupational status: employed and retired 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 Cognitive needs: No Hearing needs: No Vision needs: Yes (reading glasses) Review of Systems Const All systems reviewed & are unremarkable except as noted in HPI and below Eyes Reports no additional complaints ENT Reports no additional complaints Card Denies chest pain, Denies irregular heart rhythm and Denies leg edema Resp Reports no additional complaints GI Reports no additional complaints Reports no additional complaints Musc Reports no additional complaints Skin/Breast Reports system reviewed and no additional complaints, except as documented Neuro Reports no additional complaints Psych Reports no additional complaints Physical Exam Vital Signs: Last Vital Signs Pulse 64 01/21/25 10:13 BP 96/60 01/21/25 10:13 Pulse Ox 91 L 01/21/25 10:13 Oxygen Delivery Method Room Air 01/21/25 10:13 BMI result Body Mass Index 30.4 Const General: healthy appearing (EXCEPT FOR BEING OVERWEIGHT), comfortable, no acute distress, alert and awake Orientation/consciousness: patient oriented x3 HEENT Head: Yes normal to inspection General nose exam: No nasal polyps present and No nasal discharge present Face and sinus: Yes sinuses nontender Mouth: oropharynx normal Throat: Yes posterior oropharynx normal Eyes General: appearance normal, both eyes and all related structures Neck Neck: Yes normal visual inspection, Yes no lymphadenopathy, Yes trachea midline and Yes no JVD Thyroid: Thyroid normal Chest Chest palpation & inspection: normal inspection of the chest, normal palpation of entire chest wall and no tenderness Resp Effort & Inspection: normal respiratory effort Auscultation: clear to auscultation bilaterally, no crackles and no wheezes Cardio Palpation: normal PMI Rate: regular rate Rhythm: regular rhythm Heart sounds: no gallops and Murmur heart sound present (Systolic murmur over aortic area .) Peripheral pulses: Peripheral pulses 2+ throughout GI Palpation (GI): Soft to palpation, nontender, No hepatosplenomegaly present and no masses Auscultation: normal bowel sounds Back/Spine/Pelvis Thoracic/Lumbar Spine: thoracic and lumbar spine normal to inspection Skin General skin exam: no rashes or lesions noted Neuro General: patient oriented x3 and no focal motor deficits Cranial nerves: Yes CN's II-XII intact bilaterally Extrem General: Yes normal to inspection, Yes no clubbing, cyanosis or edema, Yes no calf tenderness and Yes venous stasis dermatitis (mild ) Psych Appearance: grossly normal and well kempt Speech and movement: Normal speech and movement present Results Reviewed Results Reviewed: Compliance report for the last 30 nights reviewed He used 28/30 nights, 93%. Average use it per night 4 hours 49 minutes. There is no significant air leak. Pressure setting is 14 cm, CPAP. Residual AHI 0.1 Assessment & Plan Assessment & Plan (1) Obstructive sleep apnea: Comment: Patient is a known case of obstructive sleep apnea. He is being treated with CPAP , using full face mask and PRESSURE OF 14 CM, His compliance is good, and he is sleeping fairly good. Code(s): G47.33 - Obstructive sleep apnea (adult) (pediatric) Category: Medical Plan: He is commended for good compliance. Try to increase the hours of usage at night. For peripheral neuropathy continue to use gabapentin , and clonazepam 1 or 2 mg at bedtime. He may also try to add magnesium sulfate 4 mg at bedtime. (2) Nocturnal hypoxemia: Comment: ALONG WITH OBSTRUCTIVE SLEEP APNEA PATIENT ALSO HAD EVIDENCE OF NOCTURNAL HYPOXEMIA, REQUIRING OXYGEN IN ADDITION TO CPAP. IT WAS CORRECTED WITH USE OF OXYGEN 2 L/MINUTE. HIS OXYGENATION DID IMPROVE. As per lost overnight oximetry recording O2 sat did go below 88% for several minutes with 2 L/minute. Code(s): G47.34 - Idiopathic sleep related nonobstructive alveolar hypoventilation Category: Medical Plan: Continue to use O2 2 L/minute along with the CPAP (3) Pulmonary hypertension: Comment: PATIENT IS BEING FOLLOWED BY CARDIOLOGY Code(s): I27.20 - Pulmonary hypertension, unspecified Category: Medical Plan: Continue to follow-up with cardiology (4) Anxiety: Comment: PATIENT STILL HAS SOME CLAUSTROPHOBIC FEELING WHEN PUTTING ON THE CPAP. HE CAN USE IT MORE REGULARLY AND FOR LONGER TIME IF HE USES CLONAZEPAM Code(s): F41.9 - Anxiety disorder, unspecified Category: Medical Plan: Clonazepam 1 mg 1 or 2 tablets at bedtime p.r.n. Coding Level of Care Code Est Pt Level 3 (24851) Diagnoses Obstructive sleep apnea G47.33 Nocturnal hypoxemia G47.34 Pulmonary hypertension I27.20 Anxiety F41.9
[2025-01-21 10:13] VITALS: BP 96/60; PULSE 64; O2SAT 91; BMI 30.4
== END 2025-01-21 10:46 | disposition home or self-care (01) ==
LOC: HO.HPS 10:06
PROVIDERS: PCP Internal Medicine; Visit Provider Internal Medicine
DX: G47.33 Obstructive sleep apnea (adult) (pediatric) (principal); G47.34 Idiopathic sleep related nonobstructive alveolar hypoventilation; I27.20 Pulmonary hypertension, unspecified; F41.9 Anxiety disorder, unspecified
CPT/HCPCS: 99213

== ENCOUNTER → 2025-01-21 10:05 | Outpatient (BNVA) | payer MEDICARE, SELFPAY | PROVIDERS: PCP Internal Medicine; Visit Provider Internal Medicine | DX: G47.33 Obstructive sleep apnea (adult) (pediatric) (principal); G47.34 Idiopathic sleep related nonobstructive alveolar hypoventilation; I27.20 Pulmonary hypertension, unspecified; F41.9 Anxiety disorder, unspecified | CPT/HCPCS: 99212 ==

== ENCOUNTER → 2025-01-29 09:45 | Outpatient (REF) | payer MEDICARE, SELFPAY ==
--- NOTE | 2025-01-29 09:47 | CA_ITS ---
Transthoracic Echocardiogram Patient (Last, First, Middle): Kali Garza M Gender: Male Date of : 1955 Age: 69 Procedure Date: 01/29/2025 Procedure Type: Transthoracic Echocardiogram Location: OP Height: 175.26 cm Weight: 87.09 kg BSA: 2.03 m2 Heart Rate: bpm BP: 100 / 60 mmHg Manager Bar: Referring MD: Jamie Dukes MD Symptoms: I35.0 - Nonrheumatic aortic (valve) stenosis Study Quality: Fair ECG Rhythm: Sinus Conclusions: - Normal left ventricular size and systolic function. There is mildly increased left ventricular wall thickness. The visually estimated ejection fraction is between 60-65%. - There is a flattened septum in diastole ( D shaped left ventricle) consistent with right ventricular volume overload and a flattened septum in systole consistent with right ventricular pressure overload. - Elevated filling pressures. - Severely increased right ventricular cavity size. There is severely decreased right ventricular systolic function. - There is moderate aortic valve stenosis. - Significantly elevated right atrial pressure. Mild pulmonary hypertension is present. Findings Left Ventricle Normal left ventricular size and systolic function. There is mildly increased left ventricular wall thickness. The visually estimated ejection fraction is between 60-65%. Regional wall motion abnormalities can not be excluded due to suboptimal endocardial definition. There is a flattened septum in diastole ( D shaped left ventricle) consistent with right ventricular volume overload and a flattened septum in systole consistent with right ventricular pressure overload. Abnormal diastolic function is noted. Spectral Doppler is indicative of an impaired relaxation filling pattern. Elevated filling pressures. Right Ventricle Severely increased right ventricular cavity size. There is severely decreased right ventricular systolic function. Atria The left atrium is normal in size. The right atrium is moderately dilated. Aortic Valve There is a normal trileaflet aortic valve. There is severe calcification of the aortic valve. There is moderate aortic valve stenosis. The peak aortic velocity is 3.16 m/s. The mean gradient is 24 mmHg. The aortic valve area is 1.11 cm2. There is mild aortic valve regurgitation. Mitral Valve The mitral valve appears normal. There is trace mitral valve regurgitation. There is no mitral valve stenosis. Pulmonic Valve The pulmonic valve is normal. There is mild pulmonic valve regurgitation. Tricuspid Valve Normal tricuspid valve structure. There is trace tricuspid valve regurgitation. The right ventricular systolic pressure is 42 mmHg. Significantly elevated right atrial pressure. Mild pulmonary hypertension is present. Great Vessels All visible segments of the aorta are normal in size. The visualized portions of the pulmonary artery and branches are normal. Venous The inferior vena cava is severely dilated and collapses less than 50% with inspiration. Pericardium/Pleural Prominent epicardial adipose tissue noted. There is no evidence of pericardial effusion. Prior Study Comparison Changes noted compared to prior study dated: 01/22/2024. Severe RV dilation and dystolic dysfunction. PA pressures are lower but could be due to worsening RV function. Measurements 2D Linear Measurements IVSd: 1.23 0.6-0.9/0.6-1.0 cm LVIDd: 4.18 3.9-5.3/4.2-5.9 cm LVIDd Index: 2.06 2.4-3.2/2.2-3.1 cm/m2 LVIDs: 2.94 2.0-3.6 cm LVPWd: 1.23 0.7-1.1 cm Ao Root: 3.30 2.1-3.5 cm LA Diam: 3.30 2.7-3.8/3.0-4.0 cm LAIDs Index: 1.63 1.5-2.3 cm/m2 LV Mass: 228.51 67-162/88-224 g LV Mass Index: 112.57 43-95/49-115 g/m2 LVOT Diam: 2.30 3.0+(-)1.3 cm Mitral Valve MV Pk E: 0.55 MV PK A: 1.02 MV Decel Time: 236.00 E/A: 0.50 E'Lateral: 4.35 E'Medial: 3.26 E/E' Med: 16.80 E/E' Lat: 12.60 PHT: 69.00 MVA PHT: 3.19 Decel [place]: 2.33 Aortic Valve AoV Pk Jhonathan: 3.16 AoV Mn Jhonathan: 2.33 AoV VTI: 0.82 AoV Pk Grad: 40.00 Aov Mn Grad: 24.00 JESUS Cont.VTI: 1.11 LVOT LVOT Pk Jhonathan: 0.81 LVOT Mn Jhonathan: 0.60 LVOT VTI: 0.22 LVOT Pk Grad: 3.00 LVOT Mn Grad: 2.00 LVOT Diam: 2.30 LVOT Area: 4.15 Diastolic Function MV Pk E: 0.55 MV Pk A: 1.02 E/A: 0.50 E'Medial: 3.26 E/E' Med: 16.80 E' Laterial: 4.35 E/E' Lat: 12.60 Tricuspid Valve TR Pk Jhonathan: 2.60 TR Pk Grad: 27.00 RA Press: 15.00 RVSP: 42.00 Great Vessels Aorta Ao Root-2D: 3.30 2.0-3.7 cm Ao Asc: 3.50 2.1-3.4 cm Pulmonary Valve PV Pk Jhonathan: 0.86 Peak PV Grad: 3.00 Updated in Other Vendor System with Status of Final Patrick Whittaker MD electronically signed on 01/31/2025 1:03:19 PM with status of Final
== END ==
LOC: HO.CARD 09:45
PROVIDERS: PCP Internal Medicine; Visit Provider Internal Medicine Cardiovascular Disease
DX: I35.0 Nonrheumatic aortic (valve) stenosis (principal)
CPT/HCPCS: 93306

== ENCOUNTER → 2025-01-29 09:47 | Outpatient (BNV) | payer MEDICARE, SELFPAY | PROVIDERS: PCP Internal Medicine; Visit Provider Internal Medicine Cardiovascular Disease | DX: I35.0 Nonrheumatic aortic (valve) stenosis (principal); I27.89 Other specified pulmonary heart diseases | CPT/HCPCS: 93306 ==

== ENCOUNTER → 2025-02-23 11:10 | Outpatient (BNV) | payer MEDICARE, SELFPAY | PROVIDERS: PCP Internal Medicine; Visit Provider Radiology Diagnostic Radiology | DX: M77.31 Calcaneal spur, right foot (principal) | CPT/HCPCS: 73630 ==

== ENCOUNTER 2025-03-09 16:35 | Outpatient (REF) | payer MEDICARE, SELFPAY | END 2025-03-09 16:36 | disposition home or self-care (01) | LOC: HO.WCC 16:35 | PROVIDERS: Visit Provider Surgery Surgical Oncology | DX: E11.621 Type 2 diabetes mellitus with foot ulcer (principal); L97.512 Non-pressure chronic ulcer of other part of right foot with fat layer exposed | CPT/HCPCS: 87070; 87073; 87077; 87186; 87205 ==

== ENCOUNTER 2025-03-22 09:16 | Outpatient (AMB) | payer MEDICARE, SELFPAY ==
--- NOTE | 2025-03-22 09:31 | A.OFFVIS_ITS ---
Vital Signs 03/22/25 09:32 Height 5 ft 7 in Weight 190 lb 0.615 oz BMI 29.8 BP 98/70 Blood Pressure Location Lt brachial Position Sitting Pulse 60 Pulse Source Pulse Oximeter Intake Visit Reasons: 3m follow up Intake Note: 3 Month Follow up. Oncology Technician Required: No Accompanied by: Self / Same As Patient Allergies macitentan (From Opsumit) Adverse Reaction (Verified 01/21/25 10:34) fluid overload HAYFEVER Allergy (Unknown, Uncoded 01/21/25 10:34) RUNNY NOSE Medication List - Last Reconciled 03/22/25 by Jamie Dukes MD aspirin (Adult Low Dose Aspirin) 81 mg PO DAILY atorvastatin 80 mg PO DAILY bumetanide 2 mg PO DAILY cholecalciferol (vitamin D3) 50 mcg PO DAILY clonazepam 2 mg (2 x 1 mg) PO BEDTIME PRN empagliflozin (Jardiance) 10 mg PO DAILY gabapentin one in the morning two at bedtime orally bedtime; ibuprofen 800 mg PO TID latanoprost 0.005% drps ophthalmic (eye) lidocaine 5% topical metformin ER 750 mg PO QPM 90 days metolazone 2.5 mg PO DAILY potassium chloride ER 40 mEq (2 x 20 mEq) PO DAILY spironolactone 50 mg PO DAILY treprostinil diolamine ER (Orenitram) 0.5 mg PO Q8H HPI Comments Details: Ruby comes for follow-up. Overall he has been doing well. Recent echocardiogram shows worsening RV systolic function and RV enlargement. However shows improved RV systolic pressure but shows persistently elevated right atrial pressures. There was uptitration in his pulmonary hypertension medications which she is tolerating. Blood pressure tends to run in the upper 90s. He has no lightheadedness. No syncopal episodes. His leg edema has improved. He is currently dealing with the wound in his right foot. Denies any orthopnea, PND. No prolonged palpitation irregular heartbeat. No hospitalizations. FORMERLY [facility] Medical History Vascular insufficiency of extremity Potassium deficiency Stenosis of left vertebral artery Vitamin D deficiency Type 2 diabetes mellitus Depression Pulmonary hypertension Anxiety Obesity (BMI 30-39.9) Nocturnal hypoxemia Obesity (BMI 30-39.9) Sleep apnea Right heart failure Enlarged RV (right ventricle) Hyperlipidemia HTN (hypertension) Aortic stenosis Surgical History History of colonoscopy (~09/15/14) S/P cardiac catheterization Hx of appendectomy Hx of tonsillectomy History of laparoscopic cholecystectomy Family History Father CVD (cardiovascular disease) Mother Brain tumor Social History Housing: House Alcohol intake: current Alcohol intake frequency: a few times a week Patient Tobacco Use Status: Former Tobacco user service: No Current occupational status: employed and retired 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 Cognitive needs: No Hearing needs: No Vision needs: Yes (reading glasses) Review of Systems Const Denies daytime sleepiness, Denies difficulty sleeping, Denies snoring, Denies stops breathing during sleep and Denies weakness Card Denies chest pain, Denies rapid heart rate, Denies irregular heart rhythm, Denies claudication, Denies leg edema, Denies lightheadedness, Denies palpitations, Denies dyspnea, Denies dyspnea on exertion, Denies orthopnea, Denies paroxysmal nocturnal dyspnea and Denies slow heart rate Resp Denies cough, Denies dyspnea, Denies dyspnea on exertion and Denies snoring GI Reports no additional complaints, Denies hematochezia, Denies change in stool character and Denies dyspepsia Musc Denies abnormal gait, Denies muscle weakness and Denies numbness Neuro Denies abnormal gait, Denies numbness and Denies weakness Endo Denies palpitations Physical Exam Vital Signs: Last Vital Signs Pulse 60 03/22/25 09:32 BP 98/70 03/22/25 09:32 BMI result Body Mass Index 29.8 Const General: cooperative, comfortable, alert and awake Nutritional Appearance: overweight and other (Frail appearing) Orientation/consciousness: patient oriented x3 Limitations: no limitations Neck Neck: Yes trachea midline, Yes supple and No no JVD Resp Effort & Inspection: normal respiratory effort Auscultation: clear to auscultation bilaterally Cardio Jugular venous distension: JVD Palpation: heave (RV) Rate: bradycardic Rhythm: abnormal rhythm with ectopic beats Heart sounds: S1 normal heart sound present, S2 normal heart sound present, no click, no gallops, Murmur heart sound present systolic late, decrescendo, crescendo and soft and no rubs GI Inspection: Yes obesity Auscultation: normal bowel sounds Skin General skin exam: no rashes or lesions noted and ecchymosis Neuro General: patient oriented x3 and no focal motor deficits Extrem General: No clubbing, No cyanosis and No edema Psych Appearance: grossly normal Affect: Depressed mood present Office Procedures EKG Details: EKG shows normal sinus rhythm with right bundle-branch block with PACs [id number], Complete Assessment & Plan Assessment & Plan (1) Right heart failure: Code(s): I50.810 - Right heart failure, unspecified Category: Medical Plan: Right heart failure secondary to pulmonary hypertension in his elderly gentleman with worsening RV systolic function but improved pulmonary pressures. Improvement in RV systolic pressure could be due to worsening RV systolic f unction but more likely due to pharmacotherapy for pulmonary hypertension. Continue the same. Gradually uptitrate as tolerated. He has no signs or symptoms of fluid overload on current therapy. Currently on bumetanide, metolazone Jardiance as well as spironolactone therapy. He has noted renal insufficiency which is stable and most likely due to cardiorenal syndrome. Continue monitor renal function closely. He wants to defer nephrology consultation for now. Encouraged to increase activity level especially muscle strengthening and balance exercises. Management of congestive heart failure was discussed. Daily weight monitoring avoidance salt loading was discussed. He understands. Additional diuretics as need be. Goals of therapy were discussed. Patient does have advanced directives in place. Continue treatment for pulmonary hypertension. (2) Aortic stenosis: Comment: ABOVE BEING FOLLOWED BY CARDIOLOGY Code(s): I35.0 - Nonrheumatic aortic (valve) stenosis Category: Medical Plan: Aortic stenosis remains moderate. There was no worsening in aortic stenosis at this point time. Will continue monitor clinically as well as by echocardiogram on annual basis. Continue low-dose aspirin therapy. Continue aggressive risk factor modification including aggressive control of diabetes goal hemoglobin A1c less than 7%. Will follow up in the clinic in 3 months time, sooner p.r.n.. Thank you for allowing me to partake in his care Medications: Changed From gabapentin one in the morning two at bedtime orally daily; 90 caps 1RF To gabapentin one in the morning two at bedtime orally bedtime; Coding Level of Care Code Est Pt Level 4 (65233) Complex EM visit Add On G2211 Diagnoses Right heart failure I50.810 Aortic stenosis I35.0 CPT Codes EKG - CPT: 68441-[id number], Complete ([id number])
[2025-03-22 09:32] VITALS: BP 98/70; PULSE 60; BMI 29.8
== END 2025-03-22 10:02 | disposition home or self-care (01) ==
LOC: HO.HCS 09:16
PROVIDERS: PCP Internal Medicine; Visit Provider Internal Medicine Cardiovascular Disease
DX: I50.810 Right heart failure, unspecified (principal); I35.0 Nonrheumatic aortic (valve) stenosis
CPT/HCPCS: 93010; 99214; G2211

== ENCOUNTER → 2025-03-22 09:16 | Outpatient (BNVA) | payer MEDICARE, SELFPAY | PROVIDERS: PCP Internal Medicine; Visit Provider Internal Medicine Cardiovascular Disease | DX: I11.0 Hypertensive heart disease with heart failure (principal); I50.810 Right heart failure, unspecified; I35.0 Nonrheumatic aortic (valve) stenosis; R94.31 Abnormal electrocardiogram [ECG] [EKG]; I45.10 Unspecified right bundle-branch block; R00.1 Bradycardia, unspecified; Z79.82 Long term (current) use of aspirin; Z79.84 Long term (current) use of oral hypoglycemic drugs; Z79.899 Other long term (current) drug therapy | CPT/HCPCS: 93005; 99212 ==

== ENCOUNTER 2025-05-11 07:57 | Outpatient (AMB) | payer MEDICARE, SELFPAY ==
--- NOTE | 2025-05-11 08:02 | MHC.PC.OV ---
Vital Signs 05/11/25 08:08 Height 5 ft 7 in Weight 190 lb BMI 29.8 BP 104/62 Blood Pressure Location Rt brachial Pulse 66 Pulse Source Pulse Oximeter Temp 97.2 F Pulse Oximetry (%) 91 L Intake Visit Reasons: follow up - see comments Intake Note: Has a few questions about Dr. Marin and shock waves. Also wondering if he should get a 3rd pneumonia shot? Allergies macitentan (From Opsumit) Adverse Reaction (Verified 01/21/25 10:34) fluid overload HAYFEVER Allergy (Unknown, Uncoded 01/21/25 10:34) RUNNY NOSE Tobacco use date assessed: 01/12/25 Dental Screening Dental Screen Date: 01/12/25 [facility]LY [facility] Medical History (Updated 05/11/25 @ 08:21 by Amilcar King MD) Chronic renal failure Vascular insufficiency of extremity Potassium deficiency Stenosis of left vertebral artery Vitamin D deficiency Type 2 diabetes mellitus Depression Pulmonary hypertension Anxiety Obesity (BMI 30-39.9) Nocturnal hypoxemia Obesity (BMI 30-39.9) Sleep apnea Right heart failure Enlarged RV (right ventricle) Hyperlipidemia HTN (hypertension) Aortic stenosis Surgical History History of colonoscopy (~09/15/14) S/P cardiac catheterization Hx of appendectomy Hx of tonsillectomy History of laparoscopic cholecystectomy Family History Father CVD (cardiovascular disease) Mother Brain tumor Social History Housing: House Alcohol intake: current Alcohol intake frequency: a few times a week Patient Tobacco Use Status: Former Tobacco user service: No Current occupational status: employed and retired 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 1. Little interest or pleasure in doing things: not at all 2. Feeling down, depressed, or hopeless: not at all 3. Trouble falling or staying asleep, or sleeping too much: not at all 4. Feeling tired or having little energy: not at all 5. Poor appetite or overeating: not at all 6. Feeling bad about yourself - or that you are a failure or have let yourself or your family down: not at all 7. Trouble concentrating on things, such as reading the newspaper or watching television: not at all 8. Moving or speaking so slowly that other people could have noticed. Or the opposite - being so fidgety or restless that you have been moving around a lot more than usual: not at all 9. Thoughts that you would be better off or of hurting yourself in some way: not at all Total score: 0 Source: Developed by Drs. Kip Houser, Kayla Bueno, Froylan Causey and colleagues, with an educational yanelis from [employer]. Thrive Questionnaire Date Thrive assessed: 01/12/25 I am a: Patient What is your living situation today?: I have a steady place to live Within the past 12 months, did the food you bought not last and you didn't have the money to get more?: Never true Within the past 12 months, did you worry whether your food would run out before you got money to buy more?: Never true Do you have trouble paying for medicines?: No Do you have trouble getting transportation to medical appointments?: No Do you have trouble paying your heating and electricity bill?: No Do you have trouble taking care of your child, family member or friend?: No Do you have trouble with day-to-day activities such as bathing, preparing meals, shopping, managing finances, etc.?: No Are you currently unemployed and looking for a job?: No Are you interested in more education?: No Please select the resources that you would like help with: None THRIVE Score: 0 AUDIT C Alcohol Use Questionnaire (AUDIT-C) 1. How often do you have a drink containing alcohol?: 2-3 times a week 2. How many drinks containing alcohol do you have on a typical day when you are drinking?: 1 or 2 3. How often do you have six or more drinks on one occasion?: Never Total Score: 3 CHERELLE-7 AMB Questionnaire CHERELEL-7 Date CHERELLE - 7 assessed: 01/12/25 Feeling nervous, anxious, or on edge: 0 = Not at all Not being able to stop or control worryin = Not at all Worrying too much about different things: 0 = Not at all Trouble relaxin = Not at all Being so restless that it is hard to sit still: 0 = Not at all Becoming easily annoyed or irritable: 0 = Not at all Feeling afraid as if something awful might happen: 0 = Not at all Total CHERELLE-7 score (0-4 normal; 5-9 mild; 10-14 moderate; 15-21 severe): 0 Source: Developed by Drs. Kip Houser, Kayla Bueno, Froylan Causey and colleagues, with an educational yanelis from [employer]. Physical exam (Primary Care) Vital Signs: Last Vital Signs Temp 97.2 F 05/11/25 08:08 Pulse 66 05/11/25 08:08 BP 104/62 05/11/25 08:08 Pulse Ox 91 L 05/11/25 08:08 BMI result Body Mass Index 29.8 Tobacco/Smoking Status: Tobacco use Status Tobacco use date assessed 01/12/25 05/11/25 08:11 Patient Tobacco Use Status Former Tobacco user 05/11/25 08:11 PHQ-9: PHQ-9 Score PHQ-9: Total score 0 05/11/25 08:11 Thrive Assessment: Date of Thrive Assessment Date Thrive assessed 01/12/25 05/11/25 08:11 Coding Level of Care Code Est Pt Level 4 (41039) Complex EM visit Add On G2211 Diagnoses Pulmonary hypertension I27.20 Type 2 diabetes mellitus E11.9 Stenosis of left vertebral artery I65.02 Chronic renal failure N18.9 Assessment & Plan Assessment & Plan (1) Pulmonary hypertension: Code(s): I27.20 - Pulmonary hypertension, unspecified Category: Medical Plan: Condition is stable (2) Type 2 diabetes mellitus: Code(s): E11.9 - Type 2 diabetes mellitus without complications Category: Medical Plan: Continue current medications (3) Stenosis of left vertebral artery: Code(s): I65.02 - Occlusion and stenosis of left vertebral artery Category: Medical Plan: OK to discontinue neurology follow ups (4) Chronic renal failure: Code(s): N18.9 - Chronic kidney disease, unspecified Category: Medical Plan: Nephrology consult placed Plan History of Present Illness - The patient is a 70-year-old male presenting with ongoing wound care for a callus on the right foot. - The callus opened up, and the patient has been attending the wound care clinic for six to seven weeks. - Blood work was reviewed, showing stabilized creatinine levels, though they remain elevated due to medication and mild kidney dysfunction. - The patient has a history of a Transient Ischemic Attack (TIA) three years ago and has been seeing Dr. Nogueira since then. - The patient has received two pneumonia vaccinations and was advised that no further vaccination is needed at this time. Social History Review of Systems - General: Denies new health concerns Physical Exam General: Cooperative and healthy appearing Nutritional Appearance: Well nourished Orientation/consciousness: Patient oriented x3 Limitations: No limitations Head: Normal to inspection General: Appearance normal, both eyes and all related structures Neck: Normal visual inspection Chest: Normal palpation of entire chest wall Respiratory: All good. ormal respiratory effort Neurology: Patient oriented x3. Follow the chair. Results - Labs: Creatinine levels stabilized but elevated due to medication and mild kidney dysfunction Plan - Continue attending the wound care clinic for the right foot callus. - Consider consulting a individual small group instructor for elevated creatinine levels and kidney function monitoring. - Proceed with colon cancer screening using Cologuard as an alternative to colonoscopy. - No further pneumonia vaccinations required at this time. Discussion Notes I discussed with the patient the importance of continuing wound care for the right foot callus and the potential need to consult a individual small group instructor for elevated creatinine levels. We agreed on proceeding with Cologuard for colon cancer screening instead of a colonoscopy. I confirmed that no further pneumonia vaccinations are needed at this time. Patient Instructions - Continue attending wound care appointments for the right foot. - Consider visiting a kidney specialist for creatinine monitoring. - Complete the Cologuard test for colon cancer screening. - No need for additional pneumonia vaccinations at this time. Orders: Referrals Nephrology Referral N18.9 - Chronic kidney disease, unspecified Cologuard Test Z12.11 - Encounter for screening for malignant neoplasm of colon
[2025-05-11 08:08] VITALS: BP 104/62; PULSE 66; TEMP 36.2; O2SAT 91; BMI 29.8
== END 2025-05-11 08:28 | disposition home or self-care (01) ==
LOC: HO.HMCSH 07:57
PROVIDERS: PCP Internal Medicine; Visit Provider Internal Medicine
DX: I27.20 Pulmonary hypertension, unspecified (principal); E11.9 Type 2 diabetes mellitus without complications; I65.02 Occlusion and stenosis of left vertebral artery; N18.9 Chronic kidney disease, unspecified

== ENCOUNTER → 2025-05-11 07:57 | Outpatient (BNVA) | payer MEDICARE, SELFPAY | PROVIDERS: PCP Internal Medicine; Visit Provider Internal Medicine | DX: I27.20 Pulmonary hypertension, unspecified (principal); I65.02 Occlusion and stenosis of left vertebral artery; E11.22 Type 2 diabetes mellitus with diabetic chronic kidney disease; N18.9 Chronic kidney disease, unspecified; L84 Corns and callosities | CPT/HCPCS: 99212 ==

== ENCOUNTER → 2025-06-10 10:01 | Outpatient (BNV) | payer MEDICARE, SELFPAY | PROVIDERS: PCP Internal Medicine; Visit Provider Radiology Body Imaging | DX: L97.519 Non-pressure chronic ulcer of other part of right foot with unspecified severity (principal) | CPT/HCPCS: 73630 ==

== ENCOUNTER 2025-06-28 04:07 | Emergency (ER) | payer MEDICARE, SELFPAY ==
--- OUTSIDE RECORDS SUMMARY | 2024-08-03 03:30 | XMS_ITS ---
Author Organization [facility] Address [address] [place] [address] Care Team Providers Care Senior Network Architect Name Role Phone Amilcar King Primary Care Provider [phone] Iwona Fuentes [phone] Encounters Encounter Location Date Provider Diagnosis [address] [address] 08/03/2024 Iwona Fuentes Plan Of Treatment Next Appt Details Provider Name:Iwona mckee, 07/14/2025 04:00:00 PM, [address] [place] [address], [address], Progress Notes * Kali GARZA MDOB:1955 (70 yo M)Acc No.[id number]:08/03/2024 Progress Note Patient: Omar Kali ALONSO Provider: Gela Fuentes DPM :1955 A ge:69 Y S ex:Male Date:08/03/2024 Address: [place] Pcp:Amilcar King Subjective: * Chief Complaints: * * Medical History: Objective: * Vitals: Assessment: Plan: * Treatment: * Images: * The named appointment provid er may or may not be the originator of this progress note, and it is not deemed complete until electronically signed by the appointment provider. Sign off status: Pending * Provider: Gela Fuentes DPM Date: 10/04/2023 Generated for Elenita pardo/Colin/Dyllan on: 08/28/2024 05:53 AM EST
[2025-06-28] VITALS (7 sets, daily range): BP systolic 92–105; BP diastolic 51–64; PULSE 60–66; RESP 12–18; TEMP 36.6; O2SAT 88–98; BMI 27.0
--- NOTE | 2025-06-28 | ECG_ITS ---
Test Reason : CHEST PAIN Blood Pressure : */* mmHG Vent. Rate : 71 BPM Atrial Rate : 71 BPM P-R Int : 260 ms QRS Dur : 152 ms QT Int : 430 ms P-R-T Axes : 77 -74 5 degrees QTcB Int : 467 ms Sinus rhythm with 1st degree A-V block Left axis deviation Right bundle branch block Abnormal ECG When compared with ECG of 04-Oct-2020 08:09, [place] interval has increased Referred By: Generic ED Physician Electronically Signed By: MEENA GRAJEDA
--- NOTE | ~2025-06-28 | CT_ITS ---
CLINICAL HISTORY: R upper abd pain CT angiography abdomen and pelvis with contrast. 3-D post processing. Comparison: None provided Findings: There is no abdominal aortic aneurysm or dissection Please see CTA chest for chest findings. There are afyg-mx-qytbiown stenoses celiac and superior mesenteric arteries. Npod-zb-osdzeauo atheromatous changes within the abdominal aorta. There is Moderate stenosis proximal right renal artery , mild stenoses left renal artery. Mild atheromatous changes abdominal aorta common and external iliac arteries. The KRISTIN is patent. There is surgical staple line within the base of the cecum. Multiple left renal cysts. There is moderate bladder distention. Bilateral low-density enlargement of the adrenal gland likely adenomas or hyperplasia There is prior cholecystectomy. There is S shaped thoracolumbar spine scoliosis partially included in the field of view. there are left renal cysts. There is colonic diverticulosis , no acute diverticulitis. There is moderate colonic fecal load. Evaluation for organ pathology is limited due to CT exam. No urolithiasis. No mass lesions within the liver spleen pancreas or kidneys. No bowel obstruction, pneumoperitoneum, or pneumatosis. Degenerative changes lower thoracic and lumbar spine The bones are intact. No free fluid IMPRESSION: No evidence for abdominal aortic aneurysm or dissection [id number] atheromatous changes as above chronic and incidental findings This document has been electronically signed by: Kip Gray MD on 06/28/2025 08:12:00
--- NOTE | ~2025-06-28 | CT_ITS ---
CLINICAL HISTORY: R sided chest pain CT angiography chest with contrast. 3D Postprocessing. Comparison: None provided Findings: The heart is normal size. RV/LV ratio is normal. The thoracic aorta is normal caliber. No pulmonary artery filling defects. Small nonenlarged mediastinal lymph nodes There here is bilateral gynecomastia . There is S shaped thoracolumbar spine scoliosis] There is mild enlargement main pulmonary arteries. Mmui-xb-wtgzfgbz atheromatous changes thoracic aorta. There are descending thoracic aorta ulcerated plaques.. No consolidation or effusion. Multilevel degenerative changes of the thoracic lumbar spine. The upper abdomen is unremarkable. The bones are intact. IMPRESSION: Ulcerated plaques descending thoracic aorta no aortic aneurysm , ppov-py-lhbspcti atherosclerotic changes mild enlargement main pulmonary arteries which can be associated with pulmonary hypertension COPD changes and pulmonary scarring This document has been electronically signed by: Kip Gray MD on 06/28/2025 08:10:17
--- NOTE | 2025-06-28 04:47 | ED.CHESTPAIN ---
HPI - Chest Pain General Chief Complaint: Chest Pain Stated Complaint: CP?, upper abd pain Time Seen by Provider: 06/28/25 04:23 History of Present Illness ED Provider: anay BLANCHARD narrative: Author / Clinician: Marco Antonio Li MD (Emergency Medicine) Chief Complaint Sudden onset upper abdominal / rib-cage pain that woke the patient from sleep. History of Present Illness The patient reports awakening overnight with the abrupt onset of a constant, spasmodic pain ?in here? (points to upper abdomen / lower chest along the rib cage). Pain was not present prior to going to bed and feels different from any previous pain the patient has experienced. Described as ?almost like a muscle spasm.? Pain does not worsen with eating and the patient denies recent exertion, heavy lifting, or similar provoking activities. Denies nausea and fever. No prior similar episodes. Review of Systems - GI: Positive for sudden onset upper abdominal pain. Denies nausea. - Constitutional: Denies fever. - Respiratory: No information discussed. - Cardiovascular: No chest pain reported. Denies history of heart attack, stents, pulmonary embolism, or deep vein thrombosis. Denies COPD/emphysema. Past Medical History - Diabetes mellitus - Pulmonary hypertension - No history of heart attack, stents, COPD/emphysema, pulmonary embolism, or deep vein thrombosis. Past Surgical History - Cholecystectomy (gallbladder removal) - Ruptured appendix with sepsis (2002) Medications: ? Physical Examination Vital Signs: Physical Exam: - General: Patient uncomfortable; unable to lie completely flat for prolonged examination. - Abdomen: Patient localizes pain to upper abdomen / costal margin. Examination otherwise limited; no lower abdominal tenderness per patient. Emergency Department Course Bedside evaluation performed as above. Order placed for CT scan of the abdomen/pelvis (?open doughnut? scanner, quick in-and-out per discussion with patient). Assessment & Plan Diagnosis: Undifferentiated acute upper abdominal pain Plan: - CT abdomen/pelvis to evaluate etiology of pain. - Will reassess following imaging results. Disposition Patient remains in the Emergency Department pending imaging. Related Data Home Medications ?Medication ?Instructions ?Recorded ?Confirmed aspirin 81 mg tablet,delayed 81 mg PO DAILY 10/07/20 06/29/25 release (Adult Low Dose Aspirin) cholecalciferol (vitamin D3) 50 50 mcg PO DAILY 10/07/20 06/29/25 mcg (2,000 unit) capsule latanoprost 0.005 % eye drops p ophthalmic (eye) 08/25/24 06/29/25 lidocaine 5 % topical ointment topical 01/12/25 06/29/25 treprostinil diolamine 2.5 mg 0.5 mg PO Q8H 01/14/25 06/29/25 tablet,extended release (Orenitram) gabapentin 300 mg capsule See Rx Instructions PO BEDTIME 03/22/25 06/29/25 Previous Rx's ?Medication ?Instructions ?Recorded spironolactone 50 mg tablet 50 mg PO DAILY #90 tabs 12/21/24 potassium chloride 20 mEq 40 meq (2 x 20 mEq) PO DAILY #180 12/28/24 tablet,extended release tabs metolazone 2.5 mg tablet 2.5 mg PO DAILY #90 tabs 01/11/25 ibuprofen 800 mg tablet 800 mg PO TID #30 tabs 03/02/25 metformin 750 mg tablet,extended 750 mg PO QPM 90 days #90 tabs 03/08/25 release 24 hr clonazepam 1 mg tablet 1 mg PO BEDTIME 90 days #90 tabs 04/30/25 empagliflozin 10 mg tablet 10 mg PO DAILY #90 tabs 05/19/25 (Jardiance) atorvastatin 80 mg tablet 80 mg PO DAILY #90 tabs 06/16/25 bumetanide 2 mg tablet 2 mg PO DAILY #90 tabs 06/16/25 diazepam 2 mg tablet (Valium) 2 mg PO TID PRN spasms 2 days #6 06/28/25 tabs Allergies Allergy/AdvReac Type Severity Reaction Status Date / Time macitentan ([facility] AdvReac fluid Verified 06/29/25 10:30 overload HAYFEVER Allergy Unknown RUNNY NOSE Uncoded 06/28/25 04:57 [facility] Past Medical History Medical History (Updated 06/29/25 @ 00:00 by Zoe Josue) Encounter for screening for malignant neoplasm of colon (~06/08/25) Chronic renal failure Vascular insufficiency of extremity Potassium deficiency Stenosis of left vertebral artery Vitamin D deficiency Type 2 diabetes mellitus Depression Pulmonary hypertension Anxiety Obesity (BMI 30-39.9) Nocturnal hypoxemia Obesity (BMI 30-39.9) Sleep apnea Right heart failure Enlarged RV (right ventricle) Hyperlipidemia HTN (hypertension) Aortic stenosis Surgical History History of colonoscopy (~09/15/14) S/P cardiac catheterization Hx of appendectomy Hx of tonsillectomy History of laparoscopic cholecystectomy Family History Family History Father CVD (cardiovascular disease) Mother Brain tumor Social History Social History Housing: House Alcohol intake: current Alcohol intake frequency: holidays/special occasions only Patient Tobacco Use Status: Former Tobacco user service: No Current occupational status: employed and retired 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 ENT: Moist mucosa, no pallor. ? Neck: Supple. Skin: ?No observable rash or bruising on exposed or examined skin Respiratory: Breathing comfortably, No distress.Clear to auscultation bilaterally, symmetric chest expansion, No wheeze, rales, ronchi. Cardiovascular: Regular rate and rhythm. Harsh systolic murmur 3/6. Well perfused periphery, warm extremities. No edema. ? Abdominal: Mild right upper quadrant tenderness. Soft, no objective distension. No palpable masses or obvious organomegaly. ?No guarding, no rebound tenderness or other peritoneal findings. Vital signs: See flowsheet Vital Signs: Vital Signs: Last Vital Signs Temp 98 F 06/28/25 09:21 Pulse 66 06/28/25 09:21 Resp 18 06/28/25 09:21 BP 99/54 L 06/28/25 09:21 Pulse Ox 88 L 06/28/25 09:21 O2 Del Method Room Air 06/28/25 09:21 O2 Flow Rate 3 06/28/25 06:57 BMI result Body Mass Index 27.0 Course Reevaluation(s) Reevaluation #1: 7:22 AM 06/28/2025 (Dr. Maximino Cornelius): reportedly patient presented overnight with significant right-sided chest pain, possibly spasm like per description, but it was bad enough that the provider was concerned for aortic dissection among other considerations that the dissection protocol was obtained, patient re-evaluated, his pain has improved, he does have history of pulmonary hypertension and initial blood work revealed slightly elevated BNP and troponin which is not unusual with someone with pulmonary hypertension, on CT on my review he does have enlarged right ventricle consistent with his history, disposition to be determined will continue to monitor, introduce myself to the patient 8:43 AM 06/28/2025 (Dr. Maximino Cornelius): patient remains chest pain-free, cardiac enzymes remained flat, CT angio without dissection, PE, discussed findings with the patient, see my discharge instructions 8:43 AM 06/28/2025 (Dr. Maximino Cornelius): IMPRESSION: Ulcerated plaques descending thoracic aorta no aortic aneurysm , [id number] atherosclerotic changes mild enlargement main pulmonary arteries which can be associated with pulmonary hypertension COPD changes and pulmonary scarring IMPRESSION: No evidence for abdominal aortic aneurysm or dissection [id number] atheromatous changes as above chronic and incidental findings 9:10 AM 06/28/2025 (Dr. Maximino Cornelius): Patient ambulated to the bathroom became short of breath, his oxygen dip to 83% and when he was back on gurney and took some nice deep breaths went back up to 93%, I spoke to patient in his and offered them admission stating if he does not feel like his breathing or general function is not back at his baseline I am definitely then recommending that patient is to be admitted for further monitoring, patient states that he is currently chest pain-free, he has oxygen at home, he usually needs some more time in the morning and has been laying quite a bit and so he feels well enough to be discharged and this is his preference, his at bedside stated that she is not going to argue with the him but I felt like she would not mind if patient was to be admitted. So I offered admission again but patient declined. Medications Administered Discontinued Medications Generic Name Dose Route Start Last Admin Trade Name Freq PRN Reason Stop Dose Admin Diazepam 2.5 mg 06/28/25 04:48 06/28/25 05:03 Diazepam 10 Mg/2 Ml Cartridge IVPUSH 06/28/25 04:49 2.5 mg STAT STA Administration Hydromorphone HCl 1 mg 06/28/25 05:39 06/28/25 05:53 Hydromorphone Hcl 1 Mg/Ml Syringe IVPUSH 06/28/25 05:40 1 mg ONCE ONE Administration Protocol Acetaminophen 1,000 mg in 100 mls @ 400 mls/hr 06/28/25 04:48 06/28/25 05:49 Ofirmev IV 06/28/25 05:02 Infused ONCE ONE Infusion Iohexol 100 ml 06/28/25 06:16 06/28/25 06:21 Iohexol 350 Mg/Ml 100 Ml Infus..Btl IV 06/28/25 06:17 85 ml ONCE ONE Administration Morphine Sulfate 2 mg 06/28/25 04:48 06/28/25 05:04 Morphine Sulfate 4 Mg/Ml Cartridge IVPUSH 06/28/25 04:49 2 mg ONCE ONE Administration Protocol Medical Decision Making Medical Decision Making MDM Narrative: Medical Decision Making: [age] male with a history of questionable TIA, pulmonary hypertension, moderate aortic stenosis, clean coronary arteries with right dominant heart in 2023. Abrupt onset right-sided chest/costal margin/upper abdominal discomfort no vomiting. Comes in spasm colicky like waves. Looks quite severe the patient is quite uncomfortable. Broad differential Plan for advanced imaging CTA of the chest and abdomen anges. Preliminary Favored Differential Diagnosis: Aortic dissection, ACS, less likely PE, pneumothorax, intercostal or chest wall or abdominal musculature spasm, less likely biliary the patient has cholecystectomy, among additional considered etiologies Testing Interpreted Independently: ?ECG shows right bundle branch block sinus rhythm unchanged from previous. No acute ischemic changes Radiology or Lab testing Results Reviewed: ?See below for details Consults: ?See below for details Independent Historians/External Chart Reviews: ?See below for details Social Determinants of Health Impacting MDM/Planning: ?See below for details Lab Data 06/28/25 04:58 06/28/25 05:18 Labs: Lab Results 06/28/25 06/28/25 06/28/25 Range/Units 04:58 05:18 07:04 WBC 9.4 (4.8-10.8) X10*3/uL RBC 4.79 (4.60-5.80) X10*6/uL Hgb 15.3 (14.0-18.0) g/dl Hct 43.0 (42.0-52.0) % MCV 89.8 (80.0-98.0) fL MCH 31.9 (27.0-33.0) pg MCHC 35.6 (31.0-36.0) g/dl RDW 13.2 (11.0-16.0) % Plt Count 180 (160-400) X10*3/uL MPV 10.0 (9.4-12.4) fL Immature Gran % (Auto) 0.4 (0.0-0.4) % Neut % (Auto) 76.1 H (45-73) % Lymph % (Auto) 10.6 L (20-40) % Moffat % (Auto) 8.9 (2-11) % Eos % (Auto) 2.9 (0-4) % Baso % (Auto) 1.1 (0-2) % Lymph # (Auto) 1.0 L (1.2-4.9) X10*3/uL Moffat # (Auto) 0.8 (0.1-1.2) X10*3/uL Eos # (Auto) 0.3 (0.0-0.4) X10*3/uL Baso # (Auto) 0.1 (0.0-0.2) X10*3/uL Abs Immat Gran (auto) 0.04 H (0.00-0.03) X10*3/uL Absolute Neuts (auto) 7.1 (2.0-8.3) x10*3/uL Absolute Nucleated RBC 0.000 (0.0-0.012) X10*3/uL Nucleated RBC % (auto) 0.0 (0.0-0.2) /100WBC Sodium 132 L (135-145) mmol/L Potassium 3.9 D (3.3-5.1) mmol/L Chloride 93 L (96-108) mmol/L Carbon Dioxide 24 (22-29) mmol/L Anion Gap 19 (12-20) BUN 90 H (9-16) mg/dL Creatinine 1.83 H (0.5-1.4) mg/dL Estim Creat Clear Calc 36.4 Estimated GFR 37 Random Glucose 114 (60-115) mg/dL Calcium 10.3 H (8.4-10.2) mg/dL Troponin I High Sens 40.7 H 42.1 H (<3.5-35.0) ng/L NT-Pro-B Natriuret Pep 6003.0 H (<300) pg/mL Discharge Plan Discharge Clinical Impression: Chest pain, precordial, Pulmonary hypertension Patient Disposition: Home, Self-Care Additional Instructions: evaluated with chest pain overnight, you had CT angio of the chest abdomen and pelvis to evaluate for blood clots, dissection, you had EKG, cardiac enzymes, you have history of pulmonary hypretension, slight elevation of cardiac enzymes which remained flat without new EKG changes, as discussed CAT scan did not reveal anything that would cause his symptoms we will primarily look for aortic dissection, blood clots, infection etc. you have some chronic changes and plaque deposits in your aorta which is not uncommon, I would like you to go ahead and call your rail car driver or PCP, report ER visit, and they establish follow up, any worsening symptoms concerns come back to the ER, I am providing Valium possibly and again this is something that I am just considering that your pain was due to muscle spasm in between ribs which can be very painful so diazepam can help with that but if you are feeling worse if you have any other concerns just come back to the ER for re-evaluation Prescriptions: New diazepam [Valium] 2 mg tablet 2 mg PO TID PRN (Reason: spasms) 2 Days Qty: 6 0RF No Action spironolactone 50 mg tablet 50 mg PO DAILY Qty: 90 1RF potassium chloride 20 mEq tablet extended release 40 meq PO DAILY Qty: 180 3RF metolazone 2.5 mg tablet 2.5 mg PO DAILY Qty: 90 1RF Orenitram 2.5 mg tablet extended release 0.5 mg PO Q8H Rx Instructions: must administer with a meal/food ibuprofen 800 mg tablet 800 mg PO TID Qty: 30 0RF Rx Instructions: Take 1 tablet with food three times daily metformin 750 mg tablet extended release 24 hr 750 mg PO QPM 90 Days Qty: 90 1RF clonazepam 1 mg tablet 1 mg PO BEDTIME 90 Days Qty: 90 1RF Jardiance 10 mg tablet 10 mg PO DAILY Qty: 90 3RF atorvastatin 80 mg tablet 80 mg PO DAILY Qty: 90 3RF bumetanide 2 mg tablet 2 mg PO DAILY Qty: 90 3RF cholecalciferol (vitamin D3) 50 mcg (2,000 unit) capsule 50 mcg PO DAILY aspirin [Adult Low Dose Aspirin] 81 mg tablet,delayed release (DR/EC) 81 mg PO DAILY gabapentin 300 mg capsule See Rx Instructions PO BEDTIME Rx Instructions: one in the morning two at bedtime orally bedtime; latanoprost 0.005 % drops ophthalmic (eye) lidocaine 5 % ointment topical Referrals: Amilcar King MD [Primary Care Provider, Internal Medicine] - 1 week Referral Note: was seen in the emergency department overnight with significant right-sided chest pain, had aortic dissection protocol that was negative, cardiac enzymes with troponin 40 remained flat, BNP 600, no new EKG changes will need to be re-evaluated after ER visit Clinical Impression: Pulmonary hypertension; Chest pain, precordial Interventions: ED Discharge Assessment Last Done: 06/28/25 09:21 Discharge Date/Time: 06/28/25 09:22 Print Language: Indonesian
[2025-06-28 05:02] LABS: Hematocrit 43.0 % (42.0-52.0); Hemoglobin 15.3 g/dl (14.0-18.0); Imm Gran Abs Auto 0.04 X10*3/uL (0.00-0.03); Imm Gran Pct Auto 0.4 % (0.0-0.4); Lymphocytes Absolute Auto 1.0 X10*3/uL (1.2-4.9); MANUAL DIFF FLAG NO; Mean Corpuscular HGB Conc 35.6 g/dl (31.0-36.0); Mean Corpuscular Hemoglobin 31.9 pg (27.0-33.0); Mean Corpuscular Volume 89.8 fL (80.0-98.0); NRBC Abs Auto 0.000 X10*3/uL (0.0-0.012); NRBC Pct Auto 0.0 /100WBC (0.0-0.2); Platelet Count 180 X10*3/uL (160-400); Red Blood Count 4.79 X10*6/uL (4.60-5.80); White Blood Count 9.4 X10*3/uL (4.8-10.8)
[2025-06-28] MEDS: diazePAM 10 MG/2 ML CARTRIDGE 2.5 MG IVPUSH (05:03)
[2025-06-28 05:40] LABS: Anion Gap 19 (12-20); Blood Urea Nitrogen 90 mg/dL (9-16); Calcium 10.3 mg/dL (8.4-10.2); Carbon Dioxide 24 mmol/L (22-29); Chloride 93 mmol/L (96-108); Creatinine Clr Calc Pharmacy 36.4; Estimated Glomerular Filt Rate 37; Potassium 3.9 mmol/L (3.3-5.1); Sodium 132 mmol/L (135-145)
[2025-06-28 05:48] LABS: Troponin-I High Sensitivity 40.7 ng/L (<3.5-35.0)
--- OUTSIDE RECORDS SUMMARY | 2025-06-28 05:54 | XMS_ITS | Patient Health Record ---
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 Name Role Phone Amilcar King Primary Care Provider Iwona Fuentes Unavailable [phone] Allergies No Known Allergies Results Component Value Reference Range Notes HEMOGLOBIN A1C (GLYCOHEMOGLO BIN) Reviewed date:12/09/2024 09:15:20 AM Interpretation: Performing Lab: Notes/Report: HEMOGLOBIN A1C % (HH) 6.5 HEMOGLOBIN A1C (GLYCOHEMOGLO BIN) Reviewed date:03/29/2025 03:05:43 PM Interpretation: Performing Lab: Notes/Report: HEMOGLOBIN A1C % (HH) 6.5 Reason For Referral No Information Medications Medication SIG (Take, Route, Frequency, Duration) Notes Start Date End Date Status metFORMIN HCl Active metFORMIN HCl ER 500 MG 1 tablet with evening meal Orally Once a day Not-Taking Vitamin D3 50 MCG (1999 UT) Oral; Duration: 90 Active Opsumit 10 MG Oral; Duration: 30 Days Not-Taking Opsumit 10 MG Oral; Duration: 30 Days Not-Taking Ibuprofen 800 MG Oral; Duration: 30 Active Plavix Not-Taking Lidocaine 5 % 1 application as needed Externally Three times a day Active clonazePAM 1 MG Oral; Duration: 30 Active Opsumit 10 MG Oral; Duration: 30 Days Not-Taking Gabapentin 300 MG Oral; Duration: 90 Active Atorvastatin Calcium 80 MG Oral; Duration: 90 Active Bumetanide 0.5 MG as directed Orally Once a day Active Losartan Potassium 100 MG Oral; Duration: 30 Not-Takin g Jardiance Active Latanoprost 0.005 % INSTILL 1 DROP INTO AFFECTED EYE EVERY DAY IN THE EVENING Ophthalmic; Duration: 50 Days Active Ciclopirox Olamine 0.77 % 1 application to affected area Externally Twice a day to effected areas on feet; Duration: 30 days Active Lidocaine 4 % 1 patch as needed Externally Four times a day Active Orenitram 0.5mg 3x per day Active Extra Depth Diabetic Shoes with 3 Pair Custom heat-molded multi-density innersoles for 1 year Dx: 07/12/2021 Active Potassium Active Baby Aspirin Active Immunizations Vaccine Route Administration Date Status Comme nts Influenza Unknown 05/16/2022 Administered COVID-19 Pfizer BioNTech Vaccine Unknown 05/16/2022 Administered 1st 10/20/20 2nd 11/10/20 3rd 06/02/21 Social History Tobacco Use: Social History Observation Description Date Details (start date - stop date) Never Smoker NA - NA Tobacco use other than smoking: Question Answer Notes Are you an other tobacco user? No Tobacco Control (Standard) Question Answer Notes Tobacco use: Nonsmoker Additional Findings: Tobacco non-user Current no nsmoker AUDIT-C (Standard) Question Answer Notes Did you have a drink containing alcohol in the p ast year? No Points 0 Interpretation Negative Problems Problem Type SNOMED Code ICD Code Onset Dates Problem Status W/U Status Risk Notes Problem Polyneuropathy due to diabetes mellitus type I (553947051) Type 1 diabetes mellitus with diabetic polyneuropathy (E10.42) Active confirmed Problem Localized, primary osteoarthritis of the ankle and/or foot (643839265) Primary osteoarthritis, left ankle and foot (M19.072) Active confirmed Problem Acquired hammer toe of left foot (879295796286755 3) Other hammer toe(s) (acquired), left foot (M20.42) Active confirmed Problem Polyneuropathy due to type 2 diabetes mellitus (148705096) Type 2 diabetes mellitus with diabetic polyneuropathy (E11.42) Active confirmed Problem Mononeuropathy of lower limb (533981692) Neuritis of left foot (G57.92) Active confirmed Problem Ischemic ulcer of right foot with fat layer exposed (L97.512) Active confirmed Response to treatment Vital Signs Blood pressure diastolic 65 mm Hg 03/29/2025 Height 5ft9in in 03/29/2025 Blood pressure systolic 126 mm Hg 03/29/2025 Weight 213 lbs 03/29/2025 BMI 31.45 kg/m2 03/29/2025 Procedures Procedure Date Ordered Date Performed Result Body Sit e 37373-JCFXRMC NAIL, 6 OR MORE 08/03/2024 N/A 28440-HTIC SKIN LESIONS, OVER 4 08/03/2024 N/A 00033-SENWEVX SKIN/TISSUE 12/09/2024 N/A 39681-AIOLCGS SKIN/TISSUE 01/11/2025 N/A Encounters Encounter Location Date Provider Diagnosis [address] [address] 08/03/2024 Iwona Fuentes Type 2 diabetes mellitus with diabetic polyneuropathy E11.42 ; Tinea unguium B35.1 and Edema, lower extremity R60.[address] [address] 12/09/2024 Iwona Fuentes Pain in left foot M79.672 ; Ischemic ulcer of right foot with fat layer exposed L97.512 ; Neuritis of left foot G57.92 ; Type 2 diabetes mellitus with diabetic polyneuropathy E11.42 ; Tinea unguium B35.1 and Edema, lower extremity R60.[address] [address] 01/11/2025 Iwona Fuentes Pain in left foot M79.672 ; Ischemic ulcer of right foot with fat layer exposed L97.512 ; Neuritis of left foot G57.92 ; Type 2 diabetes mellitus with diabetic polyneuropathy E11.42 ; Tinea unguium B35.1 and Edema, lower extremity R60.[address] [address] 03/29/2025 Iwona Fuentes Pain in left foot M79.672 ; Ischemic ulcer of right foot with fat layer exposed L97.512 ; Neuritis of left foot G57.92 ; Type 2 diabetes mellitus with diabetic polyneuropathy E11.42 ; Tinea unguium B35.1 and Edema, lower extremity R60.[address] [address] 12/09/2024 Iwona Fuentes [facility] [address] 12/09/2024 Iwona Fuentes Pain in left foot M79.672 [facility] [address] 12/14/2024 Iwona Fuentes Type 2 diabetes mellitus with diabetic polyneuropathy E11.42 [facility] [address] [place] [address] 12/16/2024 [facility] [address] 01/11/2025 [facility] [address] 04/06/2025 [facility] [address] 04/13/2025 Iwona Fuentes Assessments Encounter Date Diagnosis (ICD Code) Assessment Notes Treatment Notes Treatment Clinical Notes Section Notes 08/03/2024 Type 2 diabetes mellitus with diabetic polyneuropathy (ICD-10 - E11.42) 08/03/2024 Tinea unguium (ICD-10 - B35.1) 12/09/2024 Pain in left foot (ICD-10 - M79.672) 12/09/2024 Ischemic ulcer of right foot with fat layer exposed (ICD-10 - L97.512) Patient Educated with: WOUND CARE INSTRUCTIONS. pdf (WOUND CARE INSTRUCTIONS. pdf) 12/09/2024 Pain in left foot (ICD-10 - M79.672) 12/14/2024 Type 2 diabetes mellitus with diabetic polyneuropathy (ICD-10 - E11.42) 01/11/2025 Pain in left foot (ICD-10 - M79.672) 01/11/2025 Ischemic ulcer of right foot with fat layer exposed (ICD-10 - L97.512) Patient Educated with: WOUND CARE INSTRUCTIONS. pdf (WOUND CARE INSTRUCTIONS. pdf) 03/29/2025 Pain in left foot (ICD-10 - M79.672) 03/29/2025 Ischemic ulcer of right foot with fat layer exposed (ICD-10 - L97.512) Patient Educated with: WOUND CARE INSTRUCTIONS. pdf (WOUND CARE INSTRUCTIONS. pdf) 01/11/2025 Neuritis of left foot (ICD-10 - G57.92) 03/29/2025 Neuritis of left foot (ICD-10 - G57.92) 12/09/2024 Neuritis of left foot (ICD-10 - G57.92) 08/03/2024 Edema, lower extremity (ICD-10 - R60.0) 12/09/2024 Type 2 diabetes mellitus with diabetic polyneuropathy (ICD-10 - E11.42) 03/29/2025 Type 2 diabetes mellitus with diabetic polyneuropathy (ICD-10 - E11.42) 01/11/2025 Type 2 diabetes mellitus with diabetic polyneuropathy (ICD-10 - E11.42) 01/11/2025 Tinea unguium (ICD-10 - B35.1) 03/29/2025 Tinea unguium (ICD-10 - B35.1) 12/09/2024 Tinea unguium (ICD-10 - B35.1) 12/09/2024 Edema, lower extremity (ICD-10 - R60.0) 01/11/2025 Edema, lower extremity (ICD-10 - R60.0) 03/29/2025 Edema, lower extremity (ICD-10 - R60.0) Plan Of Treatment Pending Test Test Name Order Date X ray : Foot, left 3V 07/12/2021 52741-KNDOTGW NAIL, 6 OR MORE 08/03/2024 09833-QEZOLQZ SKIN/TISSUE 12/09/2024 75930-HEKNUIY SKIN/TISSUE 01/11/2025 74227-YNOK SKIN LESIONS, OVER 4 08/03/20 24 05967-VROC SKIN LESIONS, 2 TO 4 11/30/19 22 Next Appt Details Provider Name:Iwona Colemanwill mckee, 07/14/2025 04:00:00 PM, [address] [facility], [place], [address], Insurance Providers Payer Name Payer Address Payer Phone Subscriber Number Group Number Insured Name Patient Relationship to Insured Coverage Start Date Coverage End Date Medicare [employer] [address] [address] [phone] [id number] Greg, Kali Self - patient is the insured [employer] [facility] [address] [place] [address] [id number] Kali Garza Self - patient is the [...]
[2025-06-28] MEDS: iohexoL 350 MG/ML 100 ML INFUS..BTL IV (06:21)
[2025-06-28 07:35] LABS: Troponin-I High Sensitivity 42.1 ng/L (<3.5-35.0)
--- NOTE | 2025-06-28 09:18 | PC.NURSE ---
pt walked to bathoom unassisted but with poor balance, states he has a cane but doesn't use, teaching done re falls and cane use, pt agreeable to use cane at home, pt spo2 after ambulating was 86% md aware and to bedside, pt wants to go home and states he can do so safely, wheelchair provided and wheeled outside to car by pct, pt insistent on going home and that he can manage safely, no pain, denies sob
== END 2025-06-28 09:22 | disposition home or self-care (01) ==
PROVIDERS: Emergency Provider Emergency Medicine; PCP Internal Medicine
DX: R07.2 Precordial pain (principal); I27.20 Pulmonary hypertension, unspecified; I44.0 Atrioventricular block, first degree; I45.10 Unspecified right bundle-branch block; R10.10 Upper abdominal pain, unspecified; E11.9 Type 2 diabetes mellitus without complications; E78.5 Hyperlipidemia, unspecified; Z79.899 Other long term (current) drug therapy
CPT/HCPCS: 36415; 71275; 74174; 80048; 83880; 84484; 85025; 93005; 96365; 96375; 99285; J0131; J1171; J2270; J3360; Q9967

== ENCOUNTER → 2025-06-28 04:10 | Outpatient (BNV) | payer MEDICARE, SELFPAY | PROVIDERS: Emergency Provider Emergency Medicine; PCP Internal Medicine; Visit Provider Internal Medicine | DX: I44.0 Atrioventricular block, first degree (principal); I45.10 Unspecified right bundle-branch block | CPT/HCPCS: 93010 ==

== ENCOUNTER → 2025-06-28 04:53 | Outpatient (BNV) | payer MEDICARE, SELFPAY | PROVIDERS: Emergency Provider Emergency Medicine; PCP Internal Medicine; Visit Provider Radiology Diagnostic Radiology | DX: R10.11 Right upper quadrant pain (principal); I70.0 Atherosclerosis of aorta; J44.9 Chronic obstructive pulmonary disease, unspecified | CPT/HCPCS: 71275; 74174 ==

== ENCOUNTER 2025-06-29 10:22 | Outpatient (AMB) | payer MEDICARE, SELFPAY ==
[2025-06-29 10:28] VITALS: BP 94/62; PULSE 87; O2SAT 90; BMI 26.4
--- NOTE | 2025-06-29 10:28 | HO.NEPHOV ---
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: No Accompanied by: Spouse Allergies macitentan (From Opsumit) Adverse Reaction (Verified 06/29/25 10:30) fluid overload HAYFEVER Allergy (Unknown, Uncoded 06/28/25 04:57) RUNNY NOSE Medication List - Last Reconciled 06/29/25 by Eleno Ledesma MD aspirin (Adult Low Dose Aspirin) 81 mg PO DAILY atorvastatin 80 mg PO DAILY bumetanide 2 mg PO DAILY cholecalciferol (vitamin D3) 50 mcg PO DAILY clonazepam 1 mg PO BEDTIME 90 days diazepam (Valium) 2 mg PO TID PRN 2 days empagliflozin (Jardiance) 10 mg PO DAILY gabapentin one in the morning two at bedtime orally bedtime; ibuprofen 800 mg PO TID latanoprost 0.005% drps ophthalmic (eye) lidocaine 5% topical metformin ER 750 mg PO QPM 90 days metolazone 2.5 mg PO DAILY potassium chloride ER 40 mEq (2 x 20 mEq) PO DAILY spironolactone 50 mg PO DAILY treprostinil diolamine ER (Orenitram) 0.5 mg PO Q8H HPI Comments Details: The patient is a 70-year-old male referred for evaluation of elevated creatinine / chronic kidney disease. His serum creatinine levels started to rise a few years ago from a normal baseline. In 2022, creatinine was in the 1.2-1.3 mg/dL range, later increasing to 2.58 mg/dL, and has since settled to 1.8 mg/dL. This corresponds to a decline in kidney function from approximately 60% a few years ago to the current 30-37%. The patient has a significant cardiac history, including right-sided heart failure and pulmonary hypertension, which previously caused severe swelling in his legs and ankles. He is on a diuretic regimen of furosemide, metolazone 2.5 mg, and spironolactone 50 mg for fluid management. A coronary angiogram last year showed that his main arteries were open, withmild ; His BNP was noted to be elevated at 6,000, indicative of fluid overload. The patient has a history of smoking for 30-40 years, which has contributed to widespread atherosclerosis. A recent CT scan revealed moderate stenosis of the right renal artery and mild stenosis of the left renal artery, incidental cysts on both kidneys, and mild to moderate narrowing of the arteries supplying the bowels. Despite the renal artery stenosis, his blood pressure tends to run low, in the 90s systolic. h/o Dilated right atrium and Pulm HTN- on Orenitram h/o SHAKA on CPAP h/o TIA - resolved ; Seen by Neuro- ; s/p EMG Past medical history is also notable for a recent emergency room visit for excruciating abdominal pain, which was diagnosed as a pulled muscle after a CT scan of the heart and intestines was negative. He has a history of a non-healing wound on his foot that required treatment at a wound care center. 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 He reports using a CPAP machine at night, prefers to sleep on his side with pillows, and does not like lying flat. He takes vitamin D 2000 units daily and uses ibuprofen very rarely. [facility] Medical History (Updated 06/29/25 @ 00:00 by Zoe Josue) Encounter for screening for malignant neoplasm of colon (~06/08/25) Chronic renal failure Vascular insufficiency of extremity Potassium deficiency Stenosis of left vertebral artery Vitamin D deficiency Type 2 diabetes mellitus Depression Pulmonary hypertension Anxiety Obesity (BMI 30-39.9) Nocturnal hypoxemia Obesity (BMI 30-39.9) Sleep apnea Right heart failure Enlarged RV (right ventricle) Hyperlipidemia HTN (hypertension) Aortic stenosis Surgical History History of colonoscopy (~09/15/14) S/P cardiac catheterization Hx of appendectomy Hx of tonsillectomy History of laparoscopic cholecystectomy Family History Father CVD (cardiovascular disease) Mother Brain tumor Social History Housing: House Alcohol intake: current Alcohol intake frequency: holidays/special occasions only Patient Tobacco Use Status: Former Tobacco user service: No Current occupational status: employed and retired 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 Cognitive needs: No Hearing needs: No Vision needs: Yes (reading glasses) Review of Systems Const Denies fever(s) and Denies weight loss Card Denies chest pain Resp Denies cough and Denies hemoptysis GI Denies abdominal pain, Denies diarrhea and Denies nausea Musc Denies back pain Neuro Denies focal weakness Physical Exam Vital Signs: Last Vital Signs Pulse 87 06/29/25 10:28 BP 94/62 06/29/25 10:28 Pulse Ox 90 L 06/29/25 10:28 Oxygen Delivery Method Room Air 06/29/25 10:28 BMI result Body Mass Index 26.4 Const General: comfortable Nutritional Appearance: well nourished Orientation/consciousness: patient oriented x3 HEENT Head: No normal to inspection Mouth: moist mucous membranes Neck Neck: Yes supple and Yes no JVD Resp Auscultation: clear to auscultation bilaterally, no rales and No rub present Cardio Jugular venous distension: no JVD Palpation: no palpable S3 and no palpable S4 Heart sounds: no rubs GI Palpation (GI): Soft to palpation and nontender Percussion: No Fluid wave present General: Yes no CVA tenderness Back/Spine/Pelvis Back: no CVA tenderness Skin General skin exam: no rashes or lesions noted Neuro General: patient oriented x3 Extrem General: No clubbing and Yes edema (Trace to 1 +) Results Reviewed Results Reviewed: January 2025 ECHO - Normal left ventricular size and systolic function. There is mildly increased left ventricular wall thickness. The visually estimated ejection fraction is between 60-65%. - There is a flattened septum in diastole ( D shaped left ventricle) consistent with right ventricular volume overload and a flattened septum in systole consistent with right ventricular pressure overload. - Elevated filling pressures. - Severely increased right ventricular cavity size. There is severely decreased right ventricular systolic function. - There is moderate aortic valve stenosis. - Significantly elevated right atrial pressure. Mild pulmonary hypertension is present. 06/28/25 CTA Abdomen There is Moderate stenosis proximal right renal artery , mild stenosis left renal artery. Mild atheromatous changes abdominal aorta common and external iliac arteries. The KRISTIN is patent. There is surgical staple line within the base of the cecum. Multiple left renal cysts. There is moderate bladder distention. Bilateral low-density enlargement of the adrenal gland likely adenomas or hyperplasia There is prior cholecystectomy. There is S shaped thoracolumbar spine scoliosis partially included in the field of view. there are left renal cysts. There is colonic diverticulosis , no acute diverticulitis. Nephrology Results: Hgb, (14.0-18.0) 15.3 g/dl 06/28/25 WBC, (4.8-10.8) 9.4 X10*3/uL 06/28/25 Plt Count, (160-400) 180 X10*3/uL 06/28/25 Sodium, (135-145) 132 mmol/L L 06/28/25 Potassium, (3.3-5.1) 3.9 mmol/L Δ 06/28/25 Chloride, (96-108) 93 mmol/L L 06/28/25 Carbon Dioxide, (22-29) 24 mmol/L 06/28/25 BUN, (9-16) 90 mg/dL H 06/28/25 Creatinine, (0.5-1.4) 1.83 mg/dL H 06/28/25 Calcium, (8.4-10.2) 10.3 mg/dL H 06/28/25 Assessment & Plan Assessment & Plan (1) Chronic renal failure: Code(s): N18.9 - Chronic kidney disease, unspecified Category: Medical (2) Pulmonary hypertension: Code(s): I27.20 - Pulmonary hypertension, unspecified Category: Medical Plan 1. Chronic Kidney Disease & Cardiorenal Syndrome - The patient's chronic kidney disease is assessed to be multifactorial, secondary to cardiorenal syndrome, diuretic therapy, chronic hypotension, and renal artery stenosis. Also has microalbuminuria - Kidney function is stable but significantly reduced, with current function at about 30-37% of expected. - The plan is to order additional work up for further evaluation. - No changes will be made to his cardiac medications at this time to maintain fluid balance. - It was discussed that lowering the spironolactone dose from 50 mg to 25 mg may be considered in the future to potentially raise blood pressure and benefit kidney function, but no changes will be made at present. - The patient was strongly advised to avoid all ibuprofen and similar NSAIDs. 2. Bilateral Renal Artery Stenosis - The patient has moderate stenosis on the right and mild stenosis on the left, secondary to atherosclerosis. - No indication for Intervention - Therefore, the plan is to monitor without procedural intervention. 3. Hyponatremia And Fluid Management - The patient's sodium is low at 132 mEq/L, which is likely a side effect of Metolazone - The patient was counseled to avoid excessive water intake 4. Hypercalcemia - The patient has had persistently elevated calcium levels (10.3-10.7 mg/dL), which is likely secondary to high-dose vitamin D supplementation (2000 units daily). - The plan is to check serum vitamin D, parathyroid hormone (PTH), and repeat calcium levels and SPEP via blood test. - The patient was advised to continue his current vitamin D supply but to hold off on buying more until the lab results are reviewed. 5. Pulm HTN : On Orenitram Follow with Pulmonary. 6. Borderline elevation in blood sugar Recent A1c was 6.1% Has microalbuminuria Maintain A1C < 7% Would avoid using metformin if EGFR drops below 30 mL/minute due to the risk of lactic acidosis 7. Follow-Up And Coordination - Follow-up is scheduled for August after appointments with his primary care, pulmonary, and cardiovascular physicians. - Lab orders for blood and urine tests will be placed and can be completed at any time before the next appointment. . Orders: Orders Basic Metabolic Panel 1 Month N18.9 - Chronic kidney disease, unspecified Comprehensive Met. Panel 1 Month N18.9 - Chronic kidney disease, unspecified Parathyroid Hormone Intact 1 Month N18.9 - Chronic kidney disease, unspecified Vitamin D 25-OH Total 1 Month N18.9 - Chronic kidney disease, unspecified Creatinine Urine 1 Month N18.9 - Chronic kidney disease, unspecified Total Protein Urine Random 1 Month N18.9 - Chronic kidney disease, unspecified UA and rflx microscopic 1 Month N18.9 - Chronic kidney disease, unspecified Protein Electrophoresis, Serum 1 Month N18.9 - Chronic kidney disease, unspecified Patient Instructions: - You must completely stop taking ibuprofen or any similar pain relievers (like Advil, Motrin, Aleve). - Be careful not to drink too much water. Only drink if you feel thirsty. Drinking too much can lower the salt levels in your blood, which is not safe with your medications. - We will be ordering some lab tests (blood and urine) to check on your kidneys and calcium levels. Please have these done before your next appointment with us. - For now, continue taking the Vitamin D you currently have, but please do not buy any more. We will check your levels and adjust the dose if needed. - Do not make any changes to your heart or water pill medications. We will coordinate with your other doctors. - Please schedule a follow-up appointment to see us in August. Coding Level of Care Code New Pt Level 5 (95835) Diagnoses Chronic renal failure N18.9 Pulmonary hypertension I27.20 Time Spent (min) 50
== END 2025-06-29 11:14 | disposition home or self-care (01) ==
LOC: HO.HKA 10:23
PROVIDERS: PCP Internal Medicine; Visit Provider Internal Medicine Hypertension Specialist
DX: N18.9 Chronic kidney disease, unspecified (principal); I27.20 Pulmonary hypertension, unspecified
CPT/HCPCS: 99205

== ENCOUNTER → 2025-06-29 10:22 | Outpatient (BNVA) | payer MEDICARE, SELFPAY | PROVIDERS: PCP Internal Medicine; Visit Provider Internal Medicine Hypertension Specialist | DX: N18.9 Chronic kidney disease, unspecified (principal); I27.20 Pulmonary hypertension, unspecified; I70.1 Atherosclerosis of renal artery; E87.1 Hypo-osmolality and hyponatremia; E83.52 Hypercalcemia; R73.9 Hyperglycemia, unspecified | CPT/HCPCS: 99202 ==

== ENCOUNTER 2025-07-02 22:55 | Inpatient (IN) | payer MEDICARE, SELFPAY ==
--- NOTE | 2025-07-02 | ECG_ITS ---
Test Reason : ABDOMINAL PAIN Blood Pressure : */* mmHG Vent. Rate : 68 BPM Atrial Rate : 68 BPM P-R Int : 236 ms QRS Dur : 160 ms QT Int : 432 ms P-R-T Axes : 81 -82 17 degrees QTcB Int : 459 ms Sinus rhythm with 1st degree A-V block Right bundle branch block Left anterior fascicular block Bifascicular block Abnormal ECG When compared with ECG of 28-Jun-2025 04:10, No significant change was found Referred By: Generic ED Physician Electronically Signed By: MEENA GRAJEDA
--- NOTE | ~2025-07-02 | CT_ITS ---
CLINICAL HISTORY: hypoxia CT chest without contrast Comparison: CT/SR - CT ANGIO CHEST AORTA - 06/28/25 06:13 EST Findings: There is no cardiomegaly identified. There is moderate atherosclerotic disease of the coronary arteries. Dilated main pulmonary artery, measuring up to 4.5 cm. A few borderline lymph nodes are again noted within the mediastinum. Lungs exhibit centrilobular emphysema. There is mild interlobular septal thickening and faint ground-glass attenuation present, new from prior. Mild airway thickening noted. No effusion or pneumothorax. A few scattered sub 5 mm nodules are noted bilaterally. Reference axial image 46, there is a region of faint ground-glass density within the posterior lingula, nonspecific. No acute osseous finding. Impression: There is new mild interlobular septal thickening superimposed upon chronic changes. Mild edema possible. There is a new focus of ground-glass density within the lingula, nonspecific. Early infiltrate not entirely excludable. This document has been electronically signed by: Steve Gray MD on 07/03/2025 07:17:25
--- NOTE | ~2025-07-02 | CT_ITS ---
CLINICAL HISTORY: epigastric pain CT abdomen and pelvis without contrast Comparison: CT/SR - CT ANGIO ABDOMEN PELVIS - 06/28/25 06:13 EST Findings: No consolidation or effusion. Mild chronic interstitial changes of the lung bases. The gallbladder is absent. The liver, spleen, adrenal glands and pancreas are stable without acute process. Kidneys demonstrate multiple cysts without suspicious lesion or evidence of obstructive uropathy. The bladder is partially distended without focal abnormality. Diffuse fecal retention throughout the colon. Diverticulosis without diverticulitis. No bowel obstruction, free air, free fluid, abscess or significant adenopathy. Moderately severe atherosclerotic disease. No acute osseous finding. Impression: There is diffuse fecal retention throughout the colon without small-bowel obstruction. No definite acute process. Incidental findings as detailed. This document has been electronically signed by: Steve Gray MD on 07/03/2025 07:12:44
[2025-07-02 22:58] VITALS: BP 117/63; PULSE 73; RESP 20; TEMP 36.7; O2SAT 92; BMI 26.4
--- NOTE | 2025-07-02 23:11 | ED_ITS ---
HPI - Abdominal Pain General Chief Complaint: Abdominal Pain Stated Complaint: Stomach Pain Time Seen by Provider: 07/02/25 23:10 History of Present Illness ED Provider: Marco Antonio Li MD HPI narrative: [age] male who I personally saw overnight several days ago here in the emergency department for spasm like intermittent pain of the lower anterior chest wall it was quite atypical. He had essentially benign negative CT angio of the chest and abdomen excluding aortic dissection, he had flat troponins at approximately 40 and slightly elevated BNP that were attributable to chronic pulmonary hypertension and he intermittently uses oxygen which she has been at baseline. Returns for increasing more sharp upper abdominal lower chest discomfort consistent with the episodes he was having previously. Related Data Home Medications ?Medication ?Instructions ?Recorded ?Confirmed aspirin 81 mg tablet,delayed 81 mg PO DAILY 10/07/20 1 09/02/24 release (Adult Low Dose Aspirin) cholecalciferol (vitamin D3) 50 50 mcg PO DAILY 07/03/25 mcg (2,000 unit) capsule latanoprost 0.005 % eye drops 1 drp ophthalmic (eye) B EDTIME 08/25/24 07/03/25 lidocaine 5 % topical ointment 1 appl topical BEDTIME 01/12/25 07/03/25 gabapentin 300 mg capsule 600 mg PO BEDTIME 07/03/25 1 09/02/24 metformin 750 mg tablet,extended 750 mg PO BEDTIME 07/03/25 release 24 hr treprostinil diolamine 0.25 mg 0.25 mg PO TID 07/03/25 07/03/25 tablet,extended release (Orenitram) treprostinil diolamine 1 mg 1 mg PO TID 07/03/2507/03 tablet,extended release (Orenitram) Previous Rx's ?Medication ?Instructions ?Recorded spironolactone 50 mg tablet 50 mg PO DAILY #90 tabs potassium chloride 20 mEq 40 meq (2 x 20 mEq) PO DAILY #180 12/28/24 tablet,extended release tabs ibuprofen 800 mg tablet 800 mg PO TID #30 tabs 03/02 clonazepam 1 mg tablet 1 mg PO BEDTIME 90 days #90 tabs 04/30/25 empagliflozin 10 mg tablet 10 mg PO DAILY #90 tabs 10/ 08/25 (Jardiance) atorvastatin 80 mg tablet 80 mg PO DAILY #90 tabs 01/03 bumetanide 2 mg tablet 2 mg PO DAILY #90 tabs 06/16 diazepam 2 mg tablet (Valium) 2 mg PO TID PRN spasms 2 days #6 06/28/25 tabs metolazone 2.5 mg tablet 2.5 mg PO DAILY #90 tabs Allergies Allergy/AdvReac Type Severity Reaction Status Date / Time macitentan (From Opsumit) AdvReac fluid Verified 07/02/25 23:01 overload HAYFEVER Allergy Unknown RUNNY NOSE Uncoded 07/02/25 23:01 [facility] Past Medical History Medical History (Updated 07/04/25 @ 13:22 by Ernesto Thakur MD) Encounter for screening for malignant neoplasm of colon (~06/08/25) Chronic renal failure Vascular insufficiency of extremity Potassium deficiency Stenosis of left vertebral artery Vitamin D deficiency Type 2 diabetes mellitus Depression Pulmonary hypertension Anxiety Obesity (BMI 30-39.9) Nocturnal hypoxemia Obesity (BMI 30-39.9) Sleep apnea Right heart failure Enlarged RV (right ventricle) Hyperlipidemia HTN (hypertension) Aortic stenosis Surgical History History of colonoscopy (~09/15/14) S/P cardiac catheterization Hx of appendectomy Hx of tonsillectomy History of laparoscopic cholecystectomy Family History Family History Father CVD (cardiovascular disease) Mother Brain tumor Social History Social History Household Members: Spouse Housing: House Do you presently have visiting nurse or other home services: No Alcohol intake: current Alcohol intake frequency: holidays/special occasions only Comment: PT REFUSING OUR SOCKS. 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 Head: Atraumatic Eyes: Anicteric, Normal conjunctiva. ENT: Moist mucosa, no pallor. ? Neck: Supple. Skin: ?No observable rash or bruising on exposed or examined skin Respiratory: Breathing comfortably, No distress.Clear to auscultation bilaterally, symmetric chest expansion, No wheeze, rales, ronchi. Cardiovascular: Regular rate and rhythm. No murmurs or rub. Well perfused periphery, warm extremities. No edema. ? Abdominal: No focal tenderness. Soft, no objective distension. No palpable masses or obvious organomegaly. ?No guarding, no rebound tenderness or other peritoneal findings. : No flank tenderness. Neuro: Alert. Gross movement of all extremities intact. ? Psych: Calm. Cooperative. MSK: No grossly visible deformity. Vital signs: See flowsheet Vital Signs: Vital Signs - 24 hr 07/02/25 22:58 Temperature 98.1 F Pulse Rate 73 Respiratory Rate 20 Blood Pressure 117/63 Pulse Oximetry 92 Oxygen Delivery Method Room Air BMI result Body Mass Index 26.4 Medical Decision Making Medical Decision Making [facility] Narrative: [age] male with recurrent episode of abdominal pain this time more in the epigastrium. Recent CTA exclude dissection or other pathology. Infrequent alcohol use. No obvious clear triggers certainly no snake bites or rare causes of pancreatitis lipase minimally elevated but this could be the cause of the patient's colicky like symptoms. CBD is normal caliber Lab Data [facility] Lab Attestation statement: I reviewed the patient's lab results. 07/04/25 07:59 07/04/25 07:59 Labs: Lab Results 07/02/25 07/02/25 07/02/25 Range/Units 23:34 23:34 23:34 WBC 10.2 (4.8-10.8) X10*3/uL RBC 4.64 (4.60-5.80) X10*6/uL Hgb 14.9 (14.0-18.0) g/dl Hct 41.9 L (42.0-52.0) % MCV 90.3 (80.0-98.0) fL MCH 32.1 (27.0-33.0) pg MCHC 35.6 (31.0-36.0) g/dl RDW 13.6 (11.0-16.0) % Plt Count 166 (160-400) X10*3/uL MPV 9.6 (9.4-12.4) fL Immature Gran % (Auto) 0.5 H (0.0-0.4) % Neut % (Auto) 74.6 H (45-73) % Lymph % (Auto) 13.0 L (20-40) % [place] % (Auto) 8.5 (2-11) % Eos % (Auto) 2.4 (0-4) % Baso % (Auto) 1.0 (0-2) % Lymph # (Auto) 1.3 (1.2-4.9) X10*3/uL [place] # (Auto) 0.9 (0.1-1.2) X10*3/uL Eos # (Auto) 0.2 (0.0-0.4) X10*3/uL Baso # (Auto) 0.1 (0.0-0.2) X10*3/uL Abs Immat Gran (auto) 0.05 H (0.00-0.03) X10*3/uL Absolute Neuts (auto) 7.6 (2.0-8.3) x10*3/uL Absolute Nucleated RBC 0.000 (0.0-0.012) X10*3/uL Nucleated RBC % (auto) 0.0 (0.0-0.2) /100WBC Sodium 133 L (135-145) mmol/L Potassium 4.8 D (3.3-5.1) mmol/L Chloride 95 L (96-108) mmol/L Carbon Dioxide 29 (22-29) mmol/L Anion Gap 14 (12-20) BUN 92 H (9-16) mg/dL Creatinine 2.01 H (0.5-1.4) mg/dL Estim Creat Clear Calc 34.3 Estimated GFR 33 Random Glucose 106 (60-115) mg/dL Calcium 10.4 H (8.4-10.2) mg/dL Total Bilirubin 0.9 0.9 (0.0-1.0) mg/dL Direct Bilirubin 0.4 (0.0-0.5) mg/dL AST 42 H 44 H (5-37) U/L ALT 38 (0-40) U/L Alkaline Phosphatase (39-117) U/L Troponin I High Sens (<3.5-35.0) ng/L Total Protein (6.5-8.0) g/dL Albumin (3.5-5.0) g/dL Lipase (8-78) U/L 07/02/25 07/02/25 07/02/25 Range/Units 23:34 23:34 23:34 WBC (4.8-10.8) X10*3/uL RBC (4.60-5.80) X10*6/uL Hgb (14.0-18.0) g/dl Hct (42.0-52.0) % MCV (80.0-98.0) fL MCH (27.0-33.0) pg MCHC (31.0-36.0) g/dl RDW (11.0-16.0) % Plt Count (160-400) X10*3/uL MPV (9.4-12.4) fL Immature Gran % (Auto) (0.0-0.4) % Neut % (Auto) (45-73) % Lymph % (Auto) (20-40) % [place] % (Auto) (2-11) % Eos % (Auto) (0-4) % Baso % (Auto) (0-2) % Lymph # (Auto) (1.2-4.9) X10*3/uL [place] # (Auto) (0.1-1.2) X10*3/uL Eos # (Auto) (0.0-0.4) X10*3/uL Baso # (Auto) (0.0-0.2) X10*3/uL Abs Immat Gran (auto) (0.00-0.03) X10*3/uL Absolute Neuts (auto) (2.0-8.3) x10*3/uL Absolute Nucleated RBC (0.0-0.012) X10*3/uL Nucleated RBC % (auto) (0.0-0.2) /100WBC Sodium (135-145) mmol/L Potassium (3.3-5.1) mmol/L Chloride (96-108) mmol/L Carbon Dioxide (22-29) mmol/L Anion Gap (12-20) BUN (9-16) mg/dL Creatinine (0.5-1.4) mg/dL Estim Creat Clear Calc Estimated GFR Random Glucose (60-115) mg/dL Calcium (8.4-10.2) mg/dL Total Bilirubin (0.0-1.0) mg/dL Direct Bilirubin (0.0-0.5) mg/dL AST (5-37) U/L ALT 42 H (0-40) U/L Alkaline Phosphatase 132 H 139 H (39-117) U/L Troponin I High Sens 43.4 H (<3.5-35.0) ng/L Total Protein 7.3 7.9 (6.5-8.0) g/dL Albumin 4.2 (3.5-5.0) g/dL Lipase (8-78) U/L 07/02/25 07/02/25 Range/Units 23:34 23:34 WBC (4.8-10.8) X10*3/uL RBC (4.60-5.80) X10*6/uL Hgb (14.0-18.0) g/dl Hct (42.0-52.0) % MCV (80.0-98.0) fL MCH (27.0-33.0) pg MCHC (31.0-36.0) g/dl RDW (11.0-16.0) % Plt Count (160-400) X10*3/uL MPV (9.4-12.4) fL Immature Gran % (Auto) (0.0-0.4) % Neut % (Auto) (45-73) % Lymph % (Auto) (20-40) % [place] % (Auto) (2-11) % Eos % (Auto) (0-4) % Baso % (Auto) (0-2) % Lymph # (Auto) (1.2-4.9) X10*3/uL [place] # (Auto) (0.1-1.2) X10*3/uL Eos # (Auto) (0.0-0.4) X10*3/uL Baso # (Auto) (0.0-0.2) X10*3/uL Abs Immat Gran (auto) (0.00-0.03) X10*3/uL Absolute Neuts (auto) (2.0-8.3) x10*3/uL Absolute Nucleated RBC (0.0-0.012) X10*3/uL Nucleated RBC % (auto) (0.0-0.2) /100WBC Sodium (135-145) mmol/L Potassium (3.3-5.1) mmol/L Chloride (96-108) mmol/L Carbon Dioxide (22-29) mmol/L Anion Gap (12-20) BUN (9-16) mg/dL Creatinine (0.5-1.4) mg/dL Estim Creat Clear Calc Estimated GFR Random Glucose (60-115) mg/dL Calcium (8.4-10.2) mg/dL Total Bilirubin (0.0-1.0) mg/dL Direct Bilirubin (0.0-0.5) mg/dL AST (5-37) U/L ALT (0-40) U/L Alkaline Phosphatase (39-117) U/L Troponin I High Sens (<3.5-35.0) ng/L Total Protein (6.5-8.0) g/dL Albumin 4.4 (3.5-5.0) g/dL Lipase 120 H 128 H (8-78) U/L Independent Interpretation I performed an independent interpretation of an: EKG (Nonischemic) Medications Administered Generic Name Dose Route Start Last Admin Trade Name Christoq PRN Reason Stop Dose Admin Aspirin 81 mg 07/04/25 09:00 07/05/25 08:42 Aspirin Enteric Coated 81 Mg Tablet. PO 81 mg DAILY FRANCHESKA Administration Atorvastatin Calcium 80 mg 07/04/25 09:00 07/05/25 08:43 Atorvastatin Calcium 80 Mg Tablet PO 80 mg DAILY FRANCHESKA Administration Clonazepam 1 mg 07/03/25 21:00 07/04/25 21:28 Clonazepam 1 Mg Tablet PO 1 mg BEDTIME FRANCHESKA Administration Diazepam 2 mg 07/03/25 13:45 07/04/25 21:40 Diazepam 2 Mg Tablet PO 2 mg TID PRN Administration spasms Gabapentin 600 mg 07/03/25 21:00 07/04/25 21:28 Gabapentin 300 Mg Capsule PO 600 mg BEDTIME FRANCHESKA Administration Heparin Sodium (Porcine) 5,000 unit 07/03/25 09:00 07/05/25 08:44 Heparin Sodium,Porcine 5,000 Unit/Ml Vial SUBCUT 5,000 unit Q8H FRANCHESKA Administration Hydromorphone HCl 0.5 mg 07/03/25 11:50 07/04/25 19:34 Hydromorphone Hcl 1 Mg/Ml Syringe IVPUSH 0.5 mg Q4H PRN Administration Pain, Moderate(Pain Scale 4-6) Protocol Insulin Human Lispro 0 unit 07/03/25 07:30 07/05/25 11:52 Insulin Lispro 100 Unit/Ml 3 Ml Vial SUBCUT Not Given QIDACHS [facility] Protocol Latanoprost 1 drop 07/03/25 22:00 07/04/25 21:28 Latanoprost 0.005 % Ophth Rekha 2.5 Ml Drops EYE-BOTH 1 drop BEDTIME FRANCHESKA Administration Lidocaine HCl 1 appl 07/03/25 18:55 07/04/25 21:30 Lidocaine 4 % Cream Kit TOPICAL 1 appl TID PRN Administration neuropathy Protocol Non-Formulary Medication 1 mg 07/03/25 15:00 07/05/25 08:41 Treprostinil Diolamine [Orenitram] PO 1 mg TID FRANCHESKA Administration Non-Formulary Medication 0.25 mg 07/03/25 15:00 07/05/25 08:42 Treprostinil Diolamine [Orenitram] PO 0.25 mg TID FRANCHESKA Administration Pantoprazole Sodium 40 mg 07/03/25 06:30 07/05/25 05:37 Pantoprazole Sodium 40 Mg/10 Ml Vial IVPUSH 40 mg DAILY@0630 [facility] Administration Sodium Chloride 3 ml 07/03/25 08:00 07/05/25 08:44 0.9 % Sodium Chloride Flush 3 Ml Syringe IVFLUSH 3 ml QSHIFT [facility] Administration Vitamin D 50 mcg 07/04/25 09:00 07/05/25 08:43 Cholecalciferol (Vitamin D3) 25 Mcg Tablet PO 50 mcg DAILY [facility] Administration Discontinued Medications Generic Name Dose Route Start Last Admin Trade Name Freq PRN Reason Stop Dose Admin Aspirin 81 mg 07/03/25 15:21 07/03/25 15:39 Aspirin 81 Mg Tab.Chew PO 07/03/25 15:22 81 mg ONCE ONE Administration Bupivacaine HCl 30 ml 07/02/25 23:10 07/03/25 01:41 Bupivacaine Mpf 0.25 % 30 Ml Vial INFILTRATI 07/02/25 23:11 Not Given ONCE ONE Hydromorphone HCl 0.5 mg 11/22/25 00:31 07/03/25 01:01 Hydromorphone Hcl 0.5 Mg/0.5 Ml Syringe IVPUSH 07/03/25 00:32 0.5 mg ONCE ONE Administration Protocol Lactated Ringer's 1,000 mls @ 125 mls/hr 07/03/25 00:45 07/05/25 01:00 Lr IVCONT Infused .Q8H FRANCHESKA Infusion Lactated Ringer's 1,000 mls @ 999 mls/hr 07/03/25 04:30 07/03/25 05:36 Lr IV 07/03/25 05:30 Infused .Q1H1M FRANCHESKA Infusion Pantoprazole Sodium 40 mg 07/02/25 23:19 07/02/25 23:44 Pantoprazole Sodium 40 Mg/10 Ml Vial IVPUSH 07/02/25 23:20 40 mg ONCE ONE Administration Sucralfate 1 gm 07/02/25 23:18 07/02/25 23:44 Sucralfate Oral Suspension 1 Gm/10 Ml Oral.Susp PO 07/02/25 23:19 1 gm ONCE ONE Administration Discharge Plan Discharge Clinical Impression: Abdominal pain Patient Disposition: Admitted As Inpatient Interventions: Admission Worksheet (ED) Last Done: 07/03/25 04:10 Discharge Date/Time: 07/03/25 10:32
[2025-07-02 23:40] LABS: MANUAL DIFF FLAG NO
[2025-07-02] MEDS: Sucralfate Oral Suspension 1 GM/10 ML ORAL.SUSP PO (23:44)
[2025-07-02 23:48] LABS: Hematocrit 41.9 % (42.0-52.0); Hemoglobin 14.9 g/dl (14.0-18.0); Imm Gran Abs Auto 0.05 X10*3/uL (0.00-0.03); Imm Gran Pct Auto 0.5 % (0.0-0.4); Lymphocytes Absolute Auto 1.3 X10*3/uL (1.2-4.9); Mean Corpuscular HGB Conc 35.6 g/dl (31.0-36.0); Mean Corpuscular Hemoglobin 32.1 pg (27.0-33.0); Mean Corpuscular Volume 90.3 fL (80.0-98.0); NRBC Abs Auto 0.000 X10*3/uL (0.0-0.012); NRBC Pct Auto 0.0 /100WBC (0.0-0.2); Platelet Count 166 X10*3/uL (160-400); Red Blood Count 4.64 X10*6/uL (4.60-5.80); White Blood Count 10.2 X10*3/uL (4.8-10.8)
[2025-07-02 23:54] LABS: Alanine Aminotransferase 38 U/L (0-40); Albumin Level 4.2 g/dL (3.5-5.0); Alkaline Phosphatase 132 U/L (39-117); Anion Gap 14 (12-20); Aspartate Amino Transferase 42 U/L (5-37); Blood Urea Nitrogen 92 mg/dL (9-16); Calcium 10.4 mg/dL (8.4-10.2); Carbon Dioxide 29 mmol/L (22-29); Chloride 95 mmol/L (96-108); Creatinine Clr Calc Pharmacy 34.3; Estimated Glomerular Filt Rate 33; Lipase 120 U/L (8-78); Potassium 4.8 mmol/L (3.3-5.1); Sodium 133 mmol/L (135-145); Total Protein 7.3 g/dL (6.5-8.0)
[2025-07-02 23:56] LABS: Alanine Aminotransferase 42 U/L (0-40); Albumin Level 4.4 g/dL (3.5-5.0); Alkaline Phosphatase 139 U/L (39-117); Aspartate Amino Transferase 44 U/L (5-37); Lipase 128 U/L (8-78); Total Protein 7.9 g/dL (6.5-8.0)
[2025-07-03] VITALS (21 sets, daily range): BP systolic 84–127; BP diastolic 45–69; PULSE 51–74; RESP 13–20; TEMP 36.3–37.1; O2SAT 88–98; BMI 28.2
[2025-07-03 00:03] LABS: Troponin-I High Sensitivity 43.4 ng/L (<3.5-35.0)
--- NOTE | 2025-07-03 00:34 | PM.IMHP ---
History of Present Illness Date of Service: 07/03/25 Chief Complaint: abd pain 70-year-old male with a past medical history of HTN, HLD, dm, CAD, CHF, aortic stenosis, daytime somnolence, pulmonary hypertension, peripheral vascular disease, CKD, anxiety, depression, sleep apnea; presented to the hospital today with a chief complaint of abdominal pain. Patient mentions since 1 day he has been having abdominal pain-located in the epigastrium associated myelinolysis; denies any vomiting or diarrhea. Denies any food poisoning. Patient denies having similar kind of pain in the past. Reports he occasionally drinks alcohol. Patient denies any chest pain or palpitations. Denies any fever chills cough or sputum production. Epigastric pain is sharp in nature, intermittent. No aggravating or alleviating factors. Denies any association with the food. Denies any dysphagia or odynophagia. Review of all other systems is negative except mentioned above ER course: Per ER team, patient initially presented on the 28 of June with similar complaints; has had CT abdomen pelvis done which showed no acute intra-abdominal process at the time; subsequently discharged home. Patient presented back again with the same complaints. Noted have epigastric tenderness without any guarding or rigidity. Lipase slightly elevated. Liver enzymes slightly elevated. Concern for possible pancreatitis. Patient has cholecystectomy done in the past. CBD within normal limits. [facility] Medical History (Updated 07/03/25 @ 01:01 by Leroy Jarrett MD) Encounter for screening for malignant neoplasm of colon (~06/08/25) Chronic renal failure Vascular insufficiency of extremity Potassium deficiency Stenosis of left vertebral artery Vitamin D deficiency Type 2 diabetes mellitus Depression Pulmonary hypertension Anxiety Obesity (BMI 30-39.9) Nocturnal hypoxemia Obesity (BMI 30-39.9) Sleep apnea Right heart failure Enlarged RV (right ventricle) Hyperlipidemia HTN (hypertension) Aortic stenosis Family History Father CVD (cardiovascular disease) Mother Brain tumor Surgical History History of colonoscopy (~09/15/14) S/P cardiac catheterization Hx of appendectomy Hx of tonsillectomy History of laparoscopic cholecystectomy Social History Housing: House Alcohol intake: current Alcohol intake frequency: holidays/special occasions only Patient Tobacco Use Status: Former Tobacco user Smoked in Last 30 Days: No Use of substances other than those prescribed or required for medical reasons: No Advance Directives: No Advance Directives Information Provided: No Do you have a plan to hurt others: No Plan service: No Current occupational status: employed and retired 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 Cognitive needs: No Hearing needs: No Vision needs: Yes (reading glasses) Meds Allergies Allergy/AdvReac Type Severity Reaction Status Date / Time macitentan (From Opsumit) AdvReac fluid Verified 07/02/25 23:01 overload HAYFEVER Allergy Unknown RUNNY NOSE Uncoded 07/02/25 23:01 Active Medications: Current Medications Acetaminophen (Acetaminophen 325 Mg Tablet) 650 mg PO Q6H PRN PRN Reason: Pain, Mild 1-3,fever,headache Calcium Carbonate (Calcium Carbonate 750 Mg Tab.Chew) 750 mg PO Q4H PRN PRN Reason: Heartburn Melatonin (Melatonin 3 Mg Tablet) 6 mg PO BEDTIME PRN PRN Reason: Insomnia Sodium Chloride (0.9 % Sodium Chloride Flush 3 Ml Syringe) 3 ml IVFLUSH QSHIFT [facility] Home Medications ?Medication ?Instructions ?Recorded ?Confirmed ?Last Taken ?Type aspirin 81 mg tablet,delayed 81 mg PO DAILY 10/07/20 06/29/25 Unknown History release (Adult Low Dose Aspirin) cholecalciferol (vitamin D3) 50 50 mcg PO DAILY 10/07/20 06/29/25 Unknown History mcg (2,000 unit) capsule latanoprost 0.005 % eye drops drp ophthalmic (eye) 08/25/24 06/29/25 Unknown History lidocaine 5 % topical ointment topical 01/12/25 06/29/25 Unknown History treprostinil diolamine 2.5 mg 0.5 mg PO Q8H 01/14/25 06/29/25 Unknown History tablet,extended release (Orenitram) gabapentin 300 mg capsule See Rx Instructions PO BEDTIME 03/22/25 06/29/25 Unknown History Physical Exam Vital Signs and Narrative: Vital Signs: Last Vital Signs Temp 98.1 F 07/02/25 22:58 Pulse 73 07/02/25 22:58 Resp 20 07/02/25 22:58 BP 117/63 07/02/25 22:58 Pulse Ox 92 07/02/25 22:58 O2 Del Method Room Air 07/02/25 22:58 BMI result Body Mass Index 26.4 Gen: Appears be in no acute distress HEENT: NCAT, Moist mucosa. Pulmonary: Vesicular breath sounds, fair air entry CVS: Normal S1-S2 Abdomen: BS+, Soft, tender in the epigastrium; no guarding no rigidity Extremities: Warm well perfused Neuro: Alert and awake. Results Labs 07/02/25 23:34 07/02/25 23:34 Labs: Laboratory Results - last 24 hr 07/02/25 07/02/25 07/02/25 23:34 23:34 23:34 MCV 90.3 MCH 32.1 MCHC 35.6 RDW 13.6 Plt Count 166 MPV 9.6 Immature Gran % (Auto) 0.5 H Neut % (Auto) 74.6 H Lymph % (Auto) 13.0 L [place] % (Auto) 8.5 Eos % (Auto) 2.4 Baso % (Auto) 1.0 Lymph # (Auto) 1.3 [place] # (Auto) 0.9 Eos # (Auto) 0.2 Baso # (Auto) 0.1 Abs Immat Gran (auto) 0.05 H Absolute Neuts (auto) 7.6 Absolute Nucleated RBC 0.000 Nucleated RBC % (auto) 0.0 Anion Gap 14 Estim Creat Clear Calc 34.3 Estimated GFR 33 Random Glucose 106 Calcium 10.4 H Total Bilirubin 0.9 0.9 Direct Bilirubin 0.4 AST 42 H 44 H ALT 38 Alkaline Phosphatase Troponin I High Sens Total Protein Albumin Lipase 07/02/25 07/02/25 07/02/25 23:34 23:34 23:34 MCV MCH MCHC RDW Plt Count MPV Immature Gran % (Auto) Neut % (Auto) Lymph % (Auto) [place] % (Auto) Eos % (Auto) Baso % (Auto) Lymph # (Auto) [place] # (Auto) Eos # (Auto) Baso # (Auto) Abs Immat Gran (auto) Absolute Neuts (auto) Absolute Nucleated RBC Nucleated RBC % (auto) Anion Gap Estim Creat Clear Calc Estimated GFR Random Glucose Calcium Total Bilirubin Direct Bilirubin AST ALT 42 H Alkaline Phosphatase 132 H 139 H Troponin I High Sens 43.4 H Total Protein 7.3 7.9 Albumin 4.2 Lipase 07/02/25 07/02/25 23:34 23:34 MCV MCH MCHC RDW Plt Count MPV Immature Gran % (Auto) Neut % (Auto) Lymph % (Auto) [place] % (Auto) Eos % (Auto) Baso % (Auto) Lymph # (Auto) [place] # (Auto) Eos # (Auto) Baso # (Auto) Abs Immat Gran (auto) Absolute Neuts (auto) Absolute Nucleated RBC Nucleated RBC % (auto) Anion Gap Estim Creat Clear Calc Estimated GFR Random Glucose Calcium Total Bilirubin Direct Bilirubin AST ALT Alkaline Phosphatase Troponin I High Sens Total Protein Albumin 4.4 Lipase 120 H 128 H Assessment and Plan (1) Abdominal pain: Qualifiers: Abdominal location: epigastric Qualified Code(s): R10.13 - Epigastric pain Status: Acute Plan 70-year-old male with a past medical history of HTN, HLD, dm, CAD, CHF, aortic stenosis, daytime somnolence, pulmonary hypertension, peripheral vascular disease, CKD, anxiety, depression, sleep apnea; presented to the hospital today with a chief complaint of abdominal pain. Noted to have pancreatitis. Pancreatitis: Transaminitis: Patient reports occasional alcohol use. Has a drink prior to coming to the hospital. Denies any food poisoning. Had similar presentation on June 28-CT abdomen pelvis at the time showed no acute findings. CBD normal limits. Surgically absent gallbladder. Patient refused MRI abdomen due to claustrophobia. Refused medications to calm him down prior to the procedure as well. Gastroenterology consult Pain control Advanced diet as tolerated Acute hepatitis panel CHF: Stable Diabetes: Insulin sliding scale Hypertension: Blood pressure normal side hold home antihypertensives for now SHAKA: Patient uses CPAP at night Med reconciliation: Continue home medications once med rec completed by pharmacy in a.m. DVT prophylaxis: Subcu heparin Code status: Full code Quality Stroke Does the patient have a stroke diagnosis?: No VTE Prior VTE?: No VTE Risk Level:: Medical - moderate - high VTE Device Contraindication: Treatment Not Indicated VTE Drug Contraindication: N/A - Med Ordered
[2025-07-03] MEDS: Lactated Ringers 1,000 ML 100 ML IVCONT ×2 (01:13→10:44)
--- NOTE | 2025-07-03 01:42 | PC.NURSE ---
Admitting hospitilast to bedside at approx 0100 to discuss plans with the patient. RN to bedside to medicate the pt per OCT for continued 6/10 epigastric pain. He reports that the pain level fluctuates and is also intermittently experiencing right calf cramping/pain that this RN has been assisting with muscle massage and heat pack application. The pt was reported by the hospitalist to become apnic when he takes dilaudid, RN connected patient to the telemetry monitor and placed an O2 probe on his finger and will allow for continuous monitoring. The pt was noted to be 88% on room air, he reports wearing supplemental O2 at 3LPM and uses a CPAP machine at bedtime but states he does not need it. RN made hospitalist aware of both and new orders obtained. Pt initially was placed on 3LPM via NC with minimal improvement, difficult time getting and maintaining the pt above 90, he was noted to be a mouth breather and placed on an oxymask at 4LPM with positive results. Pain medication with some relief reported, calf muscle cramps have since subsided
--- NOTE | 2025-07-03 03:58 | PC.NURSE ---
Hospitalist outreached via [facility] at 0340 to make him aware that this patient has been hypotensive with low BPs for the past hour... pt noted to have systolics in the 80s and 90s. He denies the presence of symptoms and offers no complaints at this time. Bed assignement has been made however RN awaiting to hear back from hospitalist prior to report entry to see if there are any additional orders or concerns prior to transport to the floor.
[2025-07-03 04:11] LABS: Hematocrit 42.1 % (42.0-52.0); Hemoglobin 14.7 g/dl (14.0-18.0); Mean Corpuscular HGB Conc 34.9 g/dl (31.0-36.0); Mean Corpuscular Hemoglobin 32.1 pg (27.0-33.0); Mean Corpuscular Volume 91.9 fL (80.0-98.0); NRBC Abs Auto 0.000 X10*3/uL (0.0-0.012); NRBC Pct Auto 0.0 /100WBC (0.0-0.2); Platelet Count 164 X10*3/uL (160-400); Red Blood Count 4.58 X10*6/uL (4.60-5.80); White Blood Count 9.4 X10*3/uL (4.8-10.8)
--- NOTE | 2025-07-03 04:23 | PC.NURSE ---
RN received tiger from hospitalist, call made and plan discussed. New orders obtained for the pt to receive a fluid bolus of LR and to have a CT of his abd/pelvis as well as his chest. The pt continues to rest in his bed without issue and/or distress noted, eyes closed and respirations even/unlabored. Primary RN on the floor made aware. RN will reassess and update the provider once complete
[2025-07-03 04:27] LABS: Alanine Aminotransferase 32 U/L (0-40); Albumin Level 3.9 g/dL (3.5-5.0); Alkaline Phosphatase 124 U/L (39-117); Anion Gap 15 (12-20); Aspartate Amino Transferase 39 U/L (5-37); Blood Urea Nitrogen 98 mg/dL (9-16); Calcium 10.0 mg/dL (8.4-10.2); Carbon Dioxide 25 mmol/L (22-29); Chloride 97 mmol/L (96-108); Creatinine Clr Calc Pharmacy 36.8; Estimated Glomerular Filt Rate 36; Potassium 4.7 mmol/L (3.3-5.1); Sodium 132 mmol/L (135-145); Total Protein 6.9 g/dL (6.5-8.0)
[2025-07-03] MEDS: Lactated Ringers 1,000 ML 999 ML IV (04:30)
--- NOTE | 2025-07-03 05:15 | PC.NURSE ---
RN received the pt's prescribed Orenitram tablets (6 in total; 3 1mg and 3 0.25mg). medication was secured/placed in a pharmacy/patient medication bag and will either go up to pharmacy and/or accompany the pt to the floor which ever comes first.
--- NOTE | 2025-07-03 05:39 | HO.NURTONUR ---
70 yo male presenting again for epigastric vs luq abdominal pain without associated N/V. He was seen here for similar earlier in the week and does confirm pain this date is better than before although it will not go away. He has a #22 to the left hand, medication received in the ED provided minimal to no relief/improvement in pain however the dilaudid dose did seem to assist him with his pain and with getting rest. The pt's lipase and LFTs were found to be elevated, he reports cholecystectomy in the past. Reports hx of claustrophobia and denies plan for MRI despite hospitalist recommendation and offering of anxiety medications prior to. The pt independently manages his ambulatory and toileting need. He was found to be hypoxic; with an O2 sat of 88% on room air prior to dilaudid administration; initially placed on 3LPM via NC (which he states he uses PRN at home) and then when there was no relief or improvement he was placed on 4LPM via Oxymask as the pt was noted to be a mouth breather.Pt reports that his BP typically runs low with a systolic in the low 100s however he was found to have a systolic in the 80s and 90s since 0230am. Hospitalist outreached, new orders received for LR Bolus and CT imaging of the pt's abd/pelvis and chest. Pt reports that he normally takes Orenitram TID with a recent dose increase to 1.25, adding that this is a medication we do not carry and that he knows he will have to bring in from home. Medications to be secured and sent to pharmacy and/or to the floor with the patient. He has been utilizing a urinal to assist/manage his toileting needs. Positive improvements noted after 1L LR Bolus
--- NOTE | 2025-07-03 06:17 | PC.NURSE ---
RN attempted to bring the pt's Orenitram tablets to the pharmacy. The pt and his brought these medications in a travel jar vs their original prescription bottles. Per pharmacy they cannot accept the medications to be used as his non-formulary meds as there is no identifiable expiration date, etc. Medications were given back to this RN. RN to hold medications until change of shift to see what incoming RN wants to do with the medications. An attempt will be made to contact his at home to make her aware of the updates and potential conflicts with his medication admin.
--- NOTE | 2025-07-03 07:04 | PC.NURSE ---
Pt expressed his frustration with pharmacy not being able to accept his medications from home despite explanation being given. This RN called [facility] pharmacy at to try and determine when these prescriptions were dispensed to see if there was a way to find out when the prescriptions were dispensed to ensure they are not . Destini DO from [facility] states the 0.25mg was initially prescribed 06/29 and the 1mg tablet was first prescribed 04/07. This rn called pharmacy to make them aware and per pharmacy, management to be outreached to determine if this is acceptable and can be utilized.
[2025-07-03 07:18] LABS: Glucose, Whole Blood 103 mg/dL (60-115)
--- NOTE | 2025-07-03 09:22 | PHA.MEDREC ---
Addendum entered by Felicia Lindsey RPh 07/03/25 21:54: LATANAPROST ADJUSTED TO BEDTIME DOSING PER PATIENT Addendum entered by Arcadio Morgan PharmD 07/03/25 09:30: reviewed Original Note: Pharmacy Consult ? Medication Reconciliation Pharmacy has completed the medication reconciliation. Confirmed medication list with patient and against claims history. Patient states that their Diazepam script was picked up this week but they have not taken any yet (PRN medication). Patient claims they only take Gabapentin bedtime dose of 2 capsules every night. Patient last took all other non-PRN medications yesterday.
[2025-07-03 11:13] LABS: Glucose, Whole Blood 120 mg/dL (60-115)
--- NOTE | 2025-07-03 13:56 | P.EN_ITS ---
Event Note Date of Service: 07/03/25 Event Note: Patient seen examined at bedside this morning, patient was recently admitted for pancreatitis. Patient mentioned that his last drink was on Saturday, patient states that he does not eat any greasy foods, avoids any sodas. At this time we will increase LR to 1.5mL/kg, we will adjust pain medications. Patient is scheduled for MRI, however refused. Lipid panel ordered. We will defer any diuretics her blood pressure medications at this time in the setting of leone creatitis. Time Spent With Patient Time: Total time managing care of this patient today ____ minutes.
[2025-07-03 14:41] LABS: Cholesterol 106 mg/dL (<200); HDL Cholesterol 49 mg/dL (>40); Triglycerides 65 mg/dL (<150)
[2025-07-03 16:29] LABS: Glucose, Whole Blood 107 mg/dL (60-115)
[2025-07-03] MEDS: Lactated Ringers 1,000 ML 125 ML IVCONT (19:57)
[2025-07-03 20:29] LABS: Glucose, Whole Blood 105 mg/dL (60-115)
[2025-07-03] MEDS: Lidocaine 4 % Cream KIT 1 APPL TOPICAL (21:46)
[2025-07-03] MEDS: Latanoprost 0.005 % Ophth Sol 2.5 ML DROPS 1 DROP EYE-BOTH (21:55)
--- NOTE | 2025-07-03 23:15 | CONS_ITS ---
DATE OF SERVICE: 07/03/2025 REFERRING PHYSICIAN: Dr. Jarrett REASON FOR CONSULTATION: Abdominal pain, pancreatitis, and transaminitis. HISTORY OF PRESENT ILLNESS: The patient is a pleasant 70-year-old man who was admitted to the hospital after presenting to the emergency room with complaints of abdominal pain. Symptoms began 1 day prior to admission with epigastric pain without vomiting or diarrhea. He had similar complaints and was seen in the emergency department [address] scanning at that time was unremarkable. On his most recent evaluation, he had laboratory studies documenting a mild elevation of his liver function tests with transaminases in the 44 and 42 range and a mild elevation of his alkaline phosphatase. These have improved today. Bilirubin has been normal. Lipase was elevated at 128. The patient describes undergoing cholecystectomy approximately [address] Brantley. Records are not available, but will be obtained. He has no history of common bile duct stones. MRI was ordered, but the patient declined this due to claustrophobia. PAST MEDICAL HISTORY: 1. Hypertension. 2. Hyperlipidemia. 3. Diabetes mellitus. 4. Coronary artery disease. 5. Congestive heart failure. 6. Pulmonary hypertension. 7. Aortic stenosis. 8. Peripheral vascular disease. 9. Chronic kidney disease. 10. Anxiety/depression. 11. Sleep apnea. CURRENT MEDICATIONS: Current medication list is reviewed in the chart. ALLERGIES: ALLERGY LIST IS REVIEWED. FAMILY HISTORY: This is reviewed with the patient and is noncontributory. SOCIAL HISTORY: There is no current tobacco, alcohol, or substance abuse. REVIEW OF SYSTEMS: SKIN: No pruritus. HEENT: Negative. CARDIOPULMONARY: No shortness of breath or chest pain. GASTROINTESTINAL: As above. GENITOURINARY: Negative. NEUROPSYCHIATRIC: Negative. PHYSICAL EXAMINATION: GENERAL: Shows a pleasant male, lying comfortably in bed. VITAL SIGNS: Reviewed in electronic medical record and are stable. SKIN: Anicteric. HEENT: Shows no scleral icterus. NECK: Without lymphadenopathy or thyromegaly. LUNGS: Clear. HEART: Shows a regular rate and rhythm. S1, S2. No murmur. ABDOMEN: Soft without focal masses or tenderness. Bowel sounds are present. No organomegaly is noted. EXTREMITIES: Without edema. LABORATORY DATA AND IMAGING STUDIES: Reviewed. IMPRESSION: Pancreatitis. His clinical course is consistent with mild episode of pancreatitis, possibly related to gallbladder disease, possibly related to biliary sludge or stones. At this time, he appears well with normalization of his LFTs and I would not recommend further evaluation with ERCP at this point. His CT scan is reassuring as much as the pancreas does not show significant changes from the pancreatitis. We discussed this today. I would recommend gradually advancing his diet and following him clinically treating him with IV fluids, pain medications, and careful monitoring. Thanks for asking me to see him. I will follow him in the hospital with you. MD DALLAS Triplett/JORGE / [phone]
[2025-07-04] VITALS (8 sets, daily range): BP systolic 95–108; BP diastolic 53–67; PULSE 61–88; RESP 15–20; TEMP 36.1–36.7; O2SAT 91–99
[2025-07-04 02:50] LABS: Appearance Urine Clear; Glucose Urine UA 500 mg/dL (Negative); PH 8.0 (5.0-9.0); Specific Gravity - Urine 1.010 (1.005-1.025)
[2025-07-04] MEDS: Lactated Ringers 1,000 ML 125 ML IVCONT ×3 (05:14→21:14)
[2025-07-04 07:54] LABS: Glucose, Whole Blood 103 mg/dL (60-115)
[2025-07-04 08:06] LABS: Hematocrit 38.0 % (42.0-52.0); Hemoglobin 13.4 g/dl (14.0-18.0); Mean Corpuscular HGB Conc 35.3 g/dl (31.0-36.0); Mean Corpuscular Hemoglobin 32.3 pg (27.0-33.0); Mean Corpuscular Volume 91.6 fL (80.0-98.0); NRBC Abs Auto 0.000 X10*3/uL (0.0-0.012); NRBC Pct Auto 0.0 /100WBC (0.0-0.2); Platelet Count 147 X10*3/uL (160-400); Red Blood Count 4.15 X10*6/uL (4.60-5.80); White Blood Count 6.6 X10*3/uL (4.8-10.8)
[2025-07-04] MEDS: Aspirin Enteric Coated 81 MG TABLET.DR PO (08:14)
[2025-07-04 08:21] LABS: Alanine Aminotransferase 28 U/L (0-40); Albumin Level 3.6 g/dL (3.5-5.0); Alkaline Phosphatase 121 U/L (39-117); Anion Gap 14 (12-20); Aspartate Amino Transferase 38 U/L (5-37); Blood Urea Nitrogen 55 mg/dL (9-16); Calcium 9.8 mg/dL (8.4-10.2); Carbon Dioxide 24 mmol/L (22-29); Chloride 99 mmol/L (96-108); Creatinine Clr Calc Pharmacy 51.0; Estimated Glomerular Filt Rate 47; Potassium 4.5 mmol/L (3.3-5.1); Sodium 132 mmol/L (135-145); Total Protein 6.4 g/dL (6.5-8.0)
--- NOTE | 2025-07-04 11:09 | MHC.CM.PN ---
PT REPORTS HE LIVES WITH HIS AND IS INDEPENDENT WITH CARE HE HAS A CPAP AND WEARS O2 AT NIGHT HCP ON FILE PCP: LINN ARAMBULA IMM DELIVERED DCP: HOME VIA PRIVATE TRANSPORT
[2025-07-04 12:01] LABS: Glucose, Whole Blood 147 mg/dL (60-115)
--- NOTE | 2025-07-04 13:21 | P.PNIM_ITS ---
Subjective Subjective Date of Service: 07/04/25 Interval History: Patient seen and examined at bedside this morning, patient states that he is able to tolerate his food better, mentions that he is had neuropathy of the toe for couple of years, usually mildly alleviated with lidocaine. Per nursing, patient has remote mask and was saturating 80% Review of Systems Review of Systems: Yes all other systems are reviewed and are negative Physical Exam 2 Exam: Exam: General: AxOx3, on supplemental oxygen Head: AT/NC ENT: Moist mucous membranes Neck: supple CVS; RRR, S1 S2 normal Lungs: Clear bilateral breath sounds, no wheezes or crackles Abd: Soft non tender, non distended Ext: No edema and no calf tenderness MSK: moving all 4 limbs Skin: No cyanosis or edema Psych: Cooperative with exam Vital Signs: Vital Signs: Last Vital Signs Temp 97.2 F 07/04/25 12:00 Pulse 61 07/04/25 12:00 Resp 20 07/04/25 12:00 BP 98/54 L 07/04/25 12:00 Pulse Ox 95 07/04/25 12:00 O2 Del Method BiPAP, Oxymask 07/04/25 12:00 O2 Flow Rate 2 07/04/25 12:00 BMI result Body Mass Index 28.2 Objective Data Active Medications Acetaminophen (Acetaminophen 325 Mg Tablet) 650 mg PO Q6H PRN PRN Reason: Pain, Mild 1-3,fever,headache Aspirin (Aspirin Enteric Coated 81 Mg Tablet.) 81 mg PO DAILY [facility] Last Admin: 07/04/25 08:14 Dose: 81 mg Documented By: JOSEPHINE Atorvastatin Calcium (Atorvastatin Calcium 80 Mg Tablet) 80 mg PO DAILY [facility] Last Admin: 07/04/25 08:15 Dose: 80 mg Documented By: JOSEPHINE Benzonatate (Benzonatate 100 Mg Capsule) 100 mg PO TID PRN PRN Reason: Cough Calcium Carbonate (Calcium Carbonate 750 Mg Tab.Chew) 750 mg PO Q4H PRN PRN Reason: Heartburn Clonazepam (Clonazepam 1 Mg Tablet) 1 mg PO BEDTIME [facility] Last Admin: 07/03/25 21:46 Dose: 1 mg Documented By: JASON Dextrose (Dextrose 50 % 25 Gm/50 Ml Syringe) 25 gm IVPUSH Q15M PRN; Protocol PRN Reason: per Hypoglycemia Standing Ord. Diazepam (Diazepam 2 Mg Tablet) 2 mg PO TID PRN PRN Reason: spasms Last Admin: 07/03/25 23:30 Dose: 2 mg Documented By: JASON Gabapentin (Gabapentin 300 Mg Capsule) 600 mg PO BEDTIME [facility] Last Admin: 07/03/25 21:46 Dose: 600 mg Documented By: JASON Glucose (Glucose Gel 15 Gm Gel..Gram.) 15 gm PO Q15M PRN; Protocol PRN Reason: per Hypoglycemia Standing Ord. Heparin Sodium (Porcine) (Heparin Sodium,Porcine 5,000 Unit/Ml Vial) 5,000 unit SUBCUT Q8H [facility] Last Admin: 07/04/25 08:14 Dose: 5,000 unit Documented By: RUNADINE Hydromorphone HCl (Hydromorphone Hcl 1 Mg/Ml Syringe) 0.5 mg IVPUSH Q4H PRN; Protocol PRN Reason: Pain, Moderate(Pain Scale 4-6) Last Admin: 07/03/25 12:56 Dose: 0.5 mg Documented By: FOSTEKR Hydromorphone HCl (Hydromorphone Hcl 1 Mg/Ml Syringe) 1 mg IVPUSH Q4H PRN; Protocol PRN Reason: Pain, Severe (Pain Scale 7-10) Lactated Ringer's (Lr) 1,000 mls @ 125 mls/hr IVCONT .Q8H [facility] Last Admin: 07/04/25 12:50 Dose: 125 mls/hr Documented By: MARI Insulin Human Lispro (Insulin Lispro 100 Unit/Ml 3 Ml Vial) 0 unit SUBCUT QIDACHS [facility]; Protocol Last Admin: 07/04/25 12:56 Dose: Not Given Documented By: MARI Non-Admin Reason: No Insulin Coverage Latanoprost (Latanoprost 0.005 % Ophth Rekha 2.5 Ml Drops) 1 drop EYE-BOTH BEDTIME [facility] Last Admin: 07/03/25 21:55 Dose: 1 drop Documented By: JASON Lidocaine HCl (Lidocaine 4 % Cream Kit) 1 appl TOPICAL TID PRN; Protocol PRN Reason: neuropathy Last Admin: 07/03/25 21:46 Dose: 1 appl Documented By: JASON Magnesium Hydroxide (Milk Of Magnesia 30 Ml Oral.Susp) 30 ml PO DAILY PRN PRN Reason: Constipation Melatonin (Melatonin 3 Mg Tablet) 6 mg PO BEDTIME PRN PRN Reason: Insomnia Non-Formulary Medication (Treprostinil Diolamine [Orenitram]) 1 mg PO TID [facility] Last Admin: 07/04/25 08:15 Dose: 1 mg Documented By: JOSEPHINE Non-Formulary Medication (Treprostinil Diolamine [Orenitram]) 0.25 mg PO TID [facility] Last Admin: 07/04/25 08:15 Dose: 0.25 mg Documented By: JOSEPHINE Pantoprazole Sodium (Pantoprazole Sodium 40 Mg/10 Ml Vial) 40 mg IVPUSH DAILY@0630 [facility] Last Admin: 07/04/25 06:00 Dose: 40 mg Documented By: JASON Sodium Chloride (0.9 % Sodium Chloride Flush 3 Ml Syringe) 3 ml IVFLUSH QSHIFT [facility] Last Admin: 07/04/25 08:18 Dose: Not Given Documented By: JOSEPHINE Non-Admin Reason: IV Running Vitamin D (Cholecalciferol (Vitamin D3) 25 Mcg Tablet) 50 mcg PO DAILY [facility] Last Admin: 07/04/25 08:14 Dose: 50 mcg Documented By: JOSEPHINE Labs 07/04/25 07:59 07/04/25 07:59 Labs: Laboratory Results - last 24 hr 07/03/25 07/03/25 07/03/25 14:18 16:21 20:21 MCV MCH MCHC RDW Plt Count MPV Absolute Nucleated RBC Nucleated RBC % (auto) Anion Gap Estim Creat Clear Calc Estimated GFR POC Glucose 107 105 Random Glucose Calcium Total Bilirubin AST ALT Alkaline Phosphatase Total Protein Albumin Triglycerides 65 Cholesterol 106 LDL Cholesterol, Calc 44 HDL Cholesterol 49 Urine Color Urine Appearance Urine pH Ur Specific Largo Urine Protein Urine Glucose (UA) Urine Ketones Urine Blood Urine Nitrite Ur Leukocyte Esterase Urine RBC Urine WBC Ur Squamous Epith Cells Urine Bacteria Hyaline Casts 07/04/25 07/04/25 07/04/25 02:27 07:43 07:59 MCV 91.6 MCH 32.3 MCHC 35.3 RDW 13.5 Plt Count 147 L MPV 10.2 Absolute Nucleated RBC 0.000 Nucleated RBC % (auto) 0.0 Anion Gap 14 Estim Creat Clear Calc 51.0 Estimated GFR 47 POC Glucose 103 Random Glucose 95 Calcium 9.8 Total Bilirubin 1.5 H AST 38 H ALT 28 Alkaline Phosphatase 121 H Total Protein 6.4 L Albumin 3.6 Triglycerides Cholesterol LDL Cholesterol, Calc HDL Cholesterol Urine Color Yellow Urine Appearance Clear Urine pH 8.0 Ur Specific [place] 1.010 Urine Protein Negative Urine Glucose (UA) 500 H Urine Ketones Negative Urine Blood Negative Urine Nitrite Negative Ur Leukocyte Esterase Negative Urine RBC 0-2 Urine WBC 0-5 Ur Squamous Epith Cells 0-2 Urine Bacteria None Seen Hyaline Casts 0-2 07/04/25 11:44 MCV MCH MCHC RDW Plt Count MPV Absolute Nucleated RBC Nucleated RBC % (auto) Anion Gap Estim Creat Clear Calc Estimated GFR POC Glucose 147 H Random Glucose Calcium Total Bilirubin AST ALT Alkaline Phosphatase Total Protein Albumin Triglycerides Cholesterol LDL Cholesterol, Calc HDL Cholesterol Urine Color Urine Appearance Urine pH Ur Specific Largo Urine Protein Urine Glucose (UA) Urine Ketones Urine Blood Urine Nitrite Ur Leukocyte Esterase Urine RBC Urine WBC Ur Squamous Epith Cells Urine Bacteria Hyaline Casts Assessment and Plan (1) Pulmonary hypertension: Status: Acute (2) Pancreatitis: Status: Acute Plan 70-year-old male with a past medical history of HTN, HLD, dm, CAD, CHF, aortic stenosis, daytime somnolence, pulmonary hypertension, peripheral vascular disease, CKD, anxiety, depression, sleep apnea; presented to the hospital today with a chief complaint of abdominal pain. Noted to have pancreatitis. Pancreatitis, acute, could be secondary to alcohol use, however patient is on Bumex, with some reports mentioned in the Bumex also lead to pancreatitis. Patient at this time refused MRI due to claustrophobia. Patient reports occasional alcohol use. Had a drink prior to coming to the hospital. Had similar presentation on June 28-CT abdomen pelvis at the time showed no acute findings. CBD normal limits. Surgically absent gallbladder. Gastroenterology consulted suggested on continuing IV fluids, pain medications and monitoring Advanced diet as tolerated right toe pain -continue lidocaine -will order uric acid to rule out possible gout, prior exam showing uric acid of 8.1. CHF: Stable Diabetes: Insulin sliding scale Hypertension: Blood pressure normal side hold home antihypertensives for now SHAKA: Patient uses CPAP at night DVT prophylaxis: Subcu heparin Code status: Full code Total time managing care of this patient today: 35 minutes. Quality Stroke Does the patient have a stroke diagnosis?: No VTE Prior VTE?: No VTE Risk Level:: Medical - moderate - high VTE Device Contraindication: Treatment Not Indicated VTE Drug Contraindication: N/A - Med Ordered
[2025-07-04 13:52] LABS: Uric Acid 8.9 mg/dL (3.4-7.0)
[2025-07-04 16:44] LABS: Glucose, Whole Blood 135 mg/dL (60-115)
[2025-07-04] MEDS: 0.9 % Sodium Chloride Flush 3 ML SYRINGE IVFLUSH (19:35)
[2025-07-04] MEDS: Latanoprost 0.005 % Ophth Sol 2.5 ML DROPS 1 DROP EYE-BOTH (21:28)
[2025-07-04 21:29] LABS: Glucose, Whole Blood 150 mg/dL (60-115)
[2025-07-04] MEDS: Lidocaine 4 % Cream KIT 1 APPL TOPICAL (21:30)
[2025-07-05 03:45] VITALS: PULSE 67; RESP 14; O2SAT 92
[2025-07-05 03:59] VITALS: BP 98/54; PULSE 56; RESP 18; TEMP 36.1; O2SAT 98
[2025-07-05 07:13] VITALS: BP 101/57; PULSE 58; RESP 20; TEMP 36.4; O2SAT 94
[2025-07-05 07:41] LABS: Glucose, Whole Blood 109 mg/dL (60-115)
[2025-07-05] MEDS: Aspirin Enteric Coated 81 MG TABLET.DR PO (08:42)
[2025-07-05] MEDS: 0.9 % Sodium Chloride Flush 3 ML SYRINGE IVFLUSH (08:44)
[2025-07-05 11:31] LABS: Glucose, Whole Blood 138 mg/dL (60-115)
[2025-07-05 11:32] VITALS: BP 98/56; PULSE 63; RESP 20; TEMP 36.3; O2SAT 93
--- NOTE | 2025-07-05 13:30 | MHC.CM.PN ---
Patient has been medically cleared for dc to home today, self care/Last IMM was addressed yesterday.
--- NOTE | 2025-07-05 13:33 | P.DS_ITS ---
DS: Providers Provider Date of Service: 07/05/25 Date of admission: 07/03/25 00:32 Date of discharge: 07/05/25 Primary care physician: Amilcar King MD Consults: 07/03/25 00:30 Consult to Gastroenterology Routine Consulting Provider: [facility] Gastroenterology Services Reason for consultation: abd pain; pancreatitis; transaminitis 07/04/25 01:40 Consult to Wound Care Routine Consulting Provider: [facility] Wound Care Management Reason for consultation: Right foot chronic wound DS: Diagnosis Discharge Diagnosis (1) Pancreatitis: Status: Acute (2) Pulmonary hypertension: Status: Acute DS: Summary Hospital Course Hospital Course: 70-year-old male with a past medical history of HTN, HLD, dm, CAD, CHF, aortic stenosis, daytime somnolence, pulmonary hypertension, peripheral vascular disease, CKD, anxiety, depression, sleep apnea; presented to the hospital today with a chief complaint of abdominal pain, diagnosed with pancreatitis. Patient scheduled for MRI, however refused to to claustrophobia. Patient at this time tolerating diet, no longer in pain. Patient counseled on discontinuing alcohol use, following up with Nephrology, Gastroenterology primary care provider in the outpatient setting. Patient resonated understanding. Pancreatitis, acute, could be secondary to alcohol use, however patient is on Bumex, with some reports mentioned in the Bumex also lead to pancreatitis. Patient at this time refused MRI due to claustrophobia. Patient reports occasional alcohol use. Had a drink prior to coming to the [facility]. Had similar presentation on June 28-CT abdomen pelvis at the time showed no acute findings. CBD normal limits. Surgically absent gallbladder. tolerating diet and no longer in pain, will d/c in stable condition, follow up as outpatient with GI and PCP right toe pain -continue lidocaine Gout -uric acid 8.9 -will initiate allopurinol at 50mg qd based on GFR Heart failure -hold metolazone and spironolactone in setting of low normal blood pressures -decrease bumex to 1mg qd -follow up with cardiology as outpatient Diabetes: continue home medication Hypertension: Blood pressure normal side hold home antihypertensives for now SHAKA: Patient uses CPAP at night Time Attestation Discharge Coordination Time (in mins): 35 minutes Quality: Safe Use of Opioids Does Pt have an Active Cancer Diagnosis on the Problem List?: No Quality: Stroke Does the patient have a stroke diagnosis?: No Physical Exam Exam: Exam: General: AxOx3, No acute distress on supplemental oxygen Head: AT/NC ENT: Moist mucous membranes Neck: supple CVS; RRR, S1 S2 normal Lungs: Clear bilateral breath sounds, no wheezes or crackles Abd: Soft non tender, non distended Ext: No edema and no calf tenderness, toe pain MSK: moving all 4 limbs Skin: No cyanosis or edema Psych: Cooperative with exam Neurology: no focal deficit Vital Signs: Vital Signs: Last Vital Signs Temp 97.4 F 07/05/25 11:32 Pulse 63 07/05/25 11:32 Resp 20 07/05/25 11:32 BP 98/56 L 07/05/25 11:32 Pulse Ox 93 07/05/25 11:32 O2 Del Method Nasal Cannula 07/05/25 11:32 O2 Flow Rate 2 07/05/25 11:32 BMI result Body Mass Index 28.2 DS: Data Data Completed and Pending Labs on day of discharge: Laboratory Results - last 24 hr 07/04/25 07/04/25 07/04/25 13:28 16:39 21:25 POC Glucose 135 H 150 H Uric Acid 8.9 H 07/05/25 07/05/25 07:38 11:22 POC Glucose 109 138 H Uric Acid Discharge Plan Discharge Anticipated Discharge Date/Time: 07/05/25 14:23 Patient Disposition: Home, Self-Care Discharge Diagnosis: Pancreatitis Gout Referrals: Osvaldo Black MD [Physician, Gastroenterology] - 1 Week Amilcar King MD [Primary Care Provider, Internal Medicine] - 1 Week Discharge Medications: New allopurinol 100 mg tablet 50 mg PO DAILY 30 Days Qty: 15 0RF oxycodone 5 mg capsule 5 mg PO Q6H PRN (Reason: Breakthrough Pain) 5 Days Qty: 15 0RF Rx Instructions: Partial Fill upon patient request. Continued potassium chloride 20 mEq tablet extended release 40 meq PO DAILY Qty: 180 3RF ibuprofen 800 mg tablet 800 mg PO TID Qty: 30 0RF Rx Instructions: Take 1 tablet with food three times daily clonazepam 1 mg tablet 1 mg PO BEDTIME 90 Days Qty: 90 1RF Jardiance 10 mg tablet 10 mg PO DAILY Qty: 90 3RF atorvastatin 80 mg tablet 80 mg PO DAILY Qty: 90 3RF diazepam [Valium] 2 mg tablet 2 mg PO TID PRN (Reason: spasms) 2 Days Qty: 6 0RF Patient Comments: Patient states they have not started taking as it is a PRN medication. Orenitram 0.25 mg Tablet Extended Release 0.25 mg PO TID Rx Instructions: take with 1mg tablet for 1.25 mg dose. Must be taken with food Orenitram 1 mg Tablet Extended Release 1 mg PO TID Rx Instructions: to be taken with 0.25mg for 1.25mg dose. Must be taken with food. gabapentin 300 mg Capsule 600 mg PO BEDTIME metformin 750 mg tablet extended release 24 hr 750 mg PO BEDTIME cholecalciferol (vitamin D3) 50 mcg (2,000 unit) capsule 50 mcg PO DAILY aspirin [Adult Low Dose Aspirin] 81 mg tablet,delayed release (DR/EC) 81 mg PO DAILY latanoprost 0.005 % drops 1 drp ophthalmic (eye) BEDTIME lidocaine 5 % ointment 1 appl topical BEDTIME Changed bumetanide 2 mg tablet 1 mg PO DAILY Qty: 90 3RF Held spironolactone 50 mg tablet 50 mg PO DAILY Qty: 90 1RF Hold Instructions: Resume on 07/12/25. metolazone 2.5 mg tablet 2.5 mg PO DAILY Qty: 90 1RF Hold Instructions: Resume on 07/12/25. Discharge Orders: Discharge Order (Routine); Ordered 07/05/25 Ordered By: Ernesto Thakur Diet: Low fat, low cholesterol Activity on Discharge: As tolerated Stand Alone Forms: Patient Portal Discharge page Print Language: Azeri Care Plan Goals: avoid alcohol use due to gout and pancreatitis follow up with primary care provider and gastroenterology Health Concerns: Pancreatitis Gout Plan of Treatment: decreased bumex to 1mg every day, hold spironolactone and metolazone given blood pressures initiate allopurinol 50mg for gout follow up with gastroenterology, nephrology and primary care provider avoid alcohol use and fatty diet Assessment: 70-year-old male with a past medical history of HTN, HLD, dm, CAD, CHF, aortic stenosis, daytime somnolence, pulmonary hypertension, peripheral vascular disease, CKD, anxiety, depression, sleep apnea; presented to the hospital today with a chief complaint of abdominal pain, diagnosed with pancreatitis. Patient scheduled for MRI, however refused to to claustrophobia. improved with IV fluids and pain medication. Patient Instructions: Pancreatitis (DC), Low Fat Diet (DC), DASH Eating Plan (DC), Mediterranean Diet (DC)
--- NOTE | 2025-07-05 14:13 | P.PNGI_ITS ---
Subjective Subjective Date of Service: 07/05/25 Interval History: seen this am Critical Care Time (minutes): 0 Physical Exam 2 Vital Signs: Vital Signs: Last Vital Signs Temp 97.4 F 07/05/25 11:32 Pulse 63 07/05/25 11:32 Resp 20 07/05/25 11:32 BP 98/56 L 07/05/25 11:32 Pulse Ox 93 07/05/25 11:32 O2 Del Method Nasal Cannula 07/05/25 11:32 O2 Flow Rate 2 07/05/25 11:32 BMI result Body Mass Index 28.2 GI: Other: abdomen is soft and nontender Objective Data Labs 07/04/25 07:59 07/04/25 07:59 Labs: Laboratory Results - last 24 hr 07/04/25 07/04/25 07/05/25 16:39 21:25 07:38 POC Glucose 135 H 150 H 109 07/05/25 11:22 POC Glucose 138 H Procedures Date of Service Date of Service: 07/05/25 Progress Note: A&P Assessment and plan (1) Pancreatitis: Status: Acute Assessment and Plan: doing well f/u as outpt. Time Spent With Patient Time: Total time managing care of this patient today ____ minutes. Quality Stroke Does the patient have a stroke diagnosis?: No VTE Prior VTE?: No VTE Risk Level:: Medical - moderate - high VTE Device Contraindication: Treatment Not Indicated VTE Drug Contraindication: N/A - Med Ordered
== END 2025-07-05 14:46 | disposition home or self-care (01) | DRG 439 ==
LOC: HO.ED 23:39 → HO.EDOVER 07-03 00:36 → HO.IMC 07-03 03:36
PROVIDERS: Admitting Provider Hospitalist; Emergency Provider Emergency Medicine; PCP Internal Medicine; Visit Provider Student in an Organized Health Care Education/Training Program
DX: K85.20 Alcohol induced acute pancreatitis without necrosis or infection (principal); I13.0 Hypertensive heart and chronic kidney disease with heart failure and stage 1 through stage 4 chronic kidney disease, or unspecified chronic kidney disease; I25.10 Atherosclerotic heart disease of native coronary artery without angina pectoris; E11.9 Type 2 diabetes mellitus without complications; G47.33 Obstructive sleep apnea (adult) (pediatric); E11.51 Type 2 diabetes mellitus with diabetic peripheral angiopathy without gangrene; I27.20 Pulmonary hypertension, unspecified; F40.240 Claustrophobia; M10.9 Gout, unspecified; E11.40 Type 2 diabetes mellitus with diabetic neuropathy, unspecified; I50.9 Heart failure, unspecified; N18.9 Chronic kidney disease, unspecified; E11.22 Type 2 diabetes mellitus with diabetic chronic kidney disease; Z79.82 Long term (current) use of aspirin; Z79.899 Other long term (current) drug therapy
CPT/HCPCS: 36415; 71250; 74176; 80053; 80061; 80076; 81001; 82947; 83605; 83690; 84484; 84550; 85025; 85027; 93005; 94660; 99285; J1171; J1644; J2470; J7120

== ENCOUNTER → 2025-07-02 23:19 | Outpatient (BNV) | payer MEDICARE, SELFPAY | PROVIDERS: Admitting Provider Hospitalist; Emergency Provider Emergency Medicine; PCP Internal Medicine; Visit Provider Internal Medicine | DX: I44.0 Atrioventricular block, first degree (principal); I45.2 Bifascicular block | CPT/HCPCS: 93010 ==

== ENCOUNTER 2025-07-03 00:32 | Outpatient (BNV) | payer MEDICARE, SELFPAY | END 2025-07-03 05:43 | PROVIDERS: Admitting Provider Hospitalist; Emergency Provider Emergency Medicine; PCP Internal Medicine; Visit Provider Radiology Vascular & Interventional Radiology | DX: K59.00 Constipation, unspecified (principal); J84.89 Other specified interstitial pulmonary diseases | CPT/HCPCS: 71250; 74176 ==

== ENCOUNTER → 2025-07-03 00:32 | Outpatient (BNV) | payer MEDICARE, SELFPAY | PROVIDERS: Admitting Provider Hospitalist; Emergency Provider Emergency Medicine; PCP Internal Medicine; Visit Provider Student in an Organized Health Care Education/Training Program | DX: R10.13 Epigastric pain (principal) | CPT/HCPCS: 99223; 99232; 99499 ==

== ENCOUNTER 2025-07-07 23:28 | Emergency (ER) | payer MEDICARE, SELFPAY ==
--- NOTE | ~2025-07-07 | CT_ITS ---
CLINICAL HISTORY: sbo?. no IV contrast CT abdomen and pelvis without contrast Comparison: CT/SR - CT ABDOMEN PELVIS WO IV CON - 07/03/25 05:43 EST Findings: Subpleural fibrosis and atelectasis noted within the lung bases. Calcified granulomata are noted. Status post cholecystectomy. The liver, spleen, and pancreas are unremarkable. Fullness is noted of the adrenal glands suggesting hyperplasia. Benign left renal simple cysts are noted requiring no further follow-up. No bowel obstruction, pneumoperitoneum, or pneumatosis. Atherosclerotic calcification is noted. Normal caliber aorta. Opacified stomach and small bowel loops without evidence of obstruction. No evidence of acute appendicitis with findings suggesting prior appendectomy. Diverticulosis without evidence of diverticulitis. Nonspecific bladder wall thickening. Cystitis or other bladder pathology can not be excluded. Degenerative changes noted within the skeletal system with levocurvature of the lumbar spine. IMPRESSION: 1. No evidence of bowel obstruction. 2. Chronic degenerative and postsurgical change noted as described above. 3. Nonspecific bladder wall thickening. Cystitis or other bladder pathology can not be excluded. This document has been electronically signed by: Og Marrufo MD on 07/08/2025 05:05:56
[2025-07-07 23:43] VITALS: BP 107/68; PULSE 76; RESP 16; TEMP 36.1; O2SAT 93; BMI 26.8
--- OUTSIDE RECORDS SUMMARY | 2025-07-07 23:54 | XMS_ITS | Encounter Summary ---
Author Organization [facility] Address [address] [address] Phone Care Team Providers Care Otorhinolaryngologist Name Role Phone Maria Luisa Quezada MD Primary Care Provider Reason for Referral * MRI/CAT Scan - Authorized Specialty Diagnoses / Procedures Referred By Contac t Referred To Contact Radiology Diagnoses Diabetic autonomic neuropathy associated with type 2 diabetes mellitus Neurogenic ulcer of foot, right, with fat layer exposed Chronic osteomyelitis of right foot Procedures NM Bone Scan Maria Luisa Quezada MD [address] [place] [phone] Phone: tel: fax: mailto:[email or web address] Referral ID Status Reason Start Date Expiration Date V isits Requested Visits Authorized [id number] Authorized 06/29/2025 06/29/2026 2 2 Encounter Details Date Type Department Care Team (Latest Contact Info) Description 06/29/2025 Transcribe Orders Virtual Department [address] [place] [id number] Maria Luisa Quezada MD [address] [place] [phone] [email or web address] Diabetic autonomic neuropathy associated with type 2 diabetes mellitus (Primary Dx); Neurogenic ulcer of foot, right, with fat layer exposed; Chronic osteomyelitis of right foot Social History Tobacco Use Types Packs/Day Years Used Date Smoking Tobacco: Never Assessed Education Answer Date Recorded Are you interested in more education? Not on stefany e 07/02/2025 Are you concerned about learning? Not on file 07/02/2025 No 07/02/2025 No 07/02/2025 Digital Access Answer Date Recorded No 07/02/2025 No 07/02/2025 Reliable internet access at home? Not on file 07/02/2025 Device with a working camera? Not on file Sex and Gender Information Value Date Recorded Sex Assigned at Not on file Legal Sex Male 8:57 AM EST Gender Identity Not on file Sexual Orientation Not on file documented as of this encounter Plan of Treatment Upcoming Encounters Date Type Department Care Team (Late st Contact Info) Description 07/16/2025 11:00 AM EST Appointment [address] [phone] Maria Luisa Quezada MD [address] [place] [phone] [email or web address] 07/16/2025 2:00 PM EST Appointment [address] [id number] Maria Luisa Quezada MD [address] [place] [phone] [email or web address] Scheduled Orders Name Type Priority Associated Diagnoses Orde r Schedule NM Bone Scan Imaging Routine Diabetic autonomic neuropathy associated with type 2 diabetes mellitus Neurogenic ulcer of foot, right, with fat layer exposed Chronic osteomyelitis of right foot Expected: 06/29/2025, Expires: 06/29/2026 documented as of this encounter Visit Diagnoses Diagnosis Diabetic autonomic neuropathy associated with type 2 diabetes mellitus- Primary Type II or unspecified type diabetes mellitus with neurological manifestations, not stated as uncontrolled Neurogenic ulcer of foot, right, with fat layer exposed Chronic osteomyelitis of right foot documented in this encounter Care Teams Otorhinolaryngologist Relationship Specialty Start Date End Date Maria Luisa Quezada MD [address] [place] [phone] [email or web address] PCP - General General Surgery 07/02/25 documented as of this encounter Additional Source Comments The information contained in this document represents components of the legal health record. It is not the complete legal health record.[facility]
--- OUTSIDE RECORDS SUMMARY | 2025-07-07 23:54 | XMS_ITS | Clinical Summary ---
Author Organization [facility] Address [address] [facility] [address] [place] [phone] Phone Care Team Providers Care Hearing Aid Consultant Name Role Phone Maria Luisa Quezada MD Primary Care Provider [phone] Encounters Date Type Department Care Team Description 06/29/2025 Transcribe Orders Virtual Department [address] [place] [id number] Maria Luisa Quezada MD Diabetic autonomic neuropathy associated with type 2 diabetes mellitus (Primary Dx); Neurogenic ulcer of foot, right, with fat layer exposed; Chronic osteomyelitis of right foot from Last 3 Months Social History Tobacco Use Types Packs/Day Years [...] on file Sexual Orientation Not on file Plan of Treatment Upcoming Encounters Date Type Department Care Team (Late st Contact Info) Description 07/16/2025 11:00 AM EST Appointment [facility], Nuclear Medicine - [facility] [address] [place] [address] Maria Luisa Quezada MD [address] [place] [phone] [email or web address] 07/16/2025 2:00 PM EST Appointment [facility], Nuclear Medicine - [facility] [address] [place] [address] Maria Luisa Quezada MD [address] [place] [phone] [email or web address] Medical Devices Not on file Insurance [facility] MEDEX SUPPLEMENT MEDICARE PART A & B [employer] MED[employer] SUPPLEMENT MEDICARE PART A & B [employer] SUPPLEMENT MEDICARE PART A & B [employer] SUPPLEMENT MEDICARE PART A & B [employer] SUPPLEMENT MEDICARE PART A & B [employer] SUPPLEMENT Care Teams Hearing Aid Consultant Relationship Specialty Start Date End Date Maria Luisa Quezada MD [address] [place] [phone] [email or web address] PCP - General General Surgery 07/02/25 Additional Source Comments The information contained in this document represents components of the legal health record. It is not the complete legal health record.[facility]
[2025-07-08 00:10] LABS: MANUAL DIFF FLAG NO
[2025-07-08 00:11] LABS: Hematocrit 40.9 % (42.0-52.0); Hemoglobin 14.5 g/dl (14.0-18.0); Imm Gran Abs Auto 0.03 X10*3/uL (0.00-0.03); Imm Gran Pct Auto 0.4 % (0.0-0.4); Lymphocytes Absolute Auto 1.1 X10*3/uL (1.2-4.9); Mean Corpuscular HGB Conc 35.5 g/dl (31.0-36.0); Mean Corpuscular Hemoglobin 32.6 pg (27.0-33.0); Mean Corpuscular Volume 91.9 fL (80.0-98.0); NRBC Abs Auto 0.000 X10*3/uL (0.0-0.012); NRBC Pct Auto 0.0 /100WBC (0.0-0.2); Platelet Count 171 X10*3/uL (160-400); Red Blood Count 4.45 X10*6/uL (4.60-5.80); White Blood Count 8.6 X10*3/uL (4.8-10.8)
[2025-07-08 00:58] LABS: Alanine Aminotransferase 44 U/L (0-40); Albumin Level 3.8 g/dL (3.5-5.0); Alkaline Phosphatase 139 U/L (39-117); Anion Gap 14 (12-20); Aspartate Amino Transferase 48 U/L (5-37); Blood Urea Nitrogen 47 mg/dL (9-16); Calcium 9.9 mg/dL (8.4-10.2); Carbon Dioxide 26 mmol/L (22-29); Chloride 98 mmol/L (96-108); Creatinine Clr Calc Pharmacy 39.6; Estimated Glomerular Filt Rate 39; Lipase 61 U/L (8-78); Potassium 4.1 mmol/L (3.3-5.1); Sodium 134 mmol/L (135-145); Total Protein 6.7 g/dL (6.5-8.0)
[2025-07-08 01:05] LABS: Magnesium 1.7 mg/dL (1.6-2.6)
[2025-07-08 02:23] VITALS: BP 83/48; PULSE 82; RESP 14; TEMP 36.4; O2SAT 80
[2025-07-08 02:27] VITALS: BP 95/59; PULSE 82; RESP 16; O2SAT 95
[2025-07-08 02:39] VITALS: O2SAT 93
--- NOTE | 2025-07-08 02:42 | PC.NURSE ---
LUIS made aware of the pt's hypoxia and hypotension. Pt placed on oxymask, initially at 7LPM d/t RA O2 sat in the upper 70s. He has since been decreased to 4LPM and is holding on well. He has completed his Imaging prep and is awaiting CT.
--- NOTE | 2025-07-08 02:51 | ED.GENADULT ---
HPI - General Adult General Chief complaint: Abdominal Pain Stated complaint: Stomach Pain Time Seen by Provider: 07/08/25 00:33 History of Present Illness HPI narrative: 70 y/o M with hx of HTN, HLD, dm, CAD, CHF, aortic stenosis, daytime somnolence, pulmonary hypertension, peripheral vascular disease, CKD, anxiety, depression, sleep apnea, with recent hospital admission for pancreatitis just discharged on July 05, returns with new onset abdominal pain since yesterday. Pain over right mid to central abdomen, unable to describe the nature of his discomfort. Patient denies abdominal distention, constipation, active vomiting or inability to pass flatus. No fever. Patient last drank alcohol several days ago. Related Data Home Medications ?Medication ?Instructions ?Recorded ?Confirmed aspirin 81 mg tablet,delayed 81 mg PO DAILY 10/07/20 07/12/25 release (Adult Low Dose Aspirin) cholecalciferol (vitamin D3) 50 50 mcg PO DAILY 10/07/20 07/12/25 mcg (2,000 unit) capsule latanoprost 0.005 % eye drops 1 drp ophthalmic (eye) BEDTIME 08/25/24 07/12/25 lidocaine 5 % topical ointment 1 appl topical BEDTIME 01/12/25 07/12/25 gabapentin 300 mg capsule 600 mg PO BEDTIME 07/03/25 07/12/25 metformin 750 mg tablet,extended 750 mg PO BEDTIME 07/03/25 07/12/25 release 24 hr treprostinil diolamine 0.25 mg 0.25 mg PO TID 07/03/25 07/12/25 tablet,extended release (Orenitram) treprostinil diolamine 1 mg 1 mg PO TID 07/03/25 07/12/25 tablet,extended release (Orenitram) Previous Rx's ?Medication ?Instructions ?Recorded spironolactone 50 mg tablet 50 mg PO DAILY #90 tabs 12/21/24 Held on 07/05/25. Instructions: Resume on 07/12/25. potassium chloride 20 mEq 40 meq (2 x 20 mEq) PO DAILY #180 12/28/24 tablet,extended release tabs ibuprofen 800 mg tablet 800 mg PO TID #30 tabs 03/02/25 clonazepam 1 mg tablet 1 mg PO BEDTIME 90 days #90 tabs 04/30/25 empagliflozin 10 mg tablet 10 mg PO DAILY #90 tabs 05/19/25 (Jardiance) atorvastatin 80 mg tablet 80 mg PO DAILY #90 tabs 06/16/25 diazepam 2 mg tablet (Valium) 2 mg PO TID PRN spasms 2 days #6 06/28/25 tabs metolazone 2.5 mg tablet 2.5 mg PO DAILY #90 tabs 06/30/25 Held on 07/05/25. Instructions: Resume on 07/12/25. allopurinol 100 mg tablet 50 mg (1/2 x 100 mg) PO DAILY Gout 07/05/25 30 days #15 tabs bumetanide 2 mg tablet 1 mg (1/2 x 2 mg) PO DAILY #90 tabs 07/05/25 oxycodone 5 mg capsule 5 mg PO Q6H PRN Breakthrough Pain 07/05/25 5 days #15 caps hydromorphone 2 mg tablet 1 mg (1/2 x 2 mg) PO Q4-6H PRN 07/08/25 (Dilaudid) pain #5 tabs polyethylene glycol 3350 17 17 g PO DAILY PRN laxative effect 07/08/25 gram/dose oral powder (Miralax) #119 grams Allergies Allergy/AdvReac Type Severity Reaction Status Date / Time macitentan (From [facility]) AdvReac fluid Verified 07/12/25 10:57 overload HAYFEVER Allergy Unknown RUNNY NOSE Uncoded 07/12/25 10:57 Review of Systems Review of Systems: Yes all other systems are reviewed and are negative Constitutional: Constitutional: Denies fatigue and Denies fever(s) Cardiovascular: Cardiovascular: Denies chest pain and Denies dyspnea Respiratory: Respiratory: Denies cough and Denies dyspnea Gastrointestinal: Gastrointestinal: Reports abdominal pain, Denies bloating, Denies constipation, Denies diarrhea, Reports nausea and Denies vomiting Endocrine: Endocrine: Denies fatigue PMFSH Past Medical History Attestation statement: The following information was validated with the patient. Medical History Encounter for screening for malignant neoplasm of colon (~06/08/25) Chronic renal failure Vascular insufficiency of extremity Potassium deficiency Stenosis of left vertebral artery Vitamin D deficiency Type 2 diabetes mellitus Depression Pulmonary hypertension Anxiety Obesity (BMI 30-39.9) Nocturnal hypoxemia Obesity (BMI 30-39.9) Sleep apnea Right heart failure Enlarged RV (right ventricle) Hyperlipidemia HTN (hypertension) Aortic stenosis Surgical History History of colonoscopy (~09/15/14) S/P cardiac catheterization Hx of appendectomy Hx of tonsillectomy History of laparoscopic cholecystectomy Family History Family History Father CVD (cardiovascular disease) Mother Brain tumor Social History Social History Household Members: Spouse Housing: House Do you presently have visiting nurse or other home services: No Alcohol intake: current Alcohol intake frequency: holidays/special occasions only Comment: PT REFUSING OUR SOCKS. 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 Cognitive needs: No Hearing needs: No Vision needs: Yes (reading glasses) Physical Exam ED Vital Signs: Vital Signs - 24 hr 07/07/25 23:43 07/08/25 02:23 07/08/25 02:27 Temperature 97.0 F 97.6 F Pulse Rate 76 82 82 Respiratory Rate 16 14 16 Blood Pressure 107/68 83/48 L 95/59 L Pulse Oximetry 93 80 L 95 Oxygen Delivery Method Room Air Room Air Oxymask Oxygen Flow Rate 7 07/08/25 02:39 Temperature Pulse Rate Respiratory Rate Blood Pressure Pulse Oximetry 93 Oxygen Delivery Method Oxymask Oxygen Flow Rate 4 BMI result Body Mass Index 26.8 Const Other: Alert, appears uncomfortable Orientation/consciousness: patient oriented x3 Resp Effort & Inspection: normal respiratory effort Cardio Other: Normal peripheral perfusion GI Other: Abdomen is objectively distended, large ventral hernia noted, the hernia is reducible, no overlying skin changes/ecchymosis, pain most focal right mid to central abdomen with mild involuntary guarding at times, overall the abdomen is soft Skin Other: Warm dry no rash Neuro General: patient oriented x3, gait normal, no focal motor deficits and CN's II-XI intact bilaterally Psych Other: Cooperative Medications Administered Discontinued Medications Generic Name Dose Route Start Last Admin Trade Name Freq PRN Reason Stop Dose Admin Diatrizoate Meglum/Diatrizoate Sod 30 ml 07/08/25 03:58 07/08/25 03:59 Diatrizoate Meglumine, Sodium 30 Ml Solution PO 07/08/25 03:59 30 ml ONCE ONE Administration Hydromorphone HCl 1 mg 07/08/25 00:34 07/08/25 00:46 Hydromorphone Hcl 1 Mg/Ml Syringe IVPUSH 07/08/25 00:35 1 mg ONCE ONE Administration Protocol Sodium Chloride 1,000 mls @ 999 mls/hr 07/08/25 00:45 07/08/25 01:50 Ns IV 07/08/25 01:45 Infused .Q1H1M FRANCHESKA Infusion Ondansetron HCl 4 mg 07/08/25 00:34 07/08/25 01:26 Ondansetron Hcl 4 Mg/2 Ml Vial IVPUSH 07/08/25 00:35 Not Given ONCE ONE Medical Decision Making Medical Decision Making MDM Narrative: 70 y/o M with hx of HTN, HLD, dm, CAD, CHF, aortic stenosis, daytime somnolence, pulmonary hypertension, peripheral vascular disease, CKD, anxiety, depression, sleep apnea, with recent hospital admission for pancreatitis just discharged on July 05, status post cholecystectomy, status post appendectomy returns with new onset abdominal pain since yesterday. Pain over right mid to central abdomen, unable to describe the nature of his discomfort. Patient denies abdominal distention, constipation, active vomiting or inability to pass flatus. No fever. Patient last drank alcohol several days ago. Problem: Suspect alcohol use disorder, diabetes , prior pancreatitis History: Per patient I have considered the following differential diagnoses: Bowel obstruction, strangulated hernia, incarcerated hernia, ileus Plan: Objectively, I feel the abdomen is distended. He does have a large ventral hernia, perhaps he is intermittently obstructing. Obtaining a CT scan with the oral contrast. He does have a slight bump in his creatinine, we will give IV fluids, Dilaudid for his pain and Zofran. Screening labs obtained from triage, lipase is not elevated, this is not pancreatitis, furthermore his pain is right-sided to mid abdomen. I have independently reviewed the following tests: Labs: No overall leukocytosis, left shift noted, not anemic, no electrolyte abnormality, creatinine 1.74, LFTs essentially at baseline, lipase 61 CT abdomen and pelvis: I received sign-out from my colleague YOLIS Machuca -CT scan of the abdomen and pelvis does not show any evidence of bowel obstruction, nonspecific bladder thickening Patient states that he feels much better. Still having a bit of abdominal pain. However, patient did received Dilaudid earlier today. Patient states that today being Thanksgiving, he would like to be discharged home, if possible would some medications PRN. Patient does not want to stay in the hospital. However, patient agreeable to return to the hospital if the pain worsens or is not responding well to pain medications. Since patient's labs and CAT scan look acceptable and patient is feeling better and tolerating p.o. here in the ED, sounds reasonable to give him a chance to be sent home. I discussed with the patient that even though it is Thanksgiving, he should stick to a clear liquid diet with the at least he will be a able to enjoy his family's company. Patient agrees with plan Differential Diagnosis Differential Diagnoses: The differential diagnosis associated with the presentation includes See [facility] Admission/Observation Consideration of admission/observation: Escalation of care including admission/observation considered Lab Data [facility] Lab Attestation statement: I reviewed the patient's lab results. 07/08/25 00:05 07/08/25 00:22 Labs: Lab Results 07/08/25 07/08/25 Range/Units 00:05 00:22 WBC 8.6 (4.8-10.8) X10*3/uL RBC 4.45 L (4.60-5.80) X10*6/uL Hgb 14.5 (14.0-18.0) g/dl Hct 40.9 L (42.0-52.0) % MCV 91.9 (80.0-98.0) fL MCH 32.6 (27.0-33.0) pg MCHC 35.5 (31.0-36.0) g/dl RDW 13.9 (11.0-16.0) % Plt Count 171 (160-400) X10*3/uL MPV 10.5 (9.4-12.4) fL Immature Gran % (Auto) 0.4 (0.0-0.4) % Neut % (Auto) 73.3 H (45-73) % Lymph % (Auto) 13.2 L (20-40) % [place] % (Auto) 8.9 (2-11) % Eos % (Auto) 3.3 (0-4) % Baso % (Auto) 0.9 (0-2) % Lymph # (Auto) 1.1 L (1.2-4.9) X10*3/uL [place] # (Auto) 0.8 (0.1-1.2) X10*3/uL Eos # (Auto) 0.3 (0.0-0.4) X10*3/uL Baso # (Auto) 0.1 (0.0-0.2) X10*3/uL Abs Immat Gran (auto) 0.03 (0.00-0.03) X10*3/uL Absolute Neuts (auto) 6.3 (2.0-8.3) x10*3/uL Absolute Nucleated RBC 0.000 (0.0-0.012) X10*3/uL Nucleated RBC % (auto) 0.0 (0.0-0.2) /100WBC Sodium 134 L (135-145) mmol/L Potassium 4.1 (3.3-5.1) mmol/L Chloride 98 (96-108) mmol/L Carbon Dioxide 26 (22-29) mmol/L Anion Gap 14 (12-20) BUN 47 H (9-16) mg/dL Creatinine 1.74 H (0.5-1.4) mg/dL Estim Creat Clear Calc 39.6 Estimated GFR 39 Random Glucose 106 (60-115) mg/dL Calcium 9.9 (8.4-10.2) mg/dL Magnesium 1.7 (1.6-2.6) mg/dL Total Bilirubin 1.1 H (0.0-1.0) mg/dL AST 48 H (5-37) U/L ALT 44 H (0-40) U/L Alkaline Phosphatase 139 H (39-117) U/L Total Protein 6.7 (6.5-8.0) g/dL Albumin 3.8 (3.5-5.0) g/dL Lipase 61 (8-78) U/L Radiology Impression Discussion of test interpretation with radiology: I have reviewed the radiologist's reading. Discharge Plan Discharge Clinical Impression: Abdominal pain Patient Disposition: Home, Self-Care Instructions: Abdominal Pain (ED) Additional Instructions: Please follow-up with your primary care physician tomorrow. If you have any worsening or new symptoms, please return to the emergency room or call 911 Prescriptions: New hydromorphone [Dilaudid] 2 mg tablet 1 mg PO Q4-6H PRN (Reason: pain) Qty: 5 0RF Rx Instructions: Partial Fill upon patient request. polyethylene glycol 3350 [Miralax] 17 gram/dose powder 17 g PO DAILY PRN (Reason: laxative effect) Qty: 119 0RF No Action spironolactone 50 mg tablet 50 mg PO DAILY Qty: 90 1RF potassium chloride 20 mEq tablet extended release 40 meq PO DAILY Qty: 180 3RF ibuprofen 800 mg tablet 800 mg PO TID Qty: 30 0RF Rx Instructions: Take 1 tablet with food three times daily clonazepam 1 mg tablet 1 mg PO BEDTIME 90 Days Qty: 90 1RF Jardiance 10 mg tablet 10 mg PO DAILY Qty: 90 3RF atorvastatin 80 mg tablet 80 mg PO DAILY Qty: 90 3RF metolazone 2.5 mg tablet 2.5 mg PO DAILY Qty: 90 1RF diazepam [Valium] 2 mg tablet 2 mg PO TID PRN (Reason: spasms) 2 Days Qty: 6 0RF Patient Comments: Patient states they have not started taking as it is a PRN medication. Orenitram 0.25 mg Tablet Extended Release 0.25 mg PO TID Rx Instructions: take with 1mg tablet for 1.25 mg dose. Must be taken with food Orenitram 1 mg Tablet Extended Release 1 mg PO TID Rx Instructions: to be taken with 0.25mg for 1.25mg dose. Must be taken with food. gabapentin 300 mg Capsule 600 mg PO BEDTIME metformin 750 mg tablet extended release 24 hr 750 mg PO BEDTIME bumetanide 2 mg tablet 1 mg PO DAILY Qty: 90 3RF allopurinol 100 mg tablet 50 mg PO DAILY 30 Days Qty: 15 0RF oxycodone 5 mg capsule 5 mg PO Q6H PRN (Reason: Breakthrough Pain) 5 Days Qty: 15 0RF Rx Instructions: Partial Fill upon patient request. cholecalciferol (vitamin D3) 50 mcg (2,000 unit) capsule 50 mcg PO DAILY aspirin [Adult Low Dose Aspirin] 81 mg tablet,delayed release (DR/EC) 81 mg PO DAILY latanoprost 0.005 % drops 1 drp ophthalmic (eye) BEDTIME lidocaine 5 % ointment 1 appl topical BEDTIME Interventions: ED Discharge Assessment Last Done: 07/08/25 06:39 Discharge Date/Time: 07/08/25 06:41 Print Language: [place]
[2025-07-08 05:14] VITALS: BP 90/50; PULSE 67; RESP 12; TEMP 36.4; O2SAT 99
[2025-07-08 06:39] VITALS: BP 90/50; PULSE 67; RESP 12; TEMP 36.4; O2SAT 99
== END 2025-07-08 06:41 | disposition home or self-care (01) ==
PROVIDERS: Physician Assistant Medical; Emergency Provider Emergency Medicine; PCP Internal Medicine
DX: R10.9 Unspecified abdominal pain (principal); K43.9 Ventral hernia without obstruction or gangrene; I12.9 Hypertensive chronic kidney disease with stage 1 through stage 4 chronic kidney disease, or unspecified chronic kidney disease; E11.22 Type 2 diabetes mellitus with diabetic chronic kidney disease; N18.9 Chronic kidney disease, unspecified; Z90.49 Acquired absence of other specified parts of digestive tract; Z90.89 Acquired absence of other organs
CPT/HCPCS: 36415; 74176; 80053; 83690; 83735; 85025; 96361; 96374; 99284; J1171

== ENCOUNTER 2025-07-12 09:59 | Outpatient (AMB) | payer MEDICARE, SELFPAY ==
--- NOTE | 2025-07-12 10:11 | MHC.PC.OV ---
Vital Signs 07/12/25 10:16 Height 5 ft 7.72 in Weight 186 lb BMI 28.5 BP 70/46 L Blood Pressure Location Rt brachial Position Sitting Respiration 16 Pulse 80 Pulse Source Pulse Oximeter Temp 97.1 F Temp Source Temporal Artery Scan Pulse Oximetry (%) 93 Oxygen Delivery Method Room Air Intake Visit Reasons: Hospital Discharge [employer] Required: No Accompanied by: Self / Same As Patient Allergies macitentan (From Opsumit) Adverse Reaction (Verified 07/12/25 10:57) fluid overload HAYFEVER Allergy (Unknown, Uncoded 07/12/25 10:57) RUNNY NOSE Medication List - Last Reconciled 07/12/25 by Amilcar King MD allopurinol 50 mg (1/2 x 100 mg) PO DAILY 30 days aspirin (Adult Low Dose Aspirin) 81 mg PO DAILY atorvastatin 80 mg PO DAILY bumetanide 1 mg (1/2 x 2 mg) PO DAILY cholecalciferol (vitamin D3) 50 mcg PO DAILY clonazepam 1 mg PO BEDTIME 90 days diazepam (Valium) 2 mg PO TID PRN 2 days empagliflozin (Jardiance) 10 mg PO DAILY gabapentin 600 mg PO BEDTIME hydromorphone (Dilaudid) 1 mg (1/2 x 2 mg) PO Q4-6H PRN ibuprofen 800 mg PO TID latanoprost 0.005% 1 drp ophthalmic (eye) BEDTIME lidocaine 5% 1 appl topical BEDTIME metformin ER 750 mg PO BEDTIME metolazone 2.5 mg PO DAILY Held on 07/05/25. Instructions: Resume on 07/12/25. oxycodone 5 mg PO Q6H PRN 5 days polyethylene glycol 3350 (Miralax) 17 grams PO DAILY PRN potassium chloride ER 40 mEq (2 x 20 mEq) PO DAILY spironolactone 50 mg PO DAILY Held on 07/05/25. Instructions: Resume on 07/12/25. treprostinil diolamine ER (Orenitram) 0.25 mg PO TID treprostinil diolamine ER (Orenitram) 1 mg PO TID Tobacco use date assessed: 07/12/25 Fall risk assessment: No Falls in past year Last assessed Fall Risk: 07/12/25 Dental Screening Dental Screen Date: 01/12/25 HPI HPI Comments History of Present Illness Details History of Present Illness - The patient is a 70-year-old individual presenting for post-hospitalization follow-up after experiencing recurrent episodes of abdominal pain, leading to three recent hospital visits. - The first episode of upper abdominal pain occurred two weeks ago, prompting a hospital visit where a cardiac cause was ruled out with a clear EKG, a CT scan was unremarkable, and the patient was discharged with a diagnosis of a pulled muscle. - A second, more severe episode of pain occurred, leading to another hospitalization where the patient was admitted and diagnosed with pancreatitis, potentially triggered by fatty foods. - During this admission, the patient received Dilaudid for pain, underwent blood work, an ultrasound, and was administered heparin every 8 hours. - A subsequent visit on July [address] scan which showed no bowel obstruction. - The patient's diet has been modified to a liquid diet consisting of beef broth, as solid food exacerbates the abdominal discomfort. - The patient has a history of pulmonary hypertension and was instructed to stop taking diuretic medications including bumetanide (which was cut in half), metolazone, and spironolactone, which has resulted in perceived water weight gain. - The patient reports a baseline weight of 178 pounds and noted a temporary increase to 183 pounds. Social History - Alcohol Use: Reports occasional alcohol consumption. - Diet: The patient is currently on a liquid diet, consuming items like beef broth, and plans to gradually reintroduce solid foods. - Prior to the recent illness, the patient followed a low-sugar and low-carbohydrate diet but not a low-fat diet. - Reports that both episodes of severe abdominal pain were preceded by consuming the same meal containing gravy. Results - EKG: Performed during a recent hospitalization and was clear. - CT Scan of Abdomen: Initial scan was fine; a repeat scan on July 08 showed no bowel obstruction. - Ultrasound: Performed during hospitalization, results not detailed. - Blood Work: Performed during hospitalization, results not detailed. [facility] Medical History Encounter for screening for malignant neoplasm of colon (~06/08/25) Chronic renal failure Vascular insufficiency of extremity Potassium deficiency Stenosis of left vertebral artery Vitamin D deficiency Type 2 diabetes mellitus Depression Pulmonary hypertension Anxiety Obesity (BMI 30-39.9) Nocturnal hypoxemia Obesity (BMI 30-39.9) Sleep apnea Right heart failure Enlarged RV (right ventricle) Hyperlipidemia HTN (hypertension) Aortic stenosis Surgical History History of colonoscopy (~09/15/14) S/P cardiac catheterization Hx of appendectomy Hx of tonsillectomy History of laparoscopic cholecystectomy Family History Father CVD (cardiovascular disease) Mother Brain tumor Social History Household Members: Spouse Housing: House Do you presently have visiting nurse or other home services: No Alcohol intake: current Alcohol intake frequency: holidays/special occasions only Comment: PT REFUSING OUR SOCKS. 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 1. Little interest or pleasure in doing things: not at all 2. Feeling down, depressed, or hopeless: not at all 3. Trouble falling or staying asleep, or sleeping too much: not at all 4. Feeling tired or having little energy: not at all 5. Poor appetite or overeating: not at all 6. Feeling bad about yourself - or that you are a failure or have let yourself or your family down: not at all 7. Trouble concentrating on things, such as reading the newspaper or watching television: not at all 8. Moving or speaking so slowly that other people could have noticed. Or the opposite - being so fidgety or restless that you have been moving around a lot more than usual: not at all 9. Thoughts that you would be better off or of hurting yourself in some way: not at all Total score: 0 Source: Developed by Drs. Kip Houser, Kayla Bueno, Froylan Causey and colleagues, with an educational yanelis from [employer]. Thrive Questionnaire Date Thrive assessed: 07/04/25 I am a: Patient What is your living situation today?: I have a steady place to live Within the past 12 months, did the food you bought not last and you didn't have the money to get more?: Never true Within the past 12 months, did you worry whether your food would run out before you got money to buy more?: Never true Do you have trouble paying for medicines?: No Do you have trouble getting transportation to medical appointments?: No Do you have trouble paying your heating and electricity bill?: No Do you have trouble taking care of your child, family member or friend?: No Do you have trouble with day-to-day activities such as bathing, preparing meals, shopping, managing finances, etc.?: No Are you currently unemployed and looking for a job?: No Are you interested in more education?: No Please select the resources that you would like help with: None THRIVE Score: 0 AUDIT C Alcohol Use Questionnaire (AUDIT-C) 1. How often do you have a drink containing alcohol?: 2-3 times a week 2. How many drinks containing alcohol do you have on a typical day when you are drinking?: 1 or 2 3. How often do you have six or more drinks on one occasion?: Never Total Score: 3 CHERELLE-7 AMB Questionnaire CHERELLE-7 Date CHERELLE - 7 assessed: 01/12/25 Feeling nervous, anxious, or on edge: 0 = Not at all Not being able to stop or control worryin = Not at all Worrying too much about different things: 0 = Not at all Trouble relaxin = Not at all Being so restless that it is hard to sit still: 0 = Not at all Becoming easily annoyed or irritable: 0 = Not at all Feeling afraid as if something awful might happen: 0 = Not at all Total CHERELLE-7 score (0-4 normal; 5-9 mild; 10-14 moderate; 15-21 severe): 0 Source: Developed by Drs. Kip Houser, Kayla Bueno, Froylan Causey and colleagues, with an educational yanelis from [employer]. Review of Systems Narrative Review of Systems - General: Reports feeling good. - Gastrointestinal: Reports abdominal pain upon consumption of solid food. - Denies abdominal pain while on a liquid diet. - Cardiovascular: Denies cardiac symptoms; a prior EKG was noted to be clear. - Constitutional: Reports perceived fluid retention and weight gain after discontinuing diuretics. Physical exam (Primary Care) Vital Signs: Last Vital Signs Temp 97.1 F 07/12/25 10:16 Pulse 80 07/12/25 10:16 Resp 16 07/12/25 10:16 BP 70/46 L 07/12/25 10:16 Pulse Ox 93 07/12/25 10:16 Oxygen Delivery Method Room Air 07/12/25 10:16 BMI result Body Mass Index 28.5 Tobacco/Smoking Status: Tobacco use Status Tobacco use date assessed 07/12/25 07/12/25 10:21 Patient Tobacco Use Status Former Tobacco user 07/12/25 10:21 PHQ-9: PHQ-9 Score PHQ-9: Total score 0 07/12/25 10:21 Thrive Assessment: Date of Thrive Assessment Date Thrive assessed 07/04/25 07/12/25 10:21 Narrative Physical Exam General: Cooperative and healthy appearing Nutritional Appearance: Well nourished Orientation/consciousness: Patient oriented x3 Limitations: No limitations Head: Normal to inspection General: Appearance normal, both eyes and all related structures Neck: Normal visual inspection Chest: Normal palpation of entire chest wall Respiratory: Normal respiratory effort Neurology: Patient oriented x3 Coding Level of Care Code Complex visit Add On G2211 Diagnoses Right heart failure I50.810 Assessment & Plan Assessment & Plan (1) Right heart failure: Code(s): I50.810 - Right heart failure, unspecified Category: Medical Plan Plan - Diuretic Management: The patient is advised to hold diuretics today and tomorrow. - The patient will monitor weight daily and restart the diuretics if there is a weight gain of two to three pounds. - If the weight remains stable, the diuretics can be restarted on Saturday. - Diet: The patient will continue with a bland diet, starting with broth, and slowly progress to solid foods. - Follow-up: The patient is to keep the regularly scheduled follow-up appointment and can be seen sooner if needed. Discussion Notes I have reviewed the patient's recent hospital course for pancreatitis and current symptoms. Given the patient's low blood pressure, I recommended holding the diuretics for today and tomorrow. I instructed the patient that weight gain is the primary indicator for restarting the diuretics and emphasized the importance of accurate daily weight checks. We discussed restarting the diuretics on Saturday if weight is stable, but sooner if there is a gain of 2-3 pounds. I also advised a slow progression of diet from liquids to bland foods and then to solids to allow the pancreatitis to resolve. The patient was advised to keep the already scheduled follow-up appointment but was informed that I would be happy to see the patient sooner if needed. Patient Instructions - Do not take your water pills (diuretics) today or tomorrow. - Check your weight every day at the same time and without clothes. - If you gain 2 or 3 pounds, start taking your water pills again. - If your weight does not change, you can start the water pills again on Saturday. - Continue with your diet of liquids like broth and eat bland foods. - You can slowly start to eat more solid foods as you feel better. - Keep your next scheduled appointment. - Call the office if you need to be seen sooner.
[2025-07-12 10:16] VITALS: BP 70/46; PULSE 80; RESP 16; TEMP 36.2; O2SAT 93; BMI 28.5
--- OUTSIDE RECORDS SUMMARY | 2025-07-12 12:08 | XMS_ITS | Encounter Summary ---
Author Organization [facility] Address [address] [address] Phone Care Team Providers Care Precision Optics Technician Name Role Phone Maria Luisa Quezada MD Primary Care Provider [phone] Reason for Referral * MRI/CAT Scan - Authorized Specialty Diagnoses / Procedures Referred By Contac t Referred To Contact Radiology Diagnoses Diabetic autonomic neuropathy associated with type 2 diabetes mellitus Neurogenic ulcer of foot, right, with fat layer exposed Chronic osteomyelitis of right foot Procedures NM Bone Scan Maria uLisa Quezada MD [address] [place] [phone] Phone: tel: fax: [email or web address]:[email or web address] Referral ID Status Reason Start Date Expiration Date V isits Requested Visits Authorized [id number] Authorized 06/29/2025 06/29/2026 2 2 Encounter Details Date Type Department Care Team (Latest Contact Info) Description 06/29/2025 Transcribe Orders Virtual Department [address] [place] [id number] Maria Luisa Quezada MD [address] [place] [phone] [email or web address] Diabetic autonomic neuropathy associated with [...] Info) Description 07/16/2025 11:00 AM EST Appointment [address] [id number] Maria Luisa Quezada MD [address] [place] [phone] [email or web address] 07/16/2025 2:00 PM EST Appointment [address] [address] Maria Luisa Quezada MD [address] [place] [phone] [email or web address] Scheduled Orders Name Type Priority Associated Diagnoses [...] foot documented in this encounter Care Teams Precision Optics Technician Relationship Specialty Start Date End Date Maria Luisa Quezada MD [address] [place] [phone] [email or web address] PCP - General General Surgery 07/02/25 documented as of this encounter Additional Source Comments The information contained in this document represents components of the legal health record. It is not the complete legal health record.[facility]
--- OUTSIDE RECORDS SUMMARY | 2025-07-12 12:08 | XMS_ITS | Clinical Summary ---
Author Organization [facility] Address [address] [facility] [address] [place] [phone] Phone Care Team Providers Care Key Entry Operator Name Role Phone Maria Luisa Quezada MD Primary Care Provider Encounters Date Type Department Care Team Description 06/29/2025 Transcribe Orders Virtual Department [address] [place] [id number] Maria Luisa Quezada MD Diabetic autonomic neuropathy [...] Info) Description 07/16/2025 11:00 AM EST Appointment [facility], Nuclear Medicine - [address] [address] Maria Luisa Quezada MD [address] [place] [phone] [email or web address] 07/16/2025 2:00 PM EST Appointment [facility], Nuclear Medicine - [facility] [address] [place] [address] Maria Luisa Quezada MD [address] [place] [phone] [email or web address] Medical Devices Not on file Insurance [facility] MEDEX SUPPLEMENT MEDICARE PART A & B [place] MED[employer] SUPPLEMENT MEDICARE PART A & [employer] MED[employer] SUPPLEMENT MEDICARE PART A & B [employer] [employer] SUPPLEMENT MEDICARE PART A & B [employer] [employer] SUPPLEMENT MEDICARE PART A & B [employer] MED[employer] SUPPLEMENT Care Teams Key Entry Operator Relationship Specialty Start Date End Date Maria Luisa Quezada MD [address] [place] [address] [email or web address] PCP - General General Surgery 07/02/25 Additional Source Comments The information contained in this document represents components of the legal health record. It is not the complete legal health record.[facility]
== END 2025-07-12 10:43 | disposition home or self-care (01) ==
LOC: HO.HMCSH 09:59
PROVIDERS: PCP Internal Medicine; Visit Provider Internal Medicine
DX: I50.810 Right heart failure, unspecified (principal)

== ENCOUNTER → 2025-07-12 09:59 | Outpatient (BNVA) | payer MEDICARE, SELFPAY | PROVIDERS: PCP Internal Medicine; Visit Provider Internal Medicine | DX: I50.810 Right heart failure, unspecified (principal) | CPT/HCPCS: 99212 ==

== ENCOUNTER 2025-07-26 09:37 | Outpatient (AMB) | payer MEDICARE, SELFPAY ==
[2025-07-26 09:46] VITALS: BP 130/80; PULSE 66; BMI 27.4
--- NOTE | 2025-07-26 09:46 | MHC.OFFVIS ---
Vital Signs 07/26/25 09:46 Height 5 ft 7.72 in Weight 178 lb 9.191 oz BMI 27.4 BP 130/80 Blood Pressure Location Lt brachial Position Sitting Pulse 66 Intake Visit Reasons: 3 mth f/up Intake Note: 3 month follow-up was just in the ED in Nov for abdominal pain Bereavement Coordinator Required: No Allergies macitentan (From Opsumit) Adverse Reaction (Verified 07/12/25 10:57) fluid overload HAYFEVER Allergy (Unknown, Uncoded 07/12/25 10:57) RUNNY NOSE Medication List - Last Reconciled 07/26/25 by Jamie Dukes MD allopurinol 50 mg (1/2 x 100 mg) PO DAILY 30 days aspirin (Adult Low Dose Aspirin) 81 mg PO DAILY atorvastatin 80 mg PO DAILY bumetanide 2 mg PO DAILY cholecalciferol (vitamin D3) 50 mcg PO DAILY clonazepam 1 mg PO BEDTIME 90 days empagliflozin (Jardiance) 10 mg PO DAILY latanoprost 0.005% 1 drp ophthalmic (eye) BEDTIME lidocaine 5% 1 appl topical BEDTIME metformin ER 750 mg PO BEDTIME metolazone 2.5 mg PO DAILY Held on 07/05/25. Instructions: Resume on 07/12/25. polyethylene glycol 3350 (Miralax) 17 grams PO DAILY PRN potassium chloride ER 40 mEq (2 x 20 mEq) PO DAILY spironolactone 50 mg PO DAILY Held on 07/05/25. Instructions: Resume on 07/12/25. treprostinil diolamine ER (Orenitram) 0.25 mg PO TID treprostinil diolamine ER (Orenitram) 1 mg PO TID HPI Comments Details: Ruby comes for follow-up. Since I saw him he has been hospitalized multiple times with abdominal pain diagnose with pancreatitis. He had recurrent bouts. Currently doing well. He now has GI symptoms with cramping in his belly. No clear weight gain, worsening leg edema, abdominal distention, shortness of breath. He is currently taking full-dose bumetanide and metolazone on a daily basis. He is taking all his medications. He said he notices low blood pressure with his pulmonary hypertension medications but he usually has no symptoms of lightheadedness. No syncopal episodes. [facility] Medical History Encounter for screening for malignant neoplasm of colon (~06/08/25) Chronic renal failure Vascular insufficiency of extremity Potassium deficiency Stenosis of left vertebral artery Vitamin D deficiency Type 2 diabetes mellitus Depression Pulmonary hypertension Anxiety Obesity (BMI 30-39.9) Nocturnal hypoxemia Obesity (BMI 30-39.9) Sleep apnea Right heart failure Enlarged RV (right ventricle) Hyperlipidemia HTN (hypertension) Aortic stenosis Surgical History History of colonoscopy (~09/15/14) S/P cardiac catheterization Hx of appendectomy Hx of tonsillectomy History of laparoscopic cholecystectomy Family History Father CVD (cardiovascular disease) Mother Brain tumor Social History Household Members: Spouse Housing: House Do you presently have visiting nurse or other home services: No Alcohol intake: current Alcohol intake frequency: holidays/special occasions only Comment: PT REFUSING OUR SOCKS. 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 Cognitive needs: No Hearing needs: No Vision needs: Yes (reading glasses) Review of Systems Const Denies chills, Denies fatigue, Denies fever(s), Denies frequent falls, Denies weakness, Denies weight gain and Denies weight loss ENT Denies dizziness Card Denies leg edema, Denies lightheadedness, Denies palpitations, Denies dyspnea, Denies dyspnea on exertion, Denies orthopnea and Denies other (loss of consciousness) Resp Denies cough, Denies dyspnea and Denies dyspnea on exertion GI Denies hematochezia and Denies change in stool character Musc Denies abnormal gait, Denies muscle weakness, Denies numbness, Denies radiating pain into limb and Denies tingling Neuro Denies abnormal gait, Denies dizziness, Denies frequent falls, Denies numbness, Denies tingling and Denies weakness Endo Denies fatigue and Denies palpitations Physical Exam Vital Signs: Last Vital Signs Pulse 66 07/26/25 09:46 BP 130/80 07/26/25 09:46 BMI result Body Mass Index 27.4 Const General: cooperative, comfortable, alert and awake Nutritional Appearance: overweight and other (Frail appearing) Orientation/consciousness: patient oriented x3 Limitations: no limitations Neck Neck: Yes trachea midline, Yes supple and No no JVD Resp Effort & Inspection: normal respiratory effort Auscultation: clear to auscultation bilaterally Cardio Jugular venous distension: JVD Palpation: heave (RV) Rate: bradycardic Rhythm: abnormal rhythm with ectopic beats Heart sounds: S1 normal heart sound present, S2 normal heart sound present, no click, no gallops, Murmur heart sound present systolic late, decrescendo, crescendo and soft and no rubs GI Inspection: Yes obesity Auscultation: normal bowel sounds Skin General skin exam: no rashes or lesions noted and ecchymosis Neuro General: patient oriented x3 and no focal motor deficits Extrem General: No clubbing, No cyanosis, No edema and Yes pedal edema Psych Appearance: grossly normal Affect: Depressed mood present Assessment & Plan Assessment & Plan (1) Right heart failure: Code(s): I50.810 - Right heart failure, unspecified Category: Medical Plan: Right heart failure with significant RV dysfunction secondary to significant pulmonary hypertension following with Pulmonary hypertension Clinic at [facility]. Currently on therapy for the same. His pulmonary systolic pressures have improved with therapy. Continue the same although his RV systolic function has not improved. Clinically appears to be euvolemic and well compensated current diuretic dose with bumetanide and metolazone. Continue Jardiance therapy. Continue spironolactone therapy. Overall prognosis is guarded. Signs and symptoms of heart failure were discussed. Additional diuretics as need be. Continue monitor renal function closely every couple of months. However I would not significantly alter his diuretic regimen and he has overlapping cardiorenal syndrome secondary to his advanced heart disease. (2) Aortic stenosis: Comment: ABOVE BEING FOLLOWED BY CARDIOLOGY Code(s): I35.0 - Nonrheumatic aortic (valve) stenosis Category: Medical Plan: Aortic stenosis which clinically appears to be moderate. Follow-up echocardiogram in 6 months time. Continue low-dose aspirin therapy. Continue high-intensity statin therapy. Blood pressure is well optimized at current point in time. No interventions required at this point time. Follow up in the clinic in 6 months time, sooner PRN. Thank you for allowing me to partake in his care Medications: Changed From bumetanide 1 mg (1/2 x 2 mg) PO DAILY 90 tabs 3RF To bumetanide 2 mg PO DAILY Coding Level of Care Code Est Pt Level 4 (27369) Diagnoses Right heart failure I50.810 Aortic stenosis I35.0
== END 2025-07-26 10:16 | disposition home or self-care (01) ==
LOC: HO.HCS 09:38
PROVIDERS: PCP Internal Medicine; Visit Provider Internal Medicine Cardiovascular Disease
DX: I50.810 Right heart failure, unspecified (principal); I35.0 Nonrheumatic aortic (valve) stenosis
CPT/HCPCS: 99214

== ENCOUNTER → 2025-07-26 09:37 | Outpatient (BNVA) | payer MEDICARE, SELFPAY | PROVIDERS: PCP Internal Medicine; Visit Provider Internal Medicine Cardiovascular Disease | DX: I50.810 Right heart failure, unspecified (principal); I35.0 Nonrheumatic aortic (valve) stenosis; Z87.891 Personal history of nicotine dependence; Z79.82 Long term (current) use of aspirin | CPT/HCPCS: 99212 ==

== ENCOUNTER 2025-07-27 09:17 | Outpatient (AMB) | payer MEDICARE, SELFPAY ==
[2025-07-27 09:27] VITALS: BP 102/50; PULSE 86; O2SAT 90; BMI 27.8
--- NOTE | 2025-07-27 09:27 | A.OFFVIS_ITS ---
Vital Signs 07/27/25 09:27 Height 5 ft 7.2 in Weight 178 lb 9.191 oz BMI 27.8 BP 102/50 L Blood Pressure Location Lt brachial Position Sitting Pulse 86 Pulse Source Pulse Oximeter Pulse Oximetry (%) 90 L Oxygen Delivery Method Room Air Intake Visit Reasons: Obstructive sleep apnea Intake Note: pt is here for follow up of SHAKA, he is using oxygen at 3 liters with cpap, overa ll he is feeling the same but meds are being adjusted for pulm htn [employer] Supervisor Required: No Assistant Associate Full Professor: Assistant Associate Full Professor offered & declined Allergies macitentan (From XATA) Adverse Reaction (Verified 07/27/25 09:49) fluid overload HAYFEVER Allergy (Unknown, Uncoded 07/27/25 09:49) RUNNY NOSE Medication List - Last Reconciled 07/27/25 by Ruben Littlejohn MD allopurinol 50 mg (1/2 x 100 mg) PO DAILY 30 days aspirin (Adult Low Dose Aspirin) 81 mg PO DAILY atorvastatin 80 mg PO DAILY bumetanide 2 mg PO DAILY cholecalciferol (vitamin D3) 50 mcg PO DAILY clonazepam 1 mg PO BEDTIME 90 days empagliflozin (Jardiance) 10 mg PO DAILY gabapentin 300 mg PO BID latanoprost 0.005% 1 drp ophthalmic (eye) BEDTIME lidocaine 5% 1 appl topical BEDTIME PRN metformin ER 750 mg PO BEDTIME metolazone 2.5 mg PO DAILY Held on 07/05/25. Instructions: Resume on 07/12/25. polyethylene glycol 3350 (Miralax) 17 grams PO DAILY PRN potassium chloride ER 40 mEq (2 x 20 mEq) PO DAILY spironolactone 50 mg PO DAILY Held on 07/05/25. Instructions: Resume on 07/12/25. 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 Using CPAP regularly every night, also uses O2 3 L/minute along with the CPAP. He sleeps fairly good. And can notice the difference if he does not use CPAP or oxygen at night. He has been recently hospitalized and treated for pancreatitis, as well as peripheral neuropathy. Comorbidities include diabetes mellitus, chronic renal failure, pulmonary hypertension, and congestive heart failure. After recent hospitalization at present he is fairly stable. [facility] Medical History Encounter for screening for malignant neoplasm of colon (~06/08/25) Chronic renal failure Vascular insufficiency of extremity Potassium deficiency Stenosis of left vertebral artery Vitamin D deficiency Type 2 diabetes mellitus Depression Pulmonary hypertension Anxiety Obesity (BMI 30-39.9) Nocturnal hypoxemia Obesity (BMI 30-39.9) Sleep apnea Right heart failure Enlarged RV (right ventricle) Hyperlipidemia HTN (hypertension) Aortic stenosis Surgical History History of colonoscopy (~09/15/14) S/P cardiac catheterization Hx of appendectomy Hx of tonsillectomy History of laparoscopic cholecystectomy Family History Father CVD (cardiovascular disease) Mother Brain tumor Social History Household Members: Spouse Housing: House Do you presently have visiting nurse or other home services: No Alcohol intake: current Alcohol intake frequency: holidays/special occasions only Comment: PT REFUSING OUR SOCKS. 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 Cognitive needs: No Hearing needs: No Vision needs: Yes (reading glasses) Review of Systems Const All systems reviewed & are unremarkable except as noted in HPI and below Eyes Reports no additional complaints ENT Reports no additional complaints Card Denies chest pain, Denies irregular heart rhythm and Denies leg edema Resp Reports no additional complaints GI Reports no additional complaints Reports no additional complaints Musc Reports no additional complaints Skin/Breast Reports system reviewed and no additional complaints, except as documented Neuro Reports no additional complaints Psych Reports no additional complaints Physical Exam Const General: healthy appearing (EXCEPT FOR BEING OVERWEIGHT), comfortable, no acute distress, alert and awake Orientation/consciousness: patient oriented x3 HEENT Head: Yes normal to inspection General nose exam: No nasal polyps present and No nasal discharge present Face and sinus: Yes sinuses nontender Mouth: oropharynx normal Throat: Yes posterior oropharynx normal Eyes General: appearance normal, both eyes and all related structures Neck Neck: Yes normal visual inspection, Yes no lymphadenopathy, Yes trachea midline and Yes no JVD Thyroid: Thyroid normal Chest Chest palpation & inspection: normal inspection of the chest, normal palpation of entire chest wall and no tenderness Resp Effort & Inspection: normal respiratory effort Auscultation: clear to auscultation bilaterally, no crackles and no wheezes Cardio Palpation: normal PMI Rate: regular rate Rhythm: regular rhythm Heart sounds: no gallops and Murmur heart sound present (Systolic murmur over aortic area .) Peripheral pulses: Peripheral pulses 2+ throughout GI Palpation (GI): Soft to palpation, nontender, No hepatosplenomegaly present and no masses Auscultation: normal bowel sounds Back/Spine/Pelvis Thoracic/Lumbar Spine: thoracic and lumbar spine normal to inspection Skin General skin exam: no rashes or lesions noted Neuro General: patient oriented x3 and no focal motor deficits Cranial nerves: Yes CN's II-XII intact bilaterally Extrem General: Yes normal to inspection, Yes no clubbing, cyanosis or edema, Yes no calf tenderness and Yes venous stasis dermatitis (mild ) Psych Appearance: grossly normal and well kempt Speech and movement: Normal speech and movement present Results Reviewed Results Reviewed: Compliance report for the last 30 nights is reviewed. He missed only 4 nights out of the whole month because of being in the hospital. Otherwise his compliance has been 100% with CPAP of 14 cm. And the residual AHI is only 0.2 Assessment & Plan Assessment & Plan (1) Obstructive sleep apnea: Comment: Patient is a known case of obstructive sleep apnea. He is being treated with CPAP , using full face mask and PRESSURE OF 14 CM, His compliance is good, and he is sleeping fairly good. Code(s): G47.33 - Obstructive sleep apnea (adult) (pediatric) Category: Medical Plan: Commended for good compliance and advised to continue using the CPAP regularly. (2) Nocturnal hypoxemia: Comment: ALONG WITH OBSTRUCTIVE SLEEP APNEA PATIENT ALSO HAD EVIDENCE OF NOCTURNAL HYPOXEMIA, REQUIRING OXYGEN IN ADDITION TO CPAP. IT WAS CORRECTED WITH USE OF OXYGEN AND CURRENTLY HE IS USING 3 L/MINUTE. Code(s): G47.34 - Idiopathic sleep related nonobstructive alveolar hypoventilation Category: Medical Plan: ADVISED TO CONTINUE USING O2 3 L/MINUTE ALONG WITH CPAP AT NIGHT. (3) Pulmonary hypertension: Comment: HE ALSO HAS EVIDENCE OF PULMONARY HYPERTENSION, AND IS BEING TREATED WITH TREPROSTINIL 1 MG TID . Code(s): I27.20 - Pulmonary hypertension, unspecified Category: Medical Plan: I TOLD HIM THAT USE OF CPAP AND ALSO OXYGEN AT NIGHT WOULD HELP TO KEEP PULMONARY HYPERTENSION IN CONTROL (4) Obesity (BMI 30-39.9): Comment: HE USED TO BE HEAVY. AT PRESENT HIS WEIGHT IS DOWN TO 178, BMI 27.8. THIS IS MUCH BETTER THAN BEFORE. Code(s): E66.9 - Obesity, unspecified Category: Medical Plan: WATCH THE DIET WITH THE ALL PRECAUTIONS FOR CONGESTIVE HEART FAILURE, DIABETES MELLITUS, AND CHRONIC RENAL FAILURE. Coding Level of Care Code Est Pt Level 3 (08228) Diagnoses Obstructive sleep apnea G47.33 Nocturnal hypoxemia G47.34 Pulmonary hypertension I27.20 Obesity (BMI 30-39.9) E66.9
== END 2025-07-27 09:50 | disposition home or self-care (01) ==
PROVIDERS: PCP Internal Medicine; Visit Provider Internal Medicine
DX: G47.33 Obstructive sleep apnea (adult) (pediatric) (principal); G47.34 Idiopathic sleep related nonobstructive alveolar hypoventilation; I27.20 Pulmonary hypertension, unspecified; E66.9 Obesity, unspecified
CPT/HCPCS: 99213

== ENCOUNTER → 2025-07-27 09:17 | Outpatient (BNVA) | payer MEDICARE, SELFPAY | PROVIDERS: PCP Internal Medicine; Visit Provider Internal Medicine | DX: G47.34 Idiopathic sleep related nonobstructive alveolar hypoventilation (principal); I27.20 Pulmonary hypertension, unspecified; Z99.89 Dependence on other enabling machines and devices | CPT/HCPCS: 99212 ==

== ENCOUNTER 2025-08-06 10:27 | Emergency (ER) | payer MEDICARE, SELFPAY ==
[2025-08-06] VITALS (30 sets, daily range): BP systolic 76–141; BP diastolic 36–82; PULSE 66–186; RESP 15–26; TEMP 33–37.7; O2SAT 75–97; BMI 29.4
--- NOTE | ~2025-08-06 | XR_ITS ---
EXAMINATION: XR CHEST 1 VIEW HISTORY: central line placement COMPARISON: Comparison is made with the prior examination performed earlier in the day at 10:51 AM. FINDINGS: A single AP portable view of the chest performed at 1:16 PM is submitted. There has been interval placement of a right internal jugular central venous catheter with its tip in the superior vena cava. No pneumothorax. Patchy increased markings are again seen bilaterally without a focal airspace opacity. Again seen is free intraperitoneal gas under the diaphragm. The heart is normal in size. There is degenerative disc disease of the spine. XR/XR chest 1V IMPRESSION: 1. Right internal jugular central venous catheter tip in the superior vena cava. No pneumothorax. 2. Free intraperitoneal gas is seen previously. Electronically signed by: Kip Aguirre MD 08/06/2025 01:47 PM [facility]
--- NOTE | ~2025-08-06 | XR_ITS ---
EXAMINATION: XR CHEST 1 VIEW HISTORY: SOB COMPARISON: There are comparison is made with the prior examination dated 09/23/2020. FINDINGS: A single AP portable view of the chest performed at 10:51 AM is submitted. There is free intraperitoneal air under the diaphragm. Scattered predominantly linear opacities are seen in both lungs. No focal airspace opacity is seen. There is no pleural effusion, pneumothorax, or pulmonary vascular congestion. The heart is normal in size. There is degenerative disc disease of the spine. XR/XR chest 1V IMPRESSION: Free intraperitoneal gas. Findings were discussed with Brianna Link in the emergency room on 08/06/2027 at 11:06 AM. Electronically signed by: Kpi Aguirre MD 08/06/2025 11:06 AM [facility]
--- NOTE | ~2025-08-06 | CT_ITS ---
EXAMINATION: CT ABDOMEN PELVIS WITHOUT IV CONTRAST HISTORY: bowel perf COMPARISON: There are no prior studies available for comparison. TECHNIQUE: CT scan of the abdomen and pelvis was performed without contrast using standard departmental protocol. Coronal and sagittal reformatted images were generated and reviewed. Oral contrast material was not administered at the request of the referring physician. This CT exam was performed with one or more of the following dose reduction techniques: automated exposure control, adjustment of the mA and/or kV according to patient size, use of iterative reconstruction technique. DLP: 1075 mGy-cm FINDINGS: LOWER CHEST: There is patchy airspace opacity at both lung bases consistent with atelectasis or pneumonia. There is no pleural effusion. CARDIOVASCULATURE: The heart is normal in size. There is no pericardial effusion. LIVER: The liver is normal in size and contour. The liver has an unremarkable unenhanced appearance. GALLBLADDER / BILE DUCTS: The gallbladder is surgically absent. There is no intra or extrahepatic biliary ductal dilatation. SPLEEN: The spleen is normal in size and has an unremarkable unenhanced appearance. PANCREAS: The pancreas has an unremarkable unenhanced appearance. ADRENAL GLANDS: Unremarkable. KIDNEYS/RETROPERITONEUM: No renal calculi are identified. There is no hydronephrosis. There are cysts at the lower pole of the left kidney measuring up to 4.6 cm in size. LYMPH NODES: No retroperitoneal lymphadenopathy is identified in the abdomen or pelvis. VASCULATURE: The abdominal aorta demonstrates atherosclerotic calcification, but is normal in caliber. MESENTERY/PERITONEUM: There is a small amount of free fluid in the pelvis. There is a moderate amount of free intraperitoneal gas. STOMACH: The stomach is distended with gas and fluid. Immediately inferior to the pylorus of the stomach, there is a collection of gas and fluid measuring 3.0 x 2.7 x 2.4 cm, compatible with an abscess. There is surrounding inflammatory stranding. SMALL BOWEL: Multiple loops of thickened small bowel are identified in the upper abdomen. COLON: There is extensive diverticulosis of the colon without evidence of diverticulitis. APPENDIX: The appendix is surgically absent. URINARY BLADDER/PELVIC ORGANS: The urinary bladder is collapsed, limiting evaluation. The prostate is normal in size. BONES / SOFT TISSUES: There is mild degenerative disc disease of the spine. CT/CT abdomen pelvis wo IV con IMPRESSION: 1. Moderate amount of free intraperitoneal gas, consistent with a perforated viscus. There is a 3.0 x 2.7 x 2.4 cm abscess just inferior to the pylorus of the stomach. Findings are highly suspicious for a perforated ulcer. Multiple thickened loops of small bowel in the upper abdomen may be reactive. 2. Bibasilar airspace opacities may represent atelectasis or pneumonia. 3. Findings were discussed with Nohemy Jacobo in the emergency room on 08/06/2025 at 1:05 PM. Electronically signed by: Kip Aguirre MD 08/06/2025 01:07 PM [facility]
--- NOTE | ~2025-08-06 | XR_ITS ---
EXAMINATION: XR CHEST CLINICAL INFORMATION: post intubation COMPARISON: Chest 08/05/2025 TECHNIQUE: Frontal view of the chest was obtained. FINDINGS: The lungs are expanded with bilateral prominent interstitial markings seen throughout the lungs with likely interstitial edema or pneumonitis. No focal consolidation or pleural effusion is suspected. A right jugular central line is noted with its tip in mid SVC. No endotracheal tube is 10.4 cm above the oleg and needs to be advanced by 5 cm. Enteric tube tip is below the diaphragm into the stomach. Mild spondylosis dorsal spine is noted. XR/XR chest 1V IMPRESSION: Bilateral prominent interstitial markings throughout lungs suspicious for interstitial edema or pneumonitis. Endotracheal tube needs to be advanced by 5 cm. New enteric tube tip is in stomach. No change in the right jugular central venous catheter tip. Electronically signed by: Jossue Meyer MD 08/06/2025 02:47 PM [facility]
--- NOTE | 2025-08-06 10:33 | ECG_ITS ---
Test Reason : cp Blood Pressure : */* mmHG Vent. Rate : 89 BPM Atrial Rate : 89 BPM P-R Int : 224 ms QRS Dur : 144 ms QT Int : 376 ms P-R-T Axes : 46 -79 14 degrees QTcB Int : 457 ms Sinus rhythm with 1st degree A-V block with Premature supraventricular complexes Left axis deviation Right bundle branch block Anterior infarct , age undetermined Abnormal ECG When compared with ECG of 02-Jul-2025 23:19, Premature supraventricular complexes are now Present Anterior infarct is now Present Referred By: Generic ED Physician Electronically Signed By: CLARICE CASTRO MD
[2025-08-06 10:59] LABS: MANUAL DIFF FLAG NO
[2025-08-06 11:07] LABS: Venous Blood Gas Refer to POC result
--- NOTE | 2025-08-06 11:08 | ED.ABDPAIN ---
HPI - Abdominal Pain General Chief Complaint: Abdominal Pain Stated Complaint: ABD PAIN Time Seen by Provider: 08/06/25 10:44 Source: patient and EMS Mode of arrival: EMS Limitations: no limitations History of Present Illness ED Provider: HPI narrative: 70-year-old with multiple medical problems presenting with severe abdominal pain that is started in the morning he stood up and had sudden onset pain, he had some oral Dilaudid from prior history of pancreatitis did not help, EMS provide 160 mg of fentanyl, he is endorsing left upper quadrant abdominal pain, there was some concern that he may be hypoxic, patient uses supplemental oxygen at home as needed, he denies fevers, chills, hematuria dysuria or any outside of unusual for him respiratory symptoms Related Data Home Medications ?Medication ?Instructions ?Recorded ?Confirmed aspirin 81 mg tablet,delayed 81 mg PO DAILY 10/07/20 07/27/25 release (Adult Low Dose Aspirin) cholecalciferol (vitamin D3) 50 50 mcg PO DAILY 10/07/20 07/27/25 mcg (2,000 unit) capsule latanoprost 0.005 % eye drops 1 drp ophthalmic (eye) BEDTIME 08/25/24 07/27/25 metformin 750 mg tablet,extended 750 mg PO BEDTIME 07/03/25 07/27/25 release 24 hr treprostinil diolamine 0.25 mg 0.25 mg PO TID 07/03/25 07/27/25 tablet,extended release (Orenitram) treprostinil diolamine 1 mg 1 mg PO TID 07/03/25 07/27/25 tablet,extended release (Orenitram) bumetanide 2 mg tablet 2 mg PO DAILY 07/26/25 07/27/25 gabapentin 300 mg capsule 300 mg PO BID 07/27/25 07/27/25 lidocaine 5 % topical ointment 1 appl topical BEDTIME PRN 07/27/25 07/27/25 Previous Rx's ?Medication ?Instructions ?Recorded spironolactone 50 mg tablet 50 mg PO DAILY #90 tabs 12/21/24 Held on 07/05/25. Instructions: Resume on 07/12/25. potassium chloride 20 mEq 40 meq (2 x 20 mEq) PO DAILY #180 12/28/24 tablet,extended release tabs clonazepam 1 mg tablet 1 mg PO BEDTIME 90 days #90 tabs 04/30/25 empagliflozin 10 mg tablet 10 mg PO DAILY #90 tabs 05/19/25 (Jardiance) atorvastatin 80 mg tablet 80 mg PO DAILY #90 tabs 06/16/25 metolazone 2.5 mg tablet 2.5 mg PO DAILY #90 tabs 06/30/25 Held on 07/05/25. Instructions: Resume on 07/12/25. polyethylene glycol 3350 17 17 g PO DAILY PRN laxative effect 07/08/25 gram/dose oral powder (Miralax) #119 grams allopurinol 100 mg tablet 50 mg (1/2 x 100 mg) PO DAILY Gout 07/27/25 180 days #90 tabs Allergies Allergy/AdvReac Type Severity Reaction Status Date / Time macitentan (From Opsumit) AdvReac fluid Verified 08/06/25 10:48 overload HAYFEVER Allergy Unknown RUNNY NOSE Uncoded 07/27/25 09:49 Review of Systems Constitutional: Reports as per HPI [facility] Past Medical History Medical History Encounter for screening for malignant neoplasm of colon (~06/08/25) Chronic renal failure Vascular insufficiency of extremity Potassium deficiency Stenosis of left vertebral artery Vitamin D deficiency Type 2 diabetes mellitus Depression Pulmonary hypertension Anxiety Obesity (BMI 30-39.9) Nocturnal hypoxemia Obesity (BMI 30-39.9) Sleep apnea Right heart failure Enlarged RV (right ventricle) Hyperlipidemia HTN (hypertension) Aortic stenosis Surgical History History of colonoscopy (~09/15/14) S/P cardiac catheterization Hx of appendectomy Hx of tonsillectomy History of laparoscopic cholecystectomy Family History Family History Father CVD (cardiovascular disease) Mother Brain tumor Social History Social History Household Members: Spouse Housing: House Do you presently have visiting nurse or other home services: No Alcohol intake: former Comment: PT REFUSING OUR SOCKS. 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 Cognitive needs: No Hearing needs: No Vision needs: Yes (reading glasses) Physical Exam ED Exam Exam: ?General: ?In discomfort ?CV: S1-S2, radial pulses +2 bilaterally ?Resp: ?No wheezing rales rhonchi no stridor moving air well Abd: Bowel sounds present, pronounced ventral hernia, no pulsatile masses MSK: FROM, strength 5/5 all extremities Skin: Warm, dry, intact, ?Neuro: ?Alert and oriented x3, moving upper and lower extremities symmetrically, no obvious facial asymmetry noted, cranial nerves 2-12 intact Vital Signs: Vital Signs - 24 hr 08/06/25 10:44 08/06/25 10:52 08/06/25 11:28 Temperature Pulse Rate 86 86 88 Respiratory Rate 18 24 H 18 Blood Pressure 90/54 L 92/54 L Pulse Oximetry 75 L 97 93 Oxygen Delivery Method Room Air Oxymask Oxymask Oxygen Flow Rate 10 8 Fraction of Inspired Oxygen 08/06/25 11:36 08/06/25 11:49 08/06/25 11:55 Temperature Pulse Rate 90 88 96 Respiratory Rate 24 H 22 H Blood Pressure 81/49 L 89/57 L 87/56 L Pulse Oximetry 92 92 Oxygen Delivery Method Oxymask Oxymask Oxygen Flow Rate 8 8 Fraction of Inspired Oxygen 08/06/25 12:11 08/06/25 12:14 08/06/25 12:23 Temperature Pulse Rate 113 H 115 H 116 H Respiratory Rate 16 18 Blood Pressure 83/52 L 86/63 L 77/57 L Pulse Oximetry 87 L 88 L Oxygen Delivery Method Oxymask Oxymask Oxygen Flow Rate 15 15 Fraction of Inspired Oxygen 08/06/25 12:23 08/06/25 12:28 08/06/25 13:02 Temperature 98.6 F Pulse Rate 106 H 95 111 H Respiratory Rate 18 21 H Blood Pressure 77/54 L 108/60 118/44 L Pulse Oximetry 89 L 93 Oxygen Delivery Method Oxymask Oxymask Oxygen Flow Rate 15 15 Fraction of Inspired Oxygen 08/06/25 13:06 08/06/25 13:39 08/06/25 13:47 Temperature Pulse Rate 111 H 186 H Respiratory Rate 16 15 Blood Pressure 121/63 87/60 L Pulse Oximetry 92 Oxygen Delivery Method Oxymask Oxygen Flow Rate 15 Fraction of Inspired Oxygen 08/06/25 13:51 08/06/25 13:55 08/06/25 13:56 Temperature Pulse Rate 108 H 108 H 139 H Respiratory Rate 16 Blood Pressure 76/36 L 118/68 137/66 Pulse Oximetry 80 L Oxygen Delivery Method Oxymask Oxygen Flow Rate 15 Fraction of Inspired Oxygen 08/06/25 14:15 08/06/25 14:28 08/06/25 14:53 Temperature Pulse Rate 145 H 135 H Respiratory Rate 22 H 22 H Blood Pressure 132/82 139/71 Pulse Oximetry 95 95 Oxygen Delivery Method Mechanical Ventilation Mechanical Ventilation Oxygen Flow Rate Fraction of Inspired Oxygen 100 100 100 08/06/25 15:00 08/06/25 15:02 08/06/25 15:08 Temperature Pulse Rate 139 H 133 H 129 H Respiratory Rate 26 H Blood Pressure 137/66 132/61 141/60 H Pulse Oximetry 95 Oxygen Delivery Method Mechanical Ventilation Oxygen Flow Rate Fraction of Inspired Oxygen 100 BMI result Body Mass Index 29.4 Procedures Central Line Placement Right IJ: Time Out Performed: Yes Patient Placed on Monitor/Pulse Ox: Yes MD Prep: mask, gown and gloves Central Line Prep: Chlorhexidine scrub Local Anesthetic: lidocaine 1% Amount of anesthesia used (mL): 10 Ultrasound Used for Placement: Yes Central Line Lumen Inserted: triple Post Procedure: sutured in place, good blood return, all ports aspirated, flushed, capped and sterile dressing applied Post Procedure X-Ray: tip of catheter in good position and no pneumothorax seen Patient Tolerated Procedure: well Complications: none Intubation Intubation Type:: Endotracheal Tube Insertion Time out performed: Yes sedative: Ketamine (25) Mg Given: 20 paralytic: Rocuronium Mg Given: 100 Laryngoscope: fiber optic video scope ET Tube Size: 7.5 ET Tube Uncuffed: No Tube Secured Depth (cm): 23 Tube Secured Location: lips Tube Placement Confirmation: visualized tube passing through cords, equal breath sounds bilaterally and confirmation by capnometry Patient Tolerated Procedure: well Intubation Complications: none Ultrasound ED POC Ultrasound: EMERGENCY ULTRASOUND REPORT?Point of Care Cardiac (Echo-Focus), images I locally stored Emergent Cardiac for Indication: Severe abdominal pain Views Used: Parasternal long, parasternal short, 4 chamber, subxiphoid, IVC Pericardial Effusion/Tamponade Findings: Not present Global LV Fxn: Preserved IVC Dilation and Resp Variation: No proximal aortic dissection, no pericardial effusion, large right ventricle consistent with pulmonary hypertension Medical Decision Making Medical Decision Making [facility] Narrative: 11:30 AM 08/06/2025 (Dr. Maximino Cornelius): Presenting with severe abdominal pain, bedside ultrasound without any evidence for proximal aortic dissection, ECG with RBBB without any evidence for STEMI, he did have a chest x-ray that revealed free air, I let Dr. Pearce from surgery to be aware, patient has had episode of hypotension, he is getting 30 cc/kilos IV fluids if he is not responsive we will transition to vasopressors Bedside ultrasound without pericardial effusion, no pulmonary hypertension with large right ventricle as anticipated, IVC was collapsed, so monitor for fluid responsiveness 12:28 PM 08/06/2025 (Dr. Maximino Cornelius): I had to go up on patient's Levophed to get to him map of 65 and now he is able to go to CT, 1:28 PM 08/06/2025 (Dr. Maximino Cornelius): Central line placed, evaluated by surgery, my understanding is that patient will be going to the OR 2:32 PM 08/06/2025 (Dr. Maximino Cornelius): We have no ICU beds, at this point patient is intubated he was having runs of AFib with RVR, I decided that it is safer to intubate the patient, confirmed that he Is full code, intubation was uneventful, paged out [facility]. Patient re-evaluated, he stabilized, chest x-ray with adequate NG tube and ET tube positioning as well as central line 3:12 PM 08/06/2025 (Dr. Maximino Cornelius): Dr. Laney MERINO is accepting physician [facility] Differential Diagnosis Differential Diagnoses: The differential diagnosis associated with the presentation includes (ACS, pneumothorax, aortic dissection, PE, Boerhaave syndrome) Admission/Observation Consideration of admission/observation: Escalation of care including admission/observation considered Consult Healthcare Provider Management of the patient was discussed with: County Treasurer (General surgery) Lab Data [facility] Lab Attestation statement: I reviewed the patient's lab results. 08/06/25 10:49 08/06/25 11:47 Labs: Lab Results 08/06/25 08/06/25 08/06/25 Range/Units 10:47 10:49 11:04 WBC 11.5 H (4.8-10.8) X10*3/uL RBC 4.55 L (4.60-5.80) X10*6/uL Hgb 14.6 (14.0-18.0) g/dl Hct 41.5 L (42.0-52.0) % MCV 91.2 (80.0-98.0) fL MCH 32.1 (27.0-33.0) pg MCHC 35.2 (31.0-36.0) g/dl RDW 13.8 (11.0-16.0) % Plt Count 280 D (160-400) X10*3/uL MPV 10.0 (9.4-12.4) fL Immature Gran % (Auto) 0.3 (0.0-0.4) % Neut % (Auto) 87.4 H (45-73) % Lymph % (Auto) 6.0 L (20-40) % Carbon % (Auto) 5.3 (2-11) % Eos % (Auto) 0.7 (0-4) % Baso % (Auto) 0.3 (0-2) % Lymph # (Auto) 0.7 L (1.2-4.9) X10*3/uL Carbon # (Auto) 0.6 (0.1-1.2) X10*3/uL Eos # (Auto) 0.1 (0.0-0.4) X10*3/uL Baso # (Auto) 0.0 (0.0-0.2) X10*3/uL Abs Immat Gran (auto) 0.04 H (0.00-0.03) X10*3/uL Absolute Neuts (auto) 10.1 H (2.0-8.3) x10*3/uL Absolute Nucleated RBC 0.000 (0.0-0.012) X10*3/uL Nucleated RBC % (auto) 0.0 (0.0-0.2) /100WBC PT 14.1 H (11.2-13.5) SEC INR 1.2 H (0.9-1.1) O2 Saturation % ABG pH at Pt Temp (7.35-7.45) ABG pCO2 at Pt Temp (32-45) mmHg ABG pO2 at Pt Temp (83-108) mmHg ABG HCO3 (22-26) mmol/L ABG Base Excess (Actual) mmol/L VBG pH 7.53 H (7.32-7.43) VBG pCO2 25 mmHg VBG pO2 79 mmHg VBG HCO3 21 L (22-26) mmol/L VBG O2 Saturation 98.0 % VBG Base Excess 1.0 mmol/L Sodium (135-145) mmol/L Potassium (3.3-5.1) mmol/L Chloride (96-108) mmol/L Carbon Dioxide (22-29) mmol/L Anion Gap (12-20) BUN (9-16) mg/dL Creatinine (0.5-1.4) mg/dL Estim Creat Clear Calc Estimated GFR Random Glucose (60-115) mg/dL Lactic Acid 2.3 H* (0.5-2.0) mmol/L Calcium (8.4-10.2) mg/dL Magnesium (1.6-2.6) mg/dL Total Bilirubin (0.0-1.0) mg/dL AST (5-37) U/L ALT (0-40) U/L Alkaline Phosphatase (39-117) U/L Troponin I High Sens 35.8 H (<3.5-35.0) ng/L NT-Pro-B Natriuret Pep 7621.7 H (<300) pg/mL Total Protein (6.5-8.0) g/dL Albumin (3.5-5.0) g/dL Urine Color Urine Appearance Urine pH (5.0-9.0) Ur Specific Leeper (1.005-1.025) Urine Protein (Neg-Trace) mg/dL Urine Glucose (UA) (Negative) mg/dL Urine Ketones (Negative) mg/dL Urine Blood (Negative) Urine Nitrite (Negative) Ur Leukocyte Esterase (Negative) Influenza Type A (PCR) NEGATIVE (Negative) Influenza Type B (PCR) NEGATIVE (Negative) RSV RNA Qual (PCR) NEGATIVE (Negative) SARS-CoV-2 RNA (RT-PCR) NEGATIVE (Negative) 08/06/25 08/06/25 08/06/25 Range/Units 11:13 11:47 14:48 WBC (4.8-10.8) X10*3/uL RBC (4.60-5.80) X10*6/uL Hgb (14.0-18.0) g/dl Hct (42.0-52.0) % MCV (80.0-98.0) fL MCH (27.0-33.0) pg MCHC (31.0-36.0) g/dl RDW (11.0-16.0) % Plt Count (160-400) X10*3/uL MPV (9.4-12.4) fL Immature Gran % (Auto) (0.0-0.4) % Neut % (Auto) (45-73) % Lymph % (Auto) (20-40) % Carbon % (Auto) (2-11) % Eos % (Auto) (0-4) % Baso % (Auto) (0-2) % Lymph # (Auto) (1.2-4.9) X10*3/uL Carbon # (Auto) (0.1-1.2) X10*3/uL Eos # (Auto) (0.0-0.4) X10*3/uL Baso # (Auto) (0.0-0.2) X10*3/uL Abs Immat Gran (auto) (0.00-0.03) X10*3/uL Absolute Neuts (auto) (2.0-8.3) x10*3/uL Absolute Nucleated RBC (0.0-0.012) X10*3/uL Nucleated RBC % (auto) (0.0-0.2) /100WBC PT (11.2-13.5) SEC INR (0.9-1.1) O2 Saturation 95.0 % ABG pH at Pt Temp 7.11 L* (7.35-7.45) ABG pCO2 at Pt Temp 66 H* (32-45) mmHg ABG pO2 at Pt Temp 97 (83-108) mmHg ABG HCO3 21 L (22-26) mmol/L ABG Base Excess (Actual) -9.0 mmol/L VBG pH (7.32-7.43) VBG pCO2 mmHg VBG pO2 mmHg VBG HCO3 (22-26) mmol/L VBG O2 Saturation % VBG Base Excess mmol/L Sodium 133 L (135-145) mmol/L Potassium 4.2 (3.3-5.1) mmol/L Chloride 97 (96-108) mmol/L Carbon Dioxide 22 (22-29) mmol/L Anion Gap 18 (12-20) BUN 117 H (9-16) mg/dL Creatinine 1.99 H (0.5-1.4) mg/dL Estim Creat Clear Calc 32.7 Estimated GFR 33 Random Glucose 142 H (60-115) mg/dL Lactic Acid (0.5-2.0) mmol/L Calcium 9.6 (8.4-10.2) mg/dL Magnesium 2.1 (1.6-2.6) mg/dL Total Bilirubin 1.3 H (0.0-1.0) mg/dL AST 36 (5-37) U/L ALT 37 (0-40) U/L Alkaline Phosphatase 148 H (39-117) U/L Troponin I High Sens (<3.5-35.0) ng/L NT-Pro-B Natriuret Pep (<300) pg/mL Total Protein 6.3 L (6.5-8.0) g/dL Albumin 3.5 (3.5-5.0) g/dL Urine Color Yellow Urine Appearance Clear Urine pH 6.5 (5.0-9.0) Ur Specific Leeper 1.015 (1.005-1.025) Urine Protein Trace (Neg-Trace) mg/dL Urine Glucose (UA) 250 H (Negative) mg/dL Urine Ketones Negative (Negative) mg/dL Urine Blood Negative (Negative) Urine Nitrite Negative (Negative) Ur Leukocyte Esterase Negative (Negative) Influenza Type A (PCR) (Negative) Influenza Type B (PCR) (Negative) RSV RNA Qual (PCR) (Negative) SARS-CoV-2 RNA (RT-PCR) (Negative) Independent Interpretation I performed an independent interpretation of an: EKG (89 beats per minute right bundle-branch block no new changes from prior) and Plain X-Ray (Free air appreciated) Radiology Impression Discussion of test interpretation with radiology: I have reviewed the radiologist's reading. Independent Historian Clinical information obtained from an independent historian. History obtained from or confirmed by: EMS Medications Administered Generic Name Dose Route Start Last Admin Trade Name Freq PRN Reason Stop Dose Admin Norepinephrine Bitartrate 8 mg in 250 mls @ 0 mls/hr 08/06/25 11:45 08/06/25 15:08 Levophed IVCONT 1.3 mcg/kg/min .Q0M FRANCHESKA 195.24 mls/hr Protocol Titration Per Protocol Amiodarone HCl 900 mg/ Sodium 518 mls @ 0 mls/hr 08/06/25 14:45 08/06/25 14:53 Chloride IVCONT 1 mg/min .Q0M FRANCHESKA 34.53 mls/hr Protocol Administration Per Protocol Discontinued Medications Generic Name Dose Route Start Last Admin Trade Name Freq PRN Reason Stop Dose Admin Fentanyl 100 mcg 08/06/25 13:31 08/06/25 13:39 Fentanyl Citrate/Pf 100 Mcg/2 Ml Vial IVPUSH 08/06/25 13:32 100 mcg ONCE ONE Administration Protocol Hydromorphone HCl 2 mg 08/06/25 11:12 08/06/25 11:23 Hydromorphone Hcl 2 Mg/Ml Vial IVPUSH 08/06/25 11:13 2 mg ONCE ONE Administration Protocol Sodium Chloride 1,000 mls @ 999 mls/hr 08/06/25 11:15 08/06/25 12:00 Ns IV 08/06/25 12:15 Infused .Q1H1M FRANCHESKA Infusion Piperacillin Sod/Tazobactam 50 mls @ 100 mls/hr 08/06/25 11:13 08/06/25 11:58 Sod 3.375 gm/ Sodium Chloride IV 08/06/25 11:42 Infused ONCE ONE Infusion Vancomycin HCl 2,000 mg in 500 mls @ 250 mls/hr 08/06/25 11:30 08/06/25 14:41 Vancomycin/Ns IV 08/06/25 13:29 250 mls/hr ONCE ONE Administration Sodium Chloride 2,403 mls @ 2,403 mls/hr 08/06/25 11:30 08/06/25 11:56 Ns 30 ml/kg infuse over 1 hr (2403 ml) 08/06/25 12:29 Infused IV Infusion .Q1H STA Amiodarone HCl 150 mg in 100 mls @ 600 mls/hr 08/06/25 13:37 08/06/25 14:43 Nexterone IV 08/06/25 13:46 Infused ONCE ONE Infusion Naloxone HCl 0.1 mg 08/06/25 12:23 08/06/25 14:44 Naloxone Hcl 0.4 Mg/Ml Vial IVPUSH 08/06/25 12:24 Not Given STAT STA Ondansetron HCl 4 mg 08/06/25 11:14 08/06/25 11:21 Ondansetron Hcl 4 Mg/2 Ml Vial IVPUSH 08/06/25 11:15 4 mg ONCE ONE Administration Critical Care Time Critical Care Time Critical Care Time: Yes Total Critical Care Time: 75 Attestation: Time is exclusive of separately billable procedures. Time includes: direct patient care, patient reassessment, coordination of patient care, interpretation of data (laboratory data, pulse oximetry, arterial blood gases and chest xrays), review of patient's medical records, medical consultation and documentation of patient care. Procedures excluded from critical care time: central intravenous line placement and electrocardiography. Discharge Plan Discharge Clinical Impression: Bowel perforation, Hypotension, Atrial fibrillation with RVR, Septic shock Prescriptions: No Action spironolactone 50 mg tablet 50 mg PO DAILY Qty: 90 1RF potassium chloride 20 mEq tablet extended release 40 meq PO DAILY Qty: 180 3RF clonazepam 1 mg tablet 1 mg PO BEDTIME 90 Days Qty: 90 1RF Jardiance 10 mg tablet 10 mg PO DAILY Qty: 90 3RF atorvastatin 80 mg tablet 80 mg PO DAILY Qty: 90 3RF metolazone 2.5 mg tablet 2.5 mg PO DAILY Qty: 90 1RF allopurinol 100 mg tablet 50 mg PO DAILY 180 Days Qty: 90 0RF Orenitram 0.25 mg Tablet Extended Release 0.25 mg PO TID Rx Instructions: take with 1mg tablet for 1.25 mg dose. Must be taken with food Orenitram 1 mg Tablet Extended Release 1 mg PO TID Rx Instructions: to be taken with 0.25mg for 1.25mg dose. Must be taken with food. metformin 750 mg tablet extended release 24 hr 750 mg PO BEDTIME polyethylene glycol 3350 [Miralax] 17 gram/dose powder 17 g PO DAILY PRN (Reason: laxative effect) Qty: 119 0RF cholecalciferol (vitamin D3) 50 mcg (2,000 unit) capsule 50 mcg PO DAILY aspirin [Adult Low Dose Aspirin] 81 mg tablet,delayed release (DR/EC) 81 mg PO DAILY bumetanide 2 mg tablet 2 mg PO DAILY latanoprost 0.005 % drops 1 drp ophthalmic (eye) BEDTIME lidocaine 5 % ointment 1 appl topical BEDTIME PRN gabapentin 300 mg capsule 300 mg PO BID Print Language: Djib[place]ian
[2025-08-06 11:09] LABS: VBG HCO3 21 mmol/L (22-26); VBG O2 % Saturation 98.0 %
[2025-08-06 11:09] LABS: INTERNATIONAL NORM RATIO 1.2 (0.9-1.1); Prothrombin Time 14.1 SEC (11.2-13.5)
--- NOTE | 2025-08-06 11:13 | PC.NURSE ---
pt comes in from home with reports of sudden onset severe abd pain this morning when he stood up from bed. took 1mg Dilaudid that he had from recent pancreatitis. EMS gave 160mg fent which helped pain. On arrival to ED pt is in severe pain, O2 is in the mid 70s on RA. placed on NRB 15L. RT called. weaned off to 8L Oxymask with SpO2 in mid 90s. Pt denies SOB and CP. States severe abd pain. tender in the LUQ. abd is firm and distended. skin pwd. lips dry. pt reports recent low PO intake bc not feeling well. EKG done, labs, blood cultures. straight cath 250ml urine out.
[2025-08-06 11:19] LABS: Hematocrit 41.5 % (42.0-52.0); Hemoglobin 14.6 g/dl (14.0-18.0); Imm Gran Abs Auto 0.04 X10*3/uL (0.00-0.03); Imm Gran Pct Auto 0.3 % (0.0-0.4); Lymphocytes Absolute Auto 0.7 X10*3/uL (1.2-4.9); Mean Corpuscular HGB Conc 35.2 g/dl (31.0-36.0); Mean Corpuscular Hemoglobin 32.1 pg (27.0-33.0); Mean Corpuscular Volume 91.2 fL (80.0-98.0); NRBC Abs Auto 0.000 X10*3/uL (0.0-0.012); NRBC Pct Auto 0.0 /100WBC (0.0-0.2); Platelet Count 280 X10*3/uL (160-400); Red Blood Count 4.55 X10*6/uL (4.60-5.80); White Blood Count 11.5 X10*3/uL (4.8-10.8)
--- OUTSIDE RECORDS SUMMARY | 2025-08-06 11:20 | XMS_ITS | Clinical Summary ---
Author Organization [facility] Address [address] [place] [address] Phone Care Team Providers Care Cash[employer] Name Role Phone Maria Luisa Quezada MD Primary Care Provider [phone] Encounters Date Type Department Care Team Description 07/16/2025 12:53 PM EST - 07/16/2025 11:59 PM EST Hospital Encounter [address] [address] Maria Luisa Quezada MD Discharge Disposition: Home or Self Care 07/16/2025 9:46 AM EST - 07/16/2025 12:52 PM EST Hospital Encounter [address] [address] Maria Luisa Quezada MD Discharge Disposition: Home or Self Care 07/16/2025 Ancillary Orders Virtual Department [address] [place] [id number] Maria Luisa Quezada MD Diabetic autonomic neuropathy associated with type 2 diabetes mellitus (Primary Dx); Neurogenic ulcer of foot, right, with fat layer exposed; Chronic osteomyelitis of right foot 07/15/2025 Ancillary Orders [facility] [address] [place] [address] Basilia, MD Basilia 07/15/2025 Ancillary Orders [facility] [address] [place] [address] Basilia, MD Basilia 07/13/2025 Ancillary Orders [facility] [address] [place] [phone] Unknown, MD Basilia 06/29/2025 Transcribe Orders Virtual Department [address] [place] [phone] Maria Luisa Quezada MD Diabetic autonomic neuropathy associated with type 2 diabetes mellitus (Primary Dx); Neurogenic ulcer of foot, right, with fat layer exposed; Chronic osteomyelitis of right foot 06/10/2025 - 06/10/2025 11:59 PM EDT Hospital Encounter [facility] [address] [place] [address] Unknown, Unknown, MD Discharge Disposition: Home or Self Care from Last 3 Months Social History Tobacco [...] Orientation Not on file Plan of Treatment Not on file Medical Devices Not on file Procedures Procedure Name Priority Date/Time Associated Diagnosis Comments NM BONE FLOW 3 PHASE Routine 07/16/2025 1:37 PM EST Diabetic autonomic neuropathy associated with type 2 diabetes mellitus Neurogenic ulcer of foot, right, with fat layer exposed Chronic osteomyelitis of right foot XR LOWER EXTREMITY OUTSIDE (NO INTERPRETATION) Routine 06/10/2025 12:00 AM EDT from Last 3 Months Results * NM Bone Flow 3 Phase (07/16/2025 1:37 PM EST) Anatomical Region Laterality Modality Shoulder Right, Shoulder Lef t, Arm Left, Arm Right, Elbow Left, Elbow Right, Forearm Left, Forearm Right, Wrist Right, Wrist Left, Hand Left, Hand Right, Hip Left, Hip Right, Hip Bilateral, Thigh Left, Thigh Right, Knee Left, Knee Right, Knee Bilateral, Leg Left, Leg Right, Ankle Left, Ankle Right, Foot Left, Foot Right, Pelvis Nucle ar Medicine 07/16/2025 1:46 PM EST Impressions 07/17/2025 12:31 AM EST Two phase radiotracer uptake along the distal lateral aspect of the right foot, which likely localizes to the right distal 5th metatarsal and is suggestive of osteomyelitis. ATTESTATION: Adela Bryson as teaching physician, have reviewed the images for this case and if necessary edited the report originally created by Manfred Lucas. Narrative 07/17/2025 12:31 AM EST NM BONE FLOW 3 PHASE Three phase radionuclide bone scan: COMPARISON: XR LOWER EXTREMITY OUTSIDE (NO INTERPRETATION) ; XR LOWER EXTREMITY OUTSIDE (NO INTERPRETATION) TECHNIQUE: 22.5 mCi technetium 99m MDP was injected. Immediately after injection, perfusion images of the bilateral feet were obtained, followed by equilibrium images one minute after injection. More than two hours after injection, delayed static images of the area were obtained. FINDINGS: The dynamic perfusion images show symmetric uptake to the bilateral feet without suggestion of hyperemia to either foot. The equilibrium and delayed static images demonstrate increased uptake along the distal lateral aspect of the right foot. This likely localizes to the region of osteopenia seen within the right distal 5th metatarsal on outside images. Procedure Note Adela Avendano MD - 07/17/2025 NM BONE FLOW 3 PHASE Three phase radionuclide bone scan: COMPARISON: XR LOWER EXTREMITY OUTSIDE (NO INTERPRETATION) ; XRLOWER EXTREMITY OUTSIDE (NO INTERPRETATION) TECHNIQUE: 22.5 mCi technetium 99m MDP was injected. Immediately after injection, perfusion images of the bilateral feet wereobtained, followed by equilibrium images one minute after injection. Morethan two hours after injection, delayed static images of the area wereobtained. FINDINGS: The dynamic perfusion images show symmetric uptake to the bilateral feetwithout suggestion of hyperemia to either foot. The equilibrium and delayed static images demonstrate increased uptakealong the distal lateral aspect of the right foot. This likely localizesto the region of osteopenia seen within the right distal 5th metatarsal onoutside images. IMPRESSION: Two phase radiotracer uptake along the distal lateral aspect of the rightfoot, which likely localizes to the right distal 5th metatarsal and issuggestive of osteomyelitis. ATTESTATION: Adela Bryson as teaching physician, have reviewed theimages for this case and if necessary edited the report originally createdby Manfred Lucas. us Maria Luisa Quezada MD IMG NM BONE SCAN Final Result * XR Lower Extremity Outside (No Interpretation) (06/10/2025 12:00 AM EDT) Narrative SYSTEMGENERATED, DOCUMENTATION - 07/15/2025 9:29 AM EST This study is for PACS storage only and not for interpretation. us Unknown Unknown MD LEONARD OUTSIDE IMAGING W/OUT INT ERPRETATION Final Result from Last 3 Months Insurance MEDICARE PART A & B CORINNE CROSS MEDEX SUPPLEMENT [facility] Address: [facility] [id number] [place] [address] Member Subscriber Plan / Payer (Ef fective 2018-Present) Name:Kali Garza Member ID:[id number] Relation to Subscriber:Self Name:Kali Garza Subscriber ID:[id number] Payer ID:[id number] Group ID:Not on file Type:Medicare Address: [employer] [address] [place] [id number] [email or web address] MEDEX SUPPLEMENT MEDICARE PART A & B [email or web address] SUPPLEMENT MEDICARE PART A & B [email or web address] MED[employer] SUPPLEMENT MEDICARE PART A & B [email or web address] MED[employer] SUPPLEMENT MEDICARE PART A & B [email or web address] MEDEX SUPPLEMENT Care Teams Cashier Parking Lot Relationship Specialty Start Date End Date Maria Luisa Quezada MD [address] [place] [phone] [email or web address] PCP - General General Surgery 07/02/25 Additional Source Comments The information contained in this document represents components of the legal health record. It is not the complete legal health record.[facility]
--- OUTSIDE RECORDS SUMMARY | 2025-08-06 11:20 | XMS_ITS | Encounter Summary ---
Author Organization [facility] Address [address] [facility] [address] [place] [phone] Phone Care Team Providers Care Financial Internship Name Role Phone Maria Luisa Quezada MD Primary Care Provider [phone] Encounter Details Date Type Department Care Team (Latest Contact Info) Description 06/29/2025 Transcribe Orders Virtual Department [address] [place] [address] Maria Luisa Quezada MD [address] [place] [phone] [email or web address] Diabetic autonomic neuropathy associated with type 2 [...] as of this encounter Plan of Treatment Not on file documented as of this encounter Visit Diagnoses Diagnosis Diabetic autonomic neuropathy associated with type 2 diabetes mellitus- Primary Type II or unspecified type diabetes mellitus with neurological manifestations, not stated as uncontrolled Neurogenic ulcer of foot, right, with fat layer exposed Chronic osteomyelitis of right foot documented in this encounter Care Teams Financial Internship Relationship Specialty Start Date End Date Maria Luisa Quezada MD [address] [place] [phone] [email or web address] PCP - General General Surgery 07/02/25 documented as of this encounter Additional Source Comments The information contained in this document represents components of the legal health record. It is not the complete legal health record.[facility]
--- OUTSIDE RECORDS SUMMARY | 2025-08-06 11:20 | XMS_ITS | Encounter Summary ---
Author Organization [facility] Address [address] [address] Phone Care Team Providers Care Engineering Design Supervisor Name Role Phone Maria Luisa Quezada MD Primary Care Provider [phone] Reason for Referral * MRI/CAT Scan - Closed Specialty Diagnoses / Procedures Referred By Contac t Referred To Contact Radiology Diagnoses Diabetic autonomic neuropathy associated with type 2 diabetes mellitus Neurogenic ulcer of foot, right, with fat layer exposed Chronic osteomyelitis of right foot Procedures NM Bone Flow 3 Phase NM Bone Scan Maria Luisa Quezada MD Phone: tel: fax: mailto:[email or web address] Referral ID Status Reason Start Date Expiration Date Visits Re quested Visits Authorized [id number] Closed 06/29/2025 06/29/2026 2 2 Encounter Details Date Type Department Care Team (Late st Contact Info) Description 07/16/2025 Ancillary Orders Virtual Department [address] [place] [address] Maria Luisa Quezada MD [address] [place] [phone] [email or web address] Diabetic autonomic neuropathy associated with type 2 [...] on file documented as of this encounter Results * NM Bone Flow 3 Phase [...] metatarsal and is suggestive of osteomyelitis. ATTESTATION: I, Adela Avendano as teaching physician, have reviewed the images [...] 5th metatarsal and issuggestive of osteomyelitis. ATTESTATION: I, Adela Avendano as teaching physician, have reviewed theimages for this case and if necessary edited the report originally createdby Manfred Lucas. Maria Luisa Quezada MD [facility] [place] BONE SCAN Final Result documented in this encounter Visit Diagnoses Diagnosis Diabetic autonomic neuropathy associated with type 2 diabetes mellitus Type II or unspecified type diabetes mellitus with neurological manifestations, not stated as uncontrolled Neurogenic ulcer of foot, right, with fat layer exposed Chronic osteomyelitis of right foot Diabetic autonomic neuropathy associated with type 2 diabetes mellitus- Primary Type II or unspecified type diabetes mellitus with neurological manifestations, not stated as uncontrolled Neurogenic ulcer of foot, right, with fat layer exposed Chronic osteomyelitis of right foot documented in this encounter Care Teams Engineering Design Supervisor Relationship Specialty Start Date End Date Maria Luisa Quezada MD [address] [place] [phone] [email or web address] PCP - General General Surgery 07/02/25 documented as of this encounter Additional Source Comments The information contained in this document represents components of the legal health record. It is not the complete legal health record.[facility]
[2025-08-06 11:21] LABS: Appearance Urine Clear; Glucose Urine UA 250 mg/dL (Negative); PH 6.5 (5.0-9.0); Specific Gravity - Urine 1.015 (1.005-1.025)
[2025-08-06 11:25] LABS: Troponin-I High Sensitivity 35.8 ng/L (<3.5-35.0)
--- NOTE | 2025-08-06 11:33 | PC.NURSE ---
sepsis bolus ordered 30mg/kg. total 2,403ml Per verbal order by Dr. Cornelius, give a total of 2403 including the 1liter bolus that was previously administered. total amount of fluid if 2,403ml
[2025-08-06 11:47] LABS: Resp Syncy Virus RNA Qual PCR NEGATIVE (Negative); SARS COV2 PCR INHOUSE NEGATIVE (Negative)
--- NOTE | 2025-08-06 11:56 | PC.NURSE ---
fluids infused rapidly per verbal from MD.
[2025-08-06 12:10] LABS: Alanine Aminotransferase 37 U/L (0-40); Albumin Level 3.5 g/dL (3.5-5.0); Alkaline Phosphatase 148 U/L (39-117); Anion Gap 18 (12-20); Aspartate Amino Transferase 36 U/L (5-37); Blood Urea Nitrogen 117 mg/dL (9-16); Calcium 9.6 mg/dL (8.4-10.2); Carbon Dioxide 22 mmol/L (22-29); Chloride 97 mmol/L (96-108); Creatinine Clr Calc Pharmacy 32.7; Estimated Glomerular Filt Rate 33; Magnesium 2.1 mg/dL (1.6-2.6); Potassium 4.2 mmol/L (3.3-5.1); Sodium 133 mmol/L (135-145); Total Protein 6.3 g/dL (6.5-8.0)
--- NOTE | 2025-08-06 12:12 | PC.NURSE ---
verbal order to increase norepi to 0.1mcg/kg/hr
[2025-08-06 12:57] LABS: Reflex Lactate? Lactic Acid Added
--- NOTE | 2025-08-06 13:09 | PC.NURSE ---
delay in vanco admin due to waiting for pharm to bring it up.
--- NOTE | 2025-08-06 13:09 | PC.NURSE ---
dr. valadez at bedside placing central line.
--- NOTE | 2025-08-06 13:26 | PM.HPGS ---
History of Present Illness History of Present Illness Date of Service: 08/06/25 Chief complaint: ABD PAIN Narrative: Kali Garza is a 70 year old male with multiple medical problems including history of recent episodes of pancreatitis who woke up this morning with severe abdominal pain. He presented himself to the emergency department here [facility] where radiographic surveillance of his abdomen was indicative of free air. Follow up CT scan provided the impression of a perforated distal gastric or duodenal ulcer. Past surgical history significant for laparoscopic appendectomy as well as laparoscopic cholecystectomy. [facility] Past Medical History Medical History Encounter for screening for malignant neoplasm of colon (~06/08/25) Chronic renal failure Vascular insufficiency of extremity Potassium deficiency Stenosis of left vertebral artery Vitamin D deficiency Type 2 diabetes mellitus Depression Pulmonary hypertension Anxiety Obesity (BMI 30-39.9) Nocturnal hypoxemia Obesity (BMI 30-39.9) Sleep apnea Right heart failure Enlarged RV (right ventricle) Hyperlipidemia HTN (hypertension) Aortic stenosis Family History Family History Father CVD (cardiovascular disease) Mother Brain tumor Surgical History Surgical History History of colonoscopy (~09/15/14) S/P cardiac catheterization Hx of appendectomy Hx of tonsillectomy History of laparoscopic cholecystectomy Social History Social History Household Members: Spouse Housing: House Do you presently have visiting nurse or other home services: No Alcohol intake: former Comment: PT REFUSING OUR SOCKS. 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 Cognitive needs: No Hearing needs: No Vision needs: Yes (reading glasses) Meds Allergies Allergy/AdvReac Type Severity Reaction Status Date / Time macitentan (From Opsumit) AdvReac fluid Verified 08/06/25 10:48 overload HAYFEVER Allergy Unknown RUNNY NOSE Uncoded 07/27/25 09:49 Active Medications: Current Medications Vancomycin HCl (Vancomycin/Ns) 2,000 mg in 500 mls @ 250 mls/hr IV ONCE ONE Stop: 08/06/25 13:29 Norepinephrine Bitartrate (Levophed) 8 mg in 250 mls @ 0 mls/hr IVCONT .Q0M FRANCHESKA; Protocol Last Titration: 08/06/25 12:23 Dose: 1 mcg/kg/min, 150.19 mls/hr Home Medications ?Medication ?Instructions ?Recorded ?Confirmed ?Last Taken ?Type aspirin 81 mg tablet,delayed 81 mg PO DAILY 10/07/20 07/27/25 07/02/25 History release (Adult Low Dose Aspirin) cholecalciferol (vitamin D3) 50 50 mcg PO DAILY 10/07/20 07/27/25 07/02/25 History mcg (2,000 unit) capsule latanoprost 0.005 % eye drops 1 drp ophthalmic (eye) BEDTIME 08/25/24 07/27/25 07/02/25 History metformin 750 mg tablet,extended 750 mg PO BEDTIME 07/03/25 07/27/25 07/02/25 History release 24 hr treprostinil diolamine 0.25 mg 0.25 mg PO TID 07/03/25 07/27/25 07/02/25 History tablet,extended release (Orenitram) treprostinil diolamine 1 mg 1 mg PO TID 07/03/25 07/27/25 07/02/25 History tablet,extended release (Orenitram) bumetanide 2 mg tablet 2 mg PO DAILY 07/26/25 07/27/25 Unknown History gabapentin 300 mg capsule 300 mg PO BID 07/27/25 07/27/25 Unknown History lidocaine 5 % topical ointment 1 appl topical BEDTIME PRN 07/27/25 07/27/25 Unknown History Physical Exam Vital Signs: Vital Signs: Last Vital Signs Pulse 111 H 08/06/25 13:06 Resp 16 08/06/25 13:06 BP 121/63 08/06/25 13:06 Pulse Ox 92 08/06/25 13:06 O2 Del Method Oxymask 08/06/25 13:06 O2 Flow Rate 15 08/06/25 13:06 BMI result Body Mass Index 29.4 Const: General: cooperative, alert, awake, acute distress moderate and ill appearing acutely Nutritional Appearance: obese Orientation/consciousness: oriented to person, oriented to place and oriented to time HEENT: Head: Yes normal to inspection Ears: hearing grossly normal bilaterally General nose exam: Normal external nose present Eyes: Pupils: Equal, round and reactive pupils present EOM: EOMs intact bilaterally Neck: Neck: Yes normal visual inspection Chest: Chest palpation & inspection: normal inspection of the chest Resp: Effort & Inspection: labored and tachypneic Cardio: Rate: regular rate Rhythm: regular rhythm GI: Other: Soft morbidly obese slightly distended. Scars consistent with surgical history. Tender to palpation in the epigastrium and in the right lower quadrant. Peritoneal signs are present although not diffusely. No corresponding skin change. No evidence of organomegaly or masses or hernias. Epigastric diastasis recti Neuro: General: oriented to person, oriented to place and oriented to time Cranial nerves: Yes Equal, round and reactive pupils present Results Results Labs: Short CBC 08/06/25 Range/Units 10:49 WBC 11.5 H (4.8-10.8) X10*3/uL Hgb 14.6 (14.0-18.0) g/dl Hct 41.5 L (42.0-52.0) % Plt Count 280 D (160-400) X10*3/uL BMP 08/06/25 11:47 Sodium 133 L Potassium 4.2 Chloride 97 Carbon Dioxide 22 BUN 117 H Creatinine 1.99 H Calcium 9.6 Liver Function 08/06/25 Range/Units 11:47 Total Bilirubin 1.3 H (0.0-1.0) mg/dL AST 36 (5-37) U/L ALT 37 (0-40) U/L Alkaline Phosphatase 148 H (39-117) U/L Albumin 3.5 (3.5-5.0) g/dL Urine 08/06/25 Range/Units 11:13 Urine Color Yellow Urine Appearance Clear Urine pH 6.5 (5.0-9.0) Ur Specific [place] 1.015 (1.005-1.025) Urine Protein Trace (Neg-Trace) mg/dL Urine Glucose (UA) 250 H (Negative) mg/dL Assessment and Plan (1) Perforated ulcer: Status: Acute Plan I reviewed the clinical scenario with the patient his and I recommended that he undergo urgent operative intervention in the form of exploratory laparoscopy possible laparotomy. I told them that what was done at the time of surgery would be predicated on the findings but I suspected perforated distal gastric or duodenal ulcer. I reviewed with them the risks of surgery including but not limited to bleeding infection pain stroke heart attack DVT pulmonary embolism and the possibility he might need further surgery in the future. Both of them indicated that they understood in both indicated that they wished to proceed with operative intervention. Quality Stroke Does the patient have a stroke diagnosis?: No VTE Prior VTE?: No VTE Risk Level:: Surgical - moderate VTE Device Contraindication: N/A - Device Ordered VTE Drug Contraindication: N/A - Med Ordered Procedures Date of Service Date of Service: 08/06/25
--- NOTE | 2025-08-06 13:28 | ECG_ITS ---
Test Reason : tachy Blood Pressure : */* mmHG Vent. Rate : 154 BPM Atrial Rate : 43 BPM P-R Int : 240 ms QRS Dur : 158 ms QT Int : 340 ms P-R-T Axes : * 111 -35 degrees QTcB Int : 544 ms Possible Atrial fibrillation with rapid ventricular response Right bundle branch block , plus right ventricular hypertrophy Septal infarct (cited on or before 06-Aug-2025) Abnormal ECG When compared with ECG of 06-Aug-2025 10:33, Possible Atrial fibrillation with rapid ventricular response has replaced Normal sinus rhythm Questionable change in QRS axis Questionable change in initial forces of Anteroseptal leads ST now depressed in Inferior leads Referred By: Maximino Cornelius Electronically Signed By: CLARICE CASTRO MD
[2025-08-06] MEDS: Amiodarone/Dextrose 150 MG/100 ML PLAST..BAG 600 MG IV (13:41)
--- NOTE | 2025-08-06 13:51 | P.CONAN_ITS ---
HPI - Anesthesia Eval Consult details Narrative: 70 yr old male for Laparoscopy Exploratory,possible open Multiple comorbities, currently in ED in ?Vtach, on 15 liters O2 --> not optimized for surgery. [facility], [facility] Active Problems Active Problems: All Active Problems (Updated 08/06/25 @ 13:29 by Odell Pearce MD) Perforated ulcer (Acute) Hypotension (Acute) Bowel perforation (Acute) Pancreatitis (Acute) Chronic renal failure (Acute) Vascular insufficiency of extremity (Acute) Potassium deficiency (Acute) Stenosis of left vertebral artery (Acute) Vitamin D deficiency (Acute) Type 2 diabetes mellitus (Acute) Depression (Acute) Sinus bradycardia (Acute) Pulmonary hypertension (Acute) S/P cardiac catheterization (Acute) Anxiety (Acute) Obesity (BMI 30-39.9) (Acute) Nocturnal hypoxemia (Acute) Obesity (BMI 30-39.9) (Acute) Sleep apnea (Acute) Right heart failure (Acute) Obstructive sleep apnea (Acute) Enlarged RV (right ventricle) (Acute) Hyperlipidemia (Acute) HTN (hypertension) (Acute) Aortic stenosis (Acute) Daytime somnolence (Acute) Witnessed apneic spells (Acute) Exertional dyspnea (Acute) Past Medical History Medical History Encounter for screening for malignant neoplasm of colon (~06/08/25) Chronic renal failure Vascular insufficiency of extremity Potassium deficiency Stenosis of left vertebral artery Vitamin D deficiency Type 2 diabetes mellitus Depression Pulmonary hypertension Anxiety Obesity (BMI 30-39.9) Nocturnal hypoxemia Obesity (BMI 30-39.9) Sleep apnea Right heart failure Enlarged RV (right ventricle) Hyperlipidemia HTN (hypertension) Aortic stenosis Family History Family History Father CVD (cardiovascular disease) Mother Brain tumor Surgical History Surgical History History of colonoscopy (~09/15/14) S/P cardiac catheterization Hx of appendectomy Hx of tonsillectomy History of laparoscopic cholecystectomy Social History Social History Household Members: Spouse Housing: House Do you presently have visiting nurse or other home services: No Alcohol intake: former Comment: PT REFUSING OUR SOCKS. 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 Cognitive needs: No Hearing needs: No Vision needs: Yes (reading glasses) Meds Allergies Allergy/AdvReac Type Severity Reaction Status Date / Time macitentan (From Opsumit) AdvReac fluid Verified 08/06/25 10:48 overload HAYFEVER Allergy Unknown RUNNY NOSE Uncoded 07/27/25 09:49 Active Medications: Current Medications Norepinephrine Bitartrate (Levophed) 8 mg in 250 mls @ 0 mls/hr IVCONT .Q0M [facility]; Protocol Last Titration: 08/06/25 13:47 Dose: 1.5 mcg/kg/min, 225.28 mls/hr Pantoprazole Sodium 80 mg/ (Sodium Chloride) 100 mls @ 10 mls/hr IV .Q10H [facility] Home Medications ?Medication ?Instructions ?Recorded ?Confirmed ?Last Taken ?Type aspirin 81 mg tablet,delayed 81 mg PO DAILY 10/07/20 1 09/27/24 07/02/25 History release (Adult Low Dose Aspirin) cholecalciferol (vitamin D3) 50 50 mcg PO DAILY 07/27/25 07/02/25 History mcg (2,000 unit) capsule latanoprost 0.005 % eye drops 1 drp ophthalmic (eye) B EDTIME 08/25/24 07/27/25 07/02/25 History metformin 750 mg tablet,extended 750 mg PO BEDTIME 07/27/25 07/02/25 History release 24 hr treprostinil diolamine 0.25 mg 0.25 mg PO TID 07/03/25 07/27/25 07/02/25 History tablet,extended release (Orenitram) treprostinil diolamine 1 mg 1 mg PO TID 07/03/2507/2707/02/25 History tablet,extended release (Orenitram) bumetanide 2 mg tablet 2 mg PO DAILY 07/26/2507/27 Unknown History gabapentin 300 mg capsule 300 mg PO BID 07/27/2507/27 Unknown History lidocaine 5 % topical ointment 1 appl topical BEDTIME PRN 07/27/25 07/27/25 Unknown History Exam Height,Weight and Vital Signs: Height 5 ft 5 in Weight 80.1 kg Last Vital Signs Pulse 186 H 08/06/25 13:47 Resp 15 08/06/25 13:39 BP 87/60 L 08/06/25 13:47 Pulse Ox 92 08/06/25 13:06 O2 Del Method Oxymask 08/06/25 13:06 O2 Flow Rate 15 08/06/25 13:06 Pertinent Lab Results Pertinent Lab Results: Laboratory Tests 08/06/25 08/06/25 08/06/25 10:47 10:49 11:04 WBC 11.5 H RBC 4.55 L Hgb 14.6 Hct 41.5 L MCV 91.2 MCH 32.1 MCHC 35.2 RDW 13.8 Plt Count 280 D MPV 10.0 Immature Gran % (Auto) 0.3 Neut % (Auto) 87.4 H Lymph % (Auto) 6.0 L Haakon % (Auto) 5.3 Eos % (Auto) 0.7 Baso % (Auto) 0.3 Lymph # (Auto) 0.7 L Haakon # (Auto) 0.6 Eos # (Auto) 0.1 Baso # (Auto) 0.0 Abs Immat Gran (auto) 0.04 H Absolute Neuts (auto) 10.1 H Absolute Nucleated RBC 0.000 Nucleated RBC % (auto) 0.0 PT 14.1 H INR 1.2 H VBG pH 7.53 H VBG pCO2 25 VBG pO2 79 VBG HCO3 21 L VBG O2 Saturation 98.0 VBG Base Excess 1.0 Sodium Potassium Chloride Carbon Dioxide Anion Gap BUN Creatinine Estim Creat Clear Calc Estimated GFR Random Glucose Lactic Acid 2.3 H* Calcium Magnesium Total Bilirubin AST ALT Alkaline Phosphatase Troponin I High Sens 35.8 H NT-Pro-B Natriuret Pep 7621.7 H Total Protein Albumin Urine Color Urine Appearance Urine pH Ur Specific [place] Urine Protein Urine Glucose (UA) Urine Ketones Urine Blood Urine Nitrite Ur Leukocyte Esterase Influenza Type A (PCR) NEGATIVE Influenza Type B (PCR) NEGATIVE RSV RNA Qual (PCR) NEGATIVE SARS-CoV-2 RNA (RT-PCR) NEGATIVE 08/06/25 08/06/25 11:13 11:47 WBC RBC Hgb Hct MCV MCH MCHC RDW Plt Count MPV Immature Gran % (Auto) Neut % (Auto) Lymph % (Auto) Haakon % (Auto) Eos % (Auto) Baso % (Auto) Lymph # (Auto) Haakon # (Auto) Eos # (Auto) Baso # (Auto) Abs Immat Gran (auto) Absolute Neuts (auto) Absolute Nucleated RBC Nucleated RBC % (auto) PT INR VBG pH VBG pCO2 VBG pO2 VBG HCO3 VBG O2 Saturation VBG Base Excess Sodium 133 L Potassium 4.2 Chloride 97 Carbon Dioxide 22 Anion Gap 18 BUN 117 H Creatinine 1.99 H Estim Creat Clear Calc 32.7 Estimated GFR 33 Random Glucose 142 H Lactic Acid Calcium 9.6 Magnesium 2.1 Total Bilirubin 1.3 H AST 36 ALT 37 Alkaline Phosphatase 148 H Troponin I High Sens NT-Pro-B Natriuret Pep Total Protein 6.3 L Albumin 3.5 Urine Color Yellow Urine Appearance Clear Urine pH 6.5 Ur Specific [place] 1.015 Urine Protein Trace Urine Glucose (UA) 250 H Urine Ketones Negative Urine Blood Negative Urine Nitrite Negative Ur Leukocyte Esterase Negative Influenza Type A (PCR) Influenza Type B (PCR) RSV RNA Qual (PCR) SARS-CoV-2 RNA (RT-PCR)
--- NOTE | 2025-08-06 13:52 | PC.NURSE ---
Verbal order for titration for MD geovanni ok'd, in the room. Emergent situation
[2025-08-06] MEDS: Ketamine HCl/NS 50 MG/5 ML SYRINGE 25 MG IVPUSH (14:03)
[2025-08-06] MEDS: Etomidate 20 MG/10 ML VIAL IVPUSH (14:07)
[2025-08-06] MEDS: fentaNYL citrate/NS 1,000 MCG/100 ML PLAST..BAG 2.5 MCG IVCONT (14:09)
--- NOTE | 2025-08-06 14:32 | ECG_ITS ---
Test Reason : tachy Blood Pressure : */* mmHG Vent. Rate : 134 BPM Atrial Rate : * BPM P-R Int : * ms QRS Dur : 174 ms QT Int : 358 ms P-R-T Axes : * 242 16 degrees QTcB Int : 534 ms Atrial fibrillation with rapid ventricular response Right bundle branch block , plus right ventricular hypertrophy Abnormal ECG When compared with ECG of 06-Aug-2025 13:45, No significant changes seen Referred By: Maximino Cornelius Electronically Signed By: CLARICE CASTRO MD
[2025-08-06] MEDS: vancomycin/NS 2,000 MG/500 ML PLAST..BAG 250 MG IV (14:41)
[2025-08-06 14:53] LABS: ABG HCO3 21 mmol/L (22-26); ABG O2 % Saturation 95.0 %
--- NOTE | 2025-08-06 15:11 | PC.NURSE ---
amiodarone drip started at 1454. titrate 6hours later 2052
--- NOTE | 2025-08-06 15:12 | PC.NURSE ---
verbal orders to hold on the vasopressin and protonix gtt
[2025-08-06 15:13] LABS: ~Lactic Acid-LAB USE ONLY 3.7 mmol/L (0.5-2.0)
--- NOTE | 2025-08-06 15:16 | PC.NURSE ---
og tube to intermittent suction, 450 dark brown in container. norepi gtt infusing - verbal order from MD to titrate down on norepi as tolerated. fent infusing per protocol orders at starting rate 25mcg/hr
--- NOTE | 2025-08-06 16:12 | PC.NURSE ---
[facility] SICJose Humphrey
[2025-08-06 16:40] LABS: Reflex Lactate? 2 Y
[2025-08-07 20:49] LABS: ABG Refer to POC result
== END 2025-08-06 17:15 | disposition short-term general hospital (02) ==
PROVIDERS: Physician Assistant Medical; Emergency Provider Emergency Medicine; PCP Internal Medicine
DX: A41.9 Sepsis, unspecified organism (principal); K63.1 Perforation of intestine (nontraumatic); R65.21 Severe sepsis with septic shock; I48.91 Unspecified atrial fibrillation; I10 Essential (primary) hypertension; I45.10 Unspecified right bundle-branch block; I95.9 Hypotension, unspecified; R06.02 Shortness of breath; N18.9 Chronic kidney disease, unspecified; E11.9 Type 2 diabetes mellitus without complications; Z99.81 Dependence on supplemental oxygen; Z86.79 Personal history of other diseases of the circulatory system; Z79.899 Other long term (current) drug therapy; Z03.818 Encounter for observation for suspected exposure to other biological agents ruled out
CPT/HCPCS: 31500; 36415; 36556; 71045; 74176; 80053; 81003; 82803; 83605; 83735; 83880; 84484; 85025; 85610; 87040; 87637; 93005; 93308; 94002; 96361; 96365; 96366; 96367; 96368; 96375; 99285; 99291; 99292; J0282; J0283; J1171; J2405; J2543; J3010; J3373

== ENCOUNTER → 2025-08-06 10:33 | Outpatient (BNV) | payer MEDICARE, SELFPAY | PROVIDERS: Emergency Provider Emergency Medicine; PCP Internal Medicine; Visit Provider Internal Medicine Cardiovascular Disease | DX: I45.10 Unspecified right bundle-branch block (principal); I51.7 Cardiomegaly; I25.2 Old myocardial infarction; I48.91 Unspecified atrial fibrillation | CPT/HCPCS: 93010 ==

== ENCOUNTER → 2025-08-06 10:41 | Outpatient (BNV) | payer MEDICARE, SELFPAY | PROVIDERS: Emergency Provider Emergency Medicine; PCP Internal Medicine; Visit Provider Radiology Diagnostic Radiology | DX: K63.1 Perforation of intestine (nontraumatic) (principal); K31.89 Other diseases of stomach and duodenum; R91.8 Other nonspecific abnormal finding of lung field; Z93.8 Other artificial opening status; Z45.2 Encounter for adjustment and management of vascular access device; R06.02 Shortness of breath | CPT/HCPCS: 71045; 74176 ==

== ENCOUNTER → 2025-08-06 11:15 | Outpatient (BNV) | payer MEDICARE, SELFPAY | PROVIDERS: Emergency Provider Emergency Medicine; PCP Internal Medicine; Visit Provider Surgery | DX: K27.5 Chronic or unspecified peptic ulcer, site unspecified, with perforation (principal) | CPT/HCPCS: 99284 ==